=== PATIENT | female | born 1980 | race Caucasian/White ===

== ENCOUNTER → 2016-08-01 | Outpatient (CLI) | payer OTHER ==
--- NOTE | 2016-08-01 11:55 | FL ---
EXAMINATION TYPE: FL barium swallow DATE OF EXAM: 08/01/2016 11:29 AM LIMITED UGI-ESOPHAGRAM: CLINICAL HISTORY: History of Zack fundoplication surgery 2015 with recurrent epigastric pain or re flux-like symptoms over last 8 months. Some relief with reflux-like medications. TECHNIQUE: Limited esophagram is performed utilizing 4 oz of liquid ez-Paque. A total of 24 seconds of fluoroscopic time was utilized during procedure. FINDINGS: The patient swallowed contrast without difficulty or delay. Esophageal peristalsis and mo tility are within normal limits. There is good flow of contrast along the diaphragmatic hiatus into t he stomach, there is no evidence of contrast extravasation to suggest leak. No recurrent hiatal herni a is seen. Patient is asymptomatic. IMPRESSION: No significant finding is seen to account for patient's symptoms. No recurrent sizable hi atal hernia is evident.
== END | disposition home or self-care (01) ==
LOC: RADFLWHC 10:52
PROVIDERS: ATTEND Surgery
DX: K21.9 Gastro-esophageal reflux disease without esophagitis (principal)
CPT/HCPCS: 74220

== ENCOUNTER 2016-08-11 08:31 | Day surgery (SDC) | payer OTHER ==
[2016-08-08 11:36] VITALS: BMI 38.7
[2016-08-11 09:09] VITALS: RESP 16; TEMP 97.2
[2016-08-11] MEDS: LACTATED RINGERS 1,000 ML IV SCH ×2 (09:17→09:23)
[2016-08-11] MEDS ORDERED: PROPOFOL 10 MG/ML 20 ML VIAL IV ONE (09:25)
--- NOTE | 2016-08-11 09:28 | P.GSHP ---
History of Present Illness H&P Date: 08/11/16 Chief Complaint: GERD This is a 35-year-old female referred from Dr. Wilfrid Gann. Patient presents today for EGD. She's had issues with GERD. - Constitutional Constitutional: Reports as per HPI Past Medical History Past Medical History: Fibromyalgia, GERD/Reflux, Rheumatoid Arthritis (RA) Additional Past Medical History / Comment(s): CELIAC DISEASE, HX OF HIATAL HERNIA REPAIR( 2014)., STATES NOW HAVING UPPER ABD PAIN, HEARTBURN AND OCCASIONAL NAUSEA. History of Any Multi-Drug Resistant Organisms: None Reported Past Surgical History: Section, Cholecystectomy, Hernia Repair, Orthopedic Surgery Additional Past Surgical History / Comment(s): left thumb, rt hand and left foot surgery, carpal tunnel, jeanette fundoplasty 2014 Past Anesthesia/Blood Transfusion Reactions: No Reported Reaction, Motion Sickness Additional Past Anesthesia/Blood Transfusion Reaction / Comment(s): mother- PONV Past Psychological History: Anxiety Additional Psychological History / Comment(s): PAST HX OF ANXIETY. Smoking Status: Current every day smoker Past Alcohol Use History: None Reported Additional Past Alcohol Use History / Comment(s): started smoking @age of 16. SMOKES 1/2 PPD. SMOKING FOR APPROX 20 YEARS. Past Drug Use History: None Reported - Past Family History Mother Family Medical History: No Reported History Additional Family Medical History / Comment(s): GRANDMOTHER- MULTIPLE DVTS Medications and Allergies Home Medications Medication Instructions Recorded Confirmed Type DULoxetine HCL [Cymbalta] 60 mg PO DAILY 02/09/14 08/11/16 History Methotrexate Sodium [Methotrexate] 15 mg PO TU 01/22/15 08/11/16 History Acetaminophen [Tylenol] 325 mg PO DIRECTED PRN 08/08/16 08/11/16 History Omeprazole [PriLOSEC] 40 mg PO DAILY 08/08/16 08/11/16 History Allergies Allergy/AdvReac Type Severity Reaction Status Date / Time gluten Allergy Unknown Verified 08/11/16 08:55 latex Allergy Itching, Verified 08/11/16 08:55 red skin naproxen Allergy Itching Verified 08/11/16 08:55 feels like bugs are crawling on her Penicillins Allergy Anaphylaxis Verified 08/11/16 08:55 Surgical - Exam Vital Signs Temp Pulse Resp BP Pulse Ox 97.2 F L 75 16 121/71 98 08/11/16 09:07 08/11/16 09:07 08/11/16 09:07 08/11/16 09:07 08/11/16 09:07 - General BMI 39 well developed, no distress - Eyes PERRL - ENT normal pinna - Neck no masses - Respiratory normal expansion - Cardiovascular Rhythm: regular - Abdomen Abdomen: soft, non tender Assessment and Plan Plan: GERD. We'll perform EGD.
--- NOTE | 2016-08-11 09:40 | P.OP ---
Date of Procedure: 08/11/16 Preoperative Diagnosis: GERD Postoperative Diagnosis: Mild antral gastritis No evidence of esophagitis No evidence of hiatal hernia Procedure(s) Performed: EGD Anesthesia: MAC Surgeon: Ed Sanchez Pathology: other (Antrum) Condition: stable Disposition: PACU Description of Procedure: The patient's placed on the endoscopy table in the lateral position. She received IV sedation. The gastroscope some placed oropharynx and passed into the esophagus and into the stomach. Scope was then placed through the pylorus. The first and second portion of the duodenumAppeared Normal. Scope was then brought back and the antrum thisAppeared Mildly inflamed. A biopsy was performed. The scope was retroflexed and remainder of the stomach appeared normal. There was no significant hiatal hernia. The GE junction was at 40 cm. The patient had a previous fundal plication wrap and this appeared normal. The distal esophagus appeared normal. The proximal esophagusAppeared Normal. Scope was withdrawn for patient.
[2016-08-11 10:06] VITALS: BP 101/65; PULSE 79
== END 2016-08-11 10:20 | disposition home or self-care (01) ==
LOC: ORWHC2ENDO 08:31
PROVIDERS: ATTEND Surgery
DX: K21.9 Gastro-esophageal reflux disease without esophagitis (principal); K29.70 Gastritis, unspecified, without bleeding; F17.210 Nicotine dependence, cigarettes, uncomplicated; M06.9 Rheumatoid arthritis, unspecified; K90.0 Celiac disease; M79.7 Fibromyalgia; Z88.0 Allergy status to penicillin; Z79.899 Other long term (current) drug therapy; Z91.040 Latex allergy status; K29.50 Unspecified chronic gastritis without bleeding
CPT/HCPCS: 88305; 88342; 43239; J2704; 99153

== ENCOUNTER → 2016-12-23 | Outpatient (CLI) | payer OTHER ==
--- NOTE | 2016-12-23 15:54 | MR ---
EXAMINATION TYPE: MR lumbar spine wo con DATE OF EXAM: 12/23/2016 COMPARISON: NONE HISTORY: Back pain TECHNIQUE: T1 and T2 axial and sagittal images of the lumbar spine are submitted. FINDINGS: There is no abnormal signal seen within the visualized spinal cord or paraspinal soft tissu es. Simple appearing left renal cyst noted. At L1-2 there is no disc herniation, canal stenosis, or foraminal encroachment. No degenerative disc disease. At L2-3 there is no disc herniation, canal stenosis, or foraminal encroachment. No degenerative disc disease. At L3-4 there is no disc herniation, canal stenosis, or foraminal encroachment. No degenerative disc disease. At L4-5 there is loss of disc signal and space with a small focal central disc herniation with mild e ffacement of thecal sac. Neural foramina remain patent. There is facet arthropathy. At L5-S1 there is severe degenerative disc disease and facet arthropathy. No canal stenosis, disc her niation or foraminal encroachment. IMPRESSION: 1. Focal small central disc herniation L4-L5 with mild effacement of thecal sac. 2. Severe degenerative disc disease L5-S1
== END | disposition home or self-care (01) ==
LOC: RADMRIMAIN 15:04
PROVIDERS: ATTEND Family Medicine
DX: M51.17 Intervertebral disc disorders with radiculopathy, lumbosacral region (principal)
CPT/HCPCS: 72148

== ENCOUNTER → 2017-12-17 | Outpatient (CLI) | payer OTHER ==
--- NOTE | 2017-12-17 11:00 | FL ---
EXAMINATION: Upper GI examination with esophagram DATE OF EXAM: 12/17/2017 CLINICAL INDICATION: 37-year-old female with persistent and worsening GERD despite Yesenia fundoplicat ion 3 years ago. Worsening over the last 1.5 months. COMPARISON: 08/01/2016 Total Flouroscopy Time: 2.44 minutes Total images: 31 FINDINGS: Mild aspiration is noted during assessment of the cervical esophagus. The patient's cough reflex is i ntact and the patient reports similar frequent episodes during eating/drinking. Hypopharyngeal anatom y is maintained. The thoracic portion has a normal course and caliber and normal motility. The mucosa is normal and no persistent filling defect is encountered. There is relative focal narrowing just above the level of the diaphragm and then a small hiatal herni a is seen above this narrowing, refer to image 29 for a environmental marketing representative image. Mild to moderate gastroesophageal reflux is noted with positional maneuvers. The stomach and duodenum are free of any persistent filling defect and demonstrate a normal mucosal p attern. IMPRESSION: 1. Mild aspiration. The cough reflex is intact. As the patient reports similar frequent episodes, con manager document control speech pathology consultation. 2. Findings suspected to represent a slipped wrap located above the diaphragm in combination with a r ecurrent small hiatal hernia located above the wrap. 3. [id number] gastroesophageal reflux.
== END | disposition home or self-care (01) ==
LOC: RADFLMAIN 09:32
PROVIDERS: ATTEND Surgery
DX: K21.9 Gastro-esophageal reflux disease without esophagitis (principal); R05 Cough
CPT/HCPCS: 74240

== ENCOUNTER 2018-01-05 09:41 | Day surgery (SDC) | payer OTHER ==
[2018-01-04 11:30] VITALS: BMI 40.3
[~2018-01-05 09:41] MED LIST: LACTATED RINGERS 1,000 ML IV SCH; LIDOCAINE 1% 20 ML VIAL (10MG/ML) FOR IV START INTRADERMA PRN
[2018-01-05 10:10] VITALS: TEMP 97.3
[2018-01-05] MEDS ORDERED: PROPOFOL 10 MG/ML 20 ML VIAL IV ONE (10:43)
--- NOTE | 2018-01-05 10:47 | P.GSHP ---
History of Present Illness H&P Date: 01/05/18 Chief Complaint: GERD This is a 37-year-old female who presents today for EGD. She's had issues with GERD and dysphagia. Her recent esophagram showed is suggestive of a slipped fundoplication. Past Medical History Past Medical History: Fibromyalgia, GERD/Reflux, Rheumatoid Arthritis (RA) Additional Past Medical History / Comment(s): past hx. hiatal hernia-had surg., celiac disease History of Any Multi-Drug Resistant Organisms: None Reported Past Surgical History: Section, Cholecystectomy, Orthopedic Surgery Additional Past Surgical History / Comment(s): left thumb, rt hand and left foot surgery, carpal tunnel, jeanette fundoplasty Feb. 2014 Past Anesthesia/Blood Transfusion Reactions: No Reported Reaction, Motion Sickness Additional Past Anesthesia/Blood Transfusion Reaction / Comment(s): mother- PONV Smoking Status: Current every day smoker - Past Family History Mother Family Medical History: No Reported History Medications and Allergies Home Medications Medication Instructions Recorded Confirmed Type DULoxetine HCL [Cymbalta] 60 mg PO DAILY 02/09/14 01/05/18 History Omeprazole [PriLOSEC] 40 mg PO BID 08/08/16 01/05/18 History Adalimumab [Humira] 10 mg SQ Q14D 01/04/18 01/05/18 History Cyclobenzaprine [Flexeril] 10 mg PO BID 01/04/18 01/05/18 History Allergies Allergy/AdvReac Type Severity Reaction Status Date / Time gluten Allergy Unknown Verified 01/05/18 10:01 latex Allergy Itching, Verified 01/05/18 10:01 red skin naproxen Allergy Itching Verified 01/05/18 10:01 feels like bugs are crawling on her Penicillins Allergy Anaphylaxis Verified 01/05/18 10:01 Surgical - Exam Vital Signs Temp Pulse Pulse Ox 97.3 F L 78 96 01/05/18 10:05 01/05/18 10:05 01/05/18 10:05 Body mass index 40 - General well developed, no distress - Eyes PERRL - ENT normal pinna - Neck no masses - Respiratory normal expansion - Cardiovascular Rhythm: regular - Abdomen Abdomen: soft, non tender Assessment and Plan Assessment: GERD, dysphagia. Possible slipped fundoplication. Patient will undergo EGD.
--- NOTE | 2018-01-05 11:01 | P.OP ---
Date of Procedure: 01/05/18 Preoperative Diagnosis: GERD Dysphagia Postoperative Diagnosis: Antral gastritis Recurrent hiatal hernia Esophagitis Procedure(s) Performed: EGD Anesthesia: MAC Surgeon: Ed Sanchez Pathology: other (Antrum, esophagus) Condition: stable Disposition: PACU Description of Procedure: The patient's placed on the endoscopy table in the lateral position. She received IV sedation. The gastroscope placed oropharynx and passed in the esophagus into the stomach. Scope was then placed through the pylorus. The first and second portion of the duodenum appeared normal. The scope was then brought back the antrum this was mildly inflamed. A biopsies performed. The scope was unretroflexed and the remainder of the stomach appeared normal. The patient was noted to have recurrent hiatal hernia. The fundal plication was above the diaphragm. The scope was then brought back into the proximal stomach. The hiatal hernia was visualized. The GE junction was at 38 cm. The distal esophagus appeared inflamed a biopsies performed. The proximal esophagus appeared normal. Scope was withdrawn for patient.
[2018-01-05 11:11] VITALS: RESP 16
[2018-01-05 11:22] VITALS: BP 130/68; PULSE 88
== END 2018-01-05 11:45 | disposition home or self-care (01) ==
LOC: ORWHC2ENDO 09:41
PROVIDERS: ATTEND Surgery
DX: K21.0 Gastro-esophageal reflux disease with esophagitis (principal); K44.9 Diaphragmatic hernia without obstruction or gangrene; M79.7 Fibromyalgia; M06.9 Rheumatoid arthritis, unspecified; F17.200 Nicotine dependence, unspecified, uncomplicated; R13.10 Dysphagia, unspecified; Z79.899 Other long term (current) drug therapy; Z88.0 Allergy status to penicillin; Z88.6 Allergy status to analgesic agent; Z91.02 Food additives allergy status; Z91.040 Latex allergy status; F39 Unspecified mood [affective] disorder
CPT/HCPCS: 81025; 88305; 43239; J2704

== ENCOUNTER → 2018-01-08 | Outpatient (CLI) | payer OTHER ==
[2018-01-08 17:30] LABS: Basophils % (A) 0 %; Eosinophils # (A) 0.2 k/uL (0-0.7); Eosinophils % (A) 2 %; HCT 40.7 % (34.0-46.0); HGB 12.8 gm/dL (11.4-16.0); Hypochromasia Slight; Lymphocytes # (A) 4.7 k/uL (1.0-4.8); Lymphocytes % (A) 39 %; MCH 26.1 pg (25.0-35.0); MCHC 31.5 g/dL (31.0-37.0); MCV 82.8 fL (80.0-100.0); Mean Platelet Volume 6.1; Monocytes # (A) 0.5 k/uL (0-1.0); Monocytes % (A) 5 %; Neutrophils # (A) 6.3 k/uL (1.3-7.7); Neutrophils % (A) 52 %; Platelet Count 343 k/uL (150-450); RBC 4.91 m/uL (3.80-5.40); WBC 12.1 k/uL (3.8-10.6)
== END | disposition home or self-care (01) ==
LOC: LABPAT 16:39
PROVIDERS: ATTEND Surgery
DX: Z01.812 Encounter for preprocedural laboratory examination (principal); K21.0 Gastro-esophageal reflux disease with esophagitis; R13.19 Other dysphagia; F17.200 Nicotine dependence, unspecified, uncomplicated; D64.9 Anemia, unspecified
CPT/HCPCS: 36415; 85025

== ENCOUNTER 2018-01-11 09:32 | Day surgery (SDC) | payer OTHER ==
[2018-01-04 11:41] VITALS: BMI 40.3
[~2018-01-11 09:32] MED LIST changes: +CLINDAMYCIN 900 MG in DEXTROSE 5% IN WATER 50 ML IVPB ONE; +DEXAMETHASONE SOD PHOSPHATE 10 MG/ML 1 ML VIAL IV ONE; +HEPARIN SODIUM,PORCINE 5,000 UNIT/ML 1 ML VIAL SQ ONE; +HYDROmorphone 0.5 MG/0.5 ML SYRINGE IVP PRN; -LACTATED RINGERS 1,000 ML IV SCH; +LEVOFLOXACIN 500MG-D5W PMX 500 MG in DEXTROSE/WATER 1 100ML.BAG IVPB ONE; +MIDAZOLAM 2 MG/2 ML VIAL IV PRN; +ONDANSETRON 4 MG/2 ML VIAL IVP ONE; +SCOPOLAMINE 1.5MG/72HR PATCH TRANSDERM ONE
[2018-01-11] MEDS: LACTATED RINGERS 1,000 ML IV SCH (09:51)
[2018-01-11] MEDS ORDERED: DEXAMETHASONE SOD PHOSPHATE 10 MG/ML 1 ML VIAL IV ONE (09:53)
[2018-01-11] MEDS ORDERED: SCOPOLAMINE 1.5MG/72HR PATCH TRANSDERM ONE (09:54)
[2018-01-11] MEDS ORDERED: ONDANSETRON 4 MG/2 ML VIAL IVP ONE (09:54)
--- NOTE | 2018-01-11 11:09 | P.GSHP ---
History of Present Illness H&P Date: 01/11/18 Chief Complaint: GERD This a 37-year-old female who developed a recurrent hiatal hernia. Patient presents today for laparoscopic repair of hiatal hernia. She's had worsening dysphagia and GERD. Past Medical History Past Medical History: Fibromyalgia, GERD/Reflux, Rheumatoid Arthritis (RA) Additional Past Medical History / Comment(s): past hx. hiatal hernia-had surg., celiac disease History of Any Multi-Drug Resistant Organisms: None Reported Past Surgical History: Section, Cholecystectomy, Orthopedic Surgery Additional Past Surgical History / Comment(s): left thumb, rt hand and left foot surgery, carpal tunnel, jeanette fundoplasty Feb. 2014 Past Anesthesia/Blood Transfusion Reactions: No Reported Reaction, Motion Sickness Additional Past Anesthesia/Blood Transfusion Reaction / Comment(s): mother- PONV Smoking Status: Current every day smoker - Past Family History Mother Family Medical History: No Reported History Medications and Allergies Home Medications Medication Instructions Recorded Confirmed Type DULoxetine HCL [Cymbalta] 60 mg PO DAILY 02/09/14 01/11/18 History Omeprazole [PriLOSEC] 40 mg PO BID 08/08/16 01/11/18 History Adalimumab [Humira] 10 mg SQ Q14D 01/04/18 01/11/18 History Cyclobenzaprine [Flexeril] 10 mg PO BID 01/04/18 01/11/18 History Allergies Allergy/AdvReac Type Severity Reaction Status Date / Time gluten Allergy Unknown Verified 01/11/18 09:44 latex Allergy Itching, Verified 01/11/18 09:44 red skin naproxen Allergy Itching Verified 01/11/18 09:44 feels like bugs are crawling on her Penicillins Allergy Anaphylaxis Verified 01/11/18 09:44 Surgical - Exam Vital Signs Temp Pulse Resp BP Pulse Ox 97.2 F L 98 18 132/57 100 01/11/18 09:48 01/11/18 09:48 01/11/18 09:48 01/11/18 09:48 01/11/18 09:48 - General well developed, no distress - Eyes PERRL - ENT normal pinna - Neck no masses - Respiratory normal expansion - Cardiovascular Rhythm: regular - Abdomen Abdomen: soft, non tender Assessment and Plan Assessment: GERD, dysphagia. Recurrent hiatal hernia We'll perform laparoscopic repair of hiatal hernia
[2018-01-11] MEDS ORDERED: fentaNYL (PF) 50 MCG/ML 2 ML AMP ONE (11:30)
[2018-01-11] MEDS ORDERED: ROCURONIUM BROMIDE 10 MG/ML 10 ML VIAL IV ONE (11:30)
[2018-01-11] MEDS ORDERED: GLYCOPYRROLATE 0.2 MG/ML 2 ML VIAL ONE (11:30)
[2018-01-11] MEDS ORDERED: PROPOFOL 10 MG/ML 20 ML VIAL IV ONE (11:30)
[2018-01-11] MEDS ORDERED: MIDAZOLAM 2 MG/2 ML VIAL ONE (11:30)
[2018-01-11] MEDS ORDERED: NEOSTIGMINE 1 MG/ML 10 ML VIAL ONE (11:30)
[2018-01-11] MEDS ORDERED: LIDOCAINE 1% INJ 10MG/ML (20 ML MDV) ONE (11:30)
[2018-01-11] MEDS ORDERED: ePHEDrine SULFATE/0.9% NACL/PF 50 MG/5 ML SYRINGE IV ONE (11:30)
[2018-01-11] MEDS ORDERED: HYDROmorphone (PF) 1 MG/ML ONE (11:30)
[2018-01-11] MEDS ORDERED: SUCCINYLCHOLINE CHLORIDE 100 MG/5 ML SYR IV ONE (11:30)
[2018-01-11] MEDS ORDERED: ROPIVACAINE 5 MG/ML 30 ML VIAL MISCELLANE ONE ×2 (11:35)
[2018-01-11] MEDS ORDERED: LACTATED RINGERS 1,000 ML IV ONE (12:09)
[2018-01-11] MEDS ORDERED: ONDANSETRON 4 MG/2 ML VIAL IVP PRN (12:53)
[2018-01-11] MEDS ORDERED: HYDROmorphone 1 MG/ML 1 ML SYRINGE IVP PRN (12:53)
[2018-01-11] MEDS ORDERED: HYDROmorphone 1 MG/ML 1 ML SYRINGE IVP ONE ×2 (13:31→13:41)
--- NOTE | 2018-01-11 14:47 | P.OP ---
Date of Procedure: 01/11/18 Preoperative Diagnosis: Recurrent hiatal hernia GERD Postoperative Diagnosis: Recurrent hiatal hernia Adhesions Procedure(s) Performed: Laparoscopic repair of recurrent hiatal hernia and 180 fundal plication wrap Laparoscopic lysis of adhesions Anesthesia: ELIAS Surgeon: Ed Sanchez Estimated Blood Loss (ml): 10 Pathology: none sent Condition: stable Disposition: PACU Description of Procedure: TThe patient was placed on the operating table in the supine position. The patient received general anesthesia. And was placed in dorsal lithotomy position. The patient was prepped and draped in the usual sterile fashion. The skin incision sites were anesthetized with 1% local Xylocaine. The skin was incised in the left periumbilical area and then using a blade less 5 mm trocar under direct visualization panel cavity was entered. After adequate insufflation the laparoscope was then placed into the peritoneal cavity. Next a 5 mm trochars placed in the right epigastric position. Another 5 millimeter trocar the right lateral position. Another 5 millimeter trocar in the left lateral position a 5 mm trocar is placed in the left epigastric position. And then the initial 5 mm trocar was exchanged for a 10 mm trocar. The left lateral lobe liver was retracted. The patient's hiatus was examined. There is evidence of recurrent hiatal hernia. Part of the fundoplication wrap was within the hernia. There were adhesions noted between the stomach and liver. These were lysed with sharp dissection. Using the Harmonic scissors the fundoplication was taken down and the isac of the diaphragm were dissected free. The sutures were then cut and the fundoplication was completely taken down. The crural defect was then closed using 2-0 Ethibond suture. The fundoplication was then performed using 2 -0 Ethibond. 180 fundoplication was performed. There is no bleeding from the hiatus the stomach. The stomach was insufflated with methylene blue normal saline. There is no evidence of any extravasation. At this point the trochars withdrawn. The abdomen was desufflated. The skin was closed interrupted 3-0 Monocryl suture. Dermabond was applied.
[2018-01-11 15:27] LABS: Basophils % (A) 0 %; Eosinophils % (A) 0 %; HCT 41.1 % (34.0-46.0); HGB 12.6 gm/dL (11.4-16.0); Hypochromasia Slight; Lymphocytes % (A) 12 %; MCH 25.1 pg (25.0-35.0); MCHC 30.6 g/dL (31.0-37.0); MCV 82.1 fL (80.0-100.0); Mean Platelet Volume 6.4; Monocytes # (A) 0.2 k/uL (0-1.0); Monocytes % (A) 2 %; Neutrophils # (A) 7.3 k/uL (1.3-7.7); Neutrophils % (A) 85 %; Platelet Count 281 k/uL (150-450); RBC 5.01 m/uL (3.80-5.40); RDW 15.8 % (11.5-15.5); WBC 8.6 k/uL (3.8-10.6)
[2018-01-11] MEDS: D5-0.45% NACL WITH KCL 20MEQ/L 1,000 ML IV SCH ×2 (15:30→21:13)
[2018-01-11 15:41] LABS: Anion Gap 6 mmol/L; Blood Urea Nitrogen 9 mg/dL (7-17); Calcium 8.6 mg/dL (8.4-10.2); Carbon Dioxide 26 mmol/L (22-30); Chloride 104 mmol/L (98-107); Glucose 104 mg/dL (74-99); Potassium 5.2 mmol/L (3.5-5.1); Sodium 136 mmol/L (137-145)
--- NOTE | 2018-01-11 16:16 | FL ---
EXAMINATION TYPE: FL esophagus cervic/pharynx DATE OF EXAM: 01/11/2018 HISTORY: Status post Yesenia fundoplication revision COMPARISON: NONE TECHNIQUE: Limited esophagram is performed utilizing 10 oz of Omnipaque 350. A total of 1 minute and 5 seconds of fluoroscopic time was utilized during procedure. 15 fluoroscopic images were saved. FINDINGS: The patient swallowed contrast without difficulty or delay. Esophageal peristalsis and mo tility are within normal limits. There is moderately delayed flow of contrast along the diaphragmatic hiatus into the stomach, there is no evidence of contrast extravasation to suggest leak. No persiste nt hiatal hernia is seen. Patient remains asymptomatic. IMPRESSION: No evidence of leak status post Zack fundoplication surgery earlier today. Moderately d elayed passage of contrast along the diaphragmatic hiatus into the stomach likely related to postoper ative edema.
[2018-01-11] MEDS: METOCLOPRAMIDE 5 MG/ML 2 ML VIAL IVP SCH ×2 (17:54→23:53)
[2018-01-11] MEDS: FAMOTIDINE 20 MG/2 ML VIAL IV SCH (21:12)
[2018-01-12] MEDS: METOCLOPRAMIDE 5 MG/ML 2 ML VIAL IVP SCH ×2 (06:01→11:54)
[2018-01-12] MEDS: LACTATED RINGERS 1,000 ML IV SCH (06:09)
[2018-01-12] MEDS: D5-0.45% NACL WITH KCL 20MEQ/L 1,000 ML IV SCH (06:10)
[2018-01-12 08:24] VITALS: BP 114/68; PULSE 73; RESP 18; TEMP 97.7
[2018-01-12] MEDS: FAMOTIDINE 20 MG/2 ML VIAL IV SCH (08:35)
[2018-01-12] MEDS ORDERED: ENOXAPARIN 40 MG/0.4 ML SYRINGE SQ SCH (09:00)
[2018-01-12] MEDS ORDERED: HYDROcodone/APAP 5-325MG 1 EACH TAB PO PRN (10:34)
--- NOTE | 2018-01-12 10:38 | P.CONS ---
History of Present Illness - Reason for Consult Consult date: 01/12/18 medical management Requesting physician: Ed Sanchez - Chief Complaint GERD - History of Present Illness 37-year-old female who underwent laparoscopic Yesenia fundoplication and repair of recurrent hiatal hernia on 01/11/[address] Burns was consulted for medical management. The patient has a history of fibromyalgia, rheumatoid arthritis, anxiety, and depression. She has a long- standing history of GERD. She is a current every day smoker. The patient was seen and examined at the bedside. The patient is awake and alert. Patient states her pain is tolerable at this time. She does complain of left shoulder pain. Encouraged patient to increase activity and ambulate in the hallway. Patient reports she is using her incentive spirometer 10 times an hour. She denies shortness of breath. Denies chest pain or pressure. Denies nausea or vomiting. She reports she is tolerating clear liquid diet. She is hopeful to be discharged home today. Review of Systems Those systems with pertinent positive or pertinent negative responses have been documented in the HPI Past Medical History Past Medical History: Fibromyalgia, GERD/Reflux, Rheumatoid Arthritis (RA) Additional Past Medical History / Comment(s): past hx. hiatal hernia-had surg., celiac disease History of Any Multi-Drug Resistant Organisms: None Reported Past Surgical History: Section, Cholecystectomy, Orthopedic Surgery Additional Past Surgical History / Comment(s): left thumb, rt hand and left foot surgery, carpal tunnel, jeanette fundoplasty Feb. 2014 Past Anesthesia/Blood Transfusion Reactions: No Reported Reaction, Motion Sickness Additional Past Anesthesia/Blood Transfusion Reaction / Comm: mother- PONV Past Psychological History: Anxiety, Depression Smoking Status: Current every day smoker Past Alcohol Use History: None Reported Additional Past Alcohol Use History / Comment(s): started smoking @age of 16, < ppd Past Drug Use History: None Reported - Past Family History Mother Family Medical History: No Reported History Medications and Allergies Home Medications Medication Instructions Recorded Confirmed Type DULoxetine HCL [Cymbalta] 60 mg PO DAILY 02/09/14 01/11/18 History Omeprazole [PriLOSEC] 40 mg PO BID 08/08/16 01/11/18 History Adalimumab [Humira] 10 mg SQ Q14D 01/04/18 01/11/18 History Cyclobenzaprine [Flexeril] 10 mg PO BID 01/04/18 01/11/18 History Allergies Allergy/AdvReac Type Severity Reaction Status Date / Time gluten Allergy Unknown Verified 01/11/18 09:44 latex Allergy Itching, Verified 01/11/18 09:44 red skin naproxen Allergy Itching Verified 01/11/18 09:44 feels like bugs are crawling on her Penicillins Allergy Anaphylaxis Verified 01/11/18 09:44 Physical Exam Vitals: Vital Signs Temp Pulse Pulse Resp BP Pulse Ox 01/12/18 08:05 97.7 F 73 18 114/68 95 01/11/18 22:32 86 12 94 L 01/11/18 19:35 98.1 F 114 H 20 106/49 93 L 01/11/18 16:57 66 12 126/75 96 01/11/18 16:27 66 120/77 96 01/11/18 15:20 69 12 130/86 93 L 01/11/18 14:50 64 113/87 92 L 01/11/18 14:35 67 108/84 87 L 01/11/18 14:20 62 111/69 90 L 01/11/18 14:05 97.8 F 61 19 112/42 95 01/11/18 13:45 62 14 121/59 92 L 01/11/18 13:30 64 14 123/59 96 01/11/18 13:15 63 16 118/55 96 01/11/18 12:53 97.4 F L 73 15 130/60 96 Intake and Output 01/11/18 01/12/18 01/12/18 22:59 06:59 14:59 Output Total 510 Balance -510 Output: Urine 510 Other: # Voids 1 1 GENERAL: This is a 37-year-old female in no apparent distress at the time of examination. Pleasant and cooperative. HEENT: Head is atraumatic, normocephalic. Pupils are equal, round, and reactive to light. Sclerae anicteric. Conjunctivae are clear. Mucus membranes of the mouth are moist. Neck is supple. RESPIRATORY: Clear to ausculation. No wheezes, rales, or rhonchi. No use of accessory muscles. Patient maintaining oxygen saturation greater than 92%. No chest wall tenderness is noted on palpation or with deep breathing. CARDIOVASCULAR: Regular rate and rhythm. S1 and S2 noted. No systolic or diastolic murmur auscultated. No JVD noted. No S3 or S4 noted. GASTROINTESTINAL: Laparoscopic surgical sites without signs of infection. No distention noted. Abdomen soft and round. Normal active bowel sounds auscultated x 4 quadrants. INTEGUMENTARY: No cyanosis. No jaundice. No rashes noted. No cellulitis noted. EXTREMITIES: 2+ peripheral pulses. No evidence of peripheral edema. No calf tenderness noted. NEUROLOGIC: Cranial nerves II-XII intact. PSYCHIATRIC: Awake, alert, and oriented X 3. Appropriate affect. Intact judgement and insight. Results CBC & Chem 7: 01/11/18 14:54 01/11/18 14:54 Labs: Abnormal Lab Results - Last 24 Hours (Table) 01/11/18 01/11/18 Range/Units 14:54 14:54 MCHC 30.6 L (31.0-37.0) g/dL RDW 15.8 H (11.5-15.5) % Sodium 136 L (137-145) mmol/L Potassium 5.2 H (3.5-5.1) mmol/L Glucose 104 H (74-99) mg/dL Assessment and Plan Plan: ASSESSMENT: Gastroesophageal reflux disease and recurrent hiatal hernia, status post laparoscopic Yesenia fundoplication, POD #1 History of fibromyalgia History of rheumatoid arthritis History of anxiety and depression, unspecified Nicotine dependence, patient is a current cigarette smoker Morbid obesity: BMI 40.4 PLAN: Continue postoperative surgical care per Dr. Sanchez Pain control Activity as tolerated. Encourage ambulation in the hallway Home meds as appropriate Incentive spirometer 10 times an hour while awake Monitor labs GI prophylaxis: Pepcid 20 mg IV every 12 DVT prophylaxis: Lovenox 40 mg subcu daily Monitor vital signs and address as appropriate Discharge planning: Patient to return home when stable Further recommendations pending patient's course Patient is cleared for discharge from a medical standpoint when deemed appropriate by Dr. Sanchez Nurse practitioner note has been reviewed by physician. Signing provider agrees with the documented findings, assessment, and plan of care.
--- NOTE | 2018-01-12 13:42 | P.DS ---
Providers Date of admission: 01/11/2018 Expected date of discharge: 01/12/18 Attending physician: Ed Sanchez Consults: 01/12/18 09:29 Consult Physician Routine Consulting Provider: Wilfrid Burns Consult Reason/Comments: Medical management Do you want consulting provider notified?: Yes Primary care physician: Wilfrid Burns [place] [facility] Course: This a 36-year-old female who underwent laparoscopic repair of recurrent hiatal hernia. Please see hospital chart for details. Procedures: Laparoscopic repair of recurrent hiatal hernia Patient Condition at Discharge: Good Plan - Discharge Summary Discharge Rx Participant: Yes New Discharge Prescriptions: New Docusate [Colace] 100 mg PO BID #20 capsule HYDROcodone/APAP 7.5-325MG [Tully 7.5-325] 1 tab PO Q4H PRN 3 Days #18 tab PRN Reason: Pain Continue DULoxetine HCL [Cymbalta] 60 mg PO DAILY Cyclobenzaprine [Flexeril] 10 mg PO BID Adalimumab [Humira] 10 mg SQ Q14D No Action Omeprazole [PriLOSEC] 40 mg PO BID Discharge Medication List DULoxetine HCL [Cymbalta] 60 mg PO DAILY 02/09/14 [History] Omeprazole [PriLOSEC] 40 mg PO BID 08/08/16 [History] Adalimumab [Humira] 10 mg SQ Q14D 01/04/18 [History] Cyclobenzaprine [Flexeril] 10 mg PO BID 01/04/18 [History] Docusate [Colace] 100 mg PO BID #20 capsule 01/12/18 [Rx] HYDROcodone/APAP 7.5-325MG [Tully 7.5-325] 1 tab PO Q4H PRN 3 Days #18 tab 01/12 [Rx] Follow up Appointment(s)/Referral(s): Wilfrid Burns DO [Primary Care Provider] - 2 Weeks Ed Sanchez MD [STAFF PHYSICIAN] - 1 Week Patient Instructions/Handouts: *Surgery [facility] - Scopalamine Patch Instructions Discharge Disposition: HOME SELF-CARE
[2018-01-12] MEDS ORDERED: CYCLOBENZAPRINE 10 MG TAB PO SCH (21:00)
[2018-01-13] MEDS ORDERED: DULoxetine HCL 60 MG CAPSULE.DR PO SCH (09:00)
== END 2018-01-12 14:36 | disposition home or self-care (01) ==
LOC: OR 09:32 → 6PED 13:11 → OR 01-12 14:36
PROVIDERS: ATTEND Surgery
DX: K44.9 Diaphragmatic hernia without obstruction or gangrene (principal); K66.0 Peritoneal adhesions (postprocedural) (postinfection); K21.9 Gastro-esophageal reflux disease without esophagitis; M79.7 Fibromyalgia; M06.9 Rheumatoid arthritis, unspecified; F41.9 Anxiety disorder, unspecified; F32.9 Major depressive disorder, single episode, unspecified; K63.9 Disease of intestine, unspecified; E66.01 Morbid (severe) obesity due to excess calories; Z68.41 Body mass index [BMI] 40.0-44.9, adult; Z90.49 Acquired absence of other specified parts of digestive tract; Z79.899 Other long term (current) drug therapy; Z88.6 Allergy status to analgesic agent; Z91.040 Latex allergy status; Z88.0 Allergy status to penicillin; Z91.018 Allergy to other foods; F17.210 Nicotine dependence, cigarettes, uncomplicated
CPT/HCPCS: 81025; 80048; 85025; 74210; 43280; J1644; J1100; J2765 ×2; J2405; J1956; J1650; J1170; J2795; Q9967; 86850; 86900; 86901

== ENCOUNTER → 2018-03-11 | Outpatient (CLI) | payer OTHER ==
--- NOTE | 2018-03-12 03:47 | MR ---
EXAMINATION TYPE: MR ankle RT wo/w con DATE OF EXAM: 03/11/2018 COMPARISON: None HISTORY: Rt ankle pain x 1 month, no trauma CONTRAST: Standard multiplanar, multisequence MRI departmental protocol utilizing 11.5 mL intravenous Gadavist gadolinium contrast. FINDINGS: Achilles tendon is intact. Plantar fascia appears normal. Ankle mortise is anatomic. The co llateral ligaments appear intact. The medial and lateral flexor tendons of the ankle appear intact. T arsal bones appear intact. I see no focal bone destruction. There is no evidence of a soft tissue mas s. There is a very small ankle joint effusion. IMPRESSION: No fracture seen. Tiny ankle joint effusion consistent with mild synovitis. No evidence of ligament o r tendon tear. Normal joint spaces.
== END | disposition home or self-care (01) ==
LOC: RADMRIMAIN 19:22
PROVIDERS: ATTEND Internal Medicine Rheumatology
DX: M12.871 Other specific arthropathies, not elsewhere classified, right ankle and foot (principal)
CPT/HCPCS: 73723; A9581

== ENCOUNTER → 2018-04-14 | Outpatient (CLI) | payer OTHER ==
[2018-04-15 03:48] LABS: Folate, Serum 3.1 ng/mL
[2018-04-15 04:30] LABS: C Reactive Protein 0.4 mg/dL (0.0-0.8); Rheumatoid Factor 185 IU/mL (0-15)
[2018-04-15 04:54] LABS: DNA Double-Stranded NEGATIVE (NEGATIVE)
== END | disposition home or self-care (01) ==
LOC: LABWHC1 16:16
PROVIDERS: ATTEND Psychiatry & Neurology Neurology
DX: M54.16 Radiculopathy, lumbar region (principal)
CPT/HCPCS: 36415; 82565; 82607; 82746; 84520; 85652; 86038; 86140; 86225; 86431

== ENCOUNTER → 2018-04-15 | Outpatient (CLI) | payer OTHER ==
--- NOTE | 2018-04-19 07:56 | MR ---
EXAMINATION TYPE: MR lumbar spine wo/w con DATE OF EXAM: 04/15/2018 7:12 PM COMPARISON: 01/05/2017 HISTORY: LBP, BLE weakness CONTRAST: The patient was injected with 11.5 mL intravenous Gadavist gadolinium contrast. Multiplanar, MultiSpin echo imaging of the lumbar spine was performed. L1-L2: Normal disc appearance without desiccation. No herniation, protrusion or disc bulging. No ca nal stenosis is present. Foramina are patent bilaterally. L2-L3: Normal disc appearance without desiccation. No herniation, protrusion or disc bulging. No ca nal stenosis is present. Foramina are patent bilaterally. L3-L4: Normal disc appearance without desiccation. No herniation, protrusion or disc bulging. No ca nal stenosis is present. Foramina are patent bilaterally. L4-L5: Moderate disc desiccation. Posterocentral disc protrusion with annular tear. Mild effacement o f the ventral thecal sac. No evidence for central stenosis or lateral recess stenosis. Foramina are p atent bilaterally. L5-S1: Severe disc desiccation. Degenerative endplate marrow change. Posterocentral disc bulge withou t herniation. Mild annular tear. No lateral recess stenosis or central stenosis. Lumbar segments are intact. No paraspinal masses are identified. Conus medullaris has a normal appe arance. No pathologic enhancement following contrast administration. IMPRESSION: 1. Denerative disc disease as discussed. 2. Posterocentral disc protrusion with annular tear at L4-5. Posterocentral disc bulge with annular t ear at L5-S1 as noted above.
== END | disposition home or self-care (01) ==
LOC: RADMRIMAIN 18:09
PROVIDERS: ATTEND Psychiatry & Neurology Neurology
DX: M51.16 Intervertebral disc disorders with radiculopathy, lumbar region (principal)
CPT/HCPCS: 72158; A9585

== ENCOUNTER → 2018-07-23 | Outpatient (CLI) | payer OTHER ==
--- NOTE | 2018-07-23 14:47 | XR ---
EXAMINATION TYPE: XR lumbar spine 2 or 3V DATE OF EXAM: 07/23/2018 CLINICAL HISTORY: Low back pain for 3 weeks with no known injury TECHNIQUE: Frontal and lateral images of the lumbar spine are obtained. COMPARISON: None FINDINGS: There are 5 lumbar type vertebral bodies identified. The lumbar spine shows satisfactory alignment without evidence of acute fracture or dislocation. Vertebral body heights and disk space he ights are within normal limits. There are mild degenerative changes at the L5-S1 vertebral level with facet arthropathy, intervertebral disc space narrowing and endplate sclerosis. Cholecystectomy clips are noted. IMPRESSION: No acute fracture or dislocation is seen in the lumbar spine. Mild degenerative disc dis ease at L5-S1.
== END ==
LOC: RADXRMAIN 14:12
PROVIDERS: ATTEND Family Medicine
DX: M51.37 Other intervertebral disc degeneration, lumbosacral region (principal)
CPT/HCPCS: 72100

== ENCOUNTER → 2018-10-18 | Outpatient (CLI) | payer OTHER ==
[2018-10-18 14:10] VITALS: BP 134/89; PULSE 97; RESP 16; TEMP 98.4
[2018-10-18 15:20] LABS: Anisocytosis Slight; HGB 11.6 gm/dL (11.4-16.0); Hypochromasia Marked; MCH 23.9 pg (25.0-35.0); MCHC 30.4 g/dL (31.0-37.0); MCV 78.7 fL (80.0-100.0); Mean Platelet Volume 7.1; Microcytosis Slight; Platelet Count 397 k/uL (150-450); RBC 4.83 m/uL (3.80-5.40); RDW 16.8 % (11.5-15.5); WBC 9.6 k/uL (3.8-10.6)
--- NOTE | 2018-10-18 16:48 | P.HPBAR ---
Bariatric H&P - History & Physicial H&P Date: 10/18/18 History & Physicial: Visit/CC: Initial Visit Patient initial contact: Initial weight: Initial weight in pounds: Height: Initial BMI: Last weight: Current weight: Current weight in pounds: Current BMI: [place] body weight (based on NIH guidelines): Excess body weight loss: The patient is a 38 year-old F who presents for Bariatric Assessment. Patient presents today for sleeve gastrectomy consultation. She's had lifetime problems with obesity.. Her BMI is currently 40. Past Medical History Past Medical History: Fibromyalgia, GERD/Reflux, Rheumatoid Arthritis (RA) Additional Past Medical History / Comment(s): past hx. hiatal hernia-had surg., celiac disease History of Any Multi-Drug Resistant Organisms: None Reported Past Surgical History: Section, Cholecystectomy, Orthopedic Surgery Additional Past Surgical History / Comment(s): left thumb, rt hand and left foot surgery, carpal tunnel, jeanette fundoplasty Feb. 2014 Past Anesthesia/Blood Transfusion Reactions: No Reported Reaction, Motion Sickness Additional Past Anesthesia/Blood Transfusion Reaction / Comm: mother- PONV Past Psychological History: Anxiety, Depression Smoking Status: Current every day smoker Past Alcohol Use History: None Reported Additional Past Alcohol Use History / Comment(s): started smoking @age of 16, <ppd Past Drug Use History: None Reported - Past Family History Mother Family Medical History: No Reported History Surgical - Exam Vital Signs Temp Pulse Resp BP 98.4 F 97 16 134/89 10/18/18 14:06 10/18/18 14:06 10/18/18 14:06 10/18/18 14:06 - General well developed, well nourished, no distress - Abdomen Abdomen: soft, non tender Results - Labs 10/18/18 14:32 Abnormal Lab Results - Last 24 Hours (Table) 10/18/18 Range/Units 14:32 MCV 78.7 L (80.0-100.0) fL MCH 23.9 L (25.0-35.0) pg MCHC 30.4 L (31.0-37.0) g/dL RDW 16.8 H (11.5-15.5) % Bariatric Assessment & Plan Plan: Morbid obesity. Patient was scheduled for EGD. Patient's previous history of hiatal hernia repair. Bariatric Checklist Checklist: Plan: Checklist: EGD: 1. Hiatal hernia: 2. H. Pylori: HgbA1c: Vitamin D: Smoking: Current every day smoker Primary care physician referral: Dr. Burns Psychiatry clearance: Cardiology clearance: Sleep study: Diet journal: VTE risk score: VTE risk level: Rehab needs at discharge:
[2018-10-19 02:40] LABS: Albumin/Globulin Ratio 1.9 (1.60-3.17); Anion Gap 7.6 mmol/L (4.00-12.00); Calcium 8.6 mg/dL (8.7-10.3); Carbon Dioxide 23.4 mmol/L (21.6-31.8); Globulin 2.1 g/dL (1.6-3.3); Potassium 4.4 mmol/L (3.5-5.5); Total Bilirubin 0.4 mg/dL (0.2-1.2); Total Protein 6.1 g/dL (6.2-8.2)
[2018-10-19 09:35] VITALS: BMI 44.6
== END | disposition home or self-care (01) ==
LOC: BARWHC3 13:33
PROVIDERS: ATTEND Surgery
DX: E66.01 Morbid (severe) obesity due to excess calories (principal); Z68.41 Body mass index [BMI] 40.0-44.9, adult
CPT/HCPCS: 80053; 82306; 82607; 83036; 84425; 85027; 93005; 99201

== ENCOUNTER → 2018-11-11 | Day surgery (SDC) | payer OTHER ==
[~2018-11-11] MED LIST changes: -CLINDAMYCIN 900 MG in DEXTROSE 5% IN WATER 50 ML IVPB ONE; -DEXAMETHASONE SOD PHOSPHATE 10 MG/ML 1 ML VIAL IV ONE; -HEPARIN SODIUM,PORCINE 5,000 UNIT/ML 1 ML VIAL SQ ONE; -HYDROmorphone 0.5 MG/0.5 ML SYRINGE IVP PRN; +LACTATED RINGERS 1,000 ML IV ONE; +LACTATED RINGERS 1,000 ML IV SCH; -LEVOFLOXACIN 500MG-D5W PMX 500 MG in DEXTROSE/WATER 1 100ML.BAG IVPB ONE; +LIDOCAINE 1% 20 ML VIAL (10MG/ML) FOR IV START INTRADERMA ONE; -MIDAZOLAM 2 MG/2 ML VIAL IV PRN; -ONDANSETRON 4 MG/2 ML VIAL IVP ONE; +PROPOFOL 10 MG/ML 20 ML VIAL IV ONE; -SCOPOLAMINE 1.5MG/72HR PATCH TRANSDERM ONE
[2018-11-11 07:58] VITALS: TEMP 97.1
--- NOTE | 2018-11-11 09:10 | P.GSHP ---
History of Present Illness H&P Date: 11/11/18 Chief Complaint: Morbid obesity, BMI 43 This is a 38-year-old female who presents today for EGD. She is undergoing workup for sleeve gastrectomy. She's had issues with GERD. Past Medical History Past Medical History: Fibromyalgia, GERD/Reflux, Rheumatoid Arthritis (RA) Additional Past Medical History / Comment(s): past hx. hiatal hernia-had surg., celiac disease History of Any Multi-Drug Resistant Organisms: None Reported Past Surgical History: Section, Cholecystectomy, Orthopedic Surgery Additional Past Surgical History / Comment(s): left thumb, rt hand and left foot surgery, carpal tunnel, jeanette fundoplasty 2014 Past Anesthesia/Blood Transfusion Reactions: No Reported Reaction, Motion Sickness Additional Past Anesthesia/Blood Transfusion Reaction / Comment(s): mother- PONV Past Psychological History: Anxiety, Depression Smoking Status: Current every day smoker Past Alcohol Use History: None Reported Additional Past Alcohol Use History / Comment(s): started smoking @age of 16, <ppd Past Drug Use History: None Reported - Past Family History Mother Family Medical History: No Reported History Medications and Allergies Home Medications Medication Instructions Recorded Confirmed Type DULoxetine HCL [Cymbalta] 60 mg PO DAILY 02/09/14 11/11/18 History Omeprazole [PriLOSEC] 40 mg PO BID 08/08/16 11/11/18 History Adalimumab [Humira] 10 mg SQ Q14D 01/04/18 11/11/18 History Cyclobenzaprine [Flexeril] 10 mg PO BID 01/04/18 11/11/18 History HYDROcodone/APAP 7.5-325MG [[place] 1 tab PO Q4H PRN 3 Days #18 tab 01/12/18 11/11/18 Rx 7.5-325] Allergies Allergy/AdvReac Type Severity Reaction Status Date / Time gluten Allergy Unknown Verified 10/19/18 09:27 latex Allergy Itching, Verified 10/19/18 09:27 red skin naproxen Allergy Itching Verified 10/19/18 09:27 feels like bugs are crawling on her Penicillins Allergy Anaphylaxis Verified 10/19/18 09:27 Surgical - Exam Vital Signs Temp Pulse Resp BP Pulse Ox 97.1 F L 94 18 148/88 95 11/11/18 07:57 11/11/18 07:57 11/11/18 07:57 11/11/18 07:57 11/11/18 07:57 - General well developed, well nourished, no distress - Eyes PERRL - ENT normal pinna - Neck no masses - Respiratory normal expansion - Cardiovascular Rhythm: regular - Abdomen Abdomen: soft, non tender Assessment and Plan Assessment: GERD. We'll perform EGD.
--- NOTE | 2018-11-11 09:23 | P.OP ---
Date of Procedure: 11/11/18 Preoperative Diagnosis: Morbid obesity, BMI 43 Postoperative Diagnosis: Morbid obesity, BMI 43 Small hiatal hernia Mild antral gastritis Procedure(s) Performed: EGD Anesthesia: MAC Surgeon: Ed Sanchez Pathology: other (Antrum) Description of Procedure: The patient's placed on the endoscopy table in the lateral position. She received IV sedation. The gastroscope placed oropharynx and passed in the esophagus and stomach. Scope was then placed through the pylorus. First and second portion of the duodenum. Normal. The scope was then brought back the antrum this was mildly inflamed. The scope was then retroflexed venous appeared normal. There was a small sliding hiatal hernia. The GE junction was at 39 cm. The distal esophagus inflamed the proximal esophagus appeared normal. Scope withdrawn for patient.
[2018-11-11 09:28] VITALS: PULSE 102; RESP 16
[2018-11-11 09:47] VITALS: BP 116/76
--- NOTE | 2018-11-23 04:15 | CDI ---
Outpatient Documentation Clarification Form Date: 11/23/2018 CDS/[facility] Name: Deon Decker Phone: If any questions, call Shital Dickens Varnishing Machine Operator at [phone] Patient Name: Tia Reynolds Admit Date: 11/11/2018 Discharge Date: 11/11/2018 ATTENTION: The [facility] Coding Staff appreciate your assistance in clarifying documentation. Please respond to the clarification below the line at the bottom and electronically sign. The [facility] Coding staff will review the response and follow-up if needed. Please note: Queries are made part of the Legal Health Record. If you have any questions, please contact the Varnishing Machine Operator. Dear Dr. Sanchez, As per Operative note EGD was diagnostic, there is a pathology report available on this patient record. Could you kindly confirm EGD with biopsy was performed. Kindly include an addendum for EGD with biopsy if performed. Thank you for your kind consideration. Operative note addendum made MTDD
== END | disposition home or self-care (01) ==
LOC: ORWHC2ENDO 07:40
PROVIDERS: ATTEND Surgery
DX: K29.50 Unspecified chronic gastritis without bleeding (principal); K21.9 Gastro-esophageal reflux disease without esophagitis; M79.7 Fibromyalgia; K44.9 Diaphragmatic hernia without obstruction or gangrene; M06.9 Rheumatoid arthritis, unspecified; F17.210 Nicotine dependence, cigarettes, uncomplicated; F32.9 Major depressive disorder, single episode, unspecified; F41.9 Anxiety disorder, unspecified; E66.01 Morbid (severe) obesity due to excess calories; Z68.41 Body mass index [BMI] 40.0-44.9, adult; Z88.0 Allergy status to penicillin; Z79.899 Other long term (current) drug therapy; Z88.6 Allergy status to analgesic agent; Z91.040 Latex allergy status; Z91.048 Other nonmedicinal substance allergy status
CPT/HCPCS: 43239; 88305; 84703; J2704

== ENCOUNTER → 2018-12-13 | Outpatient (CLI) | payer OTHER ==
[2018-12-13 14:11] VITALS: BP 153/64; PULSE 104; RESP 16; TEMP 98.3; BMI 44.0
--- NOTE | 2018-12-31 13:45 | P.HPBAR ---
Bariatric H&P - History & Physicial H&P Date: 12/13/18 History & Physicial: Visit/CC: working on SWL Patient initial contact: Initial weight: 127.459 kg Initial weight in pounds: 281.00 Height: 5 ft 6.5 in Initial BMI: 44.6 Last weight: Current weight: 125.645 kg Current weight in pounds: 277.00 Current BMI: 44.0 [place] body weight (based on NIH guidelines): 60.101 kg Excess body weight loss: 2.6% The patient is a 38 year-old F who presents for Bariatric Assessment. Patient presents today for a surgical consultation. She is working on her supervised weight loss. We went over the risks and benefits of the gastric sleeve. She has morbid obese with a BMI 44. Past Medical History Past Medical History: Fibromyalgia, GERD/Reflux, Rheumatoid Arthritis (RA) Additional Past Medical History / Comment(s): past hx. hiatal hernia-had surg., celiac disease History of Any Multi-Drug Resistant Organisms: None Reported Past Surgical History: Section, Cholecystectomy, Orthopedic Surgery Additional Past Surgical History / Comment(s): left thumb, rt hand and left foot surgery, carpal tunnel, jeanette fundoplasty Feb. 2014 Past Anesthesia/Blood Transfusion Reactions: No Reported Reaction, Motion Sickness Additional Past Anesthesia/Blood Transfusion Reaction / Comm: mother- PONV Past Psychological History: Anxiety, Depression Smoking Status: Current every day smoker Past Alcohol Use History: None Reported Additional Past Alcohol Use History / Comment(s): started smoking @age of 16, <ppd Past Drug Use History: None Reported - Past Family History Mother Family Medical History: No Reported History Surgical - Exam Vital Signs Temp Pulse Resp BP 98.3 F 104 H 16 153/64 12/13/18 14:08 12/13/18 14:08 12/13/18 14:08 12/13/18 14:08 - General well developed, well nourished, no distress - Abdomen Abdomen: soft, non tender Bariatric Assessment & Plan Plan: Morbid obesity, BMI of 44. Patient will follow-up in 4 weeks. He has an excell ent understanding of the sleeve gastrectomy. Bariatric Checklist Checklist: Plan: Checklist: EGD: 1. Hiatal hernia: 2. H. Pylori: HgbA1c: Vitamin D: Smoking: Current every day smoker Primary care physician referral: Dr. Burns Psychiatry clearance: Cardiology clearance: Sleep study: Diet journal: VTE risk score: VTE risk level: Rehab needs at discharge:
== END | disposition home or self-care (01) ==
LOC: BARWHC3 13:58
PROVIDERS: ATTEND Surgery
DX: E66.01 Morbid (severe) obesity due to excess calories (principal); Z68.41 Body mass index [BMI] 40.0-44.9, adult
CPT/HCPCS: 99211

== ENCOUNTER → 2018-12-27 | Outpatient (CLI) | payer OTHER ==
[2018-12-27 13:14] VITALS: BMI 44.2
== END | disposition home or self-care (01) ==
LOC: BARWHC3 08:59
PROVIDERS: ATTEND Surgery
DX: E66.01 Morbid (severe) obesity due to excess calories (principal); Z68.41 Body mass index [BMI] 40.0-44.9, adult
CPT/HCPCS: 97804

== ENCOUNTER → 2019-01-31 | Outpatient (CLI) | payer OTHER ==
[2019-01-31 16:12] VITALS: BP 122/90; PULSE 109; TEMP 98.8; BMI 43.9
--- NOTE | 2019-01-31 17:41 | P.HPBAR ---
Bariatric H&P - History & Physicial H&P Date: 01/31/19 History & Physicial: Visit/CC: review/sign surgical sleeve consent Patient initial contact: Initial weight: 127.459 kg Initial weight in pounds: 281.00 Height: 5 ft 6.5 in Initial BMI: 44.6 Last weight: Current weight: 125.191 kg Current weight in pounds: 276.00 Current BMI: 43.9 [place] body weight (based on NIH guidelines): 60.101 kg Excess body weight loss: 3.3% The patient is a 38 year-old F who presents for Bariatric Assessment. The patient is scheduled for sleeve gastrectomy next month. Her BMI is 44. Past Medical History Past Medical History: Fibromyalgia, GERD/Reflux, Rheumatoid Arthritis (RA) Additional Past Medical History / Comment(s): past hx. hiatal hernia-had surg., celiac disease, (takes Humira injection [id number] for Rheumatoid Arthritis) History of Any Multi-Drug Resistant Organisms: None Reported Past Surgical History: Section, Cholecystectomy, Orthopedic Surgery Additional Past Surgical History / Comment(s): left thumb, rt hand and left foot surgery, carpal tunnel, jeanette fundoplasty Feb. 2014 Past Anesthesia/Blood Transfusion Reactions: No Reported Reaction, Motion Sickness Additional Past Anesthesia/Blood Transfusion Reaction / Comm: mother- PONV Past Psychological History: Anxiety, Depression Additional Psychological History / Comment(s): Pt takes Cymbalta 60mg daily Smoking Status: Current every day smoker Past Alcohol Use History: None Reported Additional Past Alcohol Use History / Comment(s): started smoking @age of 16, <ppd Past Drug Use History: None Reported Additional Drug Use History / Comment(s): Smoking cessation information provided this day, as well as option for [employer] smoking cessation class upcoming with Community Education department at [facility] - Past Family History Mother Family Medical History: No Reported History Surgical - Exam Vital Signs Temp Pulse BP 98.8 F 109 H 122/90 01/31/19 16:00 01/31/19 16:00 01/31/19 16:00 - General well developed, well nourished, no distress - Eyes PERRL - ENT normal pinna - Neck no masses - Respiratory normal expansion - Cardiovascular Rhythm: regular - Abdomen Abdomen: soft, non tender Bariatric Assessment & Plan Plan: Morbid obesity with BMI 44. Patient be scheduled for laparoscopic sleeve gastrectomy. Patient has a good understanding of the procedure. Generous of the risks and benefits of procedure she understands the risks of gastric staple line disruption bleeding or scarring. Bariatric Checklist Checklist: Plan: Checklist: EGD: 1. Hiatal hernia: 2. H. Pylori: HgbA1c: Vitamin D: Smoking: Current every day smoker Primary care physician referral: Dr. Wilfrid Burns Psychiatry clearance: Cardiology clearance: Sleep study: Diet journal: VTE risk score: VTE risk level: Rehab needs at discharge:
== END | disposition home or self-care (01) ==
LOC: BARWHC3 15:46
PROVIDERS: ATTEND Surgery
DX: E66.01 Morbid (severe) obesity due to excess calories (principal); F17.200 Nicotine dependence, unspecified, uncomplicated; Z68.41 Body mass index [BMI] 40.0-44.9, adult
CPT/HCPCS: 99211

== ENCOUNTER → 2019-02-16 | Outpatient (CLI) | payer OTHER ==
[2019-02-16 17:03] LABS: Anisocytosis Slight; Basophils # (A) 0.1 k/uL (0-0.2); Basophils % (A) 1 %; Eosinophils # (A) 0.2 k/uL (0-0.7); Eosinophils % (A) 2 %; HCT 37.9 % (34.0-46.0); HGB 11.5 gm/dL (11.4-16.0); Hypochromasia Marked; Lymphocytes # (A) 3.7 k/uL (1.0-4.8); Lymphocytes % (A) 39 %; MCH 23.4 pg (25.0-35.0); MCHC 30.4 g/dL (31.0-37.0); Mean Platelet Volume 8.2; Microcytosis Slight; Monocytes # (A) 0.5 k/uL (0-1.0); Monocytes % (A) 5 %; Neutrophils # (A) 4.8 k/uL (1.3-7.7); Neutrophils % (A) 50 %; Platelet Count 364 k/uL (150-450); RBC 4.91 m/uL (3.80-5.40); RDW 16.6 % (11.5-15.5); WBC 9.6 k/uL (3.8-10.6)
[2019-02-16 17:41] LABS: ALT 33 U/L (9-52); AST 35 U/L (14-36); African American GFR (CKD) >90 (>60 ml/min/1.73 sqM); Albumin 4.3 g/dL (3.5-5.0); Alkaline Phosphatase 58 U/L (38-126); Anion Gap 13 mmol/L; Blood Urea Nitrogen 15 mg/dL (7-17); Calcium 9.6 mg/dL (8.4-10.2); Carbon Dioxide 25 mmol/L (22-30); Chloride 99 mmol/L (98-107); Glucose 67 mg/dL (74-99); Potassium 4.3 mmol/L (3.5-5.1); Sodium 137 mmol/L (137-145); Total Bilirubin 0.5 mg/dL (0.2-1.3); Total Protein 7.7 g/dL (6.3-8.2)
== END | disposition home or self-care (01) ==
LOC: LABPAT 15:53
PROVIDERS: ATTEND Surgery
DX: Z01.812 Encounter for preprocedural laboratory examination (principal)
CPT/HCPCS: 36415; 80053; 85025

== ENCOUNTER 2019-02-23 07:40 | Inpatient (IN) | payer OTHER ==
[~2019-02-23 07:40] MED LIST changes: +CLINDAMYCIN 900 MG in DEXTROSE 5% IN WATER 50 ML IVPB ONE; +DEXAMETHASONE SOD PHOSPHATE 10 MG/ML 1 ML VIAL IV ONE; +ENOXAPARIN 40 MG/0.4 ML SYRINGE SQ ONE; +GENTAMICIN 400 MG in SODIUM CHLORIDE 0.9% 100 ML IVPB ONE; -LACTATED RINGERS 1,000 ML IV ONE; -LACTATED RINGERS 1,000 ML IV SCH; -LIDOCAINE 1% 20 ML VIAL (10MG/ML) FOR IV START INTRADERMA ONE; +MIDAZOLAM 2 MG/2 ML VIAL IV PRN; -PROPOFOL 10 MG/ML 20 ML VIAL IV ONE; +SCOPOLAMINE 1.5MG/72HR PATCH TRANSDERM ONE
[2019-02-23] MEDS: LACTATED RINGERS 1,000 ML IV SCH (12:08)
[2019-02-23] MEDS: ONDANSETRON 4 MG/2 ML VIAL IVP ONE ×2 (12:12→14:44)
[2019-02-23 12:15] LABS: Glucose,Whole Blood 85 mg/dL (75-99)
[2019-02-23] MEDS ORDERED: MIDAZOLAM 2 MG/2 ML VIAL ONE (12:41)
[2019-02-23] MEDS ORDERED: GLYCOPYRROLATE 0.2 MG/ML 2 ML VIAL ONE (12:41)
[2019-02-23] MEDS ORDERED: SUCCINYLCHOLINE CHLORIDE 100 MG/5 ML SYR IV ONE (12:41)
[2019-02-23] MEDS ORDERED: VECURONIUM 10 MG VIAL IV ONE (12:41)
[2019-02-23] MEDS ORDERED: fentaNYL (PF) 50 MCG/ML 2 ML AMP ONE (12:41)
[2019-02-23] MEDS ORDERED: PROPOFOL 10 MG/ML 20 ML VIAL IV ONE (12:41)
[2019-02-23] MEDS ORDERED: LIDOCAINE 1% INJ 10MG/ML (20 ML MDV) ONE (12:41)
[2019-02-23] MEDS ORDERED: NEOSTIGMINE 1 MG/ML 10 ML VIAL ONE (12:41)
--- NOTE | 2019-02-23 12:46 | P.GSHP ---
History of Present Illness H&P Date: 02/23/19 Chief Complaint: Morbid obesity This a 38-year-old female who presents today for laparoscopic sleeve gastrectomy. Patient is morbidly obese her BMI is 41. Patient aware the risks of surgery including conversion to the open procedure injury to the stomach liver or spleen. Patient's had a previous [place] fundal plication understands the anatomic changes to her stomach. Past Medical History Past Medical History: Fibromyalgia, GERD/Reflux, Rheumatoid Arthritis (RA) Additional Past Medical History / Comment(s): past hx. hiatal hernia-had surg., celiac disease History of Any Multi-Drug Resistant Organisms: None Reported Past Surgical History: Section, Cholecystectomy, Orthopedic Surgery Additional Past Surgical History / Comment(s): left thumb, rt hand and left foot surgery, carpal tunnel, jeanette fundoplasty 2014 Past Anesthesia/Blood Transfusion Reactions: No Reported Reaction, Motion Sickness Additional Past Anesthesia/Blood Transfusion Reaction / Comment(s): mother- PONV Smoking Status: Current every day smoker - Past Family History Mother Family Medical History: No Reported History Medications and Allergies Home Medications Medication Instructions Recorded Confirmed Type DULoxetine HCL [Cymbalta] 60 mg PO DAILY 02/09/14 02/22/19 History Omeprazole [PriLOSEC] 40 mg PO BID 08/08/16 02/23/19 History Adalimumab [Humira] 10 mg SQ Q14D 01/04/18 02/23/19 History Cyclobenzaprine [Flexeril] 10 mg PO BID 01/04/18 02/23/19 History Allergies Allergy/AdvReac Type Severity Reaction Status Date / Time gluten Allergy Unknown Verified 02/23/19 11:34 latex Allergy Itching, Verified 02/23/19 11:34 red skin naproxen Allergy Itching Verified 02/23/19 11:34 feels like bugs are crawling on her Penicillins Allergy Anaphylaxis Verified 02/23/19 11:34 Surgical - Exam Vital Signs Temp Pulse Resp BP Pulse Ox 97.4 F L 88 18 117/55 96 02/23/19 11:48 02/23/19 11:48 02/23/19 11:48 02/23/19 11:48 02/23/19 11:48 - General well developed, well nourished, no distress - Eyes PERRL - ENT normal pinna - Neck no masses - Respiratory normal expansion - Cardiovascular Rhythm: regular - Abdomen Abdomen: soft, non tender Assessment and Plan Assessment: RBC, BMI 41. We'll perform laparoscopic sleeve gastrectomy.
[2019-02-23] MEDS ORDERED: BUPIVACAIN-EPI 0.25%-1:200,000 30 ML VIAL SQ ONE (13:18)
[2019-02-23] MEDS ORDERED: METHYLENE BLUE 3 MG in DEXTROSE 5% IN WATER 500 ML IRRIGATION ONE ×2 (13:22)
[2019-02-23] MEDS ORDERED: HYDROcodone/APAP 15 ML SOLUTION PO PRN (14:16)
[2019-02-23] MEDS ORDERED: NALOXONE 0.4 MG/ML 1 ML VIAL IV PRN (14:16)
[2019-02-23] MEDS ORDERED: HYOSCYAMINE ORAL DROPS 1.875 MG/15 ML BOTTLE PO PRN (14:16)
[2019-02-23] MEDS ORDERED: diphenhydrAMINE 50 MG/ML 1 ML VIAL IVP PRN (14:16)
--- NOTE | 2019-02-23 14:16 | P.OP ---
Date of Procedure: 02/23/19 Preoperative Diagnosis: Morbid obesity, BMI 41 Postoperative Diagnosis: Morbid obesity Procedure(s) Performed: Laparoscopic sleeve gastrectomy Anesthesia: ELIAS Surgeon: Ed Sanchez Estimated Blood Loss (ml): 10 Pathology: other (Gastric remnant) Condition: stable Disposition: PACU Description of Procedure: The patient was placed on the operating room table in the supine position. She received general anesthesia and then was placed in dorsal lithotomy position. Her abdomen was prepped and draped in sterile fashion. The skin incision sites were anesthetized 1% local Xylocaine. And then the skin was incised with an 11 blade in the left lateral position. Using a blade less trocar under direct visualization the peritoneal cavity was entered. The abdomen was insufflated and then a 5 mm laparoscope was placed into the peritoneal cavity. A 5 mm trocar was placed in the right epigastric, and right lateral position. A 15 mm trocar was placed in the supra-umbilical position and another 5 mm trocar was placed in the left lateral position. The left lateral lobe of the liver was retracted. The stomach was visualized. The greater curvature of the stomach was then dissected using the Harmonic scissors. The dissection occurred approximately 5 cm from the pylorus to the level of the left isac. There was no hiatal hernia seen. At this point a 40-Tamazight bougie dilator was placed the oropharynx and passed into the esophagus and into the stomach by the PLYWOOD STOCK GRADER. The sleeve gastrectomy was performed by using the powered echelon stapler with a seam guard buttress material. Sequential firings of the stapler were performed. The gastric remnant was then brought out through the 15 mm trocar site. The dilator was withdrawn. And a orogastric tube was replaced into the stomach. The stomach was insufflated with 200 mL of methylene blue normal saline. There was no evidence of extravasation. The abdomen was irrigated there is no bleeding seen. The Jaswinder-Mika device was used to close the 15 mm trocar with 0 Vicryl. Skin was closed with interrupted 3-0 Monocryl sutures once the trochars withdrawn. Dermabond dressing was applied. Patient was sent to recovery in stable condition.
[2019-02-23] MEDS: HYDROmorphone 0.5 MG/0.5 ML SYRINGE IVP PRN ×2 (14:44→14:50)
[2019-02-23] MEDS ORDERED: PROMETHAZINE INJ 25 MG/ML 1 ML VIAL IVPB ONE (14:55)
[2019-02-23] MEDS: 0.9% NACL WITH KCL 20 MEQ/L 1,000 ML IV SCH ×3 (16:10→22:39)
[2019-02-23] MEDS: KETOROLAC 30 MG/ML 1 ML VIAL IVP SCH ×2 (16:52→23:21)
[2019-02-23] MEDS: FAMOTIDINE 20 MG TAB PO SCH (19:50)
[2019-02-23] MEDS: ALBUTEROL NEBULIZED 2.5 MG/3 ML INHALATION SCH ×2 (20:42)
[2019-02-23] MEDS: ONDANSETRON 4 MG/2 ML VIAL IVP PRN (22:38)
[2019-02-23] MEDS: HYDROmorphone 1 MG/ML 1 ML SYRINGE IVP PRN (22:41)
[2019-02-24] MEDS: LACTATED RINGERS 1,000 ML IV SCH (00:31)
[2019-02-24] MEDS: HYDROmorphone 1 MG/ML 1 ML SYRINGE IVP PRN ×4 (04:15→22:31)
[2019-02-24] MEDS: KETOROLAC 30 MG/ML 1 ML VIAL IVP SCH ×3 (06:09→17:36)
[2019-02-24] MEDS: ALBUTEROL NEBULIZED 2.5 MG/3 ML INHALATION SCH ×4 (08:02→19:12)
[2019-02-24 08:13] LABS: Anisocytosis Slight; Basophils % (A) 0 %; Eosinophils % (A) 0 %; HCT 33.6 % (34.0-46.0); HGB 10.4 gm/dL (11.4-16.0); Hypochromasia Marked; Lymphocytes # (A) 1.4 k/uL (1.0-4.8); Lymphocytes % (A) 14 %; MCH 23.7 pg (25.0-35.0); MCHC 30.9 g/dL (31.0-37.0); MCV 76.6 fL (80.0-100.0); Microcytosis Slight; Monocytes # (A) 0.5 k/uL (0-1.0); Monocytes % (A) 5 %; Neutrophils # (A) 8.1 k/uL (1.3-7.7); Neutrophils % (A) 79 %; Platelet Count 396 k/uL (150-450); RBC 4.39 m/uL (3.80-5.40); RDW 16.3 % (11.5-15.5); WBC 10.4 k/uL (3.8-10.6)
[2019-02-24 08:37] LABS: African American GFR (CKD) >90 (>60 ml/min/1.73 sqM); Anion Gap 9 mmol/L; Blood Urea Nitrogen 11 mg/dL (7-17); Calcium 8.1 mg/dL (8.4-10.2); Carbon Dioxide 26 mmol/L (22-30); Chloride 107 mmol/L (98-107); Magnesium 1.9 mg/dL (1.6-2.3); Non-African American GFR(CKD) >90 (>60 ml/min/1.73 sqM); Phosphorus 3.2 mg/dL (2.5-4.5); Potassium 4.9 mmol/L (3.5-5.1); Sodium 142 mmol/L (137-145)
--- NOTE | 2019-02-24 08:52 | FL ---
EXAMINATION TYPE: FL UGI DATE OF EXAM: 02/24/2019 CLINICAL HISTORY: Status post gastric sleeve 25 sec fluoro time. 5 Fluoroscopic images submitted. Contrast: Omnipaque 350 50 mL The patient ingested contrast without difficulty or delay. Noted are postsurgical changes of gastric sleeve. There is no evidence for leak or obstruction. Contrast is noted within the duodenum. IMPRESSION: Post-surgical change of gastric sleeve without evidence for obstruction or leak at this point in time.
[2019-02-24 09:51] VITALS: BMI 40.6
[2019-02-24] MEDS: ENOXAPARIN 40 MG/0.4 ML SYRINGE SQ SCH ×2 (10:03→22:32)
[2019-02-24] MEDS: PANTOPRAZOLE 40 MG/10 ML VIAL IV SCH (10:03)
[2019-02-24] MEDS: DULoxetine HCL 60 MG CAPSULE.DR PO SCH (10:03)
[2019-02-24] MEDS: FAMOTIDINE 20 MG TAB PO SCH ×2 (10:03→22:32)
[2019-02-24] MEDS: ONDANSETRON 4 MG/2 ML VIAL IVP PRN ×2 (10:03→19:15)
[2019-02-24] MEDS: SIMETHICONE 40 MG/0.6 ML DROPS 2,000 MG/30 ML BOTTLE PO PRN ×2 (10:45→17:37)
--- NOTE | 2019-02-24 11:56 | P.PN ---
Subjective Progress Note Date: 02/24/19 CHIEF COMPLAINT: Morbid obesity HISTORY OF PRESENT ILLNESS: Patient is status post laparoscopic sleeve gastrectomy. Postop day #1. Patient reports mild nausea this morning which has improved. No episodes of emesis. Esophagram completed postoperatively negative for leak or obstruction. Pain is controlled on current regimen. Vital signs stable. Patient was unable to urinate overnight and required straight cath. She has not voided yet this morning. PHYSICAL EXAM: VITAL SIGNS: Reviewed. GENERAL: Well-developed in no acute distress. HEENT: No sclera icterus. Extraocular movements grossly intact. Moist buccal mucosa. Head is atraumatic, normocephalic. ABDOMEN: Soft. Nondistended. Appropriate surgical tenderness. Laparoscopic surgical sites clean dry and intact without drainage. NEUROLOGIC: Alert and oriented. Cranial nerves II through XII grossly intact. ASSESSMENT: 1. Morbid obesity, status post laparoscopic sleeve gastrectomy PLAN: 1. Begin bariatric clear liquid diet. No straws or carbonated beverages. 2. Pain control 3. Incentive spirometer 10 times an hour 4. Activity as tolerated 5. Discharge home today versus tomorrow. Nurse practitioner note has been reviewed by physician. Signing provider agrees with the documented findings, assessment, and plan of care. Objective - Vital Signs Vital signs: Vital Signs Temp 97.6 F 02/24/19 08:00 Pulse 105 H 02/24/19 08:00 Resp 16 02/24/19 08:00 BP 142/55 02/24/19 08:00 Pulse Ox 95 02/24/19 08:00 Intake & Output 02/23/19 02/24/19 02/24/19 18:59 06:59 18:59 Intake Total 1217.3 2240 Output Total 15 400 Balance 1202.3 1840 Weight 117.5 kg 117.5 kg Intake: IV 1217.3 Intake, IV Titration 1500 Amount 0.9% NaCl with KCl 20 Meq 1500 /l 1,000 ml @ 150 mls/hr IV .[id number] [facility] Rx#: [id number] Oral 740 Output: Urine 400 Straight 400 Estimated Blood Loss 15 - Labs CBC & Chem 7: 02/24/19 07:10 02/24/19 07:10 Labs: Abnormal Lab Results - Last 24 Hours (Table) 02/24/19 02/24/19 Range/Units 07:10 07:10 Hgb 10.4 L (11.4-16.0) gm/dL Hct 33.6 L (34.0-46.0) % MCV 76.6 L (80.0-100.0) fL MCH 23.7 L (25.0-35.0) pg MCHC 30.9 L (31.0-37.0) g/dL RDW 16.3 H (11.5-15.5) % Neutrophils # 8.1 H (1.3-7.7) k/uL Calcium 8.1 L (8.4-10.2) mg/dL
[2019-02-24] MEDS ORDERED: TAMSULOSIN 0.4 MG CAP.ER.24H PO STA (14:03)
[2019-02-24] MEDS: 1: MVI, ADULT NO.4 WITH VIT K 10 ML, THIAMINE 100 MG, FOLIC ACID 1 MG, POTASSIUM CHLORID IV SCH ×18 (14:03→19:17)
[2019-02-24 14:21] LABS: Appearance,Urine Clear (Clear); Bilirubin,Urine Negative (Negative); Blood,Urine Negative (Negative); Color,Urine Yellow; Glucose,Urine (UA) Negative (Negative); Ketones,Urine 3+ (Negative); Leukocyte Esterase,Urine Negative (Negative); Mucus,Urine Moderate /hpf; Nitrite,Urine Negative (Negative); Protein,Urine 1+ (Negative); RBC,Urine 1 /hpf (0-5); Specific Gravity,Urine 1.029 (1.001-1.035); Squamous Epithelial Cell,Urine 1 /hpf (0-4); Urobilinogen,Urine <2.0 mg/dL (<2.0); WBC,Urine 1 /hpf (0-5)
--- NOTE | 2019-02-24 21:46 | P.CONS ---
History of Present Illness - Reason for Consult Consult date: 02/24/19 - History of Present Illness This a 38-year-old white female who has known for many years who presented to the hospital today status post sleeve gastrectomy bariatric surgery. she is doing well 1 day postop she is currently upright in bed she is on clear liquid diet. She had failed outpatient treatment for morbid obesity with a body mass index greater than 40. I was asked to consult and participate regarding medical management. Her pain is controlled and she is ambulating well. Her home medications will be renewed Review of Systems GENERAL: Patient denies fever. Denies chills. EYES: Denies blurred vision. Denies vision changes. Denies eye pain. EARS, NOSE, MOUTH, & THROAT: Denies headache. Denies sore throat. Denies ear pain. RESPIRATORY: Denies cough. Denies shortness of breath. Denies sputum production. Denies hemoptysis. CARDIOVASCULAR: Denies chest pain or pressure. Denies palpitations. Denies arrhythmias. GASTROINTESTINAL: Denies abdominal pain. Denies diarrhea. Denies constipation. Denies nausea. Denies vomiting. Denies heartburn. Denies blood in the stool. GENITOURINARY: Denies urinary frequency. Denies burning. Denies dysuria. Denies cloudy urine. Denies blood in the urine. MUSCULOSKELETAL: Denies myalgias. Denies joint swelling. Denies decreased range of motion beyond patients baseline. INTEGUMENTARY: Denies pruitis. Denies rash. PSYCHIATRIC: Denies suicidal or homicial ideations. ENDOCRINE: Denies weight change. Denies polydipsia. Denies polyuria. HEMATOLOGIC: Denies bleeding disorders. Past Medical History Past Medical History: Fibromyalgia, GERD/Reflux, Rheumatoid Arthritis (RA) Additional Past Medical History / Comment(s): past hx. hiatal hernia-had surg., celiac disease History of Any Multi-Drug Resistant Organisms: None Reported Past Surgical History: Section, Cholecystectomy, Orthopedic Surgery Additional Past Surgical History / Comment(s): left thumb, rt hand and left foot surgery, carpal tunnel, jeanette fundoplasty 2014 Past Anesthesia/Blood Transfusion Reactions: No Reported Reaction, Motion Sickness Additional Past Anesthesia/Blood Transfusion Reaction / Comm: mother- PONV Smoking Status: Current every day smoker - Past Family History Mother Family Medical History: No Reported History Medications and Allergies Home Medications Medication Instructions Recorded Confirmed Type DULoxetine HCL [Cymbalta] 60 mg PO DAILY 02/09/14 02/23/19 History Omeprazole [PriLOSEC] 40 mg PO BID 08/08/16 02/23/19 History Adalimumab [Humira] 10 mg SQ Q14D 01/04/18 02/23/19 History Cyclobenzaprine [Flexeril] 10 mg PO BID 01/04/18 02/23/19 History Allergies Allergy/AdvReac Type Severity Reaction Status Date / Time gluten Allergy Unknown Verified 02/23/19 15:26 latex Allergy Itching, Verified 02/23/19 15:26 red skin naproxen Allergy Itching Verified 02/23/19 15:26 feels like bugs are crawling on her Penicillins Allergy Anaphylaxis Verified 02/23/19 15:26 Physical Exam Osteopathic Statement: *. No significant issues noted on an osteopathic structural exam other than those noted in the History and Physical/Consult. Vitals: Vital Signs Temp Pulse Pulse Resp BP Pulse Ox 02/24/19 20:00 97.5 F L 98 16 118/70 94 L 02/24/19 19:24 94 02/24/19 19:13 92 02/24/19 16:47 94 02/24/19 16:34 93 02/24/19 13:08 100 02/24/19 13:01 96 02/24/19 12:57 100 02/24/19 08:25 16 02/24/19 08:00 97.6 F 105 H 16 142/55 95 02/24/19 01:26 98.0 F 106 H 18 112/75 95 Intake and Output 02/24/19 02/24/19 02/24/19 06:59 14:59 22:59 Intake Total 2040 521.667 Output Total 400 Balance 1640 521.667 Intake: Intake, IV Titration 1500 521.667 Amount 0.9% NaCl with KCl 20 Meq 1500 /l 1,000 ml @ 150 mls/hr IV .Q6H40M [facility] Rx#: [id number] Mvi, Adult No.4 with Vit 521.667 K 10 ml Thiamine 100 mg Folic Acid 1 mg Potassium Chloride 20 meq In Sodium Chloride 0.9% 1, 000 ml @ 100 mls/hr IV . BY DURATION JEM Rx#: [id number] Oral 540 Output: Urine 400 Straight 400 Other: Weight 117.5 kg Moderate GENERAL: This is a -38 year-old in no apparent distress at the time of examination. Pleasant and cooperative. HEENT: Head is atraumatic, normocephalic. Pupils are equal, round, and reactive to light. Sclerae anicteric. Conjunctivae are clear. Mucus membranes of the mouth are moist. Neck is supple. RESPIRATORY: Clear to auscultation. No wheezes, rales, or rhonchi. No use of accessory muscles. Patient maintaining oxygen saturation greater than 92%. No chest wall tenderness is noted on palpation or with deep breathing. CARDIOVASCULAR: Regular rate and rhythm. S1 and S2 noted. No systolic or diastolic murmur auscultated. No JVD noted. No S3 or S4 noted. GASTROINTESTINAL: No distention noted. Abdomen soft and round. Normal active bowel sounds auscultated x 4 quadrants. 4 small incisions and anterior abdomen noted clean and dry. INTEGUMENTARY: No cyanosis. No jaundice. No rashes noted. No cellulitis noted. EXTREMITIES: 2+ peripheral pulses. No evidence of peripheral edema. No calf tenderness noted. NEUROLOGIC: Cranial nerves II-XII intact. PSYCHIATRIC: Awake, alert, and oriented X 3. Appropriate affect. Intact judgement and insight. Results CBC & Chem 7: 02/24/19 07:10 02/24/19 07:10 Labs: Abnormal Lab Results - Last 24 Hours (Table) 02/24/19 02/24/19 02/24/19 Range/Units 07:10 07:10 14:00 Hgb 10.4 L (11.4-16.0) gm/dL Hct 33.6 L (34.0-46.0) % MCV 76.6 L (80.0-100.0) fL MCH 23.7 L (25.0-35.0) pg MCHC 30.9 L (31.0-37.0) g/dL RDW 16.3 H (11.5-15.5) % Neutrophils # 8.1 H (1.3-7.7) k/uL Calcium 8.1 L (8.4-10.2) mg/dL Urine Protein 1+ H (Negative) Urine Ketones 3+ H (Negative) Urine Mucus Moderate H (None) /hpf Assessment and Plan (1) S/P laparoscopic sleeve gastrectomy Current Visit: Yes Status: Acute Code(s): Z98.84 - BARIATRIC SURGERY STATUS SNOMED Code(s): 743499711 (2) GERD (gastroesophageal reflux disease) Current Visit: No Status: Acute Code(s): K21.9 - GASTRO-ESOPHAGEAL REFLUX DISEASE WITHOUT ESOPHAGITIS SNOMED Code(s): 882806932 (3) Rheumatoid arthritis in remission Current Visit: Yes Status: Acute Code(s): VLQ9527 - SNOMED Code(s): 418411801338353 (4) Rheumatoid arthritis Current Visit: Yes Status: Acute Code(s): M06.9 - RHEUMATOID ARTHRITIS, UNSPECIFIED SNOMED Code(s): 94340591 (5) Fibromyalgia Current Visit: Yes Status: Acute Code(s): M79.7 - FIBROMYALGIA SNOMED Code(s): 235370611 (6) Morbid obesity with BMI of 40.0-44.9, adult Current Visit: Yes Status: Acute Code(s): E66.01 - MORBID (SEVERE) OBESITY DUE TO EXCESS CALORIES; Z68.41 - BODY MASS INDEX (BMI) 40.0-44.9, ADULT SNOMED Code(s): 529800440 Plan: Pain control postoperative care DVT prophylaxis early ambulation all in place. We'll renew home medications. We will anticipate clear liquid diet and instruct patient on postoperative treatment for bariatric surgery. We'll continue to follow patient's progress anticipate discharge as early as tomorrow morning we'll sign off for now if needed please don't hesitate to contact me thank you for allowing me to participate in this patient's care.
[2019-02-25] MEDS: KETOROLAC 30 MG/ML 1 ML VIAL IVP SCH ×3 (01:19→12:05)
[2019-02-25] MEDS: LACTATED RINGERS 1,000 ML IV SCH (05:57)
[2019-02-25] MEDS: SIMETHICONE 40 MG/0.6 ML DROPS 2,000 MG/30 ML BOTTLE PO PRN (05:59)
[2019-02-25] MEDS: ALBUTEROL NEBULIZED 2.5 MG/3 ML INHALATION SCH ×2 (07:12→10:59)
[2019-02-25 07:21] VITALS: BP 99/64; RESP 16; TEMP 98
[2019-02-25] MEDS: PANTOPRAZOLE 40 MG/10 ML VIAL IV SCH (08:29)
[2019-02-25] MEDS: ENOXAPARIN 40 MG/0.4 ML SYRINGE SQ SCH (08:29)
[2019-02-25] MEDS: DULoxetine HCL 60 MG CAPSULE.DR PO SCH (08:29)
[2019-02-25] MEDS: FAMOTIDINE 20 MG TAB PO SCH (08:29)
[2019-02-25] MEDS ORDERED: TAMSULOSIN 0.4 MG CAP.ER.24H PO SCH (08:30)
--- NOTE | 2019-02-25 10:21 | P.PN ---
Subjective Progress Note Date: 02/25/19 CHIEF COMPLAINT: Morbid obesity HISTORY OF PRESENT ILLNESS: Patient is status post laparoscopic sleeve gastrectomy. Postop day #2. Patient's pain is controlled on oral medications. She is tolerating clear liquid diet. Denies nausea or vomiting. Patient still unable to urinate. She required additional straight cath overnight. She has been started on Flomax yesterday. PHYSICAL EXAM: VITAL SIGNS: Reviewed. GENERAL: Well-developed in no acute distress. HEENT: No sclera icterus. Extraocular movements grossly intact. Moist buccal mucosa. Head is atraumatic, normocephalic. ABDOMEN: Soft. Nondistended. Appropriate surgical tenderness. Laparoscopic surgical sites clean dry and intact without drainage. NEUROLOGIC: Alert and oriented. Cranial nerves II through XII grossly intact. ASSESSMENT: 1. Morbid obesity, status post laparoscopic sleeve gastrectomy PLAN: 1. Continue bariatric clear liquid diet. No straws or carbonated beverages. 2. Pain control 3. Incentive spirometer 10 times an hour 4. Activity as tolerated 5. Patient still unable to void. Continue Flomax. Bladder scan this AM. May require indwelling urinary catheter at discharge. Will consult urology for fur ther evaluation. Nurse practitioner note has been reviewed by physician. Signing provider agrees with the documented findings, assessment, and plan of care. Objective - Vital Signs Vital signs: Vital Signs Temp 98.0 F 02/25/19 07:00 Pulse 88 02/25/19 07:24 Resp 16 02/25/19 07:00 BP 99/64 02/25/19 07:00 Pulse Ox 97 02/25/19 07:14 Intake & Output 02/24/19 02/25/19 02/25/19 18:59 06:59 18:59 Intake Total 521.667 Output Total 300 Balance 221.667 Weight 117.5 kg Intake: Intake, IV Titration 521.667 Amount Mvi, Adult No.4 with Vit 521.667 K 10 ml Thiamine 100 mg Folic Acid 1 mg Potassium Chloride 20 meq In Sodium Chloride 0.9% 1, 000 ml @ 100 mls/hr IV . BY DURATION JEM Rx#: [id number] Output: Urine 300 Straight 300 - Labs CBC & Chem 7: 02/24/19 07:10 02/24/19 07:10 Labs: Abnormal Lab Results - Last 24 Hours (Table) 02/24/19 Range/Units 14:00 Urine Protein 1+ H (Negative) Urine Ketones 3+ H (Negative) Urine Mucus Moderate H (None) /hpf
--- NOTE | 2019-02-25 11:52 | P.DS ---
Providers Date of admission: 02/23/19 11:06 Expected date of discharge: 02/25/19 Attending physician: Ed Sanchez Consults: 02/23/19 14:16 Consult Physician Routine Consulting Provider: Wilfrid Burns Reason/Comments: Medical management Do you want consulting provider notified?: Yes Primary care physician: Wilfrid Burns Hospital Course: 38 year old female who underwent laparoscopic sleeve gastrectomy. Patient is doing well postoperatively. She did develop urinary retention postoperatively that required straight catheterization. She was started on Flomax. Urinary retention has since resolved and patient voiding on her own without difficulty. Esophagram completed postoperatively negative for leak or obstruction. Patient tolerating clear liquid diet without nausea or vomiting. Pain controlled with oral medications. Vital signs have been stable. She is stable for discharge home today. Please see EMR for further hospital course details. Discharge diagnosis: 1. Morbid obesity, status post laparoscopic sleeve gastrectomy 2. Postoperative urinary retention, an unexpected but potential outcome of surgery, since resolved Nurse practitioner note has been reviewed by physician. Signing provider agrees with the documented findings, assessment, and plan of care. Patient Condition at Discharge: Stable Plan - Discharge Summary Discharge Rx Participant: Yes New Discharge Prescriptions: New Sucralfate [Carafate] 1 gm PO BID #500 ml Bisacodyl [Dulcolax] 5 mg PO DAILY PRN #10 tablet. PRN Reason: Constipation Simethicone 40 mg/0.6 ml Drops [Mylicon Drops] 40 mg PO PCHS PRN #30 ml PRN Reason: gas Ondansetron Odt [Zofran Odt] 4 mg PO Q8HR PRN #9 tab PRN Reason: Nausea Hydrocodone/Acetaminophen [[place] 5-325] 1 tab PO Q4HR PRN 3 Days #18 tab PRN Reason: Pain Continue DULoxetine HCL [Cymbalta] 60 mg PO DAILY Omeprazole [PriLOSEC] 40 mg PO BID Cyclobenzaprine [Flexeril] 10 mg PO BID Adalimumab [Humira] 10 mg SQ Q14D Discharge Medication List DULoxetine HCL [Cymbalta] 60 mg PO DAILY 02/09/14 [History] Omeprazole [PriLOSEC] 40 mg PO BID 08/08/16 [History] Adalimumab [Humira] 10 mg SQ Q14D 01/04/18 [History] Cyclobenzaprine [Flexeril] 10 mg PO BID 01/04/18 [History] Bisacodyl [Dulcolax] 5 mg PO DAILY PRN #10 tablet. 02/25/19 [Rx] Hydrocodone/Acetaminophen [[place] 5-325] 1 tab PO Q4HR PRN 3 Days #18 tab 02/25/19 [Rx] Ondansetron Odt [Zofran Odt] 4 mg PO Q8HR PRN #9 tab 02/25/19 [Rx] Simethicone 40 mg/0.6 ml Drops [Mylicon Drops] 40 mg PO PCHS PRN #30 ml 02/25/19 [Rx] Sucralfate [Carafate] 1 gm PO BID #500 ml 02/25/19 [Rx] Follow up Appointment(s)/Referral(s): Wilfrid Burns DO [Primary Care Provider] - 1 Week [facility] [place], [place] [NON-STAFF] - 1 Week Activity/Diet/Wound Care/Special Instructions: No driving while taking [place] No lifting over 10 pounds You may shower. No soaking or tub baths Very light activity until you are reevaluated at your follow up appointment with your surgeon Diet per bariatric dietitian schedule No straws or carbonated beverages
[2019-02-25 13:16] VITALS: PULSE 95
--- NOTE | 2019-02-25 16:57 | P.PN ---
Subjective Progress Note Date: 02/25/19 This a 38-year-old white female who has known for many years who presented to the hospital today status post sleeve gastrectomy bariatric surgery. she is doing well 1 day postop she is currently upright in bed she is on clear liquid diet. She had failed outpatient treatment for morbid obesity with a body mass index greater than 40. I was asked to consult and participate regarding medical management. Her pain is controlled and she is ambulating well. Her home medications will be renewed 02/25/2019 urinary retention yesterday and throughout the night requiring straight cath 1. Flomax had been added to med regime. Bladder scanned for 150 this morning. Later in the morning , urinary retention resolved, patient voiding without difficulty. Pain controlled. Passed esophagram, tolerating joanie ar liquid diet with no nausea vomiting or diarrhea.VSS. Afebrile. Objective - Vital Signs Vital signs: Vital Signs Temp 98.0 F 02/25/19 07:00 Pulse 94 02/25/19 11:10 Resp 16 02/25/19 08:20 BP 99/64 02/25/19 07:00 Pulse Ox 97 02/25/19 07:14 Intake & Output 02/24/19 02/25/19 02/25/19 18:59 06:59 18:59 Intake Total 521.667 Output Total 300 Balance 221.667 Weight 117.5 kg Intake: Intake, IV Titration 521.667 Amount Mvi, Adult No.4 with Vit 521.667 K 10 ml Thiamine 100 mg Folic Acid 1 mg Potassium Chloride 20 meq In Sodium Chloride 0.9% 1, 000 ml @ 100 mls/hr IV . BY DURATION [facility] Rx#: [id number] Output: Urine 300 Straight 300 Other: # Voids 2 - Exam GENERAL: This is a -38 year-old in no apparent distress at the time of examination. Pleasant and cooperative. HEENT: Head is atraumatic, normocephalic. Pupils are equal, round, and reactive to light. Sclerae anicteric. Conjunctivae are clear. Mucus membranes of the mouth are moist. Neck is supple. RESPIRATORY: Clear to auscultation. No wheezes, rales, or rhonchi. No use of accessory muscles. No chest wall tenderness is noted on palpation or with deep breathing. CARDIOVASCULAR: Regular rate and rhythm. S1 and S2 noted. No systolic or diastolic murmur auscultated. No JVD noted. No S3 or S4 noted. GASTROINTESTINAL: No distention noted. Abdomen soft and round. Normal active bowel sounds auscultated x 4 quadrants. 4 small incisions and anterior abdomen noted clean and dry. INTEGUMENTARY: No cyanosis. No jaundice. No rashes noted. No cellulitis noted. EXTREMITIES: 2+ peripheral pulses. No evidence of peripheral edema. No calf tenderness noted. NEUROLOGIC: Cranial nerves II-XII intact. PSYCHIATRIC: Awake, alert, and oriented X 3. Appropriate affect. Intact judgement and insight. - Labs CBC & Chem 7: 02/24/19 07:10 02/24/19 07:10 Assessment and Plan Assessment: (1) S/P laparoscopic sleeve gastrectomy Current Visit: Yes Status: Acute Code(s): Z98.84 - BARIATRIC SURGERY STATUS SNOMED Code(s): 331886267 (2) GERD (gastroesophageal reflux disease) Current Visit: No Status: Acute Code(s): K21.9 - GASTRO-ESOPHAGEAL REFLUX DISEASE WITHOUT ESOPHAGITIS SNOMED Code(s): 153700051 (3) Rheumatoid arthritis in remission Current Visit: Yes Status: Acute Code(s): FFT0136 - SNOMED Code(s): 579481220853259 (4) Rheumatoid arthritis Current Visit: Yes Status: Acute Code(s): M06.9 - RHEUMATOID ARTHRITIS, UNSPECIFIED SNOMED Code(s): 32978025 (5) Fibromyalgia Current Visit: Yes Status: Acute Code(s): M79.7 - FIBROMYALGIA SNOMED Code(s): 427886130 (6) Morbid obesity with BMI of 40.0-44.9, adult Current Visit: Yes Status: Acute Code(s): E66.01 - MORBID (SEVERE) OBESITY DUE TO EXCESS CALORIES; Z68.41 - BODY MASS INDEX (BMI) 40.0-44.9, ADULT SNOMED Code(s): 513268649 Plan: Continue on current medication regime ,monitoring and symptomatic treatment. Significant clinical improvement and patient is being discharged home as per surgery today. Continue with aggressive pulmonary toileting, using incentive spirometer at home every hour 10. Follow-up with PCP in 1 week. Further recommendations to follow. The impression and plan of care has been dictated as directed. : I performed a history and examination of this patient, discussed the same with the dictator. I agree with the dictator's note ,documented as a scribe. Any additional findings or plans will be noted.
== END 2019-02-25 14:46 | disposition home or self-care (01) | DRG 621 ==
LOC: 2ORMAIN 11:06 → 4SSUR 14:14
PROVIDERS: ADMIT Surgery; ATTEND Surgery
PROC: 0DB64Z3 Excision of Stomach, Percutaneous Endoscopic Approach, Vertical (ICD-10-PCS; principal; 2019-02-23 12:25)
DX: E66.01 Morbid (severe) obesity due to excess calories (principal); F17.200 Nicotine dependence, unspecified, uncomplicated; K21.9 Gastro-esophageal reflux disease without esophagitis; K90.0 Celiac disease; M06.9 Rheumatoid arthritis, unspecified; M79.7 Fibromyalgia; Z68.41 Body mass index [BMI] 40.0-44.9, adult; Z79.899 Other long term (current) drug therapy; Z90.49 Acquired absence of other specified parts of digestive tract; Z88.6 Allergy status to analgesic agent; Z91.040 Latex allergy status; Z88.0 Allergy status to penicillin; Z91.018 Allergy to other foods; R33.9 Retention of urine, unspecified
CPT/HCPCS: 74240; 80051; 81001; 81025; 82310; 82565; 83735; 84100; 84520; 85025; 88307; 94640; 94760; 94762

== ENCOUNTER → 2019-02-28 | Outpatient (CLI) | payer OTHER ==
[2019-02-28 11:21] VITALS: BMI 41.1
[2019-02-28 11:53] VITALS: BP 111/77; PULSE 87; TEMP 99
== END | disposition home or self-care (01) ==
LOC: BARWHC3 10:00
PROVIDERS: ATTEND Surgery
DX: Z09 Encounter for follow-up examination after completed treatment for conditions other than malignant neoplasm (principal); Z98.84 Bariatric surgery status; E66.01 Morbid (severe) obesity due to excess calories; Z68.41 Body mass index [BMI] 40.0-44.9, adult
CPT/HCPCS: 97803; 99211

== ENCOUNTER → 2019-03-07 | Outpatient (CLI) | payer OTHER ==
[2019-03-07 15:45] VITALS: BP 127/84; PULSE 102; TEMP 98.1; BMI 39.9
--- NOTE | 2019-03-10 11:08 | P.HPBAR ---
Bariatric H&P - History & Physicial H&P Date: 03/07/19 History & Physicial: Visit/CC: TWO WEEK FOLLOW UP SLEEVE GASTRECTOMY Patient initial contact: Initial weight: 127.459 kg Initial weight in pounds: 281.00 Height: 5 ft 6.5 in Initial BMI: 44.6 Last weight: Current weight: 113.852 kg Current weight in pounds: 251.00 Current BMI: 39.9 [place] body weight (based on NIH guidelines): 60.101 kg Excess body weight loss: 20.2% The patient is a 38 year-old F who presents for Bariatric Assessment. Patient presents today for sleeve gastrectomy follow-up. She is doing quite well. She's had no significant complaints. Past Medical History Past Medical History: Fibromyalgia, GERD/Reflux, Rheumatoid Arthritis (RA) Additional Past Medical History / Comment(s): past hx. hiatal hernia-had surg., celiac disease, (takes Humira injection [id number] for Rheumatoid Arthritis) History of Any Multi-Drug Resistant Organisms: None Reported Past Surgical History: Bariatric Surgery, Section, Cholecystectomy, Orthopedic Surgery Additional Past Surgical History / Comment(s): left thumb, rt hand and left foot surgery, carpal tunnel, jeanette fundoplasty Sept. 2014 SLEEVE GASTRECTOMY 02-23-19 Past Anesthesia/Blood Transfusion Reactions: No Reported Reaction, Motion Sickness Additional Past Anesthesia/Blood Transfusion Reaction / Comm: mother- PONV Past Psychological History: Anxiety, Depression Additional Psychological History / Comment(s): Pt takes Cymbalta 60mg daily Smoking Status: Current every day smoker Past Alcohol Use History: None Reported Additional Past Alcohol Use History / Comment(s): started smoking @age of 16, <ppd Past Drug Use History: None Reported Additional Drug Use History / Comment(s): Smoking cessation information provided this day, as well as option for [employer] smoking cessation class upcoming with Community Education department at [facility] - Past Family History Mother Family Medical History: No Reported History Surgical - Exam Vital Signs Temp Pulse BP 98.1 F 102 H 127/84 03/07/19 15:37 03/07/19 15:37 03/07/19 15:37 - General well developed, well nourished - Abdomen Incision sites clean dry and intact Abdomen: soft, non tender Bariatric Assessment & Plan Plan: Status post sleeve gastrectomy. Patient is doing quite well. She'll follow-up in 2 weeks. Bariatric Checklist Checklist: Plan: Checklist: EGD: 1. Hiatal hernia: 2. H. Pylori: HgbA1c: Vitamin D: Smoking: Current every day smoker Primary care physician referral: Dr. Wilfrid Burns Psychiatry clearance: Cardiology clearance: Sleep study: Diet journal: VTE risk score: VTE risk level: Rehab needs at discharge:
== END | disposition home or self-care (01) ==
LOC: BARWHC3 14:01
PROVIDERS: ATTEND Surgery
DX: Z48.815 Encounter for surgical aftercare following surgery on the digestive system (principal); F17.200 Nicotine dependence, unspecified, uncomplicated; Z98.84 Bariatric surgery status
CPT/HCPCS: 99211

== ENCOUNTER → 2019-03-21 | Outpatient (CLI) | payer OTHER ==
[2019-03-21 15:19] LABS: Anisocytosis Slight; HCT 39.7 % (34.0-46.0); HGB 11.7 gm/dL (11.4-16.0); Hypochromasia Marked; MCH 23.2 pg (25.0-35.0); MCHC 29.4 g/dL (31.0-37.0); MCV 78.7 fL (80.0-100.0); Mean Platelet Volume 7.8; Microcytosis Slight; Platelet Count 322 k/uL (150-450); RBC 5.04 m/uL (3.80-5.40); RDW 16.2 % (11.5-15.5); WBC 7.5 k/uL (3.8-10.6)
--- NOTE | 2019-03-21 17:05 | P.HPBAR ---
Bariatric H&P - History & Physicial H&P Date: 03/21/19 History & Physicial: Visit/CC: Patient initial contact: Initial weight: 127.459 kg Initial weight in pounds: Height: Initial BMI: Last weight: Current weight: Current weight in pounds: Current BMI: [place] body weight (based on NIH guidelines): Excess body weight loss: The patient is a 38 year-old F who presents for Bariatric Assessment. Patient presents today for sleeve gastrectomy follow-up. She is doing quite well. She's had some issues with some minimal dysphagia. Past Medical History Past Medical History: Fibromyalgia, GERD/Reflux, Rheumatoid Arthritis (RA) Additional Past Medical History / Comment(s): past hx. hiatal hernia-had surg., celiac disease, (takes Humira injection [id number] for Rheumatoid Arthritis) History of Any Multi-Drug Resistant Organisms: None Reported Past Surgical History: Bariatric Surgery, Section, Cholecystectomy, Orthopedic Surgery Additional Past Surgical History / Comment(s): left thumb, rt hand and left foot surgery, carpal tunnel, jeanette fundoplasty Feb. 2014 SLEEVE GASTRECTOMY 02-23-19 Past Anesthesia/Blood Transfusion Reactions: No Reported Reaction, Motion Sickness Additional Past Anesthesia/Blood Transfusion Reaction / Comm: mother- PONV Past Psychological History: Anxiety, Depression Additional Psychological History / Comment(s): Pt takes Cymbalta 60mg daily Smoking Status: Current every day smoker Past Alcohol Use History: None Reported Additional Past Alcohol Use History / Comment(s): started smoking @age of 16, <ppd Past Drug Use History: None Reported Additional Drug Use History / Comment(s): Smoking cessation information provided this day, as well as option for [employer] smoking cessation class upcoming with Community Education department at [facility] [place] - Past Family History Mother Family Medical History: No Reported History Surgical - Exam - General well developed, well nourished, no distress - Eyes PERRL, normal ocular movement - Neck no masses - Respiratory normal expansion - Cardiovascular Rhythm: regular - Abdomen Abdomen: soft, non tender Results - Labs 03/21/19 15:05 Abnormal Lab Results - Last 24 Hours (Table) 03/21/19 Range/Units 15:05 MCV 78.7 L (80.0-100.0) fL MCH 23.2 L (25.0-35.0) pg MCHC 29.4 L (31.0-37.0) g/dL RDW 16.2 H (11.5-15.5) % Bariatric Assessment & Plan Plan: Status post sleeve gastrectomy. Patient is doing quite well. Her dysphagia is minimal will be observed. She'll follow-up in 4 weeks. Bariatric Checklist Checklist: Plan: Checklist: EGD: 1. Hiatal hernia: 2. H. Pylori: HgbA1c: Vitamin D: Smoking: Current every day smoker Primary care physician referral: Dr. Wilfrid Burns Psychiatry clearance: Cardiology clearance: Sleep study: Diet journal: VTE risk score: VTE risk level: Rehab needs at discharge:
[2019-03-21 20:09] LABS: African American GFR (CKD) 106.9 (60.0-200.0); Albumin 4.2 g/dL (3.80-4.90); Albumin/Globulin Ratio 1.62 (1.60-3.17); Anion Gap 10.2 mmol/L (4.00-12.00); BUN/Creat Ratio 18.75 Ratio (12.00-20.00); Calcium 9.2 mg/dL (8.7-10.3); Carbon Dioxide 26.8 mmol/L (21.6-31.8); Globulin 2.6 g/dL (1.6-3.3); Potassium 3.9 mmol/L (3.5-5.5); Total Bilirubin 0.4 mg/dL (0.3-1.2); Total Protein 6.8 g/dL (6.2-8.2)
[2019-03-21 20:17] LABS: Vitamin D 25 Hydroxy 23.4 ng/mL (30.0-100.0)
== END | disposition home or self-care (01) ==
LOC: LABWHC1 15:03
PROVIDERS: ATTEND Surgery
DX: E66.01 Morbid (severe) obesity due to excess calories (principal); E55.9 Vitamin D deficiency, unspecified
CPT/HCPCS: 36415; 80053; 82306; 82607; 84425; 85027

== ENCOUNTER → 2019-03-21 | Outpatient (CLI) | payer OTHER ==
[2019-03-21 14:57] VITALS: BP 118/79; PULSE 85; TEMP 98.4; BMI 38.9
== END | disposition home or self-care (01) ==
LOC: BARWHC3 14:06
PROVIDERS: ATTEND Surgery
DX: E66.01 Morbid (severe) obesity due to excess calories (principal); Z68.39 Body mass index [BMI] 39.0-39.9, adult
CPT/HCPCS: 97803; 99211

== ENCOUNTER → 2019-04-07 | Outpatient (CLI) | payer OTHER ==
--- NOTE | 2019-04-07 14:55 | FL ---
EXAMINATION TYPE: FL barium swallow DATE OF EXAM: 04/07/2019 CLINICAL HISTORY: Status post gastric sleeve 20SEC FL TIME 39 images Contrast: Omnipaque 350 50 mL The patient ingested contrast without difficulty or delay. Noted are postsurgical changes of gastric sleeve. There is luminal narrowing without obstruction at the proximal component of the gastric slee ve seen best on image 35. Correlate clinically. Contrast is noted within the duodenum. IMPRESSION: Post-surgical change of gastric sleeve.There is luminal narrowing without obstruction at the proximal component of the gastric sleeve seen best on image 35. Correlate clinically.
== END | disposition home or self-care (01) ==
LOC: RADFLMAIN 13:54
PROVIDERS: ATTEND Surgery
DX: Z91.040 Latex allergy status (principal); K63.89 Other specified diseases of intestine; Z88.0 Allergy status to penicillin; Z88.8 Allergy status to other drugs, medicaments and biological substances; Z91.018 Allergy to other foods
CPT/HCPCS: 74220

== ENCOUNTER → 2019-04-18 | Outpatient (CLI) | payer OTHER ==
[2019-04-18 15:51] VITALS: BP 119/66; PULSE 98; TEMP 98.2; BMI 37.2
--- NOTE | 2019-04-18 16:12 | P.HPBAR ---
Bariatric H&P - History & Physicial H&P Date: 04/18/19 History & Physicial: Visit/CC: sleeve follow up Patient initial contact: Initial weight: 127.459 kg Initial weight in pounds: 281.00 Height: 5 ft 6.5 in Initial BMI: 44.6 Last weight: Current weight: 106.141 kg Current weight in pounds: 234.00 Current BMI: 37.2 [place] body weight (based on NIH guidelines): 60.101 kg Excess body weight loss: 31.6% The patient is a 38 year-old F who presents for Bariatric Assessment. Patient presents today for sleeve gastrectomy fall. She's had some minimal GERD and dysphagia. It is improved since her last visit. She has lost 9 pounds last visit. Past Medical History Past Medical History: Fibromyalgia, GERD/Reflux, Rheumatoid Arthritis (RA) Additional Past Medical History / Comment(s): past hx. hiatal hernia-had surg., celiac disease, (takes Humira injection [id number] for Rheumatoid Arthritis) History of Any Multi-Drug Resistant Organisms: None Reported Past Surgical History: Bariatric Surgery, Section, Cholecystectomy, Orthopedic Surgery Additional Past Surgical History / Comment(s): left thumb, rt hand and left foot surgery, carpal tunnel, jeanette fundoplasty Sept. 2014 SLEEVE GASTRECTOMY 02-23-19 Past Anesthesia/Blood Transfusion Reactions: No Reported Reaction, Motion Sickness Additional Past Anesthesia/Blood Transfusion Reaction / Comm: mother- PONV Smoking Status: Current every day smoker - Past Family History Mother Family Medical History: No Reported History Surgical - Exam Vital Signs Temp Pulse BP 98.2 F 98 119/66 04/18/19 15:48 04/18/19 15:48 04/18/19 15:48 - General well developed, well nourished, no distress - Eyes PERRL - ENT normal pinna - Neck no masses - Respiratory normal expansion - Cardiovascular Rhythm: regular - Abdomen Abdomen: soft, non tender Bariatric Assessment & Plan Plan: Status post sleeve gastrectomy. Patient's had quite well. Her GERD is minimal. She's had minimal dysphagia. She will follow-up in 4 weeks. Bariatric Checklist Checklist: Plan: Checklist: EGD: 1. Hiatal hernia: 2. H. Pylori: HgbA1c: Vitamin D: Smoking: Current every day smoker Primary care physician referral: Dr. Wilfrid Burns Psychiatry clearance: Cardiology clearance: Sleep study: Diet journal: VTE risk score: VTE risk level: Rehab needs at discharge:
== END | disposition home or self-care (01) ==
LOC: BARWHC3 13:21
PROVIDERS: ATTEND Surgery
DX: Z48.815 Encounter for surgical aftercare following surgery on the digestive system (principal); K21.9 Gastro-esophageal reflux disease without esophagitis; F17.200 Nicotine dependence, unspecified, uncomplicated; Z90.49 Acquired absence of other specified parts of digestive tract; Z98.84 Bariatric surgery status; Z98.890 Other specified postprocedural states
CPT/HCPCS: 99211

== ENCOUNTER 2019-05-04 12:17 | Day surgery (SDC) | payer OTHER ==
[2019-05-03 13:13] VITALS: BMI 37.8
[~2019-05-04 12:17] MED LIST changes: -CLINDAMYCIN 900 MG in DEXTROSE 5% IN WATER 50 ML IVPB ONE; -DEXAMETHASONE SOD PHOSPHATE 10 MG/ML 1 ML VIAL IV ONE; -ENOXAPARIN 40 MG/0.4 ML SYRINGE SQ ONE; -GENTAMICIN 400 MG in SODIUM CHLORIDE 0.9% 100 ML IVPB ONE; +LACTATED RINGERS 1,000 ML IV SCH; -MIDAZOLAM 2 MG/2 ML VIAL IV PRN; -SCOPOLAMINE 1.5MG/72HR PATCH TRANSDERM ONE
[2019-05-04 12:56] VITALS: RESP 16; TEMP 98.5
[2019-05-04] MEDS ORDERED: LIDOCAINE 1% INJ 10MG/ML (20 ML MDV) ONE (13:08)
[2019-05-04] MEDS ORDERED: PROPOFOL 10 MG/ML 20 ML VIAL IV ONE (13:08)
--- NOTE | 2019-05-04 13:14 | P.GSHP ---
History of Present Illness H&P Date: 05/04/19 Chief Complaint: GERD, dysphagia This a 38-year-old female who presents today for EGD. She's had issues with GERD and dysphagia. She's had a previous gastric sleeve. Past Medical History Past Medical History: Fibromyalgia, GERD/Reflux, Rheumatoid Arthritis (RA) Additional Past Medical History / Comment(s): past hx. hiatal hernia-had surg., celiac disease, (takes Humira injection [id number] for Rheumatoid Arthritis) History of Any Multi-Drug Resistant Organisms: None Reported Past Surgical History: Bariatric Surgery, Section, Cholecystectomy, Orthopedic Surgery Additional Past Surgical History / Comment(s): left thumb, rt hand and left foot surgery, carpal tunnel, jeanette fundoplasty Feb. 2014 SLEEVE GASTRECTOMY 02-23-19 Past Anesthesia/Blood Transfusion Reactions: No Reported Reaction, Motion Sickness Additional Past Anesthesia/Blood Transfusion Reaction / Comment(s): mother- PONV Smoking Status: Current every day smoker - Past Family History Mother Family Medical History: No Reported History Medications and Allergies Home Medications Medication Instructions Recorded Confirmed Type DULoxetine HCL [Cymbalta] 60 mg PO DAILY 02/09/14 05/04/19 History Omeprazole [PriLOSEC] 40 mg PO BID 08/08/16 05/04/19 History Adalimumab [Humira] 10 mg SQ Q14D 01/04/18 05/04/19 History Bisacodyl [Dulcolax] 5 mg PO DAILY PRN #10 tablet. 02/25/19 05/04/19 Rx Calcium Citrate 400 mg PO TID 04/19/19 05/04/19 History Multivitamins, Thera [Multivitamin 1 tab PO DAILY 04/19/19 05/03/19 History (formulary)] Allergies Allergy/AdvReac Type Severity Reaction Status Date / Time gluten Allergy Unknown Verified 04/18/19 15:48 latex Allergy Itching, Verified 04/18/19 15:48 red skin naproxen Allergy Itching Verified 04/18/19 15:48 feels like bugs are crawling on her Penicillins Allergy Anaphylaxis Verified 04/18/19 15:48 Surgical - Exam Vital Signs Temp Pulse Resp BP Pulse Ox 98.5 F 78 16 119/60 96 05/04/19 12:54 05/04/19 12:54 05/04/19 12:54 05/04/19 12:54 05/04/19 12:54 - General well developed, well nourished, no distress - Eyes PERRL - ENT normal pinna - Neck no masses - Respiratory normal expansion - Cardiovascular Rhythm: regular - Abdomen Abdomen: soft, non tender Assessment and Plan Assessment: GERD. We'll perform EGD.
--- NOTE | 2019-05-04 13:29 | P.OP ---
Date of Procedure: 05/04/19 Preoperative Diagnosis: Dysphagia Postoperative Diagnosis: Mild esophagitis Procedure(s) Performed: EGD Anesthesia: MAC Surgeon: Ed Sanchez Pathology: other (Esophagus) Condition: stable Disposition: PACU Description of Procedure: The patient's placed on the endoscopy table in the lateral position. She received IV sedation. The gastroscope placed oropharynx passed in the esophagus and into the stomach. Scope was then placed through the pylorus. The first and second portion of the duodenum appeared normal. Scope was then brought back the antrum and this appeared normal. Scope was withdrawn the patient's gastric sleeve. We mildly dilated. There is no stricture seen in the sleeve. The GE junction was at 40 cm. The distal esophagus inflamed a biopsies performed. The proximal esophagus. Normal. Scope was withdrawn for patient.
[2019-05-04] MEDS ORDERED: ONDANSETRON 4 MG/2 ML VIAL IVP ONE (13:39)
[2019-05-04 13:50] VITALS: BP 114/83; PULSE 85
== END 2019-05-04 14:08 | disposition home or self-care (01) ==
LOC: ORWHC2ENDO 12:17
PROVIDERS: ATTEND Surgery
DX: R13.10 Dysphagia, unspecified (principal); K21.0 Gastro-esophageal reflux disease with esophagitis; G89.29 Other chronic pain; M06.9 Rheumatoid arthritis, unspecified; M79.7 Fibromyalgia; F17.200 Nicotine dependence, unspecified, uncomplicated; Z88.0 Allergy status to penicillin; Z88.6 Allergy status to analgesic agent; Z91.040 Latex allergy status; Z79.899 Other long term (current) drug therapy; Z90.49 Acquired absence of other specified parts of digestive tract; Z98.890 Other specified postprocedural states; Z98.84 Bariatric surgery status; Z87.19 Personal history of other diseases of the digestive system; Z91.018 Allergy to other foods
CPT/HCPCS: 81025; 88305; 43239; 43245; J2405; J2001; J2704

== ENCOUNTER → 2019-05-30 | Outpatient (CLI) | payer OTHER ==
[2019-05-30 16:18] VITALS: BMI 34.2
[2019-05-30 16:36] VITALS: BP 111/76; PULSE 67; TEMP 98
--- NOTE | 2019-07-03 13:15 | P.HPBAR ---
Bariatric H&P - History & Physicial H&P Date: 05/30/19 History & Physicial: Visit/CC: 3 mos sleeve f/u (w/RD too) Patient initial contact: Initial weight: 127.459 kg Initial weight in pounds: 281.00 Height: 5 ft 6.25 in Initial BMI: 45.0 Last weight: Current weight: 97.069 kg Current weight in pounds: 214.00 Current BMI: 34.2 [place] body weight (based on NIH guidelines): 59.534 kg Excess body weight loss: 44.7% The patient is a 38 year-old F who presents for Bariatric Assessment. She presents today for sleeve gastrectomy follow-up. She's done quite well. She's had excellent weight loss. She's had some mild GERD. Past Medical History Past Medical History: Fibromyalgia, GERD/Reflux, Rheumatoid Arthritis (RA) Additional Past Medical History / Comment(s): past hx. hiatal hernia-had surg., celiac disease, (takes Humira injection [id number] for Rheumatoid Arthritis) History of Any Multi-Drug Resistant Organisms: None Reported Past Surgical History: Bariatric Surgery, Section, Cholecystectomy, Orthopedic Surgery Additional Past Surgical History / Comment(s): left thumb, rt hand and left foot surgery, carpal tunnel, jeanette fundoplasty Sept. 2014 SLEEVE GASTRECTOMY 02-23-19 Past Anesthesia/Blood Transfusion Reactions: No Reported Reaction, Motion Sickness Additional Past Anesthesia/Blood Transfusion Reaction / Comm: mother- PONV Smoking Status: Current every day smoker - Past Family History Mother Family Medical History: No Reported History Surgical - Exam Vital Signs Temp Pulse BP 98.0 F 67 111/76 05/30/19 16:35 05/30/19 16:35 05/30/19 16:35 - General well developed, well nourished, no distress - Eyes PERRL - Abdomen Abdomen: soft, non tender Bariatric Assessment & Plan Plan: Status post sleeve gastrectomy. Patient has no weight loss. Her GERD is minimal will be observed. She'll follow-up in 4 weeks. Bariatric Checklist Checklist: Plan: Checklist: EGD: 1. Hiatal hernia: 2. H. Pylori: HgbA1c: Vitamin D: Smoking: Current every day smoker Primary care physician referral: Dr. Wilfrid Burns Psychiatry clearance: Cardiology clearance: Sleep study: Diet journal: VTE risk score: VTE risk level: Rehab needs at discharge:
== END | disposition home or self-care (01) ==
LOC: BARWHC3 15:27
PROVIDERS: ATTEND Surgery
DX: Z48.815 Encounter for surgical aftercare following surgery on the digestive system (principal); K21.9 Gastro-esophageal reflux disease without esophagitis; F17.200 Nicotine dependence, unspecified, uncomplicated; Z90.49 Acquired absence of other specified parts of digestive tract; Z98.84 Bariatric surgery status
CPT/HCPCS: 97803; 99211

== ENCOUNTER → 2019-06-24 | Outpatient (CLI) | payer OTHER ==
[2019-06-24 17:25] LABS: Anisocytosis Slight; HCT 36.2 % (34.0-46.0); HGB 10.8 gm/dL (11.4-16.0); Hypochromasia Marked; MCH 22.1 pg (25.0-35.0); MCHC 29.9 g/dL (31.0-37.0); Mean Platelet Volume 7.6; Microcytosis Moderate; Platelet Count 242 k/uL (150-450); RBC 4.89 m/uL (3.80-5.40); RDW 17.5 % (11.5-15.5); WBC 7.8 k/uL (3.8-10.6)
[2019-06-24 23:09] LABS: African American GFR (CKD) 125.6 (60.0-200.0); Albumin 4.1 g/dL (3.80-4.90); Albumin/Globulin Ratio 1.71 (1.60-3.17); Anion Gap 7.9 mmol/L (4.00-12.00); BUN/Creat Ratio 22.86 Ratio (12.00-20.00); Calcium 9.3 mg/dL (8.7-10.3); Carbon Dioxide 28.1 mmol/L (21.6-31.8); Globulin 2.4 g/dL (1.6-3.3); Non-African American GFR(CKD) 108.4 (60.0-200.0); Potassium 3.8 mmol/L (3.5-5.5); Total Bilirubin 0.4 mg/dL (0.2-1.2); Total Protein 6.5 g/dL (6.2-8.2)
[2019-06-24 23:54] LABS: Folate, Serum 12.1 ng/mL
== END | disposition home or self-care (01) ==
LOC: LABWHC1 16:24
PROVIDERS: ATTEND Surgery
DX: E66.01 Morbid (severe) obesity due to excess calories (principal); E44.0 Moderate protein-calorie malnutrition
CPT/HCPCS: 36415; 80053; 82306; 82607; 82746; 84425; 84443; 85027

== ENCOUNTER 2019-06-29 11:35 | Day surgery (SDC) | payer OTHER ==
[2019-06-24 16:00] VITALS: BMI 33.0
[2019-06-29 11:54] VITALS: RESP 16; TEMP 97.6
[2019-06-29] MEDS ORDERED: PROPOFOL 10 MG/ML 20 ML VIAL IV ONE (12:17)
[2019-06-29] MEDS ORDERED: LIDOCAINE 1% INJ 10MG/ML (20 ML MDV) ONE (12:17)
--- NOTE | 2019-06-29 12:27 | P.GSHP ---
History of Present Illness H&P Date: 06/29/19 Chief Complaint: GERD, dysphagia This a 38-year-old female who's a previous history of sleeve gastrectomy. Patient developed some GERD and dysphagia symptoms. She does today for EGD. Past Medical History Past Medical History: Fibromyalgia, GERD/Reflux, Rheumatoid Arthritis (RA) Additional Past Medical History / Comment(s): past hx. hiatal hernia-had surg., celiac disease, (takes Humira injection [id number] for Rheumatoid Arthritis) History of Any Multi-Drug Resistant Organisms: None Reported Past Surgical History: Bariatric Surgery, Section, Cholecystectomy, Orthopedic Surgery Additional Past Surgical History / Comment(s): left thumb, rt hand and left foot surgery, carpal tunnel, jeanette fundoplasty Feb. 2014 SLEEVE GASTRECTOMY 02-23-19 Past Anesthesia/Blood Transfusion Reactions: No Reported Reaction, Motion Sickness Additional Past Anesthesia/Blood Transfusion Reaction / Comment(s): mother- PONV Smoking Status: Current every day smoker - Past Family History Mother Family Medical History: No Reported History Medications and Allergies Home Medications Medication Instructions Recorded Confirmed Type Omeprazole [PriLOSEC] 40 mg PO BID 08/08/16 06/29/19 History Adalimumab [Humira] 10 mg SQ Q14D 01/04/18 06/29/19 History Bisacodyl [Dulcolax] 5 mg PO DAILY PRN #10 tablet. 02/25/19 06/29/19 Rx Calcium Citrate 400 mg PO TID 04/19/19 06/29/19 History Multivitamins, Thera [Multivitamin 1 tab PO DAILY 04/19/19 06/29/19 History (formulary)] Cyclobenzaprine [Flexeril] 10 mg PO DAILY PRN 06/24/19 06/29/19 History Allergies Allergy/AdvReac Type Severity Reaction Status Date / Time gluten Allergy Unknown Verified 06/24/19 15:54 latex Allergy Itching, Verified 06/24/19 15:54 red skin naproxen Allergy Itching Verified 06/24/19 15:54 feels like bugs are crawling on her Penicillins Allergy Anaphylaxis Verified 06/24/19 15:54 Surgical - Exam Vital Signs Temp Pulse Resp BP Pulse Ox 97.6 F 70 16 105/55 97 06/29/19 11:47 06/29/19 11:47 06/29/19 11:47 06/29/19 11:47 06/29/19 11:47 - General well developed, well nourished, no distress - Eyes PERRL - ENT normal pinna - Neck no masses - Respiratory normal expansion - Cardiovascular Rhythm: regular - Abdomen Abdomen: soft, non tender Assessment and Plan Assessment: GERD, dysphagia. We'll perform EGD.
--- NOTE | 2019-06-29 12:44 | P.OP ---
Date of Procedure: 06/29/19 Preoperative Diagnosis: Dysphagia Postoperative Diagnosis: Dysphagia Procedure(s) Performed: EGD with balloon dilatation of proximal gastric sleeve Anesthesia: MAC Surgeon: Ed Sanchez Pathology: none sent Condition: stable Disposition: PACU Description of Procedure: The patient's placed on the endoscopy table in the lateral position. She received IV sedation. The gastroscope placed oropharynx and passed in the esophagus into the stomach. Scope was then placed through the pylorus. The first second portion duodenum appeared normal. Scope was then brought back the antrum's appeared normal. Scope was then brought back through the gastric sleeve and at the proximal gastric sleeve and appeared to be slight scarring. The 20 mm balloon was held in position over top the proximal gastric sleeve. This was held in position for 3 minutes is then sequentially twice. The balloon was then withdrawn. There is no evidence of any injury to the gastric sleeve. The proximal stomach appeared normal. The GE junction was 40 cm. The distal esophagus. Appeared normal. The proximal esophagus appeared normal. Scope withdrawn from the patient.
[2019-06-29 13:20] VITALS: BP 113/70; PULSE 77
== END 2019-06-29 13:11 | disposition home or self-care (01) ==
LOC: ORWHC2ENDO 11:35
PROVIDERS: ATTEND Surgery
DX: R13.10 Dysphagia, unspecified (principal); K21.9 Gastro-esophageal reflux disease without esophagitis; M79.7 Fibromyalgia; M06.9 Rheumatoid arthritis, unspecified; K90.0 Celiac disease; F17.200 Nicotine dependence, unspecified, uncomplicated; Z98.84 Bariatric surgery status; Z88.6 Allergy status to analgesic agent; Z88.0 Allergy status to penicillin; Z91.018 Allergy to other foods; Z91.040 Latex allergy status; Z87.19 Personal history of other diseases of the digestive system; Z79.899 Other long term (current) drug therapy; Z98.890 Other specified postprocedural states; Z90.49 Acquired absence of other specified parts of digestive tract
CPT/HCPCS: 81025; 43245; J2001; J2704; C1726

== ENCOUNTER → 2019-07-11 | Outpatient (CLI) | payer OTHER ==
[2019-07-11 15:49] VITALS: BP 97/54; PULSE 97; TEMP 98.2; BMI 31.9
--- NOTE | 2019-07-11 16:14 | P.HPBAR ---
Bariatric H&P - History & Physicial H&P Date: 07/11/19 History & Physicial: Visit/CC: egd follow up Patient initial contact: Initial weight: 127.459 kg Initial weight in pounds: 281.00 Height: 5 ft 6.5 in Initial BMI: 44.6 Last weight: Current weight: 91.172 kg Current weight in pounds: 201.00 Current BMI: 31.9 [place] body weight (based on NIH guidelines): 60.101 kg Excess body weight loss: 53.8% The patient is a 38 year-old F who presents for Bariatric Assessment. Patient resents today for sleeve gastric and follow-up. She states her GERD is improved. She's had no significant dysphagia. She underwent EGD with balloon dilatation last week. Past Medical History Past Medical History: Fibromyalgia, GERD/Reflux, Rheumatoid Arthritis (RA) Additional Past Medical History / Comment(s): past hx. hiatal hernia-had surg., celiac disease, (takes Humira injection [id number] for Rheumatoid Arthritis) History of Any Multi-Drug Resistant Organisms: None Reported Past Surgical History: Bariatric Surgery, Section, Cholecystectomy, Orthopedic Surgery Additional Past Surgical History / Comment(s): left thumb, rt hand and left foot surgery, carpal tunnel, jeanette fundoplasty Sept. 2014 SLEEVE GASTRECTOMY 02-23-19 Past Anesthesia/Blood Transfusion Reactions: No Reported Reaction, Motion Sickness Additional Past Anesthesia/Blood Transfusion Reaction / Comm: mother- PONV Past Psychological History: Anxiety, Depression Additional Psychological History / Comment(s): Pt takes Cymbalta 60mg daily Smoking Status: Current every day smoker Past Alcohol Use History: None Reported Additional Past Alcohol Use History / Comment(s): started smoking @age of 16, <ppd Past Drug Use History: None Reported Additional Drug Use History / Comment(s): Smoking cessation information provided this day, as well as option for Fresh Start smoking cessation class upcoming with Community Education department at [facility] - Past Family History Mother Family Medical History: No Reported History Surgical - Exam Vital Signs Temp Pulse BP 98.2 F 97 97/54 07/11/19 15:47 07/11/19 15:47 07/11/19 15:47 - General well developed, well nourished, no distress - Eyes PERRL - ENT normal pinna, normal nares - Neck no masses - Respiratory normal expansion - Cardiovascular Rhythm: regular - Abdomen Abdomen: soft, non tender Bariatric Assessment & Plan Plan: Status post sleeve gastrectomy. Patient appears minimal she'll be observed. She'll follow-up in 4 weeks. Bariatric Checklist Checklist: Plan: Checklist: EGD: 1. Hiatal hernia: 2. H. Pylori: HgbA1c: Vitamin D: Smoking: Current every day smoker Primary care physician referral: Dr. Wilfrid Burns Psychiatry clearance: Cardiology clearance: Sleep study: Diet journal: VTE risk score: VTE risk level: Rehab needs at discharge:
== END | disposition home or self-care (01) ==
LOC: BARWHC3 15:33
PROVIDERS: ATTEND Surgery
DX: Z48.815 Encounter for surgical aftercare following surgery on the digestive system (principal); K21.9 Gastro-esophageal reflux disease without esophagitis; F17.200 Nicotine dependence, unspecified, uncomplicated
CPT/HCPCS: 99211

== ENCOUNTER → 2019-08-22 | Outpatient (CLI) | payer OTHER ==
[2019-08-22 16:27] VITALS: BP 104/65; PULSE 80; RESP 16; TEMP 98.5; BMI 30.8
--- NOTE | 2019-08-23 12:26 | P.HPBAR ---
Bariatric H&P - History & Physicial H&P Date: 08/22/19 History & Physicial: Visit/CC: sleeve f/u Patient initial contact: Initial weight: 127.459 kg Initial weight in pounds: 281.00 Height: 5 ft 6.5 in Initial BMI: 44.6 Last weight: Current weight: 87.997 kg Current weight in pounds: 194.00 Current BMI: 30.8 [place] body weight (based on NIH guidelines): 60.101 kg Excess body weight loss: 58.5% The patient is a 38 year-old F who presents for Bariatric Assessment. Patient presents today for sleeve gastrectomy follow-up. She has been doing very well. Her weight loss. She's had some mild GERD. Past Medical History Past Medical History: Fibromyalgia, GERD/Reflux, Rheumatoid Arthritis (RA) Additional Past Medical History / Comment(s): past hx. hiatal hernia-had surg., celiac disease, (takes Humira injection [id number] for Rheumatoid Arthritis) History of Any Multi-Drug Resistant Organisms: None Reported Past Surgical History: Bariatric Surgery, Section, Cholecystectomy, Orthopedic Surgery Additional Past Surgical History / Comment(s): left thumb, rt hand and left foot surgery, carpal tunnel, jeanette fundoplasty Sept. 2014 SLEEVE GASTRECTOMY 02-23-19 Past Anesthesia/Blood Transfusion Reactions: No Reported Reaction, Motion Sickness Additional Past Anesthesia/Blood Transfusion Reaction / Comm: mother- PONV Past Psychological History: Anxiety, Depression Additional Psychological History / Comment(s): Pt takes Cymbalta 60mg daily Smoking Status: Current every day smoker Past Alcohol Use History: None Reported Additional Past Alcohol Use History / Comment(s): started smoking @age of 16, <ppd Past Drug Use History: None Reported Additional Drug Use History / Comment(s): Smoking cessation information provided this day, as well as option for Fresh Start smoking cessation class upcoming with Community Education department at [facility] - Past Family History Mother Family Medical History: No Reported History Surgical - Exam Vital Signs Temp Pulse Resp BP 98.5 F 80 16 104/65 08/22/19 16:25 08/22/19 16:25 08/22/19 16:25 08/22/19 16:25 - General well developed, well nourished, no distress - Eyes PERRL - ENT normal pinna - Neck no masses - Respiratory normal expansion - Cardiovascular Rhythm: regular - Abdomen Abdomen: soft, non tender Bariatric Assessment & Plan Plan: Status post sleeve gastrectomy. Patient GERD is minimal old observed. She'll follow-up in 4 weeks. Bariatric Checklist Checklist: Plan: Checklist: EGD: 1. Hiatal hernia: 2. H. Pylori: HgbA1c: Vitamin D: Smoking: Current every day smoker Primary care physician referral: Dr. Wilfrid Burns Psychiatry clearance: Cardiology clearance: Sleep study: Diet journal: VTE risk score: VTE risk level: Rehab needs at discharge:
== END | disposition home or self-care (01) ==
LOC: BARWHC3 15:35
PROVIDERS: ATTEND Surgery
DX: Z48.815 Encounter for surgical aftercare following surgery on the digestive system (principal); E66.01 Morbid (severe) obesity due to excess calories; F17.200 Nicotine dependence, unspecified, uncomplicated; Z68.30 Body mass index [BMI] 30.0-30.9, adult
CPT/HCPCS: 97803; 99211

== ENCOUNTER → 2019-11-21 | Outpatient (CLI) | payer OTHER ==
--- NOTE | 2019-11-21 15:48 | P.HPBAR ---
Bariatric H&P - History & Physicial H&P Date: 11/21/19 History & Physicial: Visit/CC: Patient initial contact: Initial weight: 127.459 kg Initial weight in pounds: Height: Initial BMI: Last weight: 194 Current weight: 184 Current weight in pounds: Current BMI: [place] body weight (based on NIH guidelines): Excess body weight loss: The patient is a 39 year-old F who presents for Bariatric Assessment. Patient resents today for bariatric follow-up. She has lost another 10 pounds her last visit. She's had some minimal GERD. Past Medical History Past Medical History: Fibromyalgia, GERD/Reflux, Rheumatoid Arthritis (RA) Additional Past Medical History / Comment(s): past hx. hiatal hernia-had surg., celiac disease, (takes Humira injection [id number] for Rheumatoid Arthritis) History of Any Multi-Drug Resistant Organisms: None Reported Past Surgical History: Bariatric Surgery, Section, Cholecystectomy, Orthopedic Surgery Additional Past Surgical History / Comment(s): left thumb, rt hand and left foot surgery, carpal tunnel, jeanette fundoplasty Feb. 2014 SLEEVE GASTRECTOMY 02-23-19 Past Anesthesia/Blood Transfusion Reactions: No Reported Reaction, Motion Sickness Additional Past Anesthesia/Blood Transfusion Reaction / Comm: mother- PONV Past Psychological History: Anxiety, Depression Additional Psychological History / Comment(s): Pt takes Cymbalta 60mg daily Smoking Status: Current every day smoker Past Alcohol Use History: None Reported Additional Past Alcohol Use History / Comment(s): started smoking @age of 16, <ppd Past Drug Use History: None Reported Additional Drug Use History / Comment(s): Smoking cessation information provided this day, as well as option for Fresh Start smoking cessation class upcoming with Community Education department at [facility] - Past Family History Mother Family Medical History: No Reported History Surgical - Exam - General well developed, well nourished, no distress - Eyes PERRL - ENT normal pinna - Neck no masses - Respiratory normal expansion - Cardiovascular Rhythm: regular - Abdomen Abdomen: soft, non tender Bariatric Assessment & Plan Plan: Status post sleeve gastrectomy. Patient's crit is minimal be observed. She'll follow-up in 8 weeks. She'll continue omeprazole therapy for GERD. Bariatric Checklist Checklist: Plan: Checklist: EGD: 1. Hiatal hernia: 2. H. Pylori: HgbA1c: Vitamin D: Smoking: Current every day smoker Primary care physician referral: Dr. Wilfrid Burns Psychiatry clearance: Cardiology clearance: Sleep study: Diet journal: VTE risk score: VTE risk level: Rehab needs at discharge:
[2019-11-21 16:30] VITALS: BMI 29.2
== END | disposition home or self-care (01) ==
LOC: BARWHC3 15:35
PROVIDERS: ATTEND Surgery
DX: Z48.815 Encounter for surgical aftercare following surgery on the digestive system (principal); K21.9 Gastro-esophageal reflux disease without esophagitis; Z98.84 Bariatric surgery status; Z79.899 Other long term (current) drug therapy; F17.200 Nicotine dependence, unspecified, uncomplicated
CPT/HCPCS: 97803; 99211

== ENCOUNTER 2019-12-08 11:06 | Day surgery (SDC) | payer OTHER ==
[2019-12-06 11:28] VITALS: BMI 29.2
[~2019-12-08 11:06] MED LIST changes: -LIDOCAINE 1% 20 ML VIAL (10MG/ML) FOR IV START INTRADERMA PRN
[2019-12-08 11:30] VITALS: RESP 16; TEMP 97.8
[2019-12-08] MEDS ORDERED: LIDOCAINE 1% (10MG/ML) FOR IV START INTRADERMA ONE (11:30)
--- NOTE | 2019-12-08 11:36 | P.GSHP ---
History of Present Illness H&P Date: 12/08/19 Chief Complaint: GERD This a 39-year-old female with history of GERD. Patient's. History of sleeve gastrectomy. She presents today for EGD. Past Medical History Past Medical History: Fibromyalgia, GERD/Reflux, Rheumatoid Arthritis (RA) Additional Past Medical History / Comment(s): past hx. hiatal hernia-had surg., celiac disease, (takes Humira injection [id number] for Rheumatoid Arthritis) History of Any Multi-Drug Resistant Organisms: None Reported Past Surgical History: Bariatric Surgery, Section, Cholecystectomy, Orthopedic Surgery Additional Past Surgical History / Comment(s): left thumb, rt hand and left foot surgery, carpal tunnel, jeanette fundoplasty Sept. 2014 SLEEVE GASTRECTOMY 02-23-19 Past Anesthesia/Blood Transfusion Reactions: No Reported Reaction, Motion Sickness Additional Past Anesthesia/Blood Transfusion Reaction / Comment(s): mother- PONV Smoking Status: Current every day smoker - Past Family History Mother Family Medical History: No Reported History Medications and Allergies Home Medications Medication Instructions Recorded Confirmed Type Omeprazole [PriLOSEC] 40 mg PO BID 08/08/16 12/06/19 History Adalimumab [Humira] 10 mg SQ Q14D 01/04/18 12/06/19 History Bisacodyl [Dulcolax] 5 mg PO DAILY PRN #10 tablet. 02/25/19 12/06/19 Rx Calcium Citrate 400 mg PO TID 04/19/19 12/06/19 History Multivitamins, Thera [Multivitamin 1 tab PO DAILY 04/19/19 12/06/19 History (formulary)] Cyclobenzaprine [Flexeril] 10 mg PO DAILY PRN 06/24/19 12/06/19 History Sucralfate [Carafate] 1 gm PO BID 11/28/19 12/06/19 History Allergies Allergy/AdvReac Type Severity Reaction Status Date / Time gluten Allergy Unknown Verified 12/06/19 11:24 latex Allergy Itching, Verified 12/06/19 11:24 red skin naproxen Allergy Itching Verified 12/06/19 11:24 feels like bugs are crawling on her Penicillins Allergy Anaphylaxis Verified 12/06/19 11:24 Surgical - Exam Vital Signs Temp Pulse Resp BP Pulse Ox 97.8 F 52 L 16 109/53 96 12/08/19 11:22 12/08/19 11:22 12/08/19 11:22 12/08/19 11:22 12/08/19 11:22 - General well developed, well nourished, no distress - Eyes PERRL - ENT normal pinna - Neck no masses - Respiratory normal expansion - Cardiovascular Rhythm: regular - Abdomen Abdomen: soft, non tender Assessment and Plan Assessment: GERD. We'll perform EGD.
[2019-12-08] MEDS ORDERED: ONDANSETRON 4 MG/2 ML VIAL ONE (11:40)
[2019-12-08] MEDS ORDERED: PROPOFOL 10 MG/ML 20 ML VIAL IV ONE (11:40)
--- NOTE | 2019-12-08 11:50 | P.OP ---
Date of Procedure: 12/08/19 Preoperative Diagnosis: GERD Postoperative Diagnosis: Antral gastritis Minimal esophagitis Procedure(s) Performed: EGD Anesthesia: MAC Surgeon: Ed Sanchez Pathology: other (Antrum, esophagus) Condition: stable Disposition: PACU Description of Procedure: The patient's placed on the endoscopy table in the lateral position. She received IV sedation. The gastroscope oropharynx passed in the esophagus into the stomach. Scope then placed through the pylorus. The first and second portion of the duodenum appeared normal. Scope was then brought back the antrum and this was minimal inflamed and a biopsies performed. Scope was then brought back through the gastric sleeve. There is known to any inflammation through the gastric sleeve. The GE junction was at 38 cm. The distal esophagus appeared minimally inflamed and a biopsy performed of the proximal esophagus appeared normal. Scope withdrawn for patient.
[2019-12-08 12:35] VITALS: BP 140/88; PULSE 60
== END 2019-12-08 12:40 | disposition home or self-care (01) ==
LOC: ORWHC2ENDO 11:06
PROVIDERS: ATTEND Surgery
DX: K21.0 Gastro-esophageal reflux disease with esophagitis (principal); K29.50 Unspecified chronic gastritis without bleeding; M79.7 Fibromyalgia; M06.9 Rheumatoid arthritis, unspecified; K90.0 Celiac disease; F41.9 Anxiety disorder, unspecified; F32.9 Major depressive disorder, single episode, unspecified; F17.210 Nicotine dependence, cigarettes, uncomplicated; Z91.040 Latex allergy status; Z88.6 Allergy status to analgesic agent; Z88.0 Allergy status to penicillin; Z98.84 Bariatric surgery status; Z87.19 Personal history of other diseases of the digestive system; Z79.899 Other long term (current) drug therapy; Z98.890 Other specified postprocedural states; Z90.49 Acquired absence of other specified parts of digestive tract; Z86.69 Personal history of other diseases of the nervous system and sense organs; Z87.898 Personal history of other specified conditions; Z91.89 Other specified personal risk factors, not elsewhere classified; Z84.89 Family history of other specified conditions
CPT/HCPCS: 81025; 88305; 43239; J2405; J2704

== ENCOUNTER → 2019-12-26 | Outpatient (CLI) | payer OTHER ==
[2019-12-26 15:48] VITALS: BP 107/71; PULSE 76; RESP 16; TEMP 98.2; BMI 28.1
--- NOTE | 2019-12-26 16:23 | P.HPBAR ---
Bariatric H&P - History & Physicial H&P Date: 12/26/19 History & Physicial: Visit/CC: 10 month f/u Patient initial contact: Initial weight: 127.459 kg Initial weight in pounds: 281.00 Height: 5 ft 6.5 in Initial BMI: 44.6 Last weight: Current weight: 80.377 kg Current weight in pounds: 177.20 Current BMI: 28.1 [place] body weight (based on NIH guidelines): 60.101 kg Excess body weight loss: 69.8% Patient presents today for sleeve gastrectomy follow-up. Patient has complaints of GERD Past Medical History Past Medical History: Fibromyalgia, GERD/Reflux, Rheumatoid Arthritis (RA) Additional Past Medical History / Comment(s): past hx. hiatal hernia-had surg., celiac disease, (takes Humira injection [id number] for Rheumatoid Arthritis) History of Any Multi-Drug Resistant Organisms: None Reported Past Surgical History: Bariatric Surgery, Section, Cholecystectomy, Orthopedic Surgery Additional Past Surgical History / Comment(s): left thumb, rt hand and left foot surgery, carpal tunnel, jeanette fundoplasty Sept. 2014 SLEEVE GASTRECTOMY 02-23-19 Past Anesthesia/Blood Transfusion Reactions: No Reported Reaction, Motion Sickness Additional Past Anesthesia/Blood Transfusion Reaction / Comm: mother- PONV Past Psychological History: Anxiety, Depression Additional Psychological History / Comment(s): Pt takes Cymbalta 60mg daily Smoking Status: Current every day smoker Past Alcohol Use History: None Reported Additional Past Alcohol Use History / Comment(s): started smoking @age of 16, <ppd Past Drug Use History: None Reported Additional Drug Use History / Comment(s): Smoking cessation information provided this day, as well as option for Fresh Start smoking cessation class upcoming with Community Education department at [facility] - Past Family History Mother Family Medical History: No Reported History Surgical - Exam Vital Signs Temp Pulse Resp BP Pulse Ox 98.2 F 76 16 107/71 97 12/26/19 15:45 12/26/19 15:45 12/26/19 15:45 12/26/19 15:45 12/26/19 15:45 - General well developed, well nourished - Eyes PERRL - ENT normal pinna - Neck no masses - Respiratory normal expansion - Cardiovascular Rhythm: regular - Abdomen Abdomen: soft, non tender Bariatric Assessment & Plan Plan: Status post sleeve gastrectomy. Patient has had excellent weight loss. Her GERD will be observed. She'll follow-up in 4 weeks. Bariatric Checklist Checklist: Plan: Checklist: EGD: 1. Hiatal hernia: 2. H. Pylori: HgbA1c: Vitamin D: Smoking: Current every day smoker Primary care physician referral: Dr. Wilfrid Burns Psychiatry clearance: Cardiology clearance: Sleep study: Diet journal: VTE risk score: VTE risk level: Rehab needs at discharge:
== END | disposition home or self-care (01) ==
LOC: BARWHC3 15:33
PROVIDERS: ATTEND Surgery
DX: Z48.815 Encounter for surgical aftercare following surgery on the digestive system (principal); K21.9 Gastro-esophageal reflux disease without esophagitis; F17.200 Nicotine dependence, unspecified, uncomplicated; Z98.84 Bariatric surgery status; Z90.49 Acquired absence of other specified parts of digestive tract
CPT/HCPCS: 99211

== ENCOUNTER → 2020-01-11 | Outpatient (CLI) | payer OTHER ==
[2020-01-11 16:10] VITALS: BP 108/71; PULSE 82; RESP 16; TEMP 98.7; BMI 27.8
--- NOTE | 2020-01-11 16:42 | P.HPBAR ---
Bariatric H&P - History & Physicial H&P Date: 01/11/20 History & Physicial: Visit/CC: sleeve f/u Patient initial contact: Initial weight: 127.459 kg Initial weight in pounds: 281.00 Height: 5 ft 6.5 in Initial BMI: 44.6 Last weight: Current weight: 79.379 kg Current weight in pounds: 175.00 Current BMI: 27.8 [place] body weight (based on NIH guidelines): 60.101 kg Excess body weight loss: 71.3% The patient is a 39 year-old F who presents for Bariatric Assessment. Highest 296 pounds. Sleeve 02/23/19. Now 175 pounds. Severe GERD. She had severe GERD prior to surgery and taking toxic doses of medications. No family history of osteoporosis. Left thumb broken with tendon repair. No gallbladder present. Three hiatal hernia repairs. Last scope 4 weeks ago. No family history of stomach or esophageal cancer. All UGI reviewed. EGD reviewed. Path reveiwed. Has occasional dysphagia. Recommend manometry. May need conversion to gastric bypass. Has Celiac, recommend laboratory technologist referral Past Medical History Past Medical History: Fibromyalgia, GERD/Reflux, Rheumatoid Arthritis (RA) Additional Past Medical History / Comment(s): past hx. hiatal hernia-had surg., celiac disease, (takes Humira injection [id number] for Rheumatoid Arthritis) History of Any Multi-Drug Resistant Organisms: None Reported Past Surgical History: Bariatric Surgery, Section, Cholecystectomy, Orthopedic Surgery Additional Past Surgical History / Comment(s): left thumb, rt hand and left foot surgery, carpal tunnel, jeanette fundoplasty Feb. 2014 SLEEVE GASTRECTOMY 02-23-19 Past Anesthesia/Blood Transfusion Reactions: No Reported Reaction, Motion Sickness Additional Past Anesthesia/Blood Transfusion Reaction / Comm: mother- PONV Past Psychological History: Anxiety, Depression Additional Psychological History / Comment(s): Pt takes Cymbalta 60mg daily Smoking Status: Unknown if ever smoked Past Alcohol Use History: None Reported Additional Past Alcohol Use History / Comment(s): started smoking @age of 16, <ppd Past Drug Use History: None Reported Additional Drug Use History / Comment(s): Smoking cessation information provided this day, as well as option for Fresh Start smoking cessation class upcoming with Community Education department at [facility] - Past Family History Mother Family Medical History: No Reported History Surgical - Exam Vital Signs Temp Pulse Resp BP 98.7 F 82 16 108/71 01/11/20 16:07 01/11/20 16:07 01/11/20 16:07 01/11/20 16:07 Bariatric Checklist Checklist: Plan: Checklist: EGD: 1. Hiatal hernia: 2. H. Pylori: HgbA1c: Vitamin D: Smoking: Current every day smoker Primary care physician referral: Dr. Wilfrid Burns Psychiatry clearance: Cardiology clearance: Sleep study: Diet journal: VTE risk score: VTE risk level: Rehab needs at discharge:
== END | disposition home or self-care (01) ==
LOC: BARWHC3 15:59
PROVIDERS: ATTEND Surgery Plastic and Reconstructive Surgery
DX: K21.9 Gastro-esophageal reflux disease without esophagitis (principal); E66.01 Morbid (severe) obesity due to excess calories; Z98.84 Bariatric surgery status; Z90.49 Acquired absence of other specified parts of digestive tract; F17.200 Nicotine dependence, unspecified, uncomplicated; Z68.27 Body mass index [BMI] 27.0-27.9, adult
CPT/HCPCS: 99211

== ENCOUNTER → 2020-01-27 | Outpatient (CLI) | payer OTHER ==
--- NOTE | 2020-01-27 16:02 | FL ---
EXAMINATION TYPE: FL barium swallow DATE OF EXAM: 01/27/2020 HISTORY: Indigestion. Status post Yesenia fundoplication. Status post gastric sleeve. COMPARISON: NONE TECHNIQUE: A double contrast esophagram is performed utilizing air and barium. FINDINGS: The esophagus shows normal motility and emptying into the stomach. No evidence of hiatal hernia or s tricture noted. Expected appearance of the gastric pouch status post gastric sleeve. Severe spontaneo us gastroesophageal reflux was seen during real time performance of this study. IMPRESSION: 1. Severe spontaneous gastroesophageal reflux. 2. No significant hiatal hernia. 3. Expected postoperative appearance of gastric pouch with no evidence of dilatation status post bandar marguerite sleeve.
== END | disposition home or self-care (01) ==
LOC: RADFLMAIN 10:24
PROVIDERS: ATTEND Surgery Plastic and Reconstructive Surgery
DX: K21.9 Gastro-esophageal reflux disease without esophagitis (principal); Z98.84 Bariatric surgery status
CPT/HCPCS: 74220

== ENCOUNTER → 2020-03-26 | Outpatient (CLI) | payer OTHER ==
[2020-03-26 12:29] LABS: Anisocytosis Slight; HCT 33.6 % (34.0-46.0); HGB 9.9 gm/dL (11.4-16.0); Hypochromasia Marked; MCHC 29.4 g/dL (31.0-37.0); MCV 71.4 fL (80.0-100.0); Microcytosis Marked; Platelet Count 217 k/uL (150-450); RDW 17.9 % (11.5-15.5); WBC 5.7 k/uL (3.8-10.6)
[2020-03-26 19:20] LABS: INR 0.94 (0.90-1.11); Partial Thromboplastin Time 23.8 sec (24.7-29.9); Prothrombin Time 10.1 sec (9.9-11.9)
[2020-03-26 21:21] LABS: Hemoglobin A1C 5.6 % (4.0-6.0)
[2020-03-26 21:52] LABS: % Iron Saturation 2.45 (12.00-45.00); African American GFR (CKD) 131.2 (60.0-200.0); Albumin 3.9 g/dL (3.80-4.90); Albumin/Globulin Ratio 1.63 (1.60-3.17); Anion Gap 6.9 mmol/L (4.00-12.00); BUN/Creat Ratio 23.33 Ratio (12.00-20.00); Carbon Dioxide 25.1 mmol/L (21.6-31.8); Chol/HDL Ratio 2.58; Ferritin 0.5 ng/mL (10.0-291.0); Folate, Serum 11.5 ng/mL; Globulin 2.4 g/dL (1.6-3.3); LDL Cholesterol,Calculated 65.2 mg/dL (0.0-131.0); Magnesium 1.8 mg/dL (1.5-2.4); Non-African American GFR(CKD) 113.2 (60.0-200.0); Phosphorus 3.7 mg/dL (2.4-5.1); Potassium 4.4 mmol/L (3.5-5.5); Total Bilirubin 0.3 mg/dL (0.3-1.2); Total Protein 6.3 g/dL (6.2-8.2); VLDL Calculation 13.8 mg/dL (5.00-40.00)
[2020-03-27 14:34] LABS: Zinc, Serum 63 ug/dL (60-130)
[2020-03-28 06:12] LABS: Vitamin A 27 ug/dL (38-106)
[2020-03-28 06:56] LABS: Vit B1(Thiamine) 60 ug/L (38-122)
== END | disposition home or self-care (01) ==
LOC: LABWHC1 11:16
PROVIDERS: ATTEND Surgery Plastic and Reconstructive Surgery
DX: E21.1 Secondary hyperparathyroidism, not elsewhere classified (principal); E89.1 Postprocedural hypoinsulinemia; D50.9 Iron deficiency anemia, unspecified; K50.90 Crohn's disease, unspecified, without complications; K90.9 Intestinal malabsorption, unspecified; K74.1 Hepatic sclerosis; N19 Unspecified kidney failure
CPT/HCPCS: 36415; 80053; 80061; 82306; 82525; 82607; 82728; 82746; 83036; 83540; 83550; 83735; 83970; 84100; 84134; 84255; 84425; 84443; 84590; 84630; 85027; 85610; 85730; 93005

== ENCOUNTER → 2020-03-26 | Outpatient (CLI) | payer OTHER ==
--- NOTE | 2020-03-26 14:48 | MM ---
Reason for exam: screening (asymptomatic). Baseline mammogram. Physical Findings: Nurse did not find any significant physical abnormalities on exam. MG Screening Mammo w CAD Bilateral CC and MLO view(s) were taken. No prior studies available for comparison. There are scattered fibroglandular densities. There is no discrete abnormality. These results were verbally communicated with the patient and result sheet given to the patient on 03/26/20. ASSESSMENT: Negative, BI-RAD 1 RECOMMENDATION: Routine screening mammogram of both breasts in 1 year.
== END | disposition home or self-care (01) ==
LOC: RADMAMWWP 10:15
PROVIDERS: ATTEND Family Medicine
DX: Z12.31 Encounter for screening mammogram for malignant neoplasm of breast (principal)
CPT/HCPCS: 77067

== ENCOUNTER → 2020-04-03 | Outpatient (CLI) | payer OTHER ==
--- NOTE | 2020-04-04 13:24 | US ---
EXAMINATION TYPE: US transvaginal DATE OF EXAM: 04/03/2020 COMPARISON: NONE CLINICAL HISTORY: N83.291 R OVARY MASS. Patient states doctor felt something on right ovary. Hx c-se ction. TECHNIQUE: Transvaginal (TV). Date of LMP: 03/07/2020, EXAM MEASUREMENTS: Uterus: 8.1 x 5.0 x 4.4 cm Endometrial Stripe: 0.7 cm Right Ovary: 3.2 x 1.9 x 1.7 cm Left Ovary: 2.7 x 1.1 x 1.9 cm 1. Uterus: Anteverted Heterogenous. Anterior contour consistent with history of section. No focal abnormality. Trace amount of fluid within the endocervical canal. 2. Endometrium: Normal 3. Right Ovary: Normal. Follicular change. 4. Left Ovary: Normal. Follicular change. 5. Bilateral Adnexa: Normal 6. Posterior cul-de-sac: no free fluid IMPRESSION: 1. Normal appearance of the bilateral ovaries with follicular changes. 2. No focal abnormality. 3. No free fluid.
== END | disposition home or self-care (01) ==
LOC: RADUSWWP 16:46
PROVIDERS: ATTEND Family Medicine
DX: N83.291 Other ovarian cyst, right side (principal)
CPT/HCPCS: 76830

== ENCOUNTER → 2020-04-11 | Outpatient (CLI) | payer OTHER ==
--- NOTE | 2020-04-11 15:38 | P.PN ---
Subjective Progress Note Date: 04/11/20 DATE: 04/11/2020 CHIEF COMPLAINT: Complications from sleeve gastrectomy HISTORY OF PRESENT ILLNESS: Tia Reynolds is a 39-year-old female who comes with severe gastroesophageal reflux disease following sleeve gastrectomy. She is status post sleeve gastrectomy 02/23/2019. She is status post multiple gastric procedures including hiatal hernia repair x 3 including bariatric procedure. She is taking high doses of antacids to control her symptoms. She has chronic nausea. At height of 5 feet 6.5 inches, her ideal body weight is 154 pounds. Her highest weight is 296 pounds, BMI 47.2. She comes in 169 pounds from 170 pounds, 1 month ago. She has lost 1 pounds in 1 month. Her body mass index is 26.9.. Lifetime weight loss is 127 pounds. Lifetime percent excess weight loss is 90 %. She is 15 pounds overweight. PAST MEDICAL HISTORY: 1. Morbid obesity due to excess calories 2. Body mass index of 47.2, initial 3. Fibromyalgia 4. Gastroesophageal reflux disease 5. Celiac disease 6. Rheumatoid arthritis 7. Generalized anxiety disorder 8. Depressive disorder 9. Motion sickness 10. Tobacco abuse disorder PAST SURGICAL HISTORY: 1. Cholecystectomy 2. Hiatal hernia repair 3 3. Yesenia fundoplasty 4. Multiple upper endoscopies 5. Status post sleeve gastrectomy 6. Carpal tunnel release 7. Left thumb tendon repair 8. Right hand surgery 9. Left foot surgery 10. section HOME MEDICATIONS: ALLERGIES: Home Medications Medication Instructions Recorded Confirmed Omeprazole [PriLOSEC] 40 mg PO BID 08/08/16 04/11/20 Adalimumab [Humira] 10 mg SQ Q14D 01/04/18 04/11/20 Calcium Citrate 400 mg PO TID 04/19/19 04/11/20 Multivitamins, Thera [Multivitamin 1 tab PO DAILY 04/19/19 04/11/20 (formulary)] Cyclobenzaprine [Flexeril] 10 mg PO DAILY PRN 06/24/19 04/11/20 Sucralfate [Carafate] 1 gm PO BID 11/28/19 04/11/20 Allergies Allergy/AdvReac Type Severity Reaction Status Date / Time gluten Allergy Abdominal Verified 04/11/20 15:44 Pain latex Allergy Itching, Verified 04/11/20 15:44 red skin naproxen Allergy Itching Verified 04/11/20 15:44 feels like bugs are crawling on her Penicillins Allergy Anaphylaxis Verified 04/11/20 15:44 SOCIAL HISTORY: Current tobacco use. FAMILY HISTORY: No family history of ulcerative colitis disease or Crohn's disease. Family history of morbid obesity. No lupus in the family. No reports of stomach or esophageal cancer. REVIEW OF ORGAN SYSTEMS: CONSTITUTIONAL: At height of 5 feet 6.5 inches, her ideal body weight is 154 pounds. Her highest weight is 296 pounds, BMI 47.2. HEENT: Denies any active troubles with vision or hearing. Has occasional dysphagia. ENDOCRINE: No diabetes. No hypothyroidism. CARDIOVASCULAR: No past reports of palpitations or heart attacks or chest pain. RESPIRATORY: No daytime somnolence. No athma GASTROINTESTINAL: Denies any bright red blood per rectum. Has gastroesophageal reflux disease. Has celiac disease. MUSCULOSKELETAL: Has lower back pain and joint pain. Has osteoarthritis of the knees. Has rheumatoid arthritis. NEURO: No headaches. No seizure disorders. Has fibromyalgia PSYCH: Has depression. No suicidal ideation. Has generalized anxiety disorder. RHEUMATOLOGIC: No lupus. No rheumatoid arthritis. HEMATOLOGIC: Denies any abnormal bleeding or bruising. No personal history of DVTs. SKIN: Has rash. No skin cancer. PHYSICAL EXAM: VITAL SIGNS: Height 5 foot 6.5 inches, weight 169 pounds. BMI 26.9 Vital Signs Temp 98.3 F 04/11/20 15:40 Pulse 80 04/11/20 15:40 Resp BP 121/78 04/11/20 15:40 Pulse Ox GENERAL: Well-developed in no acute distress. HEENT: No scleral icterus. Extraocular movements grossly intact. Hears conversational speech. No nasal drainage. NECK: Supple without lymphadenopathy. CHEST: Nonlabored respirations with equal bilateral excursions. CARDIOVASCULAR: Regular rate and regular rhythm. Distal 2+ pulses. ABDOMEN: Obese, soft, nontender, nondistended. MUSCULOSKELETAL: No clubbing, cyanosis. NEURO: No focal or lateralizing signs. Cranial nerves 2 through 12 grossly within normal limits. PSYCH: Appropriate affect. Alert and oriented to person, place and time. SKIN: Good skin turgor. Well perfused. EKG: Normal sinus rhythm MEDICAL REPORT: EGD FINDINGS: No acute ulceration found along her sleeve. Moderate corkscrewing sleeve gastrectomy. Squamocolumnar junction at 35 cm Diaphragmatic hiatus at 38 cm. Moderate retained gastric cardia with narrowing at angularis incisura creating a functional obstruction, gastroesophageal reflux disease LA grade A erosive esophagitis. No active duodenitis. Chronic gastritis. Final Pathologic Diagnosis GASTRIC ANTRUM, BIOPSY: Mild chronic gastritis. Helicobacter pylori organisms are not identified on routine H+E sections. LABS: Hgb low 9.9, Iron is low at 10, Pre-albumin is low 12, Vitamin A is low 27 ASSESSMENT: 1. Morbid obesity due to excess calories 2. Body mass index of 47.2, initial 3. Fibromyalgia 4. Gastroesophageal reflux disease 5. Celiac disease 6. Rheumatoid arthritis 7. Generalized anxiety disorder 8. Depressive disorder 9. Motion sickness 10. Tobacco abuse disorder 11. Complications of sleeve gastrectotmy 12. Dysphagia 13. Iron deficiency anemia 14. Vitamin A deficiency 15. Inadequate protein intake. PLAN: 1. Bariatric options between for Ralph-en-Y gastric bypass were reviewed in detail. Robotic assisted approach described. 2. The [place] [facility] Data was also reviewed with benefits and risks as described. 3. An 8 page second-generation bariatric consent form was reviewed in detail including potential of bleeding, infection, leaks, adequate weight loss, nutritional deficiencies which the patient demonstrated understanding of the risks. She is moderate to high elevated risk for perioperative complications due to multiple gastric procedures with elevated risk for leaks. EGD shows moderate technical problems. 4. A 2 week high-protein low caloric 800 kcal diet described to address hepatomegaly. 5. Preoperative labs including complete metabolic panel and CBC with type and screen recommended. 6. DVT prophylaxis per [place] [facility]. 7. Antibiotic prophylaxis. 8. Inpatient hospitalization anticipated for more than 2 nights. 9. All questions and concerns were addressed with the patient. 10. Correction of all nutritional deficiences is advised. 11. Complete tobacco cessation with urine nicotine monitoring pre and post-op advised.
[2020-04-11 15:48] VITALS: BP 121/78; PULSE 80; TEMP 98.3; BMI 26.9
== END | disposition home or self-care (01) ==
LOC: BARWHC3 15:30
PROVIDERS: ATTEND Surgery Plastic and Reconstructive Surgery
DX: E66.01 Morbid (severe) obesity due to excess calories (principal); M79.7 Fibromyalgia; K21.9 Gastro-esophageal reflux disease without esophagitis; K90.0 Celiac disease; M06.9 Rheumatoid arthritis, unspecified; F41.1 Generalized anxiety disorder; F41.8 Other specified anxiety disorders; T75.3XXA Motion sickness, initial encounter; K95.89 Other complications of other bariatric procedure; D50.9 Iron deficiency anemia, unspecified; E50.9 Vitamin A deficiency, unspecified; E63.8 Other specified nutritional deficiencies; Z98.84 Bariatric surgery status; Z90.49 Acquired absence of other specified parts of digestive tract; Z68.42 Body mass index [BMI] 45.0-49.9, adult; Z72.0 Tobacco use; Z91.018 Allergy to other foods; Z91.040 Latex allergy status; Z88.8 Allergy status to other drugs, medicaments and biological substances; Z88.0 Allergy status to penicillin; Z79.899 Other long term (current) drug therapy
CPT/HCPCS: 97803; 99211

== ENCOUNTER → 2020-05-18 | Outpatient (CLI) | payer OTHER ==
[2020-05-18 15:12] LABS: Anisocytosis Moderate; HCT 38.7 % (34.0-46.0); HGB 12.4 gm/dL (11.4-16.0); Hypochromasia Moderate; MCH 25.1 pg (25.0-35.0); Mean Platelet Volume 8.8; Microcytosis Moderate; Platelet Count 172 k/uL (150-450); RBC 4.94 m/uL (3.80-5.40); RDW 22.2 % (11.5-15.5); WBC 7.5 k/uL (3.8-10.6)
[2020-05-18 15:22] LABS: MCV 78.4 fL (80.0-100.0)
[2020-05-18 15:23] LABS: Partial Thromboplastin Time 23.6 sec (22.0-30.0); Prothrombin Time 10.3 sec (9.0-12.0)
[2020-05-19 02:05] LABS: % Iron Saturation 6.27 (12.00-45.00); African American GFR (CKD) 124.7 (60.0-200.0); Albumin 4.2 g/dL (3.80-4.90); Albumin/Globulin Ratio 1.83 (1.60-3.17); Anion Gap 6.6 mmol/L (4.00-12.00); BUN/Creat Ratio 37.14 Ratio (12.00-20.00); Calcium 9.3 mg/dL (8.7-10.3); Carbon Dioxide 26.4 mmol/L (21.6-31.8); Chol/HDL Ratio 2.78; Ferritin 6.3 ng/mL (10.0-291.0); Globulin 2.3 g/dL (1.6-3.3); LDL Cholesterol,Calculated 78.4 mg/dL (0.0-131.0); Magnesium 1.8 mg/dL (1.5-2.4); Non-African American GFR(CKD) 107.6 (60.0-200.0); Phosphorus 4.7 mg/dL (2.4-5.1); Potassium 3.9 mmol/L (3.5-5.5); Total Bilirubin 0.4 mg/dL (0.3-1.2); Total Protein 6.5 g/dL (6.2-8.2); VLDL Calculation 17.6 mg/dL (5.00-40.00)
[2020-05-19 02:51] LABS: Hemoglobin A1C 4.9 % (4.0-6.0)
== END | disposition home or self-care (01) ==
LOC: LABWHC1 14:19
PROVIDERS: ATTEND Surgery Plastic and Reconstructive Surgery
DX: D50.8 Other iron deficiency anemias (principal); K90.89 Other intestinal malabsorption; E55.9 Vitamin D deficiency, unspecified; K74.1 Hepatic sclerosis; N19 Unspecified kidney failure; K50.90 Crohn's disease, unspecified, without complications; E89.1 Postprocedural hypoinsulinemia; E66.01 Morbid (severe) obesity due to excess calories
CPT/HCPCS: 36415; 80053; 80061; 82306; 82525; 82607; 82728; 82746; 83036; 83540; 83550; 83735; 83970; 84100; 84134; 84255; 84425; 84443; 84590; 84630; 85027; 85610; 85730

== ENCOUNTER → 2021-10-23 | Outpatient (CLI) | payer OTHER ==
--- NOTE | 2021-10-23 12:56 | XR ---
EXAMINATION TYPE: XR wrist complete RT DATE OF EXAM: 10/23/2021 CLINICAL HISTORY: pain TECHNIQUE: Frontal, lateral and oblique images of the right wrist are obtained. COMPARISON: None. FINDINGS: There is no acute fracture/dislocation evident. The joint spaces appear within normal limits. The o verlying soft tissue appears unremarkable. IMPRESSION: There is no acute fracture or dislocation seen. ICD 10 NO FRACTURE, INITIAL EVALUATION
--- NOTE | 2021-10-23 12:57 | XR ---
EXAMINATION TYPE: XR shoulder complete LT DATE OF EXAM: 10/23/2021 CLINICAL HISTORY: pain COMPARISON: NONE TECHNIQUE: Three views of the left shoulder are obtained. FINDINGS: There is no acute fracture/dislocation evident. The acromioclavicular and glenohumeral saba int spaces appear within normal limits. The visualized ribs are intact and unremarkable. IMPRESSION: 1. There is no acute fracture or dislocation. ICD 10 NO FRACTURE, INITIAL EVALUATION
== END | disposition home or self-care (01) ==
LOC: RADXRMAIN 12:38
PROVIDERS: ATTEND Nurse Practitioner Family
DX: M25.531 Pain in right wrist (principal); M25.512 Pain in left shoulder

== ENCOUNTER → 2021-11-18 | Outpatient (CLI) | payer OTHER ==
[2021-11-18 12:42] LABS: INR 0.9 (<1.2); Partial Thromboplastin Time 22.5 sec (22.0-30.0); Prothrombin Time 10.4 sec (9.0-12.0)
[2021-11-18 18:03] LABS: % Iron Saturation 3.09 (12.00-45.00); ALT 18 U/L (8-44); AST 20 U/L (13-35); African American GFR (CKD) 128.5 (60.0-200.0); Albumin/Globulin Ratio 1.37 (1.60-3.17); Alkaline Phosphatase 69 U/L (41-126); BUN/Creat Ratio 27.73 Ratio (12.00-20.00); Calcium 8.9 mg/dL (8.7-10.3); Carbon Dioxide 25.4 mmol/L (20.0-27.5); Chloride 102 mmol/L (96-109); Ferritin 3.3 ng/mL (10.0-291.0); Globulin 2.9 g/dL (1.6-3.3); Glucose 75 mg/dL (70-110); Iron 14 ug/dL (50-170); Non-African American GFR(CKD) 110.9 (60.0-200.0); Phosphorus 3.2 mg/dL (2.4-5.1); Potassium 4.1 mmol/L (3.5-5.5); Sodium 136 mmol/L (135-145); Total Iron Binding Capacity 444 ug/dL (228-460)
[2021-11-18 18:08] LABS: HCT 38.6 % (37.2-46.3); HGB 11.1 g/dL (12.0-15.0); MCHC 28.8 g/dL (32.0-37.0); NRBC Per 100 WBC 0 /100 WBCS (0.0-0.0); Platelet Count 218 X 10*3/uL (140-440); RBC 5.29 X 10*6/uL (4.10-5.20); RDW 20.5 % (11.5-14.5); WBC 4.31 X 10*3/uL (4.50-10.00)
[2021-11-18 18:52] LABS: Chol/HDL Ratio 2.64 Ratio; LDL Cholesterol,Calculated 75.1 mg/dL (0.0-131.0); Prealbumin 12.8 mg/dL (18.0-42.0); VLDL Calculation 15.64 mg/dL (5.00-40.00)
[2021-11-19 12:28] LABS: Zinc, Serum 60 ug/dL (60-130)
[2021-11-20 06:17] LABS: Vitamin A 31 ug/dL (38-106)
== END | disposition home or self-care (01) ==
LOC: LABWHC1 11:36
PROVIDERS: ATTEND Surgery Plastic and Reconstructive Surgery
DX: E89.1 Postprocedural hypoinsulinemia (principal); D50.8 Other iron deficiency anemias; E44.0 Moderate protein-calorie malnutrition; E45 Retarded development following protein-calorie malnutrition; E55.9 Vitamin D deficiency, unspecified; K74.1 Hepatic sclerosis; N19 Unspecified kidney failure; T56.894A Toxic effect of other metals, undetermined, initial encounter; K50.90 Crohn's disease, unspecified, without complications
CPT/HCPCS: 36415; 80053; 80061; 82306; 82525; 82607; 82728; 82746; 83036; 83540; 83550; 83735; 83970; 84100; 84134; 84255; 84425; 84443; 84590; 84630; 85027; 85610; 85730

== ENCOUNTER 2021-12-30 08:09 | Day surgery (SDC) | payer OTHER ==
[2021-12-27 15:54] VITALS: BMI 21.9
--- NOTE | 2021-12-30 07:36 | P.GSHP ---
History of Present Illness H&P Date: 12/30/21 CHIEF COMPLAINT: GERD HISTORY OF PRESENT ILLNESS: The patient is a 41-year-old female who presents reports gastroesophageal reflux disease. Upper endoscopy was offered for further evaluation and management. PAST MEDICAL HISTORY: Please see list. PAST SURGICAL HISTORY: Please see list. MEDICATIONS: Please see list. ALLERGIES: Please see list. SOCIAL HISTORY: No illicit drug use FAMILY HISTORY: No reports of Crohn disease or ulcerative colitis. REVIEW OF ORGAN SYSTEMS: CONSTITUTIONAL: No reports of fevers or chills. GI: Denies any blood in stools or constipation. PHYSICAL EXAM: VITAL SIGNS: Stable GENERAL: Well-developed and pleasant in no acute distress. HEENT: No scleral icterus. Extraocular movements grossly intact. Moist buccal mucosa. NECK: Supple without lymphadenopathy. CHEST: Unlabored respirations. Equal bilateral excursions. CARDIOVASCULAR: Regular rate and rhythm. Distal 2+ pulses. ABDOMEN: Soft, nondistended. MUSCULOSKELETAL: No clubbing, cyanosis, or edema. ASSESSMENT: 1. Gastroesophageal reflux disease PLAN: 1. Recommend proceeding with an upper endoscopy Past Medical History Past Medical History: Fibromyalgia, GERD/Reflux, Rheumatoid Arthritis (RA) Additional Past Medical History / Comment(s): past hx. hiatal hernia-had surg., celiac disease,RAYNAUDS DISEASE History of Any Multi-Drug Resistant Organisms: None Reported Past Surgical History: Bariatric Surgery, Section, Cholecystectomy, Hernia Repair, Orthopedic Surgery Additional Past Surgical History / Comment(s): left thumb, rt hand and left foot surgery, carpal tunnel, jeanette fundoplasty Feb. 2014 SLEEVE GASTRECTOMY 02-23-19, EGD Past Anesthesia/Blood Transfusion Reactions: No Reported Reaction, Motion Sickness Additional Past Anesthesia/Blood Transfusion Reaction / Comment(s): mother- PONV Smoking Status: Current every day smoker - Past Family History Mother Family Medical History: No Reported History Medications and Allergies Home Medications Medication Instructions Recorded Confirmed Type Omeprazole [PriLOSEC] 40 mg PO BID 08/08/16 12/27/21 History Sucralfate [Carafate] 1 gm PO BID 11/28/19 12/27/21 History Allergies Allergy/AdvReac Type Severity Reaction Status Date / Time gluten Allergy Abdominal Verified 12/27/21 15:46 Pain latex Allergy Itching, Verified 12/27/21 15:46 red skin naproxen Allergy Itching Verified 12/27/21 15:46 feels like bugs are crawling on her Penicillins Allergy Anaphylaxis Verified 12/27/21 15:46
[~2021-12-30 08:09] MED LIST changes: +LIDOCAINE 1% (10MG/ML) FOR IV START INTRADERMA PRN
[2021-12-30 08:24] VITALS: TEMP 96.8
[2021-12-30] MEDS ORDERED: LIDOCAINE 2% INJ 20 MG/ML (2 ML VIAL) ONE (08:34)
[2021-12-30] MEDS ORDERED: PROPOFOL 10 MG/ML 20 ML VIAL IV ONE (08:34)
--- NOTE | 2021-12-30 09:06 | P.PCN ---
Date of Procedure: 12/30/21 Description of Procedure: PREOPERATIVE DIAGNOSIS: Status post sleeve gastrectomy. Gastroesophageal reflux disease. Epigastric abdominal pain. POSTOPERATIVE DIAGNOSIS: Status post sleeve gastrectomy. Gastroesophageal reflux disease. Epigastric abdominal pain. Diaphragmatic hiatal hernia without obstruction. Chronic superficial gastritis. OPERATION: Esophagogastroduodenoscopy with cold forceps biopsies along the antrum, and duodenum SURGEON: Shirin Greco MD ANESTHESIA: MAC. INDICATIONS: The patient is a 41-year-old female who presents with a history of sleeve gastrectomy with severe gastroesophageal reflux disease. She is over 2 years out from her bariatric procedure. Benefits and risks of the procedure were described. Informed consent was obtained. DESCRIPTION: The patient was brought into the endoscopy suite and laid in the left lateral decubitus position. An Olympus gastroscope was passed along the posterior oropharynx down to the distal esophagus where the squamocolumnar junction was at 35 centimeters from the incisors remarkable for chronic erosive esophagitis, LA grade A without ulceration. The stomach was entered where she had a 5-cm hiatal hernia with a diaphragmatic hiatus found at 43 cm. Stenosis at the angularis incisura was identified with distortion of the sleeve. Chronic gastritis albeit mild was found along the antrum with cold biopsies and duodenal obtained. The first through third portion of the duodenum was examined. The stomach was desufflated. The patient tolerated the procedure well. FINDINGS: No acute ulceration found along her sleeve. Corkscrewing of sleeve gastrectomy. Squamocolumnar junction at 35 cm from the incisors. Diaphragmatic hiatus at 40 cm. Stenosis of angularis incisura Hiatal hernia 5 cm, fixed. LA grade A erosive esophagitis. Biopsies obtained of hiatal hernia, antrum, duodenum RECOMMENDATIONS: Recommend antireflux operation due to severe gastroesophageal reflux disease with anatomical variant status post sleeve gastrectomy Plan - Discharge Summary Discharge Rx Participant: No New Discharge Prescriptions: Continue Omeprazole [PriLOSEC] 40 mg PO BID Sucralfate [Carafate] 1 gm PO BID Discharge Medication List Omeprazole [PriLOSEC] 40 mg PO BID 08/08/16 [History] Sucralfate [Carafate] 1 gm PO BID 11/28/19 [History] Follow [facility] [place] [place] [facility] [place] [facility] Patient Instructions/Handouts: Gastritis (DC), GERD (Gastroesophageal Reflux Disease) (ED), Hiatal Hernia (DC) Discharge Disposition: HOME SELF-CARE
[2021-12-30 09:29] VITALS: BP 94/57; PULSE 45; RESP 20
== END 2021-12-30 09:43 | disposition home or self-care (01) ==
LOC: ORWHC2ENDO 08:09
PROVIDERS: ATTEND Surgery Plastic and Reconstructive Surgery
DX: K21.00 Gastro-esophageal reflux disease with esophagitis, without bleeding (principal); K29.50 Unspecified chronic gastritis without bleeding; K31.89 Other diseases of stomach and duodenum; K44.9 Diaphragmatic hernia without obstruction or gangrene; M79.7 Fibromyalgia; M06.9 Rheumatoid arthritis, unspecified; K90.0 Celiac disease; I73.00 Raynaud's syndrome without gangrene; F17.200 Nicotine dependence, unspecified, uncomplicated; Z98.84 Bariatric surgery status; Z79.899 Other long term (current) drug therapy; Z88.0 Allergy status to penicillin; Z88.8 Allergy status to other drugs, medicaments and biological substances; Z91.040 Latex allergy status; Z90.49 Acquired absence of other specified parts of digestive tract; Z98.890 Other specified postprocedural states; Z98.891 History of uterine scar from previous surgery
CPT/HCPCS: 81025; 88305; 43239; J2704; J2001

== ENCOUNTER → 2022-03-11 | Outpatient (CLI) | payer OTHER ==
[2022-03-11 13:09] LABS: Prothrombin Time 10.6 sec (9.0-12.0)
[2022-03-11 19:45] LABS: Chol/HDL Ratio 2.47 Ratio; LDL Cholesterol,Calculated 70.6 mg/dL (0.0-131.0); Prealbumin 15.5 mg/dL (18.0-42.0); VLDL Calculation 18.62 mg/dL (5.00-40.00)
[2022-03-11 20:00] LABS: ALT 45 U/L (8-44); AST 32 U/L (13-35); African American GFR (CKD) 124.5 (60.0-200.0); Albumin 4.1 g/dL (3.8-4.9); Albumin/Globulin Ratio 1.34 (1.60-3.17); Alkaline Phosphatase 79 U/L (41-126); BUN/Creat Ratio 29.63 Ratio (12.00-20.00); Calcium 8.9 mg/dL (8.7-10.3); Carbon Dioxide 24.7 mmol/L (20.0-27.5); Chloride 103 mmol/L (96-109); Ferritin 7.9 ng/mL (10.0-291.0); Globulin 3.1 g/dL (1.6-3.3); Glucose 78 mg/dL (70-110); Non-African American GFR(CKD) 107.4 (60.0-200.0); Phosphorus 3.5 mg/dL (2.4-5.1); Potassium 4.2 mmol/L (3.5-5.5); Sodium 138 mmol/L (135-145); Total Protein 7.2 g/dL (6.2-8.2)
[2022-03-11 20:01] LABS: % Iron Saturation 5.44 (12.00-45.00); Iron 26 ug/dL (50-170); Magnesium 2.1 mg/dL (1.5-2.4); Total Iron Binding Capacity 480 ug/dL (228-460)
[2022-03-11 20:07] LABS: HCT 42.5 % (37.2-46.3); HGB 13.1 g/dL (12.0-15.0); MCHC 30.8 g/dL (32.0-37.0); Mean Platelet Volume 11.7 fL (9.5-12.2); NRBC Per 100 WBC 0 /100 WBCS (0.0-0.0); Platelet Count 188 X 10*3/uL (140-440); RBC 5.25 X 10*6/uL (4.10-5.20); RDW 20.5 % (11.5-14.5); WBC 5.55 X 10*3/uL (4.50-10.00)
[2022-03-12 12:35] LABS: Zinc, Serum 76 ug/dL (60-130)
[2022-03-13 06:43] LABS: Vitamin A 44 ug/dL (38-106)
== END | disposition home or self-care (01) ==
LOC: LABWHC1 12:00
PROVIDERS: ATTEND Surgery Plastic and Reconstructive Surgery
DX: E66.01 Morbid (severe) obesity due to excess calories (principal); E89.1 Postprocedural hypoinsulinemia; D50.8 Other iron deficiency anemias; E44.0 Moderate protein-calorie malnutrition; E55.9 Vitamin D deficiency, unspecified; K74.1 Hepatic sclerosis; N19 Unspecified kidney failure; T56.894A Toxic effect of other metals, undetermined, initial encounter; K50.90 Crohn's disease, unspecified, without complications
CPT/HCPCS: 36415; 80053; 80061; 82306; 82525; 82607; 82728; 82746; 83036; 83540; 83550; 83735; 83970; 84100; 84134; 84255; 84425; 84443; 84590; 84630; 85027; 85610; 85730

== ENCOUNTER → 2022-05-29 | Outpatient (CLI) | payer OTHER ==
--- NOTE | 2022-05-29 14:14 | MR ---
EXAMINATION TYPE: MR cervical spine wo con DATE OF EXAM: 05/29/2022 INDICATION: Patient age:Female; 41 years old; Reason for study: M54.12 RADICULOPA,M48.02 SPINAL STENOSIS, CERVICAL. Neck pain that radiates into ri ght shoulder and down arm to fingers COMPARISON: Spine radiographs 04/18/2022. TECHNIQUE: Multi planar, multi sequence imaging was performed utilizing: T1-weighted, T2-weighted, an d turbo inversion recovery imaging of the cervical spine. IV Contrast: None FINDINGS: Alignment: The cervical vertebral bodies have preserved heights. Alignment is within normal limits gi kely patient positioning. Bones: Bone signal is within normal limits. Multilevel degenerative disc disease is noted and most p ronounced at the vertebral levels. Cord: The spinal cord is unremarkable with regards to their signal intensity and morphology. Discs: C2-C3: No significant disc pathology. The spinal canal is patent. No neural foraminal stenosis. C3-C4: No significant disc pathology. The spinal canal is patent. No neural foraminal stenosis. C4-C5: No significant disc pathology. The spinal canal is patent. Bilateral facet and uncovertebral joint arthropathy are present with mild bilateral neural foraminal stenosis. C5-C6: A disc osteophyte complex is present which minimally narrows the ventral subarachnoid space. Bilateral facet and uncovertebral joint arthropathy are present with mild bilateral neural foraminal stenosis. C6-C7: No significant disc pathology. The spinal canal is patent. No neural foraminal stenosis. C7-T1: No significant disc pathology. The spinal canal is patent. No neural foraminal stenosis. IMPRESSION: 1. No evidence for disc herniation or significant spinal canal stenosis or significant neural foramin al stenosis.
== END | disposition home or self-care (01) ==
LOC: RADMRIMAIN 12:56
PROVIDERS: ATTEND Nurse Practitioner Family
DX: M54.12 Radiculopathy, cervical region (principal); M48.02 Spinal stenosis, cervical region
CPT/HCPCS: 72141

== ENCOUNTER → 2022-07-09 | Outpatient (CLI) | payer OTHER ==
[2022-07-09 13:44] VITALS: BP 107/66; PULSE 67; RESP 18; TEMP 97.8
--- NOTE | 2022-07-09 14:16 | P.PAINPG ---
PQRS Measure Charge Sheet Comment: HISTORY OF PRESENT ILLNESS: 41 yr old female as a referral from [facility] presents today w severe and chronic neck pain secondary to for evaluation. Pt states pain level is at 6 /10 in intensity, constant, localized in the lower aspect of the cervical spine, dull in character w shooting pain towards the BL shoulders w intermittent tingling in UEs/ fingers. Pain is provoked by hyperextension, rotation, and lateral flexion. Pain is alleviated by PT x 8 wks in Dec 2021, chiropractic tratments weekly x 4 wks, heat & ice, topicals, elevation, repositioning and rest. PMH: Fibromyalgia, GERD, RA, Hiatal Hernia, Celiac Disease, Raynaud's Phenomenon PSH: Bariatric Surgery (December 2021), Hiatal Hernia Surgery, C section, Cholecystectomy, L Thumb Surgery, R Hand Surgery, L Foot Surgery, Carpal Tunnel Release, Zack Fundoplication (2014), EGD SH: Former tobacco use, No ETOH abuse, No illicit drug use FH: Mo- No Reported History All: See list Meds: See list REVIEW OF ORGAN SYSTEMS: CONSTITUTIONAL: No fevers or chills. No recent weight loss. NEUROLOGICAL: + numbness and tingling along the distal extremities. No seizure disorders or headaches. MUSCULOSKELETAL: + pain PSYCHIATRIC: Denies current depression or suicidal thoughts. Physical Examinations : Constitutional : Cooperative , not in acute distress . Neurologic : Cranial nerve II to XII intact. No focal neurological deficits. Psychiatric : alert & oriented x 3. Matching mood & appropriate affect. Judgment & insight intact. Musculoskeletal : Cervical Spine Motor strength in the deltoid and biceps: Normal right side. Normal Left side Motor strength biceps and the wrist extensors: Normal right side . Normal left side Motor strength in the triceps muscle: Normal right side. Normal left side Deep tendon reflexes: Normal at the biceps. Normal at Brachioradialis. Normal at triceps Vertebral body tenderness to deep palpation over Cervical facet loading test: positive bilaterally Spurling test: positive bilaterally Neck distraction test: positive bilate rally Miguelina sign: positive bilaterally Lumbar spine Motor strength lower extremities ,thigh and legs 5/5 Right side , 5/5 Left side Deep tendon reflexes : Normal Knee Jerk. Normal Ankle Jerk Vertebral body tenderness over C5 Lumbar facet Loading Test: positive Right / positive Left Range of motion of the lumbar spine Flexion 30 degrees, extension 10 degrees Straight Leg Raise test: Left/ Right positive at degree Jonathan test: positive right / positive left. Severe tenderness over the Sacroiliac joint on the Right / Left sides Gaenslen test: positive bilaterally Seated flexion test: positive bilaterally. Sacral spine : Severe tenderness over the Sacroiliac joint: right side / left side Range of motion: Flexion of the lumbar spine <60 degrees Range of motion: Extension of the lumbar spine <20 degrees Gaenslen's Test positive Speedy's Test positive Jonathan test: positive right side / left side Thigh Thrust Test Sacral Thrust Test Imaging: MRI without contrast of the cervical spine from 05/29/22 reviewed Assessment/ Plan : Cervical DDD Recommendation of BL TFESI C5-C6. May need a series of injections, up to 3 within a six-month timeframe, for optimal pain relief. Risks, benefits of procedure discussed and patient verbalized understanding. Denies aspirin or anti- coagulant use or medical history of diabetes. Protocol for discontinuation/ continuation of medications tico procedure discussed. All questions answered. I have spent greater than 30 minutes on patient care today. Dr Hong was available by phone for the evaluation of this patient. The time was used to review the medical records including relevant urine studies and Prescription history (MAPs), review of the available imaging, evaluation and examination of the patient, coordination of care with the medical staff and if applicable referring physicians, as well as creation of the medical record PQRS Narrative: Smoking Status Current every day smoker Home Medications: Ambulatory Orders Omeprazole [PriLOSEC] 40 mg PO BID 08/08/16 Sucralfate [Carafate] 1 gm PO BID 11/28/19 Pantoprazole [Protonix] 40 mg PO DAILY #30 tab 01/08/22 Controlled Substance Measures - Controlled Substance Measures Is patient prescribed a controlled substance at discharge?: No
== END ==
LOC: PNWHC3 13:02
PROVIDERS: ATTEND Specialist
DX: M50.30 Other cervical disc degeneration, unspecified cervical region (principal); K21.9 Gastro-esophageal reflux disease without esophagitis; F17.200 Nicotine dependence, unspecified, uncomplicated; Z91.040 Latex allergy status; Z88.0 Allergy status to penicillin; Z88.8 Allergy status to other drugs, medicaments and biological substances; Z88.6 Allergy status to analgesic agent
CPT/HCPCS: 99211

== ENCOUNTER → 2022-10-22 | Outpatient (CLI) | payer OTHER ==
[2022-10-22 15:31] VITALS: BP 148/67; PULSE 59; TEMP 98.5; BMI 23.5
--- NOTE | 2022-12-15 22:30 | P.BASOAP ---
Subjective Progress Note Date: 10/22/22 DATE: 10/22/2022 CHIEF COMPLAINT: Sleeve gastrectomy HISTORY OF PRESENT ILLNESS: Tia Reynolds is a 41-year-old female who is status post sleeve gastrectomy 02/23/2019 followed by hiatal hernia repair. She comes in with severe gastroesophageal reflux disease with epigastric pain. She is taking antacids without any relief. She has tried Omeprazole 40 mg twice daily with minimal relief. She presents today surgical options. She has history of smoking. She is seeking conversion from sleeve to gastric bypass. She has trouble with eating aswell. At height of 5 feet 6.5 inches, her ideal body weight is 154 pounds. Her highest weight is 296 pounds, BMI 47.2. She comes in 148 pounds from 137 pounds, 2 ,months ago. She has gained 2 pounds in 2 months. Her body mass index is 23.5. Lifetime weight loss is 148 pounds. Lifetime percent excess weight loss is 104 %. PAST MEDICAL HISTORY: 1. Morbid obesity due to excess calories 2. Body mass index of 47.2, initial 3. Fibromyalgia 4. Gastroesophageal reflux disease 5. Celiac disease 6. Rheumatoid arthritis 7. Generalized anxiety disorder 8. Depressive disorder 9. Motion sickness 10. Tobacco abuse disorder PAST SURGICAL HISTORY: 1. Cholecystectomy 2. Hiatal hernia repair 3 3. Yesenia fundoplasty 4. Multiple upper endoscopies 5. Status post sleeve gastrectomy 6. Carpal tunnel release 7. Left thumb tendon repair 8. Right hand surgery 9. Left foot surgery 10. section 11. HOME MEDICATIONS: Home Medications Medication Instructions Recorded Confirmed Omeprazole [PriLOSEC] 40 mg PO BID 08/08/16 01/09/22 Sucralfate [Carafate] 1 gm PO BID 11/28/19 01/09/22 Previous Rx's Medication Instructions Recorded Pantoprazole [Protonix] 40 mg PO DAILY #30 tab 01/08/22 ALLERGIES: Allergies Allergy/AdvReac Type Severity Reaction Status Date / Time gluten Allergy Abdominal Verified 12/30/21 08:18 Pain latex Allergy Itching, Verified 12/30/21 08:18 red skin naproxen Allergy Itching Verified 12/30/21 08:18 feels like bugs are crawling on her Penicillins Allergy Anaphylaxis Verified 12/30/21 08:18 SOCIAL HISTORY: Current tobacco use. FAMILY HISTORY: No family history of ulcerative colitis disease or Crohn's disease. Family history of morbid obesity. No lupus in the family. No reports of stomach or esophageal cancer. REVIEW OF ORGAN SYSTEMS: CONSTITUTIONAL: At height of 5 feet 6.5 inches, her ideal body weight is 154 ty nds. Her highest weight is 296 pounds, BMI 47.2. HEENT: Denies any active troubles with vision or hearing. Has occasional dysphagia. ENDOCRINE: No diabetes. No hypothyroidism. CARDIOVASCULAR: No past reports of palpitations or heart attacks or chest pain. RESPIRATORY: No daytime somnolence. No athma GASTROINTESTINAL: Denies any bright red blood per rectum. Has gastroesophageal reflux disease. Has celiac disease. MUSCULOSKELETAL: Has lower back pain and joint pain. Has osteoarthritis of the knees. Has rheumatoid arthritis. NEURO: No headaches. No seizure disorders. Has fibromyalgia PSYCH: Has depression. No suicidal ideation. Has generalized anxiety disorder. RHEUMATOLOGIC: No lupus. No rheumatoid arthritis. HEMATOLOGIC: Denies any abnormal bleeding or bruising. No personal history of DVTs. SKIN: Has rash. No skin cancer. PHYSICAL EXAM: VITAL SIGNS: Height 5 foot 6.5 inches, weight 148 pounds. BMI 23.5 Vital Signs Temp 98.5 F 10/22/22 15:26 Pulse 59 L 10/22/22 15:26 Resp BP 148/67 10/22/22 15:26 Pulse Ox FiO2 GENERAL: Well-developed in no acute distress. HEENT: No scleral icterus. Extraocular movements grossly intact. Hears conversational speech. No nasal drainage. NECK: Supple without lymphadenopathy. CHEST: Nonlabored respirations with equal bilateral excursions. CARDIOVASCULAR: Regular rate and regular rhythm. Distal 2+ pulses. ABDOMEN: Soft. No peritonitis MUSCULOSKELETAL: No clubbing, cyanosis. NEURO: No focal or lateralizing signs. Cranial nerves 2 through 12 grossly within normal limits. PSYCH: Appropriate affect. Alert and oriented to person, place and time. SKIN: Good skin turgor. Well perfused. ASSESSMENT: 1. Morbid obesity due to excess calories 2. Body mass index of 47.2, initial to 23.5 3. Fibromyalgia 4. Gastroesophageal reflux disease 5. Celiac disease 6. Rheumatoid arthritis 7. Generalized anxiety disorder 8. Depressive disorder 9. Motion sickness 10. Tobacco abuse disorder in remission 11. Complications of sleeve gastrectotmy 12. Dysphagia 13. Iron deficiency anemia 14. Vitamin A deficiency 15. Inadequate protein intake. 16. Leukopenia PLAN: 1. Bariatric conversion from sleeve to Ralph-en-Y gastric bypass were reviewed in detail. Robotic assisted approach described. 2. The [place] [facility] Data was also reviewed with benefits a nd risks as described. 3. An 8 page second-generation bariatric consent form was reviewed in detail including potential of bleeding, infection, leaks, adequate weight loss, nutritional deficiencies which the patient demonstrated understanding of the risks. 4. A 2 week high-protein low caloric 800 kcal diet described to address hepatomegaly. 5. Preoperative labs including complete metabolic panel and CBC with type and screen recommended. 6. DVT prophylaxis per [place] [facility]. 7. Antibiotic prophylaxis. 8. Inpatient hospitalization anticipated for more than 2 nights. 9. All questions and concerns were addressed with the patient. 10. The patient is at elevated risk for perioperative complications with prior gastric surgeries. 11. Overall, patient has expressed understanding of bariatric care including postoperative diet and commitment of lifestyle. Patient should benefit from surgical intervention. 12. She is elevated risk due to pre-existing comorbid conditions 13. Strict tobacco cessation advised. Objective - Vital Signs Vital signs: Vital Signs Temp 98.5 F 10/22/22 15:26 Pulse 59 L 10/22/22 15:26 Resp BP 148/67 10/22/22 15:26 Pulse Ox FiO2 Assessment/Plan Plan: Date: 10/22/22 Initial Weight: 127.459 kg Initial BMI: 44.6 Current Weight: 67.132 kg Current BMI: 23.5 Type of Surgery: Total Volume in Band: Previous Volume: Volume Removed: Volume Added: Band Size:
== END ==
LOC: BARWHC3 15:14
PROVIDERS: ATTEND Surgery Plastic and Reconstructive Surgery
DX: E66.01 Morbid (severe) obesity due to excess calories (principal); M79.7 Fibromyalgia; K21.9 Gastro-esophageal reflux disease without esophagitis; M06.9 Rheumatoid arthritis, unspecified; F41.9 Anxiety disorder, unspecified; D64.9 Anemia, unspecified; F32.A Depression, unspecified; T75.3XXA Motion sickness, initial encounter; R13.10 Dysphagia, unspecified; D72.819 Decreased white blood cell count, unspecified; E50.9 Vitamin A deficiency, unspecified; F17.200 Nicotine dependence, unspecified, uncomplicated; K90.0 Celiac disease; Z88.0 Allergy status to penicillin; Z98.84 Bariatric surgery status; Z68.23 Body mass index [BMI] 23.0-23.9, adult; Z91.040 Latex allergy status; Z91.018 Allergy to other foods; Z88.6 Allergy status to analgesic agent; Z88.1 Allergy status to other antibiotic agents; Z88.8 Allergy status to other drugs, medicaments and biological substances
CPT/HCPCS: 99211

== ENCOUNTER → 2022-11-19 | Outpatient (CLI) | payer OTHER ==
[2022-11-19 16:21] VITALS: BP 96/62; PULSE 58; RESP 12; TEMP 98.4; BMI 23.5
--- NOTE | 2022-11-19 17:15 | P.BASOAP ---
Subjective Progress Note Date: 11/19/22 Consent gastic bypass. High risk for leak. Objective - Vital Signs Vital signs: Vital Signs Temp 98.4 F 11/19/22 16:17 Pulse 58 L 11/19/22 16:17 Resp 12 11/19/22 16:17 BP 96/62 11/19/22 16:17 Pulse Ox FiO2 Intake & Output 11/18/22 11/19/22 11/19/22 18:59 06:59 18:59 Weight 67.132 kg Assessment/Plan Plan: Date: 11/19/22 Initial Weight: 127.459 kg Initial BMI: 44.6 Current Weight: 67.132 kg Current BMI: 23.5 Type of Surgery: Total Volume in Band: Previous Volume: Volume Removed: Volume Added: Band Size:
== END ==
LOC: BARWHC3 15:56
PROVIDERS: ATTEND Surgery Plastic and Reconstructive Surgery
DX: E66.01 Morbid (severe) obesity due to excess calories (principal); F17.200 Nicotine dependence, unspecified, uncomplicated; Z68.42 Body mass index [BMI] 45.0-49.9, adult; Z88.0 Allergy status to penicillin; Z91.048 Other nonmedicinal substance allergy status; Z88.6 Allergy status to analgesic agent; Z88.8 Allergy status to other drugs, medicaments and biological substances
CPT/HCPCS: 99211

== ENCOUNTER → 2022-11-21 | Outpatient (CLI) | payer OTHER | END | disposition home or self-care (01) | LOC: LABWHC1 15:33 | PROVIDERS: ATTEND Surgery Plastic and Reconstructive Surgery | DX: Z01.812 Encounter for preprocedural laboratory examination (principal); I45.9 Conduction disorder, unspecified; R94.31 Abnormal electrocardiogram [ECG] [EKG] | CPT/HCPCS: 36415; 80053; 85025; 86850; 86900; 86901; 93005 ==

== ENCOUNTER 2022-12-01 09:30 | Inpatient (IN) | payer OTHER ==
[2022-11-22 02:31] LABS: Basophils # (A) 0.03 X 10*3/uL (0.00-0.10); Basophils % (A) 0.4 %; Eosinophils # (A) 0.18 X 10*3/uL (0.04-0.35); Eosinophils % (A) 2.7 %; HCT 41.4 % (37.2-46.3); HGB 13.3 d/dL (12.0-15.0); Lymphocytes # (A) 2.85 X 10*3/uL (0.90-5.00); Lymphocytes % (A) 42.5 %; MCHC 32.1 d/dL (32.0-37.0); MCV 90.2 FL (80.0-97.0); Mean Platelet Volume 11.4 FL (9.5-12.2); Monocytes # (A) 0.62 X 10*3/uL (0.20-1.00); Monocytes % (A) 9.3 %; NRBC Per 100 WBC 0 X 10*3/uL (0.00-0.01); Neutrophils # (A) 3.01 X 10*3/uL (1.80-7.70); Platelet Count 167 X 10*3/uL (140-440); RBC 4.59 X 10*6/uL (4.10-5.20); RDW 15.4 % (11.5-14.5)
[2022-11-22 02:35] LABS: ALT 35 U/L (8-44); AST 23 U/L (13-35); Albumin 4.2 d/dL (3.8-4.9); Albumin/Globulin Ratio 1.56 Ratio (1.60-3.17); Alkaline Phosphatase 70 U/L (41-126); BUN/Creat Ratio 48.29 Ratio (12.00-20.00); Blood Urea Nitrogen 33.8 mg/dL (9.0-27.0); Calcium 9.6 mg/dL (8.7-10.3); Carbon Dioxide 25.5 mmol/L (21.6-31.8); Chloride 102 mmol/L (96-109); Globulin 2.7 d/dL (1.6-3.3); Glucose 77 mg/dL (70-110); Potassium 4.5 mmol/L (3.5-5.5); Sodium 139 mmol/L (135-145); Total Bilirubin <0.2 mg/dL (0.3-1.2); Total Protein 6.9 d/dL (6.2-8.2)
--- NOTE | 2022-12-01 07:43 | P.GSHP ---
History of Present Illness H&P Date: 12/01/22 CHIEF COMPLAINT: Complications from sleeve gastrectomy HISTORY OF PRESENT ILLNESS: Tia Reynolds is a 42-year-old female who is status post sleeve gastrectomy 02/23/2019. She has had hiatal hernia repairs without relief of her symptoms. She reports gastroesophageal reflux disease since her sleeve gastrectomy. She has more weight loss has weight loss in 3 years unintentional. She cannot tolerate solid foods. She cannot take any medications. She comes in with BMI 23.9. She comes in with weight loss over 20lbs. She has stopped moking. She comes in for conversion from sleeve gastrectomy to gastric bypass. At height of 5 feet 6.5 inches, her ideal body weight is 154 pounds. Her highest weight is 296 pounds, BMI 47.2. She comes in 136 pounds from 169 pounds, 2 years ago. She has lost 33 pounds in 2 years. Her body mass index is 21.6. Lifetime weight loss is 160 pounds. Lifetime percent excess weight loss is 113 %. She is not overweight. PAST MEDICAL HISTORY: 1. Morbid obesity due to excess calories 2. Body mass index of 47.2, initial 3. Fibromyalgia 4. Gastroesophageal reflux disease 5. Celiac disease 6. Rheumatoid arthritis 7. Generalized anxiety disorder 8. Depressive disorder 9. Motion sickness 10. Tobacco abuse disorder PAST SURGICAL HISTORY: 1. Cholecystectomy 2. Hiatal hernia repair 3 3. Yesenia fundoplasty 4. Multiple upper endoscopies 5. Status post sleeve gastrectomy 6. Carpal tunnel release 7. Left thumb tendon repair 8. Right hand surgery 9. Left foot surgery 10. section 11. HOME MEDICATIONS: Home Medications Medication Instructions Recorded Confirmed Omeprazole [PriLOSEC] 40 mg PO BID 08/08/16 01/09/22 Sucralfate [Carafate] 1 gm PO BID 11/28/19 01/09/22 Previous Rx's Medication Instructions Recorded Pantoprazole [Protonix] 40 mg PO DAILY #30 tab 01/08/22 ALLERGIES: Allergies Allergy/AdvReac Type Severity Reaction Status Date / Time gluten Allergy Abdominal Verified 12/30/21 08:18 Pain latex Allergy Itching, Verified 12/30/21 08:18 red skin naproxen Allergy Itching Verified 12/30/21 08:18 feels like bugs are crawling on her Penicillins Allergy Anaphylaxis Verified 12/30/21 08:18 SOCIAL HISTORY: Current tobacco use. FAMILY HISTORY: No family history of ulcerative colitis disease or Crohn's disease. Family history of morbid obesity. No lupus in the family. No reports of stomach or esophageal cancer. REVIEW OF ORGAN SYSTEMS: CONSTITUTIONAL: At height of 5 feet 6.5 inches, her ideal body weight is 154 pounds. Her highest weight is 296 pounds, BMI 47.2. HEENT: Denies any active troubles with vision or hearing. Has occasional dysphagia. ENDOCRINE: No diabetes. No hypothyroidism. CARDIOVASCULAR: No past reports of palpitations or heart attacks or chest pain. RESPIRATORY: No daytime somnolence. No athma GASTROINTESTINAL: Denies any bright red blood per rectum. Has gastroesophageal reflux disease. Has celiac disease. MUSCULOSKELETAL: Has lower back pain and joint pain. Has osteoarthritis of the knees. Has rheumatoid arthritis. NEURO: No headaches. No seizure disorders. Has fibromyalgia PSYCH: Has depression. No suicidal ideation. Has generalized anxiety disorder. RHEUMATOLOGIC: No lupus. No rheumatoid arthritis. HEMATOLOGIC: Denies any abnormal bleeding or bruising. No personal history of DVTs. SKIN: Has rash. No skin cancer. PHYSICAL EXAM: VITAL SIGNS: Height 5 foot 6.5 inches, weight 136 pounds. BMI 23.9 GENERAL: Well-developed in no acute distress. HEENT: No scleral icterus. Extraocular movements grossly intact. Hears conversational speech. No nasal drainage. NECK: Supple without lymphadenopathy. CHEST: Nonlabored respirations with equal bilateral excursions. CARDIOVASCULAR: Regular rate and regular rhythm. Distal 2+ pulses. ABDOMEN: MUSCULOSKELETAL: No clubbing, cyanosis. NEURO: No focal or lateralizing signs. Cranial nerves 2 through 12 grossly within normal limits. PSYCH: Appropriate affect. Alert and oriented to person, place and time. SKIN: Good skin turgor. Well perfused. 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 ASSESSMENT: 1. Morbid obesity due to excess calories 2. Body mass index of 47.2, initial to 23.9 3. Fibromyalgia 4. Gastroesophageal reflux disease 5. Celiac disease 6. Rheumatoid arthritis 7. Generalized anxiety disorder 8. Depressive disorder 9. Motion sickness 10. Tobacco abuse disorder, in remission 11. Complications of sleeve gastrectotmy 12. Dysphagia 13. Iron deficiency anemia 14. Vitamin A deficiency 15. Inadequate protein intake. 16. Leukopenia PLAN: 1. Conversion from sleeve gastrectomy and to Ralph-en-Y gastric bypass described. She is elevated risk for complications including leaks, strictures. 2. The [place] [facility] Data was also reviewed with benefits and risks as described. 3. An 8 page second-generation bariatric consent form was reviewed in detail including potential of bleeding, infection, leaks, adequate weight loss, nutritional deficiencies which the patient demonstrated understanding of the risks. 4. A 2 week high-protein low caloric 800 kcal diet described to address hepatomegaly. 5. Preoperative labs including complete metabolic panel and CBC with type and screen recommended. 6. DVT prophylaxis per [place] [facility]. 7. Antibiotic prophylaxis. 8. Inpatient hospitalization anticipated for more than 2 nights. 9. Strict tobacco cessation perioperatively and lifetime addressed which patient demonstrated understanding. Past Medical History Past Medical History: Fibromyalgia, GERD/Reflux, Rheumatoid Arthritis (RA) Additional Past Medical History / Comment(s): past hx. hiatal hernia-had surg., celiac disease,RAYNAUDDS DISEASE History of Any Multi-Drug Resistant Organisms: None Reported Past Surgical History: Bariatric Surgery, Section, Cholecystectomy, Orthopedic Surgery Additional Past Surgical History / Comment(s): left thumb, rt hand and left foot surgery, carpal tunnel, jeanette fundoplasty 2014 SLEEVE GASTRECTOMY 02-23-19 Past Anesthesia/Blood Transfusion Reactions: No Reported Reaction, Motion Sickness Additional Past Anesthesia/Blood Transfusion Reaction / Comment(s): mother- PONV Smoking Status: Former smoker - Past Family History Mother Family Medical History: No Reported History Medications and Allergies Home Medications Medication Instructions Recorded Confirmed Type Omeprazole [PriLOSEC] 40 mg PO BID 08/08/16 11/27/22 History Sucralfate [Carafate] 1 gm PO BID 11/28/19 11/27/22 History Pantoprazole [Protonix] 40 mg PO DAILY #30 tab 01/08/22 11/27/22 Rx Allergies Allergy/AdvReac Type Severity Reaction Status Date / Time gluten Allergy Abdominal Verified 11/27/22 14:58 Pain latex Allergy Itching, Verified 11/27/22 14:58 red skin naproxen Allergy Itching Verified 11/27/22 14:58 feels like bugs are crawling on her Penicillins Allergy Anaphylaxis Verified 11/27/22 14:58 prednisone AdvReac Unknown Verified 11/27/22 15:17 Results - Labs 11/21/22 15:38 11/21/22 15:38
[~2022-12-01 09:30] MED LIST changes: +CHLORHEXIDINE GLUCONATE 15 ML CUP MUCOUS MEM PRN; +CLINDAMYCIN 900 MG in DEXTROSE 5% IN WATER 50 ML IVPB PRN; +HEPARIN SODIUM,PORCINE/PF 5,000 UNIT/0.5 ML SYRINGE SQ PRN; +HYDROmorphone 0.5 MG/0.5 ML SYRINGE IVP PRN; -LACTATED RINGERS 1,000 ML IV SCH; +ONDANSETRON 4 MG/2 ML VIAL IVP ONE; +PANTOPRAZOLE 40 MG/10 ML VIAL IVP PRN; +SCOPOLAMINE 1 MG/72 HR PATCH TRANSDERM STA; +droPERidol 5 MG/2 ML VIAL IVP ONE
[2022-12-01] MEDS ORDERED: CHLORHEXIDINE GLUCONATE 15 ML CUP MUCOUS MEM ONE (10:17)
[2022-12-01] MEDS: LACTATED RINGERS 1,000 ML IV SCH (10:32)
[2022-12-01] MEDS ORDERED: LIDOCAINE 2% INJ 20 MG/ML (2 ML VIAL) ONE (10:59)
[2022-12-01] MEDS ORDERED: MIDAZOLAM 2 MG/2 ML VIAL ONE (10:59)
[2022-12-01] MEDS ORDERED: GLYCOPYRROLATE 0.2 MG/ML 2 ML VIAL ONE (10:59)
[2022-12-01] MEDS ORDERED: diphenhydrAMINE 50 MG/ML 1 ML VIAL ONE (10:59)
[2022-12-01] MEDS ORDERED: SUCCINYLCHOLINE CHLORIDE 200 MG/10 ML VIAL IV ONE (10:59)
[2022-12-01] MEDS ORDERED: NEOSTIGMINE 1 MG/ML 10 ML VIAL ONE (10:59)
[2022-12-01] MEDS ORDERED: PROPOFOL 10 MG/ML 20 ML VIAL IV ONE (10:59)
[2022-12-01] MEDS ORDERED: ROCURONIUM 10 MG/ML (5 ML VIAL) IV ONE (10:59)
[2022-12-01] MEDS ORDERED: fentaNYL (PF) 50 MCG/ML 2 ML AMP ONE (10:59)
[2022-12-01] MEDS ORDERED: LIDOCAINE 0.5%-EPI 1:200,000 50 ML VIAL SQ ONE ×2 (11:34→11:45)
[2022-12-01] MEDS ORDERED: LACTATED RINGERS 1,000 ML IV ONE (13:45)
[2022-12-01] MEDS ORDERED: diphenhydrAMINE 50 MG/ML 1 ML VIAL IVP PRN (15:31)
[2022-12-01] MEDS ORDERED: NALOXONE 0.4 MG/ML 1 ML VIAL IV PRN ×2 (15:31→19:44)
[2022-12-01] MEDS: ALBUTEROL NEBULIZED 2.5 MG/3 ML INHALATION SCH ×2 (17:52→21:10)
[2022-12-01] MEDS: ACETAMINOPHEN IV (For NPO) 1,000 MG in EMPTY BAG 1 BAG IVPB SCH (18:37)
[2022-12-01] MEDS: ONDANSETRON 4 MG/2 ML VIAL IVP SCH (18:37)
[2022-12-01] MEDS: SIMETHICONE 80 MG CHEWABLE PO SCH ×2 (18:38→20:37)
[2022-12-01] MEDS: HEPARIN SODIUM,PORCINE/PF 5,000 UNIT/0.5 ML SYRINGE SQ SCH (20:36)
[2022-12-01] MEDS: CLINDAMYCIN 600 MG in DEXTROSE 5% IN WATER 50 ML IVPB SCH ×2 (20:36)
[2022-12-01] MEDS: PANTOPRAZOLE 40 MG/10 ML VIAL IV SCH (20:36)
[2022-12-01] MEDS: fentaNYL PCA 500 MCG/50 ML BAG IV SCH (20:41)
[2022-12-01] MEDS: 0.9% NACL WITH KCL 20 MEQ/L 1,000 ML IV SCH (20:41)
[2022-12-02] MEDS: ACETAMINOPHEN IV (For NPO) 1,000 MG in EMPTY BAG 1 BAG IVPB SCH ×4 (00:22→17:33)
[2022-12-02] MEDS: ONDANSETRON 4 MG/2 ML VIAL IVP SCH ×4 (00:23→17:33)
[2022-12-02] MEDS: CLINDAMYCIN 600 MG in DEXTROSE 5% IN WATER 50 ML IVPB SCH ×6 (03:55→19:24)
[2022-12-02] MEDS: LACTATED RINGERS 1,000 ML IV SCH (05:22)
[2022-12-02] MEDS: SIMETHICONE 80 MG CHEWABLE PO SCH ×3 (05:22→17:33)
[2022-12-02] MEDS: 0.9% NACL WITH KCL 20 MEQ/L 1,000 ML IV SCH ×3 (07:34→22:21)
[2022-12-02] MEDS ORDERED: SODIUM CHLORIDE 0.9% 1,000 ML IV ONE ×2 (08:21→08:45)
[2022-12-02] MEDS: ALBUTEROL NEBULIZED 2.5 MG/3 ML INHALATION SCH ×4 (08:27→20:03)
[2022-12-02] MEDS: HEPARIN SODIUM,PORCINE/PF 5,000 UNIT/0.5 ML SYRINGE SQ SCH ×2 (08:37→19:23)
[2022-12-02] MEDS: PANTOPRAZOLE 40 MG/10 ML VIAL IV SCH ×2 (08:37→19:23)
[2022-12-02] MEDS: TAMSULOSIN 0.4 MG CAP.ER.24H PO SCH (10:39)
--- NOTE | 2022-12-02 10:54 | FL ---
SINGLE CONTRAST UPPER GI EXAMINATION: CLINICAL HISTORY: 42-year-old female postbariatric surgery. Patient with history of prior sleeve and 2019. Reports heartburn. TECHNIQUE: A single contrast UGI study is performed. A total of 2 minutes 31 seconds of fluoroscopi c time was utilized during procedure and 38 images obtained. Total dose area product (DAP) in uGy*m?, mGy*cm? (or similar): 330.5. A total of 25 mL Omnipaque 350 contrast was utilized. FINDINGS: Prominent mild free air noted below the right hemidiaphragm. The patient swallowed oral contrast with out difficulty or delay. Esophageal peristalsis and motility are within normal limits. There is pro mpt passage of contrast from the esophagus into the stomach and progressive pooling within the proxim al stomach. Eventually, we note the appearance of faint contrast density outside of this region. The density is too faint to determine the exact site of gastrojejunostomy. However, it seems to show a sm all bowel pattern. Not enough contrast passage to adequately exclude the possibility of a leak. IMPRESSION: 1. Status post Ralph-en-Y gastric bypass. Findings suggest a moderate to severe obstruction at the lev el of the gastrojejunostomy. Probably due to postoperative edema. 2. Repeat exam will likely be needed to more accurately exclude the possibility of leak. 3. Prominent mild free air below the right hemidiaphragm.
[2022-12-02] MEDS: fentaNYL PCA 500 MCG/50 ML BAG IV SCH ×2 (11:34→22:32)
[2022-12-02 12:01] VITALS: BMI 23.4
[2022-12-02 14:36] LABS: Basophils # (A) 0.02 X 10*3/uL (0.00-0.10); Basophils % (A) 0.3 %; Eosinophils # (A) 0.01 X 10*3/uL (0.04-0.35); Eosinophils % (A) 0.1 %; HCT 37.2 % (37.2-46.3); Lymphocytes # (A) 1.76 X 10*3/uL (0.90-5.00); Lymphocytes % (A) 24.4 %; MCH 28.6 pg (27.0-32.0); MCHC 32.3 d/dL (32.0-37.0); MCV 88.8 FL (80.0-97.0); Mean Platelet Volume 11.5 FL (9.5-12.2); Monocytes # (A) 0.41 X 10*3/uL (0.20-1.00); Monocytes % (A) 5.7 %; NRBC Per 100 WBC 0 X 10*3/uL (0.00-0.01); Neutrophils # (A) 4.99 X 10*3/uL (1.80-7.70); Neutrophils % (A) 69.4 %; Platelet Count 141 X 10*3/uL (140-440); RBC 4.19 X 10*6/uL (4.10-5.20); RDW 14.7 % (11.5-14.5)
--- NOTE | 2022-12-02 14:45 | P.PN ---
Subjective Progress Note Date: 12/02/22 CHIEF COMPLAINT: Morbid Obesity HISTORY OF PRESENT ILLNESS: Patient is postop day #1 status post Ralph-en-Y gastric bypass. Patient reports her pain is controlled. She has been having issues with urinary retention. She required to be straight cath twice. She is hypotensive this morning and received a 2 L fluid bolus. Blood pressure have been 80/51 and did come up to 105/62. Last BP 98/61. She is tolerating liquids. She is mostly in taking the water. Per nurse patient had declined the tray this afternoon. She preferred drink the water. Upper GI report states findings suggest a moderate to severe obstruction at the level of the gastrojejunostomy. Probably due to postoperative edema. Prominent mild free air below the right hemidiaphragm. Upper GI report reviewed with Dr. Greco. Patient did have nausea during the evening but it has shown improvement. No flatus. Afebrile. WBC 7.20 Hgb 12 platelets 141 PHYSICAL EXAM: VITAL SIGNS: Reviewed GENERAL: Well-developed in no acute distress. HEENT: No sclera icterus. Extraocular movements grossly intact. Moist buccal mucosa. Head is atraumatic, normocephalic. Hears conversational speech. No nasal drainage. NECK: Supple without lymphadenopathy. CHEST: Non-labored respirations and equal bilateral excursions. CARDIOVASCULAR: Palpable 2+ radial pulses. ABDOMEN: Soft. Nondistended. MUSCULOSKELETAL: No clubbing or cyanosis. NEUROLOGIC: No focal or lateralizing signs. Cranial nerves II through XII grossly intact. PSYCH: Appropriate affect. Alert and oriented to person, place and time. SKIN: Well perfused. Good skin turgor. ASSESSMENT: 1. Morbid obesity due to excess calories 2. Body mass index of 47.2, initial to 23.9 3. Fibromyalgia 4. Gastroesophageal reflux disease 5. Celiac disease 6. Rheumatoid arthritis 7. Generalized anxiety disorder 8. Depressive disorder 9. Motion sickness 10. Tobacco abuse disorder, in remission 11. Complications of sleeve gastrectotmy 12. Dysphagia 13. Iron deficiency anemia 14. Vitamin A deficiency 15. Inadequate protein intake. 16. Leukopenia 17. Urinary retention PLAN: -Continue Bariatric clear liquid diet -2 L fluid bolus given this morning for hypotension -Continue to monitor Blood pressure -Flomax added for urinary retention -Continue check postvoid residual. Patient may need Chavez catheter inserted -Discontinue scopolamine patch due to side effect of urinary retention -Continue IV fluids -Encouraged patient to ambulate -Continue pain management -GI prophylaxis Protonix and DVT prophylaxis subcu heparin Physician Conche Operator note has been reviewed by physician. Signing provider agrees with the documented findings, assessment, and plan of care. Please see additional documentation. CHIEF COMPLAINT: Complications from sleeve gastrectomy HISTORY OF PRESENT ILLNESS: Tia Reynolds is a 42-year-old female who is status post conversion from sleeve gastrectomy to gastric bypass. She reports improvement of her gastroesophageal reflux disease. She has expected left upper quadrant pain. She has urinary retention. REVIEW OF ORGAN SYSTEMS: No fevers or chills. No chest pain. PHYSICAL EXAM: VITAL SIGNS: Reviewed GENERAL: Well-developed in no acute distress. HEENT: No scleral icterus. Extraocular movements grossly intact. Hears conversational speech. No nasal drainage. NECK: Supple without lymphadenopathy. CHEST: Nonlabored respirations with equal bilateral excursions. CARDIOVASCULAR: Regular rate and regular rhythm. Distal 2+ pulses. ABDOMEN: Incision clean dry and intact. Dressing intact. MUSCULOSKELETAL: No clubbing, cyanosis. NEURO: No focal or lateralizing signs. Cranial nerves 2 through 12 grossly within normal limits. PSYCH: Appropriate affect. Alert and oriented to person, place and time. SKIN: Good skin turgor. Well perfused. LABS: Reviewed. WBC normal. STUDIES: Barium swallow independently reviewed demonstrating no leak. Moderate retention of contrast in gastric pouch. This is my independent interpretation. ASSESSMENT: 1. Morbid obesity due to excess calories 2. Body mass index of 45.4 initial to 23.4 3. Intractable gastroesophageal reflux disease 4. Intractable nausea and vomiting 5. Complications from sleeve gastrectomy 6. History of tobacco abuse disorder 7. Fibromyalgia 8. Rheumatoid arthritis 9. Celiac disease 10. Raynaud's disease 11. Motion sickness 12. History of hiatal hernia repair 13. History of Yesenia fundoplication 14. History of multiple drug ALLERGIES 15. Generalized anxiety disorder 16. Depressive disorder 17. Parahepatic peritoneal adhesions PLAN: 1. Discontinue scopolamine for urinary retention 2. Chavez as needed for urinary retention 3. Continue hospitalization Objective - Vital Signs Vital signs: Vital Signs Temp 98.0 F 12/02/22 07:30 Pulse 63 12/02/22 07:30 Resp 16 12/02/22 07:30 BP 80/51 12/02/22 07:30 Pulse Ox 92 L 12/02/22 07:30 FiO2 Intake & Output 12/01/22 12/02/22 12/02/22 18:59 06:59 18:59 Intake Total 1156 2300 Output Total 5 1050 626 Balance 1151 1250 -626 Weight 65.9 kg Intake: IV 1156 Intake, IV Titration 2120 Amount ACETAMINOPHEN IV (For NPO 2000 ) 1,000 mg In Empty Bag 1 bag @ 400 mls/hr IVPB Q6HR JEM Rx#:[id number] Clindamycin 600 mg In 100 Dextrose 5% in Water 50 ml @ 50 mls/hr IVPB Q8H JEM Rx#:[id number] Lactated Ringers 1,000 ml 20 @ 20 mls/hr IV .Q24H JEM Rx#:[id number] Oral 180 Output: Urine 1050 Straight 1050 Post Void Residual 626 Estimated Blood Loss 5 Other: # Voids 1 - Labs CBC & Chem 7: 12/02/22 07:11 12/02/22 07:11
[2022-12-03] MEDS ORDERED: ONDANSETRON 4 MG/2 ML VIAL ONE
[2022-12-03] MEDS ORDERED: SIMETHICONE 80 MG CHEWABLE ONE
[2022-12-03] MEDS: ACETAMINOPHEN IV (For NPO) 1,000 MG in EMPTY BAG 1 BAG IVPB SCH ×3 (05:13→11:51)
[2022-12-03] MEDS: ONDANSETRON 4 MG/2 ML VIAL IVP SCH ×3 (05:13→11:00)
[2022-12-03] MEDS: CLINDAMYCIN 600 MG in DEXTROSE 5% IN WATER 50 ML IVPB SCH ×4 (05:14→11:00)
[2022-12-03] MEDS: SIMETHICONE 80 MG CHEWABLE PO SCH ×2 (05:14→11:51)
[2022-12-03 05:20] LABS: Blood Urea Nitrogen 9.3 mg/dL (9.0-27.0); Calcium 8.3 mg/dL (8.7-10.3); Carbon Dioxide 26.1 mmol/L (21.6-31.8); Chloride 106 mmol/L (96-109); Magnesium 1.8 mg/dL (1.5-2.4); Potassium 4.2 mmol/L (3.5-5.5); Sodium 141 mmol/L (135-145)
[2022-12-03] MEDS: LACTATED RINGERS 1,000 ML IV SCH (07:15)
[2022-12-03] MEDS: PANTOPRAZOLE 40 MG/10 ML VIAL IV SCH (07:41)
[2022-12-03] MEDS: HEPARIN SODIUM,PORCINE/PF 5,000 UNIT/0.5 ML SYRINGE SQ SCH (07:41)
[2022-12-03] MEDS: TAMSULOSIN 0.4 MG CAP.ER.24H PO SCH (07:41)
[2022-12-03] MEDS: ALBUTEROL NEBULIZED 2.5 MG/3 ML INHALATION SCH ×3 (08:10→15:36)
[2022-12-03 08:51] LABS: Glucose,Whole Blood 89 mg/dL (70-110)
[2022-12-03 11:17] LABS: Glucose,Whole Blood 102 mg/dL (70-110)
[2022-12-03] MEDS: 0.9% NACL WITH KCL 20 MEQ/L 1,000 ML IV SCH (11:51)
--- NOTE | 2022-12-03 14:42 | P.DS ---
Providers Date of admission: 12/01/22 09:30 Expected date of discharge: 12/03/22 Attending physician: Shirin Greco Consults: 12/01/22 07:45 Consult Physician Routine Consulting Provider: [facility] Consult Reason/Comments: TIVA for gastric bypass Do you want consulting provider notified?: Yes Primary care physician: Wilfrid Burns Hospital Course: Discharge diagnosis 1. Morbid obesity due to excess calories 2. Body mass index of 47.2, initial to 23.9 3. Fibromyalgia 4. Gastroesophageal reflux disease 5. Celiac disease 6. Rheumatoid arthritis 7. Generalized anxiety disorder 8. Depressive disorder 9. Motion sickness 10. Tobacco abuse disorder, in remission 11. Complications of sleeve gastrectotmy 12. Dysphagia 13. Iron deficiency anemia 14. Vitamin A deficiency 15. Inadequate protein intake. 16. Leukopenia 17. Urinary retention 18. Hypotension improved with IV fluids Hospital course This is a 42-year-old female known history of morbid obesity she is status post Ralph-en-Y gastric bypass surgery. Patient is tolerating diet. She has been up and ambulating. Her pain is controlled. She is afebrile. She will undergo a voiding trial prior to being discharged. Chavez catheter has been discontinued. Patient is stable for discharge pending she can urinate without difficulty. Physician Sizing Machine Operator note has been reviewed by physician. Signing provider agrees with the documented findings, assessment, and plan of care. Please see additional documentation below CHIEF COMPLAINT: Complications from sleeve gastrectomy HISTORY OF PRESENT ILLNESS: Tia Reynolds is a 42-year-old female status post sleeve to gastric bypass. She reports resolution of reflux disease. She denies abdominal distention. Her pain is well-controlled. She is voiding spontaneously. REVIEW OF ORGAN SYSTEMS: No fevers or chills. No chest pain. PHYSICAL EXAM: VITAL SIGNS: Reviewed GENERAL: Well-developed in no acute distress. HEENT: No scleral icterus. Extraocular movements grossly intact. Hears conversational speech. No nasal drainage. NECK: Supple without lymphadenopathy. CHEST: Nonlabored respirations with equal bilateral excursions. CARDIOVASCULAR: Regular rate and regular rhythm. Distal 2+ pulses. ABDOMEN: Dressing intact. No cellulitis. Abdominal binder present. MUSCULOSKELETAL: No clubbing, cyanosis. NEURO: No focal or lateralizing signs. Cranial nerves 2 through 12 grossly within normal limits. PSYCH: Appropriate affect. Alert and oriented to person, place and time. SKIN: Good skin turgor. Well perfused. LABS: Reviewed. WBC normal. ASSESSMENT: 1. Morbid obesity due to excess calories 2. Body mass index of 45.4 initial to 23.4 3. Intractable gastroesophageal reflux disease 4. Intractable nausea and vomiting 5. Complications from sleeve gastrectomy 6. History of tobacco abuse disorder 7. Fibromyalgia 8. Rheumatoid arthritis 9. Celiac disease 10. Raynaud's disease 11. Motion sickness 12. History of hiatal hernia repair 13. History of Yesenia fundoplication 14. History of multiple drug ALLERGIES 15. Generalized anxiety disorder 16. Depressive disorder 17. Parahepatic peritoneal adhesions 18. Urinary retention PLAN: 1. Stable for discharge. 2. Continue antacids for pouch management 3. Close follow-up outpatient described. Patient Condition at Discharge: Stable Plan - Discharge Summary Discharge Rx Participant: Yes New Discharge Prescriptions: New Ondansetron Odt [Zofran ODT] 4 mg PO Q8HR PRN #9 tab PRN Reason: Nausea Acetaminophen Tab [Tylenol] 1,000 mg PO Q6HR PRN #30 tablet PRN Reason: Pain Continue Omeprazole [PriLOSEC] 40 mg PO DAILY Discontinued Pantoprazole [Protonix] 40 mg PO DAILY #30 tab No Action cefUROXime axetiL [Ceftin] 500 mg PO BID 7 Days #14 tab Fluconazole [Diflucan] 150 mg PO DAILY #5 tab Discharge Medication List Omeprazole [PriLOSEC] 40 mg PO DAILY 08/08/16 [History] Acetaminophen Tab [Tylenol] 1,000 mg PO Q6HR PRN #30 tablet 12/03/22 [Rx] Ondansetron Odt [Zofran ODT] 4 mg PO Q8HR PRN #9 tab 12/03/22 [Rx] cefUROXime axetiL [Ceftin] 500 mg PO BID 7 Days #14 tab 12/18/22 [Rx] Fluconazole [Diflucan] 150 mg PO DAILY #5 tab 12/24/22 [Rx] Follow up [facility]ment[facility] [place] [facility] - [facility] Activity/Diet/Wound Care/Special Instructions: Liquid diet only for 2 weeks No lifting over 4 pounds in 4 weeks May Shower. No soaking in bath tubs for 2 weeks Please notify your surgeon if you develop nausea and vomiting including new onset of abdominal pain. Continue to use incentive spirometry to prevent pneumonias. Please continue to ambulate at home to prevent blood clots in legs. Follow-up at the bariatric center. May shower. Dressings to be discontinued by surgeon in the office. Drink 64 oz of fluid daily. Start protein shakes on . Notify bariatric center for temp over 101.0, increased pain, drainage from incisions. No straws or carbonated beverages. Liquid diet only. Sugar content should be less than 6 g to avoid dumping syndrome. Take MOM for constipation. CRUSH, OPEN, OR CUT TABLETS LARGER THAN A SIZE OF A TIC TAC Discharge Disposition: HOME SELF-CARE
[2022-12-03 15:52] VITALS: BP 106/65; PULSE 98; RESP 16; TEMP 100
[2022-12-03 16:55] LABS: Glucose,Whole Blood 119 mg/dL (70-110)
[2022-12-03] MEDS ORDERED: ACETAMINOPHEN TAB 500 MG TAB PO ONE (17:51)
--- NOTE | 2022-12-28 19:47 | P.OP ---
Date of Procedure: 12/01/22 Description of Procedure: SURGEON: BETTY HICKMAN MD PREOPERATIVE DIAGNOSES: 1. Morbid obesity due to excess calories 2. Body mass index of 45.4 initial to 23.4 3. Intractable gastroesophageal reflux disease 4. Intractable nausea and vomiting 5. Complications from sleeve gastrectomy 6. History of tobacco abuse disorder 7. Fibromyalgia 8. Rheumatoid arthritis 9. Celiac disease 10. Raynaud's disease 11. Motion sickness 12. History of hiatal hernia repair 13. History of Yesenia fundoplication 14. History of multiple drug ALLERGIES 15. Generalized anxiety disorder 16. Depressive disorder POSTOPERATIVE DIAGNOSES: 1. Morbid obesity due to excess calories 2. Body mass index of 45.4 initial to 23.4 3. Intractable gastroesophageal reflux disease 4. Intractable nausea and vomiting 5. Complications from sleeve gastrectomy 6. History of tobacco abuse disorder 7. Fibromyalgia 8. Rheumatoid arthritis 9. Celiac disease 10. Raynaud's disease 11. Motion sickness 12. History of hiatal hernia repair 13. History of Yesenia fundoplication 14. History of multiple drug ALLERGIES 15. Generalized anxiety disorder 16. Depressive disorder 17. Parahepatic peritoneal adhesions OPERATION: 1. Robotic assisted da Lena Xi laparoscopic lysis of adhesions 2. Robotic assisted da Lena Xi laparoscopic conversion from sleeve gastrectomy to Yola-en-Y gastric bypass, 75 cm antecolic antegastric Yola limb, with 25 mm EEA. 3. Intraoperative esophagogastrojejunoscopy. ANESTHESIA: GETA and local ESTIMATED BLOOD LOSS: 5 mL SPECIMENS REMOVED: None. COMPLICATIONS: NONE. Operative Findings: 1. Biliopancreatic limb 60 cm 2. Bypass performed using 75-cm yola limb Silliman malabsorption as her BMI is less than 24.0 3. Gary and jejunojejunostomy defects were closed using 2-0 V LOC, absorbable 4. Leak test negative with gastrojejunal anastomosis patent and hemostatic. 5. Reinforcement sutures were placed along the gastrojejunal anastomosis at 12:00, 9:00 and 3:00 6. No evidence of hepatomegaly or fatty liver disease. 7. Prior scarring along hiatus without large hiatal hernia recurrence INDICATIONS: Tia Reynolds is a 42-year-old female with complicated surgical history including multiple revisions of laparoscopic hiatal hernia X2 followed by sleeve gastrectomy 2018. Her BMI has been reduced from 45.4-23.4 due to intractable nausea and vomiting, intractable gastroesophageal reflux disease despite medications. She has stopped smoking with negative urine nicotine testing. Multiple surgical options for management of her gastroesophageal reflux disease following her sleeve gastrectomy has been unsuccessful. Patient presents for surgical correction of her reflux disease including conversion from sleeve to gastric bypass. She presents with complications from her sleeve gastrectomy with persistent reflux despite hiatal hernia repair. She comes in for gastric bypass. At height of 5 feet 6 inches, her ideal body weight is 154 pounds. Her highest weight prior to her sleeve gastrectomy is 280 pounds. Her BMI was 45.4. She comes in 145 pounds. She has lost 135 pounds. Her body mass index is 23.4. Her lifetime weight loss is 135 pounds. Her lifetime percent excess weight loss is 107 %. She is not overweight. A second-generation bariatric consent form was described in detail including the possibility of protein malnutrition, leaks, gastrojejunal stricture, venous thrombosis, need for further surgery for which she demonstrated understanding. She also understands that a conversion surgery from sleeve to gastric bypass is for symptomatic relief of her gastroesophageal reflux disease with prior risk of leaks including stricture. Benefits and risks of the procedure were described at length. Informed consent was obtained. unds. DESCRIPTION: The patient was brought into the operating room theater. She was placed supine. She had received Lovenox subcutaneously for DVT prophylaxis. Additionally she Peridex oral solution as an oral decontaminant was placed per anesthesia. After general induction, the abdomen was prepped and draped in standard sterile fashion. Ioban draping was placed along the abdomen. A robotic da Lena Xi system was prepped and primed. Proposed trochars were placed along previous incisions from her hiatal hernia surgery, at least 12 cm inferior to the xiphoid process. Proposed port sites were marked with indelible marker along the anterior axillary line bilaterally, mid clavicular line bilaterally with each port marked 10 cm from each other. The robotic stapler port was marked for the right midclavicular line including along the left midclavicular line. A 5 mm 0 degrees laparoscopic trocar entry was performed along the left upper quadrant. The abdomen was insufflated to 15 mmHg pressure, which she tolerated well. Diagnostic laparoscopy demonstrated no injury to bowel, viscera, or mesentery. A medium-size liver retractor was placed with adhesions identified at the hiatus from multiple surgeries. An 8 mm camera port was placed left lateral to the umbilicus at the epigastrium, 15 cm distal to the xiphoid. Next, 12-mm robot stapler port was placed along the right mid abdomen. An 12 mm port was exchanged along the left upper quadrant. An 8 mm port was placed on the left lateral abdominal wall under direct visualization Please note that the ports were placed 18 to 20 cm away from the target anatomy of the stomach. Care was taken to check that each robotic arm was safely away from collision with the bed or the patient. The patient was repositioned in reverse Trendelenburg position at 21-degrees after lowering the bed. The robot was docked over the patient. Using grasper for arm 3, a grasper for arm 1, including vessel sealer for arm 4, the robotic system was docked and primed as described. Instruments were interchanged by the household assistant including endoscissors, the needle van driver, and stapler. I had sat at the console. Adhesions along the hiatus was dissected using vessel sealer. Multiple sutures along the hiatus was found. Next, the transverse mesocolon was reflected into the upper abdomen after dividing the mesentery and preparing for the jejunojejunostomy portion of the case. The ligament of Treitz was identified and measured 60 cm antegrade and marked using 3-0 Silk. The jejunum was divided at the 60 cm point using 60-mm blue loads above the suture measurement. The biliopancreatic limb was held in place. The Yola limb was measured 75 cm in an antegrade fashion to avoid tension along the proposed gastrojejunal anastomosis. All measurements were obtained using a ruler. At 75 cm along the anti-mesenteric border of the Yola limb, a jejunojejunostomy was proposed whereby enterotomies were created along the biliopancreatic limb including the Yola limb using a Bovie cautery. A stay suture of 3-0 silk was placed to align and create the anastomosis. The enterotomies along the anti-mesenteric borders were created followed by unidirectional fire from the patient's right side using 60 mm blue loads Lyfepoints technology robotic stapler. The jejunojejunostomy was found to be hemostatic. The enterotomy was closed after horizontal mattress stitch of 3-0 silk used to elevate the enterotomy followed by closure with the robotic stapler blue load. The jejunal limb was temporarily tacked along the left upper quadrant. Hemostasis was checked using electro-Bovie cautery. Attention was now brought to the creation of the gastrojejunostomy. Her previous sleeve gastrectomy was investigated and no moderate defects were found along the hiatus which was scarred from her hiatal hernia surgery. Along the lesser curvature of the stomach, dissection was made along the retrogastric space to allow first firing of the robotic staple. Green loads of 60 mm staplers were used to divide the stomach to create the gastric pouch. The patient was then prepared for placement of a Orvil. The patient was Mallampati 2. A 25-mm Orvil was selected for placement by the nurse manager care management. The Orvil tubing was placed anterior to the staple line of the gastric pouch and brought out through the left inferior lateral port. I re-scrubbed into the case. The robotic arms were temporarily undocked. The Orvil was navigated into the gastric pouch. The sutures were identified and divided. The tubing was from the 25 mm anvil. As the Orvil had been placed, the blind jejunal limb was brought proximally into the upper abdomen. No torsion was found upon the Yola limb. No tension was identified as the limb was brought along the upper abdomen. The blind jejunal limb was previously opened using endo-scissors with cautery. The 25-mm EEA stapler was brought through the left anterior lateral port site from the left side. The EEA stapler was brought through the open jejunal limb and its needle was deployed at the antimesenteric border where the anvil were mated for approximately 1 minute upon firing. The stapler was removed after irrigating the shaft of the instrument with warm normal saline. Donuts were found to be intact and on both sides. The da Lena Xi robot arms were then re-docked. I sat at the console. The open jejunal limb defect was closed using 60 mm blue loads after releasing any tension from the blind jejunal limb. Care was taken to avoid any long blind limb to avoid candycane syndrome. Reinforcement sutures were placed along the gastrojejunal anastomosis and placed along the 12:00, 9:00 and 3 o'clock position using 3-0 Vicryl. The Viveros defect was closed using 2-0 V-LOC. The jejunojejunostomy mesenteric defect were closed using 2-0 V LOC, absorbable. I then went to the head of the bed to perform the esophagogastrojejunoscopy and a leak test. An Olympus gastroscope was passed along the posterior oropharynx which was unremarkable for any injury to the vocal cords. The scope was passed down to the proximal portion of the pouch, whereby no active bleeding was encountered. Excellent visualization of the gastrojejunostomy anastomosis, including the Yola limb was encountered with endoscopic image obtained. The anastomosis was found to be patent. The gastrointestinal tract was desufflated. No evidence of intraoperative leak was encountered as the gastric pouch and anastomosis were submerged under normal saline solution. The robot was then undocked. I then went back to the bedside of the patient, whereby with coordinated effort of the household assistant, irrigation was aspirated from the upper abdominal cavity. Tisseel was placed circumferentially over the anastomosis of the gastrojejunostomy. The fascial defect of the EEA stapler was closed using Jaswinder Ayala and 0 Vicryl. All instruments and pneumoperitoneum were evacuated from the abdominal cavity. The port correlating with the EEA stapler device was cleansed with normal saline solution and hydrogen peroxide. The rest of incisions were reapproximated using 4-0 Monocryl in an interrupted subcuticular fashion. Local anesthetic was infiltrated along the skin for postop analgesia. Liquid glue was applied to the skin. OptiFoam dressing was placed along the EEA stapler site. At the end of the procedure, needle, sponge and instrument count had been verified correct by the photovoltaic fabrication technician. The patient had tolerated the procedure well and was extubated and taken to the postanesthesia unit in stable condition. Intraoperative findings were described to the patient's family who were very pleased with the level of care.
== END 2022-12-03 17:27 | disposition home or self-care (01) | DRG 328 ==
LOC: 2ORMAIN 09:30 → 4SSUR 17:30
PROVIDERS: ADMIT Surgery Plastic and Reconstructive Surgery; ATTEND Surgery Plastic and Reconstructive Surgery
PROC: 0DJ08ZZ Inspection of Upper Intestinal Tract, Via Natural or Artificial Opening Endoscopic (ICD-10-PCS; 2022-12-01)
PROC: 0D164ZA Bypass Stomach to Jejunum, Percutaneous Endoscopic Approach (ICD-10-PCS; principal; 2022-12-01 11:00)
PROC: 0DN64ZZ Release Stomach, Percutaneous Endoscopic Approach (ICD-10-PCS; principal; 2022-12-01 11:00)
PROC: 8E0W4CZ Robotic Assisted Procedure of Trunk Region, Percutaneous Endoscopic Approach (ICD-10-PCS; principal; 2022-12-01 11:00)
DX: K95.89 Other complications of other bariatric procedure (principal); I95.9 Hypotension, unspecified; D50.9 Iron deficiency anemia, unspecified; E66.01 Morbid (severe) obesity due to excess calories; M06.9 Rheumatoid arthritis, unspecified; F32.A Depression, unspecified; K90.0 Celiac disease; K21.9 Gastro-esophageal reflux disease without esophagitis; M79.7 Fibromyalgia; I73.00 Raynaud's syndrome without gangrene; T75.3XXA Motion sickness, initial encounter; F41.1 Generalized anxiety disorder; K66.0 Peritoneal adhesions (postprocedural) (postinfection); D72.819 Decreased white blood cell count, unspecified; Z28.310 Unvaccinated for COVID-19; R13.10 Dysphagia, unspecified; E50.9 Vitamin A deficiency, unspecified; R33.9 Retention of urine, unspecified; Z79.899 Other long term (current) drug therapy; Z91.040 Latex allergy status; Z88.6 Allergy status to analgesic agent; Z88.0 Allergy status to penicillin; Z71.6 Tobacco abuse counseling; Z87.891 Personal history of nicotine dependence; Z88.9 Allergy status to unspecified drugs, medicaments and biological substances; Z98.84 Bariatric surgery status; Z68.23 Body mass index [BMI] 23.0-23.9, adult; Z71.3 Dietary counseling and surveillance; Z91.018 Allergy to other foods
CPT/HCPCS: 36415; 74240; 80051; 80053; 81025; 82310; 82565; 83735; 84100; 84520; 85025; 86850; 86900; 86901; 93005; 94640; 94760

== ENCOUNTER → 2022-12-05 | Outpatient (CLI) | payer OTHER ==
--- NOTE | 2022-12-05 09:40 | P.BASOAP ---
Subjective Progress Note Date: 12/05/22 DATE: 12/05/2022 CHIEF COMPLAINT: Gastric bypass HISTORY OF PRESENT ILLNESS: Tia Reynolds is a 42-year-old female who is status post sleeve gastrectomy 02/23/2019 followed by hiatal hernia repair. She is now status post conversion from sleeve to gastric bypass, 12/01/22. She is POD 4. Patient is status post conversion of sleeve to gastric bypass due to intractable nausea and vomiting, severe reflux disease from her sleeve gastrectomy. She is tolerating liquids. No further reflux since her bypass. Denies any increased abdominal pain. She is voiding spontaneously. No bowel movement. She is voiding well and stable well-hydrated. At height of 5 feet 6.5 inches, her ideal body weight is 154 pounds. Her highest weight is 296 pounds, BMI 47.2. She comes in 145 pounds from 148 pounds, 1 month ago. She has lost 3 pounds in 1 month. Her body mass index is 23.0. Lifetime weight loss is 151 pounds. Lifetime percent excess weight loss is 107 %. PHYSICAL EXAM: VITAL SIGNS: Height 5 foot 6.5 inches, weight 145 pounds. BMI 23.0 Vital Signs Temp 97.9 F 12/05/22 10:13 Pulse 59 L 12/05/22 10:13 Resp 13 12/05/22 10:13 BP 116/76 12/05/22 10:13 Pulse Ox FiO2 GENERAL: Well-developed in no acute distress. HEENT: No scleral icterus. Extraocular movements grossly intact. Hears conversational speech. No nasal drainage. NECK: Supple without lymphadenopathy. CHEST: Nonlabored respirations with equal bilateral excursions. CARDIOVASCULAR: Regular rate and regular rhythm. Distal 2+ pulses. ABDOMEN: Soft. No peritonitis. No infection along her incisions. Dressing discontinued. No redness or signs of infection. Abdominal binder repositioned. MUSCULOSKELETAL: No clubbing, cyanosis. NEURO: No focal or lateralizing signs. Cranial nerves 2 through 12 grossly within normal limits. PSYCH: Appropriate affect. Alert and oriented to person, place and time. SKIN: Good skin turgor. Well perfused. ASSESSMENT: 1. Morbid obesity due to excess calories 2. Body mass index of 47.2, initial to 23.0 3. Fibromyalgia 4. Gastroesophageal reflux disease 5. Celiac disease 6. Rheumatoid arthritis 7. Generalized anxiety disorder 8. Depressive disorder 9. Motion sickness 10. Tobacco abuse disorder in remission 11. Complications of sleeve gastrectotmy 12. Dysphagia 13. Iron deficiency anemia 14. Vitamin A deficiency 15. Inadequate protein intake. 16. Leukopenia 17. Status post sleeve to gastric bypass PLAN: 1. Presence of dark stools from her first bowel movement due to type of surgery reviewed. 2. Continue antacids. 3. Follow up in the bariatric Center in 5 days. 4. Start protein shakes. 5. Abdominal binder readjusted Assessment/Plan Plan: Date: Initial Weight: 127.459 kg Initial BMI: Current Weight: Current BMI: Type of Surgery: Total Volume in Band: Previous Volume: Volume Removed: Volume Added: Band Size:
[2022-12-05 10:30] VITALS: BP 116/76; PULSE 59; RESP 13; TEMP 97.9; BMI 23.0
== END ==
LOC: BARWHC3 08:52
PROVIDERS: ATTEND Surgery Plastic and Reconstructive Surgery
DX: E66.01 Morbid (severe) obesity due to excess calories (principal); K21.9 Gastro-esophageal reflux disease without esophagitis; E50.9 Vitamin A deficiency, unspecified; M06.9 Rheumatoid arthritis, unspecified; F32.A Depression, unspecified; D64.9 Anemia, unspecified; F17.200 Nicotine dependence, unspecified, uncomplicated; R13.10 Dysphagia, unspecified; T75.3XXA Motion sickness, initial encounter; F41.9 Anxiety disorder, unspecified; K90.0 Celiac disease; D72.819 Decreased white blood cell count, unspecified; Z68.23 Body mass index [BMI] 23.0-23.9, adult; Z88.0 Allergy status to penicillin; Z91.018 Allergy to other foods; Z88.8 Allergy status to other drugs, medicaments and biological substances; Z88.6 Allergy status to analgesic agent; Z98.84 Bariatric surgery status
CPT/HCPCS: 99211

== ENCOUNTER 2022-12-07 20:38 | Inpatient (IN) | payer OTHER ==
[2022-12-07] MEDS ORDERED: ONDANSETRON 4 MG/2 ML VIAL IVP STA (22:55)
[2022-12-07] MEDS ORDERED: SODIUM CHLORIDE 0.9% 1,000 ML IV ONE (22:55)
[2022-12-07] MEDS ORDERED: MORPHINE SULFATE 4 MG/ML SYRINGE IVP STA (22:55)
[2022-12-07 23:02] LABS: Basophils % (A) 0 %; Eosinophils # (A) 0.1 k/uL (0-0.7); Eosinophils % (A) 1 %; HCT 49.3 % (34.0-46.0); Lymphocytes # (A) 0.9 k/uL (1.0-4.8); Lymphocytes % (A) 12 %; MCH 28.6 pg (25.0-35.0); MCHC 32.3 g/dL (31.0-37.0); MCV 88.4 fL (80.0-100.0); Mean Platelet Volume 8.1; Monocytes # (A) 0.5 k/uL (0-1.0); Monocytes % (A) 6 %; Neutrophils # (A) 6.3 k/uL (1.3-7.7); Neutrophils % (A) 78 %; Platelet Count 262 k/uL (150-450); RBC 5.58 m/uL (3.80-5.40); RDW 14.4 % (11.5-15.5); WBC 8.1 k/uL (3.8-10.6)
[2022-12-07 23:26] LABS: ALT 34 U/L (4-34); AST 31 U/L (14-36); African American GFR (CKD) >90 (>60 ml/min/1.73 sqM); Albumin 3.8 g/dL (3.5-5.0); Alkaline Phosphatase 86 U/L (38-126); Anion Gap 17 mmol/L; Blood Urea Nitrogen 14 mg/dL (7-17); Calcium 9.2 mg/dL (8.4-10.2); Carbon Dioxide 21 mmol/L (22-30); Chloride 100 mmol/L (98-107); Glucose 96 mg/dL (74-99); Lipase 131 U/L (23-300); Magnesium 1.8 mg/dL (1.6-2.3); Non-African American GFR(CKD) >90 (>60 ml/min/1.73 sqM); Potassium 4.3 mmol/L (3.5-5.1); Sodium 138 mmol/L (137-145); Total Bilirubin 0.5 mg/dL (0.2-1.3); Total Protein 7.2 g/dL (6.3-8.2)
[2022-12-08] MEDS ORDERED: SODIUM CHLORIDE 0.9% 1,000 ML IV ONE (00:01)
--- NOTE | 2022-12-08 00:20 | CT ---
EXAM: CT Abdomen and Pelvis With Intravenous Contrast CLINICAL HISTORY: ITS.REASON CT Reason: Acute abd pain, recent surg 12/01 TECHNIQUE: Axial computed tomography images of the abdomen and pelvis with intravenous contrast. CTDI is 19 mGy and DLP is 924.1 mGy-cm. This CT exam was performed using one or more of the following dose reduction techniques: automated exposure control, adjustment of the mA and/or kV according to patient size, and/or use of iterative reconstruction technique. COMPARISON: No relevant prior studies available. FINDINGS: Lung bases: Unremarkable. No mass. No consolidation. Pleural space: Bilateral pleural effusions. ABDOMEN: Liver: Unremarkable. No mass. Gallbladder and bile ducts: Unremarkable. No calcified stones. No ductal dilation. Pancreas: Unremarkable. No mass. No ductal dilation. Spleen: Unremarkable. No splenomegaly. Adrenals: Unremarkable. No mass. Kidneys and ureters: Unremarkable. No solid mass. No hydronephrosis. Stomach and bowel: Moderate small bowel obstruction. Postoperative changes of the stomach. No mucosal thickening. PELVIS: Appendix: No findings to suggest acute appendicitis. Bladder: Unremarkable. No mass. Reproductive: Unremarkable as visualized. ABDOMEN and PELVIS: Intraperitoneal space: There is a 7.4 x 5.8 cm collection of air and fluid within the left mid abdomen with a significant amount of associated inflammatory change consistent with abscess within same. Trace free fluid within the dependent pelvis is likely reactive in nature. No free air. Bones/joints: No acute fracture. No dislocation. Soft tissues: Unremarkable. Vasculature: Unremarkable. No abdominal aortic aneurysm. Lymph nodes: Unremarkable. No enlarged lymph nodes. IMPRESSION: 1. Left anterior abdominal wall abscess measuring 7.4 cm 2. Moderate small bowel obstruction
--- NOTE | 2022-12-08 02:37 | ED ---
General Adult HPI - General Chief complaint: Abdominal Pain Stated complaint: Post-Op Pain Time Seen by Provider: 12/07/22 22:38 Source: patient Mode of arrival: wheelchair Limitations: no limitations - History of Present Illness Initial comments: This is a 42-year-old female with a past mental history including recent Ralph-en-Y surgery on 12/01 to fix a gastric sleeve complication presents the emergency department today for increasing nausea and epigastric pain. The patient stated this pain has been worsening over the last 1 day and she had been increasingly nauseous throat the day. The patient stated that after the surgery she was doing well without any acute pain. The patient did state the pain was located over the incision site on the left lower abdomen. The patient did state that she is able to only tolerate water with continued nausea but without vomiting. The patient stated that she was able to pass flatulence however has not had a bowel movement since before the surgery. The patient denied any other acute pain or complaints at this time and denied any fevers and chills but did state that she was intermittently diaphoretic throughout the day. - Related Data Home Medications Medication Instructions Recorded Confirmed Omeprazole [PriLOSEC] 40 mg PO BID 08/08/16 12/05/22 Sucralfate [Carafate] 1 gm PO BID 11/28/19 12/05/22 Previous Rx's Medication Instructions Recorded Acetaminophen Tab [Tylenol] 1,000 mg PO Q6HR PRN #30 tablet 12/03/22 Ondansetron Odt [Zofran Odt] 4 mg PO Q8HR PRN #9 tab 12/03/22 Simethicone 40 mg/0.6 ml Drops 40 mg PO PCHS PRN #30 ml 12/03/22 [Mylicon Drops] bisacodyL [Dulcolax] 5 mg PO DAILY PRN #10 tab 12/03/22 Allergies Allergy/AdvReac Type Severity Reaction Status Date / Time gluten Allergy Abdominal Verified 12/05/22 10:13 Pain latex Allergy Itching, Verified 12/05/22 10:13 red skin naproxen Allergy Itching Verified 12/05/22 10:13 feels like bugs are crawling on her Penicillins Allergy Anaphylaxis Verified 12/05/22 10:13 prednisone AdvReac Unknown Verified 12/05/22 10:13 Review of Systems ROS Statement: Those systems with pertinent positive or pertinent negative responses have been documented in the HPI. ROS Other: All systems not noted in ROS Statement are negative. Past Medical History Past Medical History: Fibromyalgia, GERD/Reflux, Rheumatoid Arthritis (RA) Additional Past Medical History / Comment(s): past hx. hiatal hernia-had surg., celiac disease,RAYNAUDDS DISEASE History of Any Multi-Drug Resistant Organisms: None Reported Past Surgical History: Bariatric Surgery, Section, Cholecystectomy, Orthopedic Surgery Additional Past Surgical History / Comment(s): left thumb, rt hand and left foot surgery, carpal tunnel, jeanette fundoplasty Feb. 2014 SLEEVE GASTRECTOMY 02-23-19 Past Anesthesia/Blood Transfusion Reactions: No Reported Reaction, Motion Sick ness Additional Past Anesthesia/Blood Transfusion Reaction / Comment(s): mother- PONV Past Psychological History: Anxiety, Depression Smoking Status: Former smoker Past Alcohol Use History: None Reported Past Drug Use History: None Reported - Past Family History Mother Family Medical History: No Reported History General Exam Limitations: no limitations General appearance: alert, in no apparent distress Head exam: Present: atraumatic, normocephalic, normal inspection Eye exam: Present: normal appearance, PERRL Pupils: Present: normal accommodation ENT exam: Present: normal exam, normal oropharynx, mucous membranes moist Neck exam: Present: normal inspection, full ROM Respiratory exam: Present: normal lung sounds bilaterally Cardiovascular Exam: Present: regular rate, normal rhythm, normal heart sounds GI/Abdominal exam: Present: soft, tenderness, normal bowel sounds, other (Tenderness of patient over the incision sites with a large area of induration and erythema around the left lower incision site. The patient did have tenderness to palpation noted over the epigastric region) Extremities exam: Present: normal inspection, full ROM Back exam: Present: normal inspection, full ROM Neurological exam: Present: alert, oriented X3, CN II-XII intact Psychiatric exam: Present: normal affect, normal mood Skin exam: Present: warm, dry Course Vital Signs 12/07/22 20:50 Temperature 98.2 F Pulse Rate 107 H Respiratory 20 Rate Blood Pressure 133/86 O2 Sat by Pulse 95 Oximetry Medical Decision Making - Medical Decision Making Was pt. sent in by a medical professional or institution (, PA, CAR RENTAL AGENCY MANAGER, urgent care, hospital, or long term...) When possible be specific @ -No Did you speak to anyone other than the patient for history (EMS, parent, family, police, friend...)? What history was obtained from this source @ -No Did you review nursing and triage notes (agree or disagree)? Why? @ -I reviewed and agree with nursing and triage notes Were old charts reviewed (outside hosp., previous admission, EMS record, old EKG, old radiological studies, urgent care reports/EKG's, long term records)? Report findings @ -No old charts were reviewed Differential Diagnosis (chest pain, altered mental status, abdominal pain women, abdominal pain men, vaginal bleeding, weakness, fever, dyspnea, syncope, headache, dizziness, GI bleed, back pain, seizure, CVA, palpatations, mental health)? @ -Postop infection, abdominal wall abscess, small bowel obstruction EKG interpreted by me (3pts min.). @ -None X-rays interpreted by me (1pt min.). @ -None done CT interpreted by me (1pt min.). @ -CT abdomen and pelvis with IV contrast was obtained was interpreted by myself showing a left anterior abdominal wall abscess measuring 7.4 cm. There was also a moderate small bowel obstruction. U/S interpreted by me (1pt. min.). @ -None done What testing was considered but not performed or refused? (CT, X-rays, U/S, labs)? Why? @ -None What meds were considered but not given or refused? Why? @ -None Did you discuss the management of the patient with other professionals (professionals i.e. , PA, CAR RENTAL AGENCY MANAGER, lab, RT, psych nurse, rn social services, communications editor, teacher, bank compliance officer, manager case management)? Give summary @ -Yes, the patient's surgeon, Dr. Greco was contacted regarding the patient's results. She did state that the read was likely a hematoma and not likely an abscess not requiring any antibiotics at this time. She also did state that it was unlikely a moderate small bowel obstruction and was instead likely an ileus. She did recommend the patient to have a enema and if the patient was doing well, the patient could be seen and evaluated in the clinic in the morning. She stated that it the patient had continued pain and discomfort that the patient could be placed in observation. Was smoking cessation discussed for >3mins.? @ -No Was critical care preformed (if so, how long)? @ -No Were there social determinants of health that impacted care today? How? ( Homelessness, low income, unemployed, alcoholism, drug addiction, transportation, low edu. Level, literacy, decrease access to med. care, [facility], rehab)? @ -No Was there de-escalation of care discussed even if they declined (Discuss DNR or withdrawal of care, Hospice)? DNR status @ -No What co-morbidities impacted this encounter? (DM, HTN, Smoking, COPD, CAD, Cancer, CVA, ARF, Chemo, Hep., AIDS, mental health diagnosis, sleep apnea, morbid obesity)? @ -None Was patient admitted / discharged? Hospital course, mention meds given and route, prescriptions, significant lab abnormalities, going to OR and other pertinent info. @ -The patient was seen and evaluated emergency department. Physical exam, the patient was resting in bed without any acute distress. Vital signs admission were stable. The patient did receive pain medications on arrival as well as antinausea medications and 1 L of normal saline fluid. The patient received a second liter of normal saline fluid per the recommendation of her surgeon. Laboratory workup was within normal limits and the computed tomography scan showed signs of a possible anterior abdominal wall abscess and possible moderate small bowel obstruction. The patient's surgeon was contacted and did recommend a enema. The patient had slight delay in getting the enema but was able to tolerate this enema. On reevaluation, the patient continued pain and did receive a second dose of pain medications and antinausea medications. Once again on reevaluation, the patient had continued pain and discomfort despite having a good bowel movement. Due to the patient's continued pain in the setting of CT findings and recent surgery, the patient will be placed observation. The patient's surgeon was agreeable to this and the patient was placed observation in stable condition. Undiagnosed new problem with uncertain prognosis? @ -No Drug Therapy requiring intensive monitoring for toxicity (Heparin, Nitro, Insulin, Cardizem)? @ -No Were any procedures done? @ -No Diagnosis/symptom? @ -Postop pain, constipation Acute, or Chronic, or Acute on Chronic? @ -Acute Uncomplicated (without systemic symptoms) or Complicated (systemic symptoms)? @ -Complicated Side effects of treatment? @ -No Exacerbation, Progression, or Severe Exacerbation? @ -No Poses a threat to life or bodily function? How? (Chest pain, USA, NC, pneumonia, PE, COPD, DKA, ARF, appy, cholecystitis, CVA, Diverticulitis, Homicidal, Suic idal, threat to staff... and all critical care pts) @ -No - Lab Data Result diagrams: 12/07/22 22:45 12/07/22 22:45 Lab Results 12/07/22 12/07/22 Range/Units 22:45 22:45 WBC 8.1 (3.8-10.6) k/uL RBC 5.58 H (3.80-5.40) m/uL Hgb 16.0 (11.4-16.0) gm/dL Hct 49.3 H (34.0-46.0) % MCV 88.4 (80.0-100.0) fL MCH 28.6 (25.0-35.0) pg MCHC 32.3 (31.0-37.0) g/dL RDW 14.4 (11.5-15.5) % Plt Count 262 (150-450) k/uL MPV 8.1 Neutrophils % 78 % Lymphocytes % 12 % Monocytes % 6 % Eosinophils % 1 % Basophils % 0 % Neutrophils # 6.3 (1.3-7.7) k/uL Lymphocytes # 0.9 L (1.0-4.8) k/uL Monocytes # 0.5 (0-1.0) k/uL Eosinophils # 0.1 (0-0.7) k/uL Basophils # 0.0 (0-0.2) k/uL Sodium 138 (137-145) mmol/L Potassium 4.3 (3.5-5.1) mmol/L Chloride 100 (98-107) mmol/L Carbon Dioxide 21 L (22-30) mmol/L Anion Gap 17 mmol/L BUN 14 (7-17) mg/dL Creatinine 0.45 L (0.52-1.04) mg/dL Est GFR (CKD-EPI)AfAm >90 (>60 ml/min/1.73 sqM) Est GFR (CKD-EPI)NonAf >90 (>60 ml/min/1.73 sqM) Glucose 96 (74-99) mg/dL Calcium 9.2 (8.4-10.2) mg/dL Magnesium 1.8 (1.6-2.3) mg/dL Total Bilirubin 0.5 (0.2-1.3) mg/dL AST 31 (14-36) U/L ALT 34 (4-34) U/L Alkaline Phosphatase 86 (38-126) U/L Total Protein 7.2 (6.3-8.2) g/dL Albumin 3.8 (3.5-5.0) g/dL Lipase 131 (23-300) U/L Disposition Clinical Impression: Post-op pain, Constipation Disposition: ADMITTED IP TO THIS [facility] Condition: Stable Is patient prescribed a controlled substance at d/c from ED?: No Referrals: Wilfrid Burns DO [Primary Care Provider] - 1-2 days Time of Disposition: 03:30 Decision to Admit Reason: Admit from EC Decision Date: 12/08/22 Decision Time: 03:30
[2022-12-08] MEDS ORDERED: ONDANSETRON 4 MG/2 ML VIAL IVP STA (02:48)
[2022-12-08] MEDS ORDERED: MORPHINE SULFATE 4 MG/ML SYRINGE IVP STA (02:48)
[2022-12-08] MEDS ORDERED: NALOXONE 0.4 MG/ML 1 ML VIAL IV PRN (03:45)
[2022-12-08] MEDS: MORPHINE SULFATE 4 MG/ML SYRINGE IV PRN ×4 (06:13→19:10)
[2022-12-08] MEDS: ONDANSETRON 4 MG/2 ML VIAL IVP PRN ×2 (06:59→19:09)
[2022-12-08] MEDS: ACETAMINOPHEN TAB 500 MG TAB PO SCH ×3 (10:48→23:14)
--- NOTE | 2022-12-08 12:02 | P.GSHP ---
History of Present Illness H&P Date: 12/08/22 CHIEF COMPLAINT: Abdominal pain HISTORY OF PRESENT ILLNESS: This is a 42-year-old female with recent surgery on 12/01/2022. She is status post conversion of sleeve to Ralph en y gastric bypass. Patient reports that she had been fine after discharge by its Thursday started to have discomfort and pain in the esophagus and left side of her abdomen. She has been nauseated no vomiting. She also complained of constipation. She has been having flatus. She received an enema in the ER and had a large bowel movement. She reports it did take away some of the pressure she was experienced but still has discomfort in both the left side of the abdomen and epigastric area. Computed tomography scan completed the had shown a left anterior abdominal wall abscess measuring 7.4 cm. Moderate small bowel obstruction. Patient does admit to having sweats but denies any fever or chills. White count normal 8.1. She is currently tolerating clear liquid diet. Patient reports that she had increased her Tylenol intake over the weekend help with pain but had no improvement. PAST MEDICAL HISTORY: See list. PAST SURGICAL HISTORY: See list. MEDICATIONS: See list. ALLERGIES: See list. SOCIAL HISTORY: No illicit drug use. REVIEW OF SYSTEMS: CONSTITUTIONAL: Denies fever or chills. HEENT: Denies blurred vision, vision changes, or eye pain. Denies hemoptysis ENDOCRINE: Denies heat or cold intolerance. CARDIOVASCULAR: Denies chest pain or pressure. RESPIRATORY: No shortness of breath. GASTROINTESTINAL: Please refer to HPI NEURO: Denies history of seizures. PSYCH: No depression or suicidal ideation HEMATOLOGIC: Denies bleeding disorders. LYMPHATIC: The patient denies any lumps and bumps around the neck. GENITOURINARY: Denies any blood in urine or increased urinary frequency. MUSCULOSKELETAL: Denies myalgias. Denies joint swelling. Denies decreased range of motion beyond patients baseline. SKIN: Denies pruitis. Denies rash. PHYSICAL EXAM: VITAL SIGNS: Reviewed GENERAL: Well-developed in no acute distress. HEENT: No sclera icterus. Extraocular movements grossly intact. Moist buccal mucosa. Head is atraumatic, normocephalic. Hears conversational speech. No nasal drai nage. NECK: Supple without lymphadenopathy. CHEST: Non-labored respirations and equal bilateral excursions. CARDIOVASCULAR: Palpable 2+ radial pulses. ABDOMEN: Soft. Nondistended. The incision on the left side of the abdomen is indurated. No drainage from incision site. Mild erythema. MUSCULOSKELETAL: No clubbing or cyanosis. NEUROLOGIC: No focal or lateralizing signs. Cranial nerves II through XII grossly intact. PSYCH: Appropriate affect. Alert and oriented to person, place and time. SKIN: Well perfused. Good skin turgor. LABORATORY DATA: WBC is 8.1 hgb 16 platelets 262 Sodium 138 potassium 4.3 creatinine 14 Liver enzymes normal lipase 131 IMAGING: Computed tomography scan findings as stated above ASSESSMENT: 1. Abdominal pain 2. Hematoma at incision site, doubt abscess. Patient has no fever and white count is not elevated 3. Recent conversion from sleeve gastrectomy due to Ralph-en-Y gastric bypass 4. Constipation PLAN: -Further recommendations forthcoming per surgeon -Continue clear liquid diet, no straws or carbonated beverages -Tylenol added for pain control Physician Upholstery Department Supervisor note has been reviewed by physician. Signing provider agrees with the documented findings, assessment, and plan of care. Past Medical History Past Medical History: Fibromyalgia, GERD/Reflux, Rheumatoid Arthritis (RA) Additional Past Medical History / Comment(s): past hx. hiatal hernia-had surg., celiac disease,RAYNAUDS DISEASE History of Any Multi-Drug Resistant Organisms: None Reported Past Surgical History: Bariatric Surgery, Section, Cholecystectomy, Orthopedic Surgery Additional Past Surgical History / Comment(s): left thumb, rt hand and left foot surgery, carpal tunnel, jeanette fundoplasty Feb. 2014, SLEEVE GASTRECTOMY 02-23-19, Ralph En Y with Dr. Villalta 12/01/22 Past Anesthesia/Blood Transfusion Reactions: No Reported Reaction, Motion Sickness Additional Past Anesthesia/Blood Transfusion Reaction / Comment(s): mother- PONV Past Psychological History: Anxiety, Depression Additional Psychological History / Comment(s): Pt takes Cymbalta 60mg daily Smoking Status: Former smoker Past Alcohol Use History: None Reported Additional Past Alcohol Use History / Comment(s): Quit smoking 2021 Past Drug Use History: None Reported Additional Drug Use History / Comment(s): Smoking cessation information provided this day, as well as option for Fresh Start smoking cessation class upcoming with Community Education department at [facility] - Past Family History Mother Family Medical History: No Reported History Medications and Allergies Home Medications Medication Instructions Recorded Confirmed Type Omeprazole [PriLOSEC] 40 mg PO BID 08/08/16 12/08/22 History Sucralfate [Carafate] 1 gm PO BID 11/28/19 12/08/22 History Acetaminophen Tab [Tylenol] 1,000 mg PO Q6HR PRN #30 tablet 12/03/22 12/08/22 Rx Ondansetron Odt [Zofran Odt] 4 mg PO Q8HR PRN #9 tab 12/03/22 12/08/22 Rx Simethicone 40 mg/0.6 ml Drops 40 mg PO PCHS PRN #30 ml 12/03/22 12/08/22 Rx [Mylicon Drops] bisacodyL [Dulcolax] 5 mg PO DAILY PRN #10 tab 12/03/22 12/08/22 Rx Allergies Allergy/AdvReac Type Severity Reaction Status Date / Time gluten Allergy Abdominal Verified 12/08/22 07:29 Pain latex Allergy Itching, Verified 12/08/22 07:29 red skin naproxen Allergy Itching Verified 12/08/22 07:29 feels like bugs are crawling on her Penicillins Allergy Anaphylaxis Verified 12/08/22 07:29 prednisone AdvReac Unknown Verified 12/08/22 07:29 Surgical - Exam Vital Signs Temp Pulse Resp BP Pulse Ox 98.2 F 107 H 20 133/86 95 12/07/22 20:50 12/07/22 20:50 12/07/22 20:50 12/07/22 20:50 12/07/22 20:50 Results - Labs 12/07/22 22:45 12/07/22 22:45 Abnormal Lab Results - Last 24 Hours (Table) 12/07/22 12/07/22 Range/Units 22:45 22:45 RBC 5.58 H (3.80-5.40) m/uL Hct 49.3 H (34.0-46.0) % Lymphocytes # 0.9 L (1.0-4.8) k/uL Carbon Dioxide 21 L (22-30) mmol/L Creatinine 0.45 L (0.52-1.04) mg/dL Diabetes panel 12/07/22 Range/Units 22:45 Sodium 138 (137-145) mmol/L Potassium 4.3 (3.5-5.1) mmol/L Chloride 100 (98-107) mmol/L Carbon Dioxide 21 L (22-30) mmol/L BUN 14 (7-17) mg/dL Creatinine 0.45 L (0.52-1.04) mg/dL Glucose 96 (74-99) mg/dL Calcium 9.2 (8.4-10.2) mg/dL AST 31 (14-36) U/L ALT 34 (4-34) U/L Alkaline Phosphatase 86 (38-126) U/L Total Protein 7.2 (6.3-8.2) g/dL Albumin 3.8 (3.5-5.0) g/dL Calcium panel 12/07/22 Range/Units 22:45 Calcium 9.2 (8.4-10.2) mg/dL Albumin 3.8 (3.5-5.0) g/dL Pituitary panel 12/07/22 Range/Units 22:45 Sodium 138 (137-145) mmol/L Potassium 4.3 (3.5-5.1) mmol/L Chloride 100 (98-107) mmol/L Carbon Dioxide 21 L (22-30) mmol/L BUN 14 (7-17) mg/dL Creatinine 0.45 L (0.52-1.04) mg/dL Glucose 96 (74-99) mg/dL Calcium 9.2 (8.4-10.2) mg/dL Adrenal panel 12/07/22 Range/Units 22:45 Sodium 138 (137-145) mmol/L Potassium 4.3 (3.5-5.1) mmol/L Chloride 100 (98-107) mmol/L Carbon Dioxide 21 L (22-30) mmol/L BUN 14 (7-17) mg/dL Creatinine 0.45 L (0.52-1.04) mg/dL Glucose 96 (74-99) mg/dL Calcium 9.2 (8.4-10.2) mg/dL Total Bilirubin 0.5 (0.2-1.3) mg/dL AST 31 (14-36) U/L ALT 34 (4-34) U/L Alkaline Phosphatase 86 (38-126) U/L Total Protein 7.2 (6.3-8.2) g/dL Albumin 3.8 (3.5-5.0) g/dL
[2022-12-08] MEDS ORDERED: MAG HYDROX/AL HYDROX/SIMETH 30 ML, HYOSCYAMINE ELIXIR 10 ML, LIDOCAINE VISCOUS 10 ML PO ONE ×3 (15:57)
--- NOTE | 2022-12-08 18:32 | P.PCN ---
Date of Procedure: 12/08/22 Description of Procedure: SURGEON: BETTY HICKMAN MD PREOPERATIVE DIAGNOSES: 1. Incisional wound abscess 2. Penicillin ALLERGY, anaphylaxis POSTOPERATIVE DIAGNOSES: 1. Complex incisional wound abscess 2. Penicillin ALLERGY, anaphylaxis OPERATION: 1. Bedside drainage of complex incisional wound abscess, 7 x 7 cm, over 50 mL drain ESTIMATED BLOOD LOSS: 0 mL. SPECIMENS REMOVED: Aerobic and anaerobic culture COMPLICATIONS: None. OPERATIVE FINDINGS: 1. Infected hematoma with drainage of 50 mL malodorous discharge INDICATIONS: The patient is a 42 year-old female with pre-existing history of anaphylaxis mid-May status post gastric bypass 1 week ago. Patient was given perioperative antibiotics of clindamycin. She was doing well until she returned yesterday with redness and pain along her incision. No fevers or chills. CT demonstrates abscess. DESCRIPTION OF PROCEDURE: At bedside, the incision was cleansed using ChloraPrep. Using a scissor, the wound was entered and immediately malodorous infected hematoma was drained with purulence over 50 mL. Aerobic and anaerobic cultures were obtained. Swelling and erythema moderately reduced. Skin cleansed with ChloraPrep and chlorhexidine soap. Patient encouraged for daily chlorhexidine shower with applied pressure over incision to permit drainage. Continue with warm compresses
[2022-12-08] MEDS: metroNIDAZOLE-NS PMX 500 MG in SALINE 1 100ML.BAG IVPB SCH ×2 (18:55→23:13)
[2022-12-08] MEDS ORDERED: LEVOFLOXACIN 750MG-D5W PMX 750 MG in DEXTROSE/WATER 1 150ML.BAG IVPB SCH (20:00)
[2022-12-09] MEDS: MORPHINE SULFATE 4 MG/ML SYRINGE IV PRN ×2 (00:38→21:43)
[2022-12-09] MEDS: metroNIDAZOLE-NS PMX 500 MG in SALINE 1 100ML.BAG IVPB SCH ×4 (05:25→23:29)
[2022-12-09] MEDS: ACETAMINOPHEN TAB 500 MG TAB PO SCH ×3 (05:25→17:18)
--- NOTE | 2022-12-09 10:55 | FL ---
EXAMINATION TYPE: FL esophagus cervic/pharynx DATE OF EXAM: 12/09/2022 HISTORY: History of gastric sleeve converted to Ralph-en-Y gastric bypass December 01 present with increas ing pain and nausea COMPARISON: Upper GI study December 02, 2022. CT abdomen and pelvis December 07, 2022 TECHNIQUE: A single contrast esophagram is performed utilizing Isovue-300. A total of 1.45 minutes of fluoroscopic time was utilized during procedure and 78 images obtained. Total dose area product ( DAP) in uGy*m?, mGy*cm? (or similar) : 36.20. FINDINGS: Exam noted suboptimal as preprocedure manager credit collections image was not performed. In addition there was then issued with fluoroscopic machine and attempts were made 3 times in performing study. The esophagus shows adequate motility and emptying into the gastric remnant below the diaphragm. No evidence of fixed hiatal hernia or stricture noted. There is then some flow of contrast into anastomo tic small bowel loop along inferior aspect extending to right of midline and additional flow of contr ast into anastomotic bowel loop to left of midline. At this point machine failed. Repeat attempts soumya w contrast in the gastric remnant and diluted contrast progressing through bowel loops. Overhead imag es show persistent contrast in the colon along the periphery particularly right colon similar to CT s tudy performed 2 days earlier. There are prominent dilated small bowel loops with air-fluid levels th roughout the abdomen redemonstrated. Cholecystectomy clips are seen. Extensive surgical change epigas tric region redemonstrated IMPRESSION: Suboptimal study. Findings suggest combination of diffuse scoliosis and high-grade distal small bowel obstruction. No obvious large leak seen.
[2022-12-09] MEDS ORDERED: VANCOMYCIN IV PER PHARMACY 1 EACH MISC MISCELLANE PRN (10:59)
[2022-12-09 12:48] LABS: African American GFR (CKD) >90 (>60 ml/min/1.73 sqM); Non-African American GFR(CKD) >90 (>60 ml/min/1.73 sqM)
[2022-12-09] MEDS: VANCOMYCIN 1,250 MG in SODIUM CHLORIDE 0.9% 250 ML IVPB SCH ×2 (13:04→20:15)
[2022-12-09] MEDS: CEFEPIME 2 GM in SODIUM CHLORIDE 0.9% 100 ML IVPB SCH ×2 (13:04→20:15)
--- NOTE | 2022-12-09 13:52 | P.PN ---
Subjective Progress Note Date: 12/09/22 CHIEF COMPLAINT: Abdominal pain HISTORY OF PRESENT ILLNESS: Patient is status post bedside drainage of complex incisional wound abscess by Dr. Greco. Patient had about 50 mL of purulent fluid evacuated. Cultures are pending. She is still currently having purulent drainage from the left incision. The area of induration has decreased. The pain has also improved at that site. However, patient is still complaining of epigastric pain. She does report nausea. Yesterday patient had nausea and se vivi vomiting with the Levaquin. Patient has been seen by Dr. Meier and antibiotics have been changed. Her vomiting has resolved. She is tolerating mostly water. She has more discomfort with taking in thicker liquids. Patient is having a large amount of flatus and did have bowel movements yesterday. Patient had upper GI completed today that was a suboptimal study. Findings suggest combination of diffuse scoliosis and high-grade distal small bowel obstruction. No obvious large leak seen. Results were reviewed with Dr. Greco. Afebrile. WBC 8.1 Hgb 16.0 platelets 262 creatinine 0.7 PHYSICAL EXAM: VITAL SIGNS: Reviewed GENERAL: Well-developed in no acute distress. HEENT: No sclera icterus. Extraocular movements grossly intact. Moist buccal mucosa. Head is atraumatic, normocephalic. Hears conversational speech. No nasal drainage. NECK: Supple without lymphadenopathy. CHEST: Non-labored respirations and equal bilateral excursions. CARDIOVASCULAR: Palpable 2+ radial pulses. ABDOMEN: Soft. Nondistended. Epigastric tenderness. Left sided upper incision with purulent drainage and foul odor MUSCULOSKELETAL: No clubbing or cyanosis. NEUROLOGIC: No focal or lateralizing signs. Cranial nerves II through XII grossly intact. PSYCH: Appropriate affect. Alert and oriented to person, place and time. SKIN: Well perfused. Good skin turgor. ASSESSMENT: 1. Complex incisional wound abscess 2. Penicillin ALLERGY, anaphylaxis 3. Recent conversion from sleeve gastrectomy due to Ralph-en-Y gastric bypass 4. Constipation PLAN: -Further recommendations forthcoming per surgeon -Infectious disease consulted for antibiotic recommendations regarding incisional abscess -Continue antibiotics -Continue Bariatric full liquid diet -Continue supportive care -Continue warm compress and light palpation to assist with drainage from the abdominal incision -Continue daily showers and as needed -GI prophylaxis Protonix and DVT prophylaxis subcu heparin Physician Order Entry Representative note has been reviewed by physician. Signing provider agrees with the documented findings, assessment, and plan of care. Objective - Vital Signs Vital signs: Vital Signs Temp 98.6 F 12/09/22 07:00 Pulse 85 12/09/22 07:00 Resp 14 12/09/22 07:00 BP 116/72 12/09/22 07:00 Pulse Ox 94 L 12/09/22 07:00 FiO2 Intake & Output 12/08/22 12/09/22 12/09/22 18:59 06:59 18:59 Output Total 500 Balance -500 Output: Emesis 500 Other: # Voids 1 2 # Bowel Movements 1 - Labs CBC & Chem 7: 12/07/22 22:45 12/09/22 12:12 Labs: Microbiology - Last 24 Hours (Table) 12/08/22 18:16 Gram Stain - Preliminary Abdomen
[2022-12-09] MEDS: PANTOPRAZOLE 40 MG/10 ML VIAL IVP SCH (15:55)
[2022-12-09] MEDS: HEPARIN SODIUM,PORCINE/PF 5,000 UNIT/0.5 ML SYRINGE SQ SCH (20:14)
[2022-12-09] MEDS: ONDANSETRON 4 MG/2 ML VIAL IVP PRN ×2 (21:45)
--- NOTE | 2022-12-09 23:03 | P.CONS ---
History of Present Illness - Reason for Consult Consult date: 12/09/22 incisional wound abscess Requesting physician: Wendi Aguilera - Chief Complaint Abdominal pain x few days - History of Present Illness Patient is a 42-year-old female who recently did have a abdominal surgery in this patient who is status post conversion of the sleeve to Jackie Y gastric bypass procedure was completed on 12/01/2022 patient seem to be doing well however has presented to the hospital yesterday morning for evaluation of abdominal pain mostly in the left lower abdominal area with some swelling patient was describing the pain to be more of a dull aching to sharp 6-7 out of 10 and evaluation did not have an open wound or any drainage patient on presentation to the hospital was afebrile no fever headache or subsequently patient was mildly tachycardic did have a normal white count kidney function was normal liver enzymes are normal patient did have a CT abdominal pelvis left anterior abdominal wall abscess measuring 7.4 cm patient did have a bedside drainage of the complex incisional wound abscess cultures were obtained patient was started on Levaquin and Flagyl because of her penicillin allergy infectious disease was consulted for further management of antibiotic therapy Review of Systems Positive point and negatives has been mentioned in the HPI, complete review of systems was performed and all other systems are negative Past Medical History Past Medical History: Fibromyalgia, GERD/Reflux, Rheumatoid Arthritis (RA) Additional Past Medical History / Comment(s): past hx. hiatal hernia-had surg., celiac disease,RAYNAUDS DISEASE History of Any Multi-Drug Resistant Organisms: None Reported Past Surgical History: Bariatric Surgery, Section, Cholecystectomy, Orthopedic Surgery Additional Past Surgical History / Comment(s): left thumb, rt hand and left foot surgery, carpal tunnel, jeanette fundoplasty Feb. 2014, SLEEVE GASTRECTOMY 02-23-19, Ralph En Y with Dr. Villalta 12/01/22 Past Anesthesia/Blood Transfusion Reactions: No Reported Reaction, Motion Sickness Additional Past Anesthesia/Blood Transfusion Reaction / Comm: mother- PONV Past Psychological History: Anxiety, Depression Additional Psychological History / Comment(s): Pt takes Cymbalta 60mg daily Smoking Status: Former smoker Past Alcohol Use History: None Reported Additional Past Alcohol Use History / Comment(s): Quit smoking 2021 Past Drug Use History: None Reported Additional Drug Use History / Comment(s): Smoking cessation information provided this day, as well as option for Fresh Start smoking cessation class upcoming with Community Education department at [facility] - Past Family History Mother Family Medical History: No Reported History Medications and Allergies Home Medications Medication Instructions Recorded Confirmed Type Omeprazole [PriLOSEC] 40 mg PO DAILY 08/08/16 12/24/22 History Acetaminophen Tab [Tylenol] 1,000 mg PO Q6HR PRN #30 tablet 12/03/22 12/24/22 Rx Ondansetron Odt [Zofran ODT] 4 mg PO Q8HR PRN #9 tab 12/03/22 12/24/22 Rx cefUROXime axetiL [Ceftin] 500 mg PO BID 7 Days #14 tab 12/18/22 12/24/22 Rx Fluconazole [Diflucan] 150 mg PO DAILY #5 tab 12/24/22 Rx Allergies Allergy/AdvReac Type Severity Reaction Status Date / Time gluten Allergy Abdominal Verified 12/08/22 07:29 Pain latex Allergy Itching, Verified 12/08/22 07:29 red skin naproxen Allergy Itching Verified 12/08/22 07:29 feels like bugs are crawling on her Penicillins Allergy Anaphylaxis Verified 12/08/22 07:29 metronidazole [From Flagyl] AdvReac Nausea & Verified 12/10/22 16:28 Vomiting prednisone AdvReac Unknown Verified 12/08/22 07:29 Physical Exam Vitals: Vital Signs Temp Pulse Resp BP Pulse Ox 12/09/22 07:00 98.6 F 85 14 116/72 94 L 12/09/22 02:00 98.3 F 105 H 12 120/87 96 12/08/22 19:57 98.7 F 97 14 118/80 93 L 12/08/22 14:06 99.5 F 88 19 116/76 91 L Intake and Output 12/08/22 12/09/22 12/09/22 22:59 06:59 14:59 Output Total 500 Balance -500 Output: Emesis 500 Other: # Voids 2 GENERAL DESCRIPTION: Middle-aged female lying in bed, no distress. No tachypnea or accessory muscle of respiration use. HEENT: Shows Pallor , no scleral icterus. Oral mucous membrane is dry. No phar yngeal erythema or thrush NECK: Trachea central, no thyromegaly. LUNGS: Unlabored breathing. Clear to auscultation anteriorly. HEART: S1, S2, regular rate and rhythm. No loud murmur ABDOMEN: Soft, mild induration and tenderness EXTREMITIES: No edema of feet. SKIN: No rash, no masses palpable. NEUROLOGICAL: The patient is awake, alert, oriented x3, mood and affect normal. Results CBC & Chem 7: 12/17/22 05:47 12/17/22 05:47 Labs: Microbiology - Last 24 Hours (Table) 12/08/22 18:16 Gram Stain - Preliminary Abdomen Assessment and Plan (1) Wound abscess Status: Acute Code(s): [id number] - SNOMED Code(s): 926901232 Plan: 1patient with recent abdominal surgery in this patient who is status postconversion of sleeve to Jackie Y gastric bypass procedure, now present to hospital left lower quadrant abdominal wall pain and swelling with evidence of possible infected hematoma status post bedside drainage 2patient with a penicillin allergy that will limit the number of antibiotics safe to use 3discontinue Levaquin 4we will start the patient on vancomycin and cefepime while watching her clinical course closely We will follow on clinical condition and cultures to further adjust medication if needed Thank you for this consultation we will follow the patient along with you Time with Patient: Greater than 30
[2022-12-10] MEDS: ACETAMINOPHEN TAB 500 MG TAB PO SCH ×5 (00:09→23:10)
[2022-12-10] MEDS: MORPHINE SULFATE 4 MG/ML SYRINGE IV PRN ×4 (02:27→21:25)
[2022-12-10] MEDS: metroNIDAZOLE-NS PMX 500 MG in SALINE 1 100ML.BAG IVPB SCH ×3 (05:11→19:12)
[2022-12-10] MEDS: VANCOMYCIN 1,250 MG in SODIUM CHLORIDE 0.9% 250 ML IVPB SCH ×3 (05:13→21:24)
[2022-12-10] MEDS: CEFEPIME 2 GM in SODIUM CHLORIDE 0.9% 100 ML IVPB SCH ×3 (05:13→21:24)
[2022-12-10 08:46] LABS: Basophils # (A) 0.03 X 10*3/uL (0.00-0.10); Basophils % (A) 0.4 %; Eosinophils % (A) 2.9 %; HCT 38.8 % (37.2-46.3); HGB 12.5 d/dL (12.0-15.0); Lymphocytes # (A) 2.18 X 10*3/uL (0.90-5.00); Lymphocytes % (A) 31.1 %; MCH 28.9 pg (27.0-32.0); MCHC 32.2 d/dL (32.0-37.0); MCV 89.6 FL (80.0-97.0); Mean Platelet Volume 10.7 FL (9.5-12.2); Monocytes # (A) 0.53 X 10*3/uL (0.20-1.00); Monocytes % (A) 7.6 %; NRBC Per 100 WBC 0 X 10*3/uL (0.00-0.01); Neutrophils % (A) 57.1 %; Platelet Count 263 X 10*3/uL (140-440); RBC 4.33 X 10*6/uL (4.10-5.20)
[2022-12-10] MEDS: PANTOPRAZOLE 40 MG/10 ML VIAL IVP SCH (08:51)
[2022-12-10] MEDS: HEPARIN SODIUM,PORCINE/PF 5,000 UNIT/0.5 ML SYRINGE SQ SCH ×2 (08:52→21:30)
[2022-12-10] MEDS ORDERED: VANCOMYCIN TROUGH DUE 1 EACH MISC MISCELLANE ONE (11:00)
[2022-12-10 11:16] LABS: African American GFR (CKD) >90 (>60 ml/min/1.73 sqM); Non-African American GFR(CKD) >90 (>60 ml/min/1.73 sqM)
--- NOTE | 2022-12-10 12:11 | P.PN ---
Subjective Progress Note Date: 12/10/22 Principal diagnosis: Abdominal wall abscess Patient is a 42-year-old female who recently did have a abdominal surgery in this patient who is status post conversion of the sleeve to Jackie Y gastric bypass procedure was completed on 12/01/2022, subsequently presented to hospital with left lower abdominal wall pain swelling CT was suggestive of abscess in this patient who is status post bedside drainage. On today's evaluation that is 12/10/2022, the patient denies having any fever or any chills patient is breathing comfortably left lower abdominal pain has slightly decreased in the drainage has decreased as well no nausea no vomiting and no diarrhea Objective - Vital Signs Vital signs: Vital Signs Temp 98.2 F 12/10/22 07:00 Pulse 60 12/10/22 07:00 Resp 16 12/10/22 08:52 BP 102/67 12/10/22 07:00 Pulse Ox 97 12/10/22 07:00 FiO2 Intake & Output 12/09/22 12/10/22 12/10/22 18:59 06:59 18:59 Other: Voiding Method Toilet Toilet # Voids 1 2 - Exam GENERAL DESCRIPTION: Middle-age female up in bed in no distress RESPIRATORY SYSTEM: Unlabored breathing , decreased breath sounds at bases HEART: S1 S2 regular rate and rhythm , ABDOMEN: Soft , left lower quadrant area of induration has decreased minimal drainage on the dressing EXTREMITIES: No edema feet - Labs CBC & Chem 7: 12/10/22 05:30 12/10/22 05:30 Labs: Microbiology - Last 24 Hours (Table) 12/08/22 18:16 Gram Stain - Preliminary Abdomen Wound Culture - Preliminary Assessment and Plan (1) Post-operative wound abscess Current Visit: Yes Status: Acute Code(s): T81.49XA - INFECTION FOLLOWING A PROCEDURE, OTHER SURGICAL SITE, INIT SNOMED Code(s): 02505778 Plan: 1patient with recent abdominal surgery in this patient who is status postconversion of sleeve to Jackie Y gastric bypass procedure, now present to hospital left lower quadrant abdominal wall pain and swelling with evidence of possible infected hematoma status post bedside drainage 2patient with a penicillin allergy that will limit the number of antibiotics safe to use 3patient to continue with vancomycin and cefepime while waiting for the culture finalized Time with Patient: Less than 30
[2022-12-10] MEDS ORDERED: ONDANSETRON 4 MG/2 ML VIAL IVP ONE (16:30)
[2022-12-10] MEDS ORDERED: IV FLUID CONTINUATION 1,000 ML IV ONE (16:30)
[2022-12-10] MEDS ORDERED: SCOPOLAMINE 1 MG/72 HR PATCH TRANSDERM ONE (16:30)
[2022-12-10] MEDS ORDERED: fentaNYL (PF) 50 MCG/ML 2 ML AMP ONE (16:47)
[2022-12-10] MEDS ORDERED: GLYCOPYRROLATE 0.2 MG/ML 2 ML VIAL ONE (16:47)
[2022-12-10] MEDS ORDERED: HYDROmorphone (PF) 1 MG/ML ONE (16:47)
[2022-12-10] MEDS ORDERED: PROPOFOL 10 MG/ML 20 ML VIAL IV ONE (16:47)
[2022-12-10] MEDS ORDERED: SUCCINYLCHOLINE CHLORIDE 200 MG/10 ML VIAL IV ONE (16:47)
[2022-12-10] MEDS ORDERED: NEOSTIGMINE 1 MG/ML 10 ML VIAL ONE (16:47)
[2022-12-10] MEDS ORDERED: MIDAZOLAM 2 MG/2 ML VIAL ONE (16:47)
[2022-12-10] MEDS ORDERED: diphenhydrAMINE 50 MG/ML 1 ML VIAL ONE (16:47)
[2022-12-10] MEDS ORDERED: LIDOCAINE 2% INJ 20 MG/ML (2 ML VIAL) ONE (16:47)
[2022-12-10] MEDS ORDERED: ROCURONIUM 10 MG/ML (5 ML VIAL) IV ONE (16:47)
[2022-12-10] MEDS ORDERED: LIDOCAINE 0.5% (PF) 5 MG/ML (50 ML SDV) SQ ONE (17:17)
[2022-12-10] MEDS ORDERED: LACTATED RINGERS 1,000 ML IV ONE ×2 (18:00→19:09)
[2022-12-10] MEDS ORDERED: HYDROmorphone 0.5 MG/0.5 ML SYRINGE IVP ONE (20:00)
[2022-12-10] MEDS: ONDANSETRON 4 MG/2 ML VIAL IVP PRN (21:25)
[2022-12-11] MEDS: MORPHINE SULFATE 4 MG/ML SYRINGE IV PRN ×2 (01:45→05:47)
[2022-12-11] MEDS: CEFEPIME 2 GM in SODIUM CHLORIDE 0.9% 100 ML IVPB SCH ×3 (05:22→21:47)
[2022-12-11] MEDS: VANCOMYCIN 1,250 MG in SODIUM CHLORIDE 0.9% 250 ML IVPB SCH ×3 (05:22→21:47)
[2022-12-11] MEDS: ONDANSETRON 4 MG/2 ML VIAL IVP PRN ×2 (05:22→21:56)
[2022-12-11] MEDS: ACETAMINOPHEN TAB 500 MG TAB PO SCH (05:44)
[2022-12-11 06:40] LABS: African American GFR (CKD) >90 (>60 ml/min/1.73 sqM); Non-African American GFR(CKD) >90 (>60 ml/min/1.73 sqM)
[2022-12-11] MEDS: HEPARIN SODIUM,PORCINE/PF 5,000 UNIT/0.5 ML SYRINGE SQ SCH ×2 (08:31→21:47)
[2022-12-11] MEDS: PANTOPRAZOLE 40 MG/10 ML VIAL IVP SCH (08:31)
--- NOTE | 2022-12-11 08:45 | P.OP ---
Date of Procedure: 12/10/22 Description of Procedure: SURGEON: BETTY HICKMAN MD PREOPERATIVE DIAGNOSES: 1. Epigastric abdominal pain 2. Abnormal computed tomography scan for small bowel obstruction 3. History of gastric bypass 4. Small bowel obstruction 5. Abdominal wall abscess POSTOPERATIVE DIAGNOSES: 1. Epigastric abdominal pain 2. Abnormal computed tomography scan for small bowel obstruction 3. History of gastric bypass 4. Small bowel obstruction 5. Abdominal wall abscess 6. Peritioneal adhesions OPERATION: 1. Robotic-assisted da Lena Xi laparoscopic lysis of adhesions over 30 minutes 2. Drainage of abdominal wall abscess left upper and right upper quadrant incision, subcutaneous, 30 mL 3. Waterjet lavage 1-L normal saline left upper quadrant incision, 3-cm 4. Placement of 1/4-inch yoana drain left upper quadrant incision ESTIMATED BLOOD LOSS: 50 mL. SPECIMENS REMOVED: Aerobic and anaerobic cultures. COMPLICATIONS: None. OPERATIVE FINDINGS: 1. Gastrojejunal anastomosis unremarkable 2. Adhesions along the left upper quarant with small bowel obstruction 3. Yola limb unremarkable 4. No internal hernia or small bowel volvulus 5. Common channel adhesion of small bowel to abdominal wall as a source of bowel obstruction 6. Appendix unremarkable 7. Dilated biliopancreatic limb from left upper quadrant adhesions 8. Normal terminal ileum and cecum unremarkable. 9. Oversew of left upper quadrant incision using 0-Vicryl and Jaswinder Ayala 10. Drainage of right upper quadrant incision abscess 11. Drainage of left upper quadrant incision abscess INDICATIONS: The patient is a 42-year-old female who presents with epigastric abdominal pain including left upper quadrant abdominal pain. Surgical intervention with diagnostic laparoscopy, lysis of adhesions were described. Informed consent was obtained. Robotic assisted laparoscopic approach was described. Benefits and risks of the procedure including but not limited to bleeding, infection, injury to the small bowel was described. Informed consent was obtained. DESCRIPTION OF PROCEDURE: Patient was brought to the operating room, placed in supine position. After general induction, the abdomen had been prepped and draped in standard sterile fashion. The robotic da Lena XI system was primed. After a timeout protocol was performed, the patient had been prepped and draped in standard sterile fashion. The robot was docked along the right lateral abdomen. The patient was repositioned in with right side up. Please note prior to docking of the robot; however, a 5 mm 0 degrees laparoscopic trocar entry was performed along the left upper quadrant. The abdomen was insufflated to 15 mmHg pressure which she tolerated well. Diagnostic laparoscopy was performed. Next, three 8 mm robotic ports were placed along the right lateral abdominal wall. The camera 8-mm port was maintained along mid-lateral abdomen. Please note that the ports were placed at least 10 to 15 cm away from the target anatomy. Instruments including graspers and vessel sealer were interchanged by the bilingual teacher assistant. I had sat at the console. No evidence of incisional hernia was identified. The rest of the abdomen was unremarkable for small bowel pathology. The small bowel from the yola limb to distal ileum was inspected. The small bowel was investigated from the terminal ileum to the ligament of Treitz with finding of redundant mesentery with active small bowel volvulus involving the jejunum to the jejunojejunostomy mesenteric defect. Abnormal adhesions to the jejunojejunostomy was identified and divided. The mesentery small bowel volvulus were reduced. Adhesions along the epigastrium linvolving the transverse colon to the yola limb with an active internal hernia was lysed using vessel sealer. No herniation of bowel was found along the Gary defect or jejunojejunostomy mesenteric defect. Adhesion of gastrojejunal anastomosis to the anterior abdominal wall was released. Moderate gaseous distention of sigmoid colon was identified with an active sigmoid volvulus similarly reduced secondary to highly redundant colon. The terminal ileum and cecum was unremarkable. Extensive lysis of adhesions over 1 hr was performed. The small bowel was viable.The robot was undocked. All pneumoperitoneum instruments were evacuated from the abdominal cavity. The incisions were reapproximated using 4-0 Monocryl in an interrupted subcuticular fashion. Please note along the trocar sites, local anesthetic was placed as a field block prior to insertion of all instruments. Exofin was applied to the skin. At the end of the procedure needle, sponge, and instrument count had been verified correct by the surgical product sales consultant. The patient was transferred to postanesthesia care unit in stable condition.
[2022-12-11] MEDS: HYDROmorphone 1 MG/ML 1 ML SYRINGE IVP PRN ×3 (10:35→21:46)
--- NOTE | 2022-12-11 11:44 | P.PN ---
Subjective Progress Note Date: 12/11/22 CHIEF COMPLAINT: Abdominal pain HISTORY OF PRESENT ILLNESS: Patient is postop day #1 status post robotic- assisted laparoscopic lysis of adhesions and drainage of abdominal wall abscess of the left upper and right upper quadrant incision with [place] drain in place. Patient does complain of pain. The IV morphine is not lasting long enough. Patient is currently nothing by mouth. She has occasional nausea. Denies any flatus. Her esophageal pain is currently better. Afebrile. WBC 7.0 PHYSICAL EXAM: VITAL SIGNS: Reviewed GENERAL: Well-developed in no acute distress. HEENT: No sclera icterus. Extraocular movements grossly intact. Moist buccal mucosa. Head is atraumatic, normocephalic. Hears conversational speech. No nasal drainage. NECK: Supple without lymphadenopathy. CHEST: Non-labored respirations and equal bilateral excursions. CARDIOVASCULAR: Palpable 2+ radial pulses. ABDOMEN: Soft. Nondistended. Incisional dressings with some shadowing noted on the left. Right dressing clean dry and intact MUSCULOSKELETAL: No clubbing or cyanosis. NEUROLOGIC: No focal or lateralizing signs. Cranial nerves II through XII grossly intact. PSYCH: Appropriate affect. Alert and oriented to person, place and time. SKIN: Well perfused. Good skin turgor. ASSESSMENT: 1. Epigastric abdominal pain 2. Abnormal computed tomography scan for small bowel obstruction 3. History of gastric bypass 4. Small bowel obstruction 5. Abdominal wall abscess 6. Peritioneal adhesions 7. 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 Signing provider agrees with the documented findings, assessment, and plan of care. Objective - Vital Signs Vital signs: Vital Signs Temp 98.4 F 12/11/22 07:00 Pulse 68 12/11/22 07:00 Resp 18 12/11/22 07:00 BP 113/70 12/11/22 07:00 Pulse Ox 94 L 12/11/22 07:00 FiO2 Intake & Output 12/10/22 12/11/22 12/11/22 18:59 06:59 18:59 Intake Total 1600 150 Output Total 50 1675 Balance 1550 -1525 Weight 65.317 kg Intake: IV 1600 150 Output: Urine 1675 Straight 1675 Estimated Blood Loss 50 Other: Voiding Method Toilet Toilet # Voids 3 1 - Labs CBC & Chem 7: 12/10/22 05:30 12/11/22 05:42 Labs: Microbiology - Last 24 Hours (Table) 12/10/22 18:37 Gram Stain - Preliminary Incision 12/08/22 18:16 Gram Stain - Preliminary Abdomen Wound Culture - Preliminary
[2022-12-11] MEDS: ACETAMINOPHEN IV (For NPO) 1,000 MG in EMPTY BAG 1 BAG IVPB SCH ×2 (13:07→17:48)
--- NOTE | 2022-12-11 20:21 | P.PN ---
Subjective Progress Note Date: 12/11/22 Principal diagnosis: Abdominal wall abscess Patient is a 42-year-old female who recently did have a abdominal surgery in this patient who is status post conversion of the sleeve to Jackie Y gastric bypass procedure was completed on 12/01/2022, subsequently presented to hospital with left lower abdominal wall pain swelling CT was suggestive of abscess in this patient who is status post bedside drainage. On today's evaluation that is 12/11/2022 the patient remains to be afebrile, the patient is breathing comfortably, patient left lower abdominal pain has decreased intensity no nausea no vomiting no chest pain shortness of breath or cough Objective - Vital Signs Vital signs: Vital Signs Temp 98.4 F 12/11/22 07:00 Pulse 68 12/11/22 07:00 Resp 18 12/11/22 07:00 BP 113/70 12/11/22 07:00 Pulse Ox 94 L 12/11/22 07:00 FiO2 Intake & Output 12/10/22 12/11/22 12/11/22 18:59 06:59 18:59 Intake Total 1600 150 Output Total 50 1675 Balance 1550 -1525 Weight 65.317 kg Intake: IV 1600 150 Output: Urine 1675 Straight 1675 Estimated Blood Loss 50 Other: Voiding Method Toilet Toilet # Voids 3 1 - Exam GENERAL DESCRIPTION: Middle-age female up in bed in no distress RESPIRATORY SYSTEM: Unlabored breathing , decreased breath sounds at bases HEART: S1 S2 regular rate and rhythm , ABDOMEN: Soft , left lower quadrant area of induration has decreased minimal drainage on the dressing EXTREMITIES: No edema feet - Labs CBC & Chem 7: 12/10/22 05:30 12/11/22 05:42 Labs: Microbiology - Last 24 Hours (Table) 12/10/22 18:37 Gram Stain - Preliminary Incision 12/08/22 18:16 Gram Stain - Preliminary Abdomen Wound Culture - Preliminary Assessment and Plan (1) Post-operative wound abscess Current Visit: Yes Status: Acute Code(s): T81.49XA - INFECTION FOLLOWING A PROCEDURE, OTHER SURGICAL SITE, INIT SNOMED Code(s): 92450124 Plan: 1patient with recent abdominal surgery in this patient who is status postconversion of sleeve to Jackie Y gastric bypass procedure, now present to hospital left lower quadrant abdominal wall pain and swelling with evidence of possible infected hematoma status post bedside drainage 2patient with a penicillin allergy that will limit the number of antibiotics safe to use 3patient seems to have shown some clinical improvement and will continue with vancomycin and cefepime while waiting for the culture finalized Time with Patient: Less than 30
[2022-12-12] MEDS: ACETAMINOPHEN IV (For NPO) 1,000 MG in EMPTY BAG 1 BAG IVPB SCH ×2 (00:14→05:46)
[2022-12-12] MEDS: HYDROmorphone 1 MG/ML 1 ML SYRINGE IVP PRN ×6 (01:42→21:27)
[2022-12-12] MEDS: CEFEPIME 2 GM in SODIUM CHLORIDE 0.9% 100 ML IVPB SCH ×3 (04:17→20:00)
[2022-12-12] MEDS: VANCOMYCIN 1,250 MG in SODIUM CHLORIDE 0.9% 250 ML IVPB SCH ×3 (04:17→20:00)
[2022-12-12] MEDS: ONDANSETRON 4 MG/2 ML VIAL IVP PRN ×3 (04:47→17:52)
[2022-12-12] MEDS: HEPARIN SODIUM,PORCINE/PF 5,000 UNIT/0.5 ML SYRINGE SQ SCH ×2 (10:41→19:59)
[2022-12-12] MEDS: PANTOPRAZOLE 40 MG/10 ML VIAL IVP SCH (10:41)
[2022-12-12 13:26] LABS: Basophils % (A) 0 %; Eosinophils # (A) 0.2 k/uL (0-0.7); Eosinophils % (A) 4 %; HCT 39.6 % (34.0-46.0); Hypochromasia Slight; Lymphocytes # (A) 1.5 k/uL (1.0-4.8); Lymphocytes % (A) 26 %; MCH 29.1 pg (25.0-35.0); MCHC 32.5 g/dL (31.0-37.0); MCV 89.6 fL (80.0-100.0); Mean Platelet Volume 7.4; Monocytes # (A) 0.4 k/uL (0-1.0); Monocytes % (A) 6 %; Neutrophils # (A) 3.6 k/uL (1.3-7.7); Neutrophils % (A) 62 %; Platelet Count 284 k/uL (150-450); RBC 4.43 m/uL (3.80-5.40); RDW 14.1 % (11.5-15.5); WBC 5.8 k/uL (3.8-10.6)
[2022-12-12 13:27] LABS: HGB 12.9 gm/dL (11.4-16.0)
--- NOTE | 2022-12-12 14:32 | P.PN ---
Subjective Progress Note Date: 12/12/22 CHIEF COMPLAINT: Abdominal pain HISTORY OF PRESENT ILLNESS: Patient is postop day #2 status post robotic- assisted laparoscopic lysis of adhesions and drainage of abdominal wall abscess of the left upper and right upper quadrant incision with [place] drain in place. Patient reports her abdominal pain is improving. She did have urinary retention and required Chavez catheter to be placed yesterday. She is passing a small amount of gas. The epigastric pain she was feeling has resolved. She is afebrile. WBC is 5.8 Hgb 12.9 platelets 284 cultures are pending PHYSICAL EXAM: VITAL SIGNS: Reviewed GENERAL: Well-developed in no acute distress. HEENT: No sclera icterus. Extraocular movements grossly intact. Moist buccal mucosa. Head is atraumatic, normocephalic. Hears conversational speech. No nasal drainage. NECK: Supple without lymphadenopathy. CHEST: Non-labored respirations and equal bilateral excursions. CARDIOVASCULAR: Palpable 2+ radial pulses. ABDOMEN: Soft. Nondistended. Incisional dressing pulled back with Dr. Greco. Left abdomen incision is no erythema. [place] drain in place with serosanguineous and purulent drainage noted on dressing. Right abdomen incision no erythema no drainage. MUSCULOSKELETAL: No clubbing or cyanosis. NEUROLOGIC: No focal or lateralizing signs. Cranial nerves II through XII grossly intact. PSYCH: Appropriate affect. Alert and oriented to person, place and time. SKIN: Well perfused. Good skin turgor. ASSESSMENT: 1. Epigastric abdominal pain resolved 2. Abnormal computed tomography scan for small bowel obstruction 3. History of gastric bypass 4. Small bowel obstruction 5. Abdominal wall abscess 6. Peritioneal adhesions 7. 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 Urinary retention PLAN: -Advance diet to bariatric full liquids -Awaiting culture results -Awaiting discharge antibiotic recommendations -Continue pain management -Discontinue Chavez catheter -Continue antibiotics -Repeat CBC in a.m. -Continue supportive care -Encouraged patient to use incentive spirometer -Encouraged patient to ambulate -GI prophylaxis Protonix and DVT prophylaxis subcu heparin Physician Freight Engineer note has been reviewed by physician. Signing provider agrees with the documented findings, assessment, and plan of care. Objective - Vital Signs Vital signs: Vital Signs Temp 98.2 F 12/12/22 07:00 Pulse 60 12/12/22 07:00 Resp 18 12/12/22 07:00 BP 104/64 12/12/22 07:00 Pulse Ox 94 L 12/12/22 07:00 FiO2 Intake & Output 12/11/22 12/12/22 12/12/22 18:59 06:59 18:59 Output Total 900 1550 Balance -900 -1550 Output: Urine 900 1550 Other: Voiding Method Toilet Indwelling Catheter # Voids 2 # Bowel Movements 0 - Labs CBC & Chem 7: 12/12/22 12:33 12/11/22 05:42 Labs: Microbiology - Last 24 Hours (Table) 12/10/22 18:37 Gram Stain - Preliminary Incision Wound Culture - Preliminary
--- NOTE | 2022-12-12 22:37 | P.PN ---
Subjective Progress Note Date: 12/12/22 Principal diagnosis: Abdominal wall abscess Patient is a 42-year-old female who recently did have a abdominal surgery in this patient who is status post conversion of the sleeve to Jackie Y gastric bypass procedure was completed on 12/01/2022, subsequently presented to hospital with left lower abdominal wall pain swelling CT was suggestive of abscess in this patient who is status post bedside drainage. On today's evaluation that is 12/12/2022 patient remains to be afebrile, the patient is breathing comfortably patient abdominal pain has decreased, drainage has decreased as well. Denies any nausea vomiting and no diarrhea, breathing comfortably on room air no chest pain shortness of breath or cough Objective - Vital Signs Vital signs: Vital Signs Temp 98.2 F 12/12/22 07:00 Pulse 60 12/12/22 07:00 Resp 18 12/12/22 07:00 BP 104/64 12/12/22 07:00 Pulse Ox 94 L 12/12/22 07:00 FiO2 Intake & Output 12/11/22 12/12/22 12/12/22 18:59 06:59 18:59 Output Total 900 Balance -900 Output: Urine 900 Other: Voiding Method Toilet Indwelling Catheter # Voids 2 # Bowel Movements 0 - Exam GENERAL DESCRIPTION: Middle-age female up in bed in no distress RESPIRATORY SYSTEM: Unlabored breathing , decreased breath sounds at bases HEART: S1 S2 regular rate and rhythm , ABDOMEN: Soft , left lower quadrant area of induration has decreased minimal drainage on the dressing EXTREMITIES: No edema feet - Labs CBC & Chem 7: 12/12/22 12:33 12/11/22 05:42 Labs: Microbiology - Last 24 Hours (Table) 12/10/22 18:37 Gram Stain - Preliminary Incision Wound Culture - Preliminary Assessment and Plan (1) Post-operative wound abscess Current Visit: Yes Status: Acute Code(s): T81.49XA - INFECTION FOLLOWING A PROCEDURE, OTHER SURGICAL SITE, INIT SNOMED Code(s): 67731629 Plan: 1patient with recent abdominal surgery in this patient who is status postconversion of sleeve to Jackie Y gastric bypass procedure, now present to hospital left lower quadrant abdominal wall pain and swelling with evidence of possible infected hematoma status post bedside drainage 2patient with a penicillin allergy that will limit the number of antibiotics safe to use 3Patient has shown clinical improvement cultures are still pending we will continue Vanco and cefepime with the discharge antibiotic on the basis of final culture discussed with GREENHOUSE WORKER for surgical team
[2022-12-13] MEDS: HYDROmorphone 1 MG/ML 1 ML SYRINGE IVP PRN ×6 (00:38→21:46)
[2022-12-13] MEDS: ONDANSETRON 4 MG/2 ML VIAL IVP PRN ×2 (01:04→18:45)
[2022-12-13] MEDS: VANCOMYCIN 1,250 MG in SODIUM CHLORIDE 0.9% 250 ML IVPB SCH ×2 (03:06→11:52)
[2022-12-13] MEDS: CEFEPIME 2 GM in SODIUM CHLORIDE 0.9% 100 ML IVPB SCH ×3 (03:06→19:48)
[2022-12-13 06:44] LABS: African American GFR (CKD) >90 (>60 ml/min/1.73 sqM); Non-African American GFR(CKD) >90 (>60 ml/min/1.73 sqM)
[2022-12-13] MEDS: HEPARIN SODIUM,PORCINE/PF 5,000 UNIT/0.5 ML SYRINGE SQ SCH ×2 (08:51→19:48)
[2022-12-13] MEDS: PANTOPRAZOLE 40 MG/10 ML VIAL IVP SCH (08:52)
[2022-12-13 09:24] LABS: Basophils # (A) 0.05 X 10*3/uL (0.00-0.10); Basophils % (A) 0.8 %; Eosinophils # (A) 0.29 X 10*3/uL (0.04-0.35); Eosinophils % (A) 4.6 %; HGB 12.2 d/dL (12.0-15.0); Lymphocytes # (A) 1.91 X 10*3/uL (0.90-5.00); Lymphocytes % (A) 30.2 %; MCH 28.6 pg (27.0-32.0); MCHC 31.3 d/dL (32.0-37.0); MCV 91.5 FL (80.0-97.0); Mean Platelet Volume 9.8 FL (9.5-12.2); Monocytes # (A) 0.62 X 10*3/uL (0.20-1.00); Monocytes % (A) 9.8 %; NRBC Per 100 WBC 0 X 10*3/uL (0.00-0.01); Neutrophils # (A) 3.34 X 10*3/uL (1.80-7.70); Neutrophils % (A) 52.9 %; Platelet Count 310 X 10*3/uL (140-440); RBC 4.26 X 10*6/uL (4.10-5.20); RDW 13.7 % (11.5-14.5); WBC 6.32 X 10*3/uL (4.50-10.00)
[2022-12-13] MEDS ORDERED: traMADol 50 MG TAB PO PRN (09:42)
[2022-12-13] MEDS ORDERED: ACETAMINOPHEN TAB 325 MG TAB PO PRN (09:42)
[2022-12-13] MEDS ORDERED: VANCOMYCIN TROUGH DUE 1 EACH MISC MISCELLANE ONE (11:00)
--- NOTE | 2022-12-13 11:09 | P.PN ---
Subjective Progress Note Date: 12/13/22 Principal diagnosis: Bowel obstruction Patient says her pain is gradually improving. Certainly better than when she came into the hospital. White blood cell count 6.3 today. Tolerating full liquids. Objective - Vital Signs Vital signs: Vital Signs Temp 98.5 F 12/13/22 07:15 Pulse 60 12/13/22 07:15 Resp 16 12/13/22 07:15 BP 100/63 12/13/22 07:15 Pulse Ox 95 12/13/22 07:15 FiO2 Intake & Output 12/12/22 12/13/22 12/13/22 18:59 06:59 18:59 Output Total 1550 Balance -1550 Output: Urine 1550 Other: Voiding Method Indwelling Catheter # Voids 1 3 - Exam Abdomen: Soft, nondistended, mild tenderness upper mid abdomen, drain with minimal output - Labs CBC & Chem 7: 12/13/22 05:56 12/13/22 05:56 Labs: Abnormal Lab Results - Last 24 Hours (Table) 12/13/22 12/13/22 Range/Units 05:56 05:56 MCHC 31.3 L (32.0-37.0) d/dL Creatinine 0.45 L (0.52-1.04) mg/dL Microbiology - Last 24 Hours (Table) 12/08/22 18:16 Gram Stain - Final Abdomen Wound Culture - Final 12/10/22 14:00 Anaerobic Culture - Preliminary Incision 12/10/22 18:37 Gram Stain - Preliminary Incision Wound Culture - Preliminary Assessment and Plan (1) Post-op pain Narrative/Plan: Patient's pain is improving however still not controlled enough to go home. Continue full liquids. Continue antibiotics. Reevaluate tomorrow for possible discharge. Current Visit: Yes Status: Acute Code(s): G89.18 - OTHER ACUTE POSTPROCEDURAL PAIN SNOMED Code(s): 898878596
[2022-12-13] MEDS: KETOROLAC 15 MG/ML 1 ML VIAL IVP SCH ×3 (12:01→23:56)
[2022-12-13] MEDS: VANCOMYCIN 1,000 MG in SODIUM CHLORIDE 0.9% 250 ML IVPB SCH (19:49)
[2022-12-14] MEDS: HYDROmorphone 1 MG/ML 1 ML SYRINGE IVP PRN ×3 (02:16→09:23)
[2022-12-14] MEDS: ONDANSETRON 4 MG/2 ML VIAL IVP PRN ×2 (02:16→20:39)
[2022-12-14] MEDS: KETOROLAC 15 MG/ML 1 ML VIAL IVP SCH ×4 (05:25→23:12)
[2022-12-14] MEDS: CEFEPIME 2 GM in SODIUM CHLORIDE 0.9% 100 ML IVPB SCH ×3 (05:26→20:40)
[2022-12-14] MEDS: VANCOMYCIN 1,000 MG in SODIUM CHLORIDE 0.9% 250 ML IVPB SCH ×2 (05:26→14:03)
[2022-12-14] MEDS: HEPARIN SODIUM,PORCINE/PF 5,000 UNIT/0.5 ML SYRINGE SQ SCH ×2 (09:23→20:40)
[2022-12-14] MEDS: PANTOPRAZOLE 40 MG/10 ML VIAL IVP SCH (09:23)
--- NOTE | 2022-12-14 11:34 | P.PN ---
Subjective Progress Note Date: 12/14/22 Principal diagnosis: Bowel obstruction Patient says her pain is about the same as it was yesterday. She has had some increased purulent drainage from the [place] drain site. She is afebrile. Vital signs are stable. Per the nursing staff she has been asking for narcotic medications on a regular basis. Objective - Vital Signs Vital signs: Vital Signs Temp 98.3 F 12/14/22 07:40 Pulse 61 12/14/22 07:40 Resp 16 12/14/22 07:40 BP 98/61 12/14/22 07:40 Pulse Ox 91 L 12/14/22 07:40 FiO2 Intake & Output 12/13/22 12/14/22 12/14/22 18:59 06:59 18:59 Other: # Voids 4 2 - Exam Abdomen: Soft, nondistended, mild left-sided tenderness, drain with purulent drainage - Labs CBC & Chem 7: 12/13/22 05:56 12/13/22 05:56 Labs: Microbiology - Last 24 Hours (Table) 12/10/22 18:37 Anaerobic Culture - Final Incision 12/08/22 18:16 Gram Stain - Final Abdomen Wound Culture - Final Assessment and Plan (1) Post-op pain Narrative/Plan: Patient doing about the same today. Still having issues with pain control. Will start Dilaudid BATTERY REPAIRER. Ambulate. Continue full liquids. Current Visit: Yes Status: Acute Code(s): G89.18 - OTHER ACUTE POSTPROCEDURAL PAIN SNOMED Code(s): 027931083
[2022-12-14] MEDS: HYDROmorphone PCA 10 MG/50 ML BAG IV PRN (14:07)
--- NOTE | 2022-12-14 17:51 | P.PN ---
Subjective Progress Note Date: 12/13/22 Principal diagnosis: Abdominal wall abscess Patient is a 42-year-old female who recently did have a abdominal surgery in this patient who is status post conversion of the sleeve to Jackie Y gastric bypass procedure was completed on 12/01/2022, subsequently presented to hospital with left lower abdominal wall pain swelling CT was suggestive of abscess in this patient who is status post bedside drainage. On today's evaluation that is 12/13/2022 patient continues to be afebrile, the patient is breathing comfortably on room air, patient abdominal pain has decreased, drainage has decreased as well. Denies any nausea vomiting and no diarrhea, breathing comfortably on room air no chest pain shortness of breath or cough Objective - Vital Signs Vital signs: Vital Signs Temp 98.5 F 12/13/22 07:15 Pulse 60 12/13/22 07:15 Resp 16 12/13/22 07:15 BP 100/63 12/13/22 07:15 Pulse Ox 95 12/13/22 07:15 FiO2 Intake & Output 12/12/22 12/13/22 12/13/22 18:59 06:59 18:59 Output Total 1550 Balance -1550 Output: Urine 1550 Other: Voiding Method Indwelling Catheter # Voids 1 3 - Exam GENERAL DESCRIPTION: Middle-age female up in bed in no distress RESPIRATORY SYSTEM: Unlabored breathing , decreased breath sounds at bases HEART: S1 S2 regular rate and rhythm , ABDOMEN: Soft , left lower quadrant area of induration has decreased minimal drainage on the dressing EXTREMITIES: No edema feet - Labs CBC & Chem 7: 12/13/22 05:56 12/13/22 05:56 Labs: Abnormal Lab Results - Last 24 Hours (Table) 12/13/22 12/13/22 Range/Units 05:56 05:56 MCHC 31.3 L (32.0-37.0) d/dL Creatinine 0.45 L (0.52-1.04) mg/dL Microbiology - Last 24 Hours (Table) 12/08/22 18:16 Gram Stain - Final Abdomen Wound Culture - Final 12/10/22 14:00 Anaerobic Culture - Preliminary Incision 12/10/22 18:37 Gram Stain - Preliminary Incision Wound Culture - Preliminary Assessment and Plan (1) Post-operative wound abscess Current Visit: Yes Status: Acute Code(s): T81.49XA - INFECTION FOLLOWING A PROCEDURE, OTHER SURGICAL SITE, INIT SNOMED Code(s): 05117394 Plan: 1patient with recent abdominal surgery in this patient who is status postconversion of sleeve to Jackie Y gastric bypass procedure, now present to hospital left lower quadrant abdominal wall pain and swelling with evidence of possible infected hematoma status post bedside drainage 2patient with a penicillin allergy that will limit the number of antibiotics safe to use 3Patient has shown clinical improvement cultures are still pending we will continue Vanco and cefepime while waiting for the culture to finalize Time with Patient: Less than 30
--- NOTE | 2022-12-14 17:52 | P.PN ---
Subjective Progress Note Date: 12/14/22 Principal diagnosis: Abdominal wall abscess Patient is a 42-year-old female who recently did have a abdominal surgery in this patient who is status post conversion of the sleeve to Jackie Y gastric bypass procedure was completed on 12/01/2022, subsequently presented to hospital with left lower abdominal wall pain swelling CT was suggestive of abscess in this patient who is status post bedside drainage. On today's evaluation that is 12/14/2022 patient denies any fever, chills, the patient is breathing comfortably on room air, patient is complaining of more abdominal pain and the patient was started on TECH WRITER, still having drainage especially on the left side. Denies any nausea vomiting and no diarrhea, breathing comfortably on room air no chest pain shortness of breath or cough Objective - Vital Signs Vital signs: Vital Signs Temp 98.3 F 12/14/22 07:40 Pulse 61 12/14/22 07:40 Resp 16 12/14/22 07:40 BP 98/61 12/14/22 07:40 Pulse Ox 91 L 12/14/22 07:40 FiO2 Intake & Output 12/13/22 12/14/22 12/14/22 18:59 06:59 18:59 Other: # Voids 4 2 - Exam GENERAL DESCRIPTION: Middle-age female up in bed in no distress RESPIRATORY SYSTEM: Unlabored breathing , decreased breath sounds at bases HEART: S1 S2 regular rate and rhythm , ABDOMEN: Soft , left lower quadrant area of induration has decreased minimal drainage on the dressing EXTREMITIES: No edema feet - Labs CBC & Chem 7: 12/13/22 05:56 12/13/22 05:56 Labs: Microbiology - Last 24 Hours (Table) 12/10/22 18:37 Anaerobic Culture - Final Incision Assessment and Plan (1) Post-operative wound abscess Current Visit: Yes Status: Acute Code(s): T81.49XA - INFECTION FOLLOWING A PROCEDURE, OTHER SURGICAL SITE, INIT SNOMED Code(s): 53366623 Plan: 1patient with recent abdominal surgery in this patient who is status p ostconversion of sleeve to Jackie Y gastric bypass procedure, now present to hospital left lower quadrant abdominal wall pain and swelling with evidence of possible infected hematoma status post bedside drainage 2patient with a penicillin allergy that will limit the number of antibiotics safe to use 3Patient local culture have been adequately so for the patient has been afebrile however the patient noticed having increasing pain and may benefit from repeat CT with the cultures negative for MRSA we will discontinue vancomycin, continue the patient cefepime questions and concerns were answered Time with Patient: Less than 30
[2022-12-15] MEDS: CEFEPIME 2 GM in SODIUM CHLORIDE 0.9% 100 ML IVPB SCH ×3 (03:43→20:33)
[2022-12-15] MEDS: ONDANSETRON 4 MG/2 ML VIAL IVP PRN ×2 (03:43→20:33)
[2022-12-15] MEDS: HYDROmorphone PCA 10 MG/50 ML BAG IV PRN ×2 (04:10→14:46)
[2022-12-15] MEDS: KETOROLAC 15 MG/ML 1 ML VIAL IVP SCH (05:38)
[2022-12-15] MEDS: PANTOPRAZOLE 40 MG/10 ML VIAL IVP SCH (08:35)
[2022-12-15] MEDS: HEPARIN SODIUM,PORCINE/PF 5,000 UNIT/0.5 ML SYRINGE SQ SCH ×2 (08:35→20:33)
[2022-12-15] MEDS ORDERED: VANCOMYCIN TROUGH DUE 1 EACH MISC MISCELLANE ONE (11:00)
[2022-12-15 12:50] LABS: African American GFR (CKD) >90 (>60 ml/min/1.73 sqM); Non-African American GFR(CKD) >90 (>60 ml/min/1.73 sqM)
--- NOTE | 2022-12-15 14:32 | P.PN ---
Subjective Progress Note Date: 12/15/22 Principal diagnosis: Bowel obstruction Patient says she feels about the same. She is tolerating full liquids. No nausea or vomiting. No reflux. Pain comes and goes. Better controlled with LOGISTICS MANAGER. Patient is afebrile. Objective - Vital Signs Vital signs: Vital Signs Temp 98.1 F 12/15/22 13:47 Pulse 61 12/15/22 13:47 Resp 16 12/15/22 13:47 BP 97/63 12/15/22 13:47 Pulse Ox 95 12/15/22 13:47 FiO2 Intake & Output 12/14/22 12/15/22 12/15/22 18:59 06:59 18:59 Intake Total 240 175 Balance 240 175 Intake: Oral 240 175 Other: Voiding Method Indwelling Catheter # Voids 4 3 1 - Exam Abdomen: Soft, nondistended, mild tenderness left abdomen, some purulent drainage at [place] site - Labs CBC & Chem 7: 12/13/22 05:56 12/15/22 11:53 Labs: Abnormal Lab Results - Last 24 Hours (Table) 12/15/22 Range/Units 11:53 Creatinine 0.43 L (0.52-1.04) mg/dL Microbiology - Last 24 Hours (Table) 12/10/22 18:37 Gram Stain - Final Incision Wound Culture - Final 12/10/22 14:00 Anaerobic Culture - Final Incision Assessment and Plan (1) Post-op pain Narrative/Plan: Patient feels similar today. Still having intermittent pain. LOGISTICS MANAGER seems to be controlling her pain better however. She was able to sleep last night. Continue antibiotics. Continue full liquids. Current Visit: Yes Status: Acute Code(s): G89.18 - OTHER ACUTE POSTPROCEDURAL PAIN SNOMED Code(s): 734931066
[2022-12-16] MEDS: HYDROmorphone PCA 10 MG/50 ML BAG IV PRN ×3 (03:00→22:52)
[2022-12-16] MEDS: ONDANSETRON 4 MG/2 ML VIAL IVP PRN ×2 (03:39→23:25)
[2022-12-16] MEDS: CEFEPIME 2 GM in SODIUM CHLORIDE 0.9% 100 ML IVPB SCH ×3 (03:58→19:50)
[2022-12-16] MEDS: PANTOPRAZOLE 40 MG/10 ML VIAL IVP SCH (09:38)
[2022-12-16] MEDS: HEPARIN SODIUM,PORCINE/PF 5,000 UNIT/0.5 ML SYRINGE SQ SCH ×2 (09:40→19:50)
--- NOTE | 2022-12-16 10:46 | P.PN ---
Subjective Progress Note Date: 12/16/22 Principal diagnosis: Bowel obstruction Patient sitting up at the bedside. Says she slept better last night. Still having mild left-sided pain. Tolerating full liquids. Objective - Vital Signs Vital signs: Vital Signs Temp 98.1 F 12/16/22 07:40 Pulse 77 12/16/22 07:40 Resp 16 12/16/22 07:40 BP 110/68 12/16/22 07:40 Pulse Ox 90 L 12/16/22 07:40 FiO2 Intake & Output 12/15/22 12/16/22 12/16/22 18:59 06:59 18:59 Intake Total 375 240 Balance 375 240 Intake: Oral 375 240 Other: Voiding Method Toilet # Voids 1 2 - Exam Abdomen: Soft, nondistended, mild tenderness left abdomen, some purulent drainage at [place] site - Labs CBC & Chem 7: 12/13/22 05:56 12/15/22 11:53 Labs: Abnormal Lab Results - Last 24 Hours (Table) 12/15/22 Range/Units 11:53 Creatinine 0.43 L (0.52-1.04) mg/dL Assessment and Plan (1) Post-op pain Narrative/Plan: Patient doing about the same may be slightly less pain. Continue full liquids. Continue antibiotics. Ambulate. Current Visit: Yes Status: Acute Code(s): G89.18 - OTHER ACUTE POSTPROCEDURAL PAIN SNOMED Code(s): 862762330
--- NOTE | 2022-12-16 15:39 | P.PN ---
Subjective Progress Note Date: 12/15/22 Principal diagnosis: Abdominal wall abscess Patient is a 42-year-old female who recently did have a abdominal surgery in this patient who is status post conversion of the sleeve to Jackie Y gastric bypass procedure was completed on 12/01/2022, subsequently presented to hospital with left lower abdominal wall pain swelling CT was suggestive of abscess in this patient who is status post bedside drainage. On today's evaluation that is 12/15/2022 patient remains to be afebrile, the patient is breathing comfortably on room air, patient is complaining of abdominal pain however controlled with RESEARCH METHODS INSTRUCTOR, still having drainage especially on the left side. Denies any nausea vomiting and no diarrhea, breathing comfortably on room air no chest pain shortness of breath or cough Objective - Vital Signs Vital signs: Vital Signs Temp 98.2 F 12/15/22 07:00 Pulse 54 L 12/15/22 07:00 Resp 15 12/15/22 07:00 BP 102/61 12/15/22 07:00 Pulse Ox 95 12/15/22 11:32 FiO2 Intake & Output 12/14/22 12/15/22 12/15/22 18:59 06:59 18:59 Intake Total 240 175 Balance 240 175 Intake: Oral 240 175 Other: Voiding Method Indwelling Catheter # Voids 4 3 - Exam GENERAL DESCRIPTION: Middle-age female up in bed in no distress RESPIRATORY SYSTEM: Unlabored breathing , decreased breath sounds at bases HEART: S1 S2 regular rate and rhythm , ABDOMEN: Soft , left lower quadrant area of induration has decreased minimal drainage on the dressing EXTREMITIES: No edema feet - Labs CBC & Chem 7: 12/13/22 05:56 12/15/22 11:53 Labs: Abnormal Lab Results - Last 24 Hours (Table) 12/15/22 Range/Units 11:53 Creatinine 0.43 L (0.52-1.04) mg/dL Microbiology - Last 24 Hours (Table) 12/10/22 18:37 Gram Stain - Final Incision Wound Culture - Final 12/10/22 14:00 Anaerobic Culture - Final Incision Assessment and Plan (1) Post-operative wound abscess Current Visit: Yes Status: Acute Code(s): T81.49XA - INFECTION FOLLOWING A PROCEDURE, OTHER SURGICAL SITE, INIT SNOMED Code(s): 01003362 Plan: 1patient with recent abdominal surgery in this patient who is status postconversion of sleeve to Jackie Y gastric bypass procedure, now present to hospital left lower quadrant abdominal wall pain and swelling with evidence of possible infected hematoma status post bedside drainage 2patient with a penicillin allergy that will limit the number of antibiotics safe to use 3Patient local culture have been negative, the patient has been afebrile and the patient white count has been normal patient currently on cefepime Time with Patient: Less than 30
--- NOTE | 2022-12-16 15:40 | P.PN ---
Subjective Progress Note Date: 12/16/22 Principal diagnosis: Abdominal wall abscess Patient is a 42-year-old female who recently did have a abdominal surgery in this patient who is status post conversion of the sleeve to Jackie Y gastric bypass procedure was completed on 12/01/2022, subsequently presented to hospital with left lower abdominal wall pain swelling CT was suggestive of abscess in this patient who is status post bedside drainage. On today's evaluation that is 12/16/2022 patient continues to be afebrile, the patient is breathing comfortably on room air, patient abdominal pain is controlled with EXTENDED INSURANCE CLERK, denies any nausea or vomiting, the patient is breathing comfortably on room air no chest pain shortness of breath or cough Objective - Vital Signs Vital signs: Vital Signs Temp 98.1 F 12/16/22 07:40 Pulse 77 12/16/22 07:40 Resp 16 12/16/22 07:40 BP 110/68 12/16/22 07:40 Pulse Ox 90 L 12/16/22 07:40 FiO2 Intake & Output 12/15/22 12/16/22 12/16/22 18:59 06:59 18:59 Intake Total 375 240 Balance 375 240 Intake: Oral 375 240 Other: Voiding Method Toilet # Voids 1 2 - Exam GENERAL DESCRIPTION: Middle-age female up in bed in no distress RESPIRATORY SYSTEM: Unlabored breathing , decreased breath sounds at bases HEART: S1 S2 regular rate and rhythm , ABDOMEN: Soft , left lower quadrant area of induration has decreased minimal drainage on the dressing EXTREMITIES: No edema feet - Labs CBC & Chem 7: 12/13/22 05:56 12/15/22 11:53 Labs: Abnormal Lab Results - Last 24 Hours (Table) 12/15/22 Range/Units 11:53 Creatinine 0.43 L (0.52-1.04) mg/dL Assessment and Plan (1) Post-operative wound abscess Current Visit: Yes Status: Acute Code(s): T81.49XA - INFECTION FOLLOWING A PROCEDURE, OTHER SURGICAL SITE, INIT SNOMED Code(s): 12264739 Plan: 1patient with recent abdominal surgery in this patient who is status postconversion of sleeve to Jackie Y gastric bypass procedure, now present to hospital left lower quadrant abdominal wall pain and swelling with evidence of possible infected hematoma status post bedside drainage 2patient with a penicillin allergy that will limit the number of antibiotics safe to use 3Patient local culture have been negative, the patient has been afebrile patient to continue with cefepime, not benefit from repeat CT in view of her abdominal pain and will recheck a CBC and CRP in the morning Time with Patient: Less than 30
[2022-12-17] MEDS: CEFEPIME 2 GM in SODIUM CHLORIDE 0.9% 100 ML IVPB SCH ×3 (04:10→20:42)
[2022-12-17 08:38] LABS: Basophils # (A) 0.04 X 10*3/uL (0.00-0.10); Basophils % (A) 0.7 %; Eosinophils # (A) 0.31 X 10*3/uL (0.04-0.35); Eosinophils % (A) 5.8 %; HCT 39.2 % (37.2-46.3); HGB 12.4 d/dL (12.0-15.0); Lymphocytes # (A) 2.02 X 10*3/uL (0.90-5.00); Lymphocytes % (A) 37.5 %; MCH 28.9 pg (27.0-32.0); MCHC 31.6 d/dL (32.0-37.0); MCV 91.4 FL (80.0-97.0); Mean Platelet Volume 10.2 FL (9.5-12.2); Monocytes # (A) 0.69 X 10*3/uL (0.20-1.00); Monocytes % (A) 12.8 %; NRBC Per 100 WBC 0 X 10*3/uL (0.00-0.01); Neutrophils # (A) 2.28 X 10*3/uL (1.80-7.70); Neutrophils % (A) 42.5 %; Platelet Count 277 X 10*3/uL (140-440); RBC 4.29 X 10*6/uL (4.10-5.20); WBC 5.38 X 10*3/uL (4.50-10.00)
[2022-12-17 08:45] LABS: BUN/Creat Ratio 9.25 Ratio (12.00-20.00); Blood Urea Nitrogen 3.7 mg/dL (9.0-27.0); Chloride 105 mmol/L (96-109); Glucose 76 mg/dL (70-110); Sodium 143 mmol/L (135-145)
[2022-12-17 08:46] LABS: Calcium 8.5 mg/dL (8.7-10.3); Carbon Dioxide 27.1 mmol/L (21.6-31.8)
[2022-12-17] MEDS: HEPARIN SODIUM,PORCINE/PF 5,000 UNIT/0.5 ML SYRINGE SQ SCH ×2 (09:02→20:42)
[2022-12-17] MEDS: PANTOPRAZOLE 40 MG/10 ML VIAL IVP SCH (09:05)
--- NOTE | 2022-12-17 10:59 | XR ---
EXAMINATION TYPE: XR abdomen 2V DATE OF EXAM: 12/17/2022 HISTORY: Pain. Technique: 3 views of the abdomen are submitted. Comparison: None. Findings: There is no convincing evidence of pneumoperitoneum. The Bowel gas pattern is nonspecific and nonobstructive. Retained contrast throughout the colon. No evidence for colonic dilatation. No sizable air-fluid levels are seen. No mass effects are noted. No renal calcifications are identified. IMPRESSION: 1. Overall nonobstructive bowel gas pattern. Retained contrast throughout the colon.
[2022-12-17] MEDS: HYDROmorphone PCA 10 MG/50 ML BAG IV PRN (11:25)
[2022-12-17] MEDS ORDERED: IOPAMIDOL CONTRAST (ORAL USE) VIAL PO PRN (13:37)
--- NOTE | 2022-12-17 14:02 | P.PN ---
Subjective Progress Note Date: 12/17/22 CHIEF COMPLAINT: Abdominal pain HISTORY OF PRESENT ILLNESS: Patient is postop day #7 status post robotic- assisted laparoscopic lysis of adhesions and drainage of abdominal wall abscess of the left upper and right upper quadrant incision with Gilman drain in place. Patient complains of lower abdominal pain more on the left side. It has been several days since her last bowel movement. She is having flatus. She has occasional nausea with acid reflux. No vomiting. She does describe the pains as sharp when they come. She has been requiring the CASE MANAGEMENT MANAGER pump. Afebrile. WBC is 5.38 Hgb 12.4 CRP elevated at 2.5 cultures show no growth PHYSICAL EXAM: VITAL SIGNS: Reviewed GENERAL: Well-developed in no acute distress. HEENT: No sclera icterus. Extraocular movements grossly intact. Moist buccal mucosa. Head is atraumatic, normocephalic. Hears conversational speech. No nasal drainage. NECK: Supple without lymphadenopathy. CHEST: Non-labored respirations and equal bilateral excursions. CARDIOVASCULAR: Palpable 2+ radial pulses. ABDOMEN: Soft. Nondistended. Incisional dressing pulled back with Dr. Greco. Left abdomen incision is no erythema. Zeinab drain in place with serosanguineous and purulent drainage noted on dressing. Right abdomen incision no erythema no drainage. MUSCULOSKELETAL: No clubbing or cyanosis. NEUROLOGIC: No focal or lateralizing signs. Cranial nerves II through XII grossly intact. PSYCH: Appropriate affect. Alert and oriented to person, place and time. SKIN: Well perfused. Good skin turgor. ASSESSMENT: 1. Epigastric abdominal pain resolved 2. Abnormal computed tomography scan for small bowel obstruction 3. History of gastric bypass 4. Small bowel obstruction 5. Abdominal wall abscess 6. Peritioneal adhesions 7. 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 Urinary retention resolved 9. Constipation PLAN: -Discussed case with infectious disease service. We'll proceed with a computed tomography scan of abdomen and pelvis with oral and IV contrast for further evaluation of patient's abdominal pain -Abdominal x-ray ordered this morning for constipation. Results show overall nonobstructive bowel gas pattern. Retain contrast throughout the colon. -Soap devin enema ordered for constipation -Continue bariatric full liquids -Continue supportive care -Encouraged patient to use incentive spirometer -Encouraged patient to ambulate -GI prophylaxis Protonix and DVT prophylaxis subcu heparin Physician Clothing Room Supervisor note has been reviewed by physician. Signing provider agrees with the documented findings, assessment, and plan of care. Objective - Vital Signs Vital signs: Vital Signs Temp 97.7 F 12/17/22 07:57 Pulse 71 12/17/22 07:57 Resp 16 12/17/22 07:57 BP 108/76 12/17/22 07:57 Pulse Ox 93 L 12/17/22 07:57 FiO2 Intake & Output 12/16/22 12/17/22 12/17/22 18:59 06:59 18:59 Intake Total 840 Balance 840 Intake: Oral 840 Other: Voiding Method Toilet # Voids 3 2 # Bowel Movements 0 - Labs CBC & Chem 7: 12/17/22 05:47 12/17/22 05:47 Labs: Abnormal Lab Results - Last 24 Hours (Table) 12/17/22 12/17/22 Range/Units 05:47 05:47 MCHC 31.6 L (32.0-37.0) d/dL BUN 3.7 L (9.0-27.0) mg/dL Creatinine 0.4 L (0.6-1.5) mg/dL BUN/Creatinine Ratio 9.25 L (12.00-20.00) Ratio Calcium 8.5 L (8.7-10.3) mg/dL C-Reactive Protein 2.50 H (0.00-0.80) mg/dL
[2022-12-17 14:43] VITALS: BMI 23.2
--- NOTE | 2022-12-17 17:54 | CT ---
EXAMINATION TYPE: CT abdomen pelvis w con CT DLP: 663.4 mGycm, Automated exposure control for dose reduction was used. DATE OF EXAM: 12/17/2022 5:40 PM COMPARISON: 12/07/2022 CLINICAL INDICATION:Female, 42 years old with history of abdominal pain; Gastric sleeve in 2019, infe ction problems and scar tissue so a bypass was performed in November and pt is still having abdominal minh n. TECHNIQUE: Axial CT of the abdomen and pelvis. Sagittal and coronal reformats were created on a [employer] workstation. Contrast used:100 ml mL of Isovue 300 with IV Contrast, (none if empty) Oral contrast used: with Oral Contrast (none if empty) FINDINGS: LOWER CHEST: Right lower lobe consolidation changes compatible with atelectasis. ABDOMEN LIVER: Unremarkable GALLBLADDER AND BILE DUCTS: Unremarkable. PANCREAS: Unremarkable. SPLEEN: Unremarkable. ADRENAL GLANDS: Unremarkable. KIDNEYS AND URETERS: No evidence of hydronephrosis or renal calculus. The ureters are unremarkable. PELVIS BLADDER: Unremarkable REPRODUCTIVE: Unremarkable. ABDOMEN & PELVIS STOMACH AND BOWEL: Layering debris within the distal esophagus. No evidence of bowel obstruction. Pos tsurgical changes to the stomach. Oral contrast extends throughout the bowel including the large jeffrey l. PERITONEUM/RETROPERITONEUM: No evidence of pneumoperitoneum. Trace fluid within the abdomen. VASCULATURE: No evidence of aortic aneurysm. MUSCULOSKELETAL: No acute osseous abnormalities LYMPH NODES: No gross evidence for lymphadenopathy. SOFT TISSUE/ABDOMINAL WALL: Anasarca of the soft tissues. There is subcutaneous changes edema with a linear structure immediately adjacent unclear whether there is a nonradiopaque tube. There remains a small organizing fluid collection suggested series 3 image 48 measuring 29 x 7 mm bettina ng the anterior abdominal wall. Other fluid collection has decreased in size compared to prior. IMPRESSION: 1. There remains a small organizing fluid collection suggested series 3 image 48 measuring 29 x 7 mm along the anterior abdominal wall. Other fluid collections have decreased in size compared to prior. 2. No intraabdominal fluid collections visualized. 3. Esophageal dysmotility and reflux. 4. Right lower lung atelectasis changes.
[2022-12-17] MEDS: ONDANSETRON 4 MG/2 ML VIAL IVP PRN (23:14)
[2022-12-18] MEDS: HYDROmorphone PCA 10 MG/50 ML BAG IV PRN (00:30)
[2022-12-18] MEDS: CEFEPIME 2 GM in SODIUM CHLORIDE 0.9% 100 ML IVPB SCH ×2 (04:34→12:22)
[2022-12-18] MEDS: PANTOPRAZOLE 40 MG/10 ML VIAL IVP SCH (08:34)
[2022-12-18] MEDS: HEPARIN SODIUM,PORCINE/PF 5,000 UNIT/0.5 ML SYRINGE SQ SCH (08:34)
[2022-12-18] MEDS: ACETAMINOPHEN TAB 500 MG TAB PO SCH ×2 (08:58→17:33)
--- NOTE | 2022-12-18 13:56 | P.PN ---
Subjective Progress Note Date: 12/18/22 CHIEF COMPLAINT: Abdominal pain HISTORY OF PRESENT ILLNESS: Patient is postop day #8 status post robotic- assisted laparoscopic lysis of adhesions and drainage of abdominal wall abscess of the left upper and right upper quadrant incision with Zeinab drain in place. Patient complains of abdominal pain near the umbilicus. She still requiring the WELDING PROCESS SPECIALIST pump. She reports that she had 2 large bowel movements and has had improvement in the abdominal pressure. She does complain of acid reflux. Computed tomography scan of abdomen and pelvis report shows remains a small organizing fluid collections just adjusted measuring 29 x 7 mm along the anterior abdominal wall. Other fluid collections have decreased in size compared to prior. No intra-abdominal fluid collections visualized. Esophageal dysmotility and reflux. Right lower lung atelectatic changes. Afebrile. WBC is 5.38 Hgb 12.4 PHYSICAL EXAM: VITAL SIGNS: Reviewed GENERAL: Well-developed in no acute distress. HEENT: No sclera icterus. Extraocular movements grossly intact. Moist buccal mucosa. Head is atraumatic, normocephalic. Hears conversational speech. No nasal drainage. NECK: Supple without lymphadenopathy. CHEST: Non-labored respirations and equal bilateral excursions. CARDIOVASCULAR: Palpable 2+ radial pulses. ABDOMEN: Soft. Nondistended. No evidence of erythema around the incision sites. Small amount of purulent drainage noted on the left abdomen from the [place] drain MUSCULOSKELETAL: No clubbing or cyanosis. NEUROLOGIC: No focal or lateralizing signs. Cranial nerves II through XII grossly intact. PSYCH: Appropriate affect. Alert and oriented to person, place and time. SKIN: Well perfused. Good skin turgor. ASSESSMENT: 1. Epigastric abdominal pain resolved 2. Abnormal computed tomography scan for small bowel obstruction 3. History of gastric bypass 4. Small bowel obstruction 5. Abdominal wall abscess 6. Peritioneal adhesions 7. 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 Urinary retention resolved 9. Constipation PLAN: -Scheduled Tylenol added for pain -Continue bariatric full liquids -Continue supportive care -Encouraged patient to use incentive spirometer -Encouraged patient to ambulate -GI prophylaxis Protonix and DVT prophylaxis subcu heparin Physician Real Estate Financial Analyst note has been reviewed by physician. Signing provider agrees with the documented findings, assessment, and plan of care. Objective - Vital Signs Vital signs: Vital Signs Temp 98.5 F 12/18/22 08:00 Pulse 76 12/18/22 08:00 Resp 18 12/18/22 08:00 BP 107/66 12/18/22 08:00 Pulse Ox 93 L 12/18/22 08:00 FiO2 Intake & Output 12/17/22 12/18/22 12/18/22 18:59 06:59 18:59 Weight 65.317 kg Other: Voiding Method Toilet # Voids 3 - Labs CBC & Chem 7: 12/17/22 05:47 12/17/22 05:47
--- NOTE | 2022-12-18 15:10 | P.DS ---
Providers Date of admission: 12/10/22 11:46 Expected date of discharge: 12/18/22 Attending physician: Shirin Greco Consults: 12/09/22 09:44 Consult Physician Routine Consulting Provider: Vladimir Meier Consult Reason/Comments: incisional wound abscess Do you want consulting provider notified?: Yes Primary care physician: Wilfrid Burns Hospital Course: Discharge diagnosis 1. Epigastric abdominal pain resolved 2. Abnormal computed tomography scan for small bowel obstruction 3. History of gastric bypass 4. Small bowel obstruction 5. Abdominal wall abscess 6. Peritioneal adhesions 7. 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 Urinary retention resolved 9. Constipation Hospital course This is a 42-year-old female who presented to the hospital with complaints of abdominal pain. She was status post conversion of sleeve to Ralph-en-Y gastric bypass on 12/01/2022. She presented to the hospital with epigastric abdominal pain and left sided abdominal pain. She is status post robotic-assisted lysis of adhesions, drainage of abdominal wall abscess left upper and right upper quadrant incision with water jet lavage and placement of Zeinab drain. Patient also had issues with constipation that improved with soapsuds enema. Patient reports her pain is controlled. She is tolerating diet. She is having bowel movements. She is afebrile. She has been up and ambulating. She is stable for discharge. Physician Wallpaper Scraper note has been reviewed by physician. Signing provider agrees with the documented findings, assessment, and plan of care. Patient Condition at Discharge: Stable Plan - Discharge Summary Discharge Rx Participant: No New Discharge Prescriptions: New cefUROXime axetiL [Ceftin] 500 mg PO BID 7 Days #14 tab Lactulose 20 gm PO BID PRN #480 ml PRN Reason: Constipation Continue Omeprazole [PriLOSEC] 40 mg PO BID Sucralfate [Carafate] 1 gm PO BID bisacodyL [Dulcolax] 5 mg PO DAILY PRN #10 tab PRN Reason: Constipation Simethicone 40 mg/0.6 ml Drops [Mylicon Drops] 40 mg PO PCHS PRN #30 ml PRN Reason: Gas Ondansetron Odt [Zofran ODT] 4 mg PO Q8HR PRN #9 tab PRN Reason: Nausea Acetaminophen Tab [Tylenol] 1,000 mg PO Q6HR PRN #30 tablet PRN Reason: Pain Discharge Medication List Omeprazole [PriLOSEC] 40 mg PO BID 08/08/16 [History] Sucralfate [Carafate] 1 gm PO BID 11/28/19 [History] Acetaminophen Tab [Tylenol] 1,000 mg PO Q6HR PRN #30 tablet 12/03/22 [Rx] Ondansetron Odt [Zofran ODT] 4 mg PO Q8HR PRN #9 tab 12/03/22 [Rx] Simethicone 40 mg/0.6 ml Drops [Mylicon Drops] 40 mg PO PCHS PRN #30 ml 12/03/22 [Rx] bisacodyL [Dulcolax] 5 mg PO DAILY PRN #10 tab 12/03/22 [Rx] Lactulose 20 gm PO BID PRN #480 ml 12/18/22 [Rx] cefUROXime axetiL [Ceftin] 500 mg PO BID 7 Days #14 tab 12/18/22 [Rx] Follow up Appointment(s)/Referral(s): Wilfrid Burns DO [Primary Care Provider] - 1-2 days [facility],[place] [NON-STAFF] - 1 Week [place], [place] [NON-STAFF] - 12/17/22 Patient Instructions/Handouts: Abscess Incision and Drainage (DC) Activity/Diet/Wound Care/Special Instructions: Change dressing daily. May shower. Continue lifting restrictions from recent gastric bypass surgery. Discharge Disposition: HOME SELF-CARE
[2022-12-18 16:46] VITALS: BP 100/67; PULSE 73; RESP 16; TEMP 98
--- NOTE | 2022-12-22 15:57 | CDI ---
Documentation Clarification Form Date: 12/22/2022 03:36:55 PM From: Katelin Oswald Admit Date: 12/10/2022 11:46:00 AM Patient Name: Tia Reynolds Visit Number: [id number] Discharge Date: 12/18/2022 05:55:00 PM ATTENTION: The Clinical Documentation Specialists (CDI) and [facility] Coding Staff appreciate your assistance in clarifying documentation. Please respond to the clarification below the line at the bottom and electronically sign. The CDI & [facility] Coding staff will review the response and follow-up if needed. Please note: Queries are made part of the Legal Health Record. If you have any questions, please contact the author of this message via ITS. Dr. Shirin Greco The patients principal diagnosis the diagnosis that was chiefly responsible for the admission - has not been clearly identified and clarification is requested. The patient presented with the following: postop infection, left sided abdominal pain, abnormal CT scan for small bowel obstruction, epigastric pain. History/Risk factors: patient recently had a Ralph-en Y gastric bypass on 12/01/22, constipation, pain Clinical Indicators: patient presented with left sided abdominal pain and epigastric pain. 12/08/22 patient was admitted to observation for post-operative abdominal wall abscess. CT scan also came back abnormal for moderate small bowel obstruction. Patient was changed to inpatient status 12/10/22 with continued treatment of the abscess and further work up, and surgical intervention for small bowel obstruction. Radiology findings: left anterior abdominal wall abscess measuring 7.4 cm, moderate small bowel obstruction Vital Signs: 12/10/22: T 98.2, P 60, RR 16, BP 102/67 Treatment: 12/08 bedside I&D, 12/10 robotic assisted da kera laparoscopic lysis of adhesions, waterjet lavage, and drainage of abdominal wall abscess. IV morphine, IV dilaudid, antibiotics In your professional opinion, can you please clarify which diagnosis, after study, was the reason chiefly responsible for the admission? [ ] Small bowel obstruction due to peritoneal adhesions [ ] Other, please specify [ ] Unable to determine 1. Post-operative infection/ abdominal wall abscess 2. Small bowel obstruction due to peritoneal adhesions Both are responsible for admission with 1st abscess followed by persistent abdominal pain with finding of adhesions. 12/28/22 @ 20:45; Rainer BATES
--- NOTE | 2022-12-25 14:08 | P.PN ---
Subjective Progress Note Date: 12/17/22 Principal diagnosis: Abdominal wall abscess Patient is a 42-year-old female who recently did have a abdominal surgery in this patient who is status post conversion of the sleeve to Jackie Y gastric bypass procedure was completed on 12/01/2022, subsequently presented to hospital with left lower abdominal wall pain swelling CT was suggestive of abscess in this patient who is status post bedside drainage. On today's evaluation that is 12/17/2022 patient remains to be afebrile, the patient is breathing comfortably on room air, patient abdominal pain is controlled with VICE PRESIDENT OF SOFTWARE ENGINEERING,the patient denies any nausea or vomiting, the patient is breathing comfortably on room air no chest pain shortness of breath or cough Objective - Vital Signs Vital signs: Vital Signs Temp 97.7 F 12/17/22 07:57 Pulse 71 12/17/22 07:57 Resp 16 12/17/22 07:57 BP 108/76 12/17/22 07:57 Pulse Ox 93 L 12/17/22 07:57 FiO2 Intake & Output 12/16/22 12/17/22 12/17/22 18:59 06:59 18:59 Intake Total 840 Balance 840 Intake: Oral 840 Other: Voiding Method Toilet # Voids 3 2 # Bowel Movements 0 - Exam GENERAL DESCRIPTION: Middle-age female up in bed in no distress RESPIRATORY SYSTEM: Unlabored breathing , decreased breath sounds at bases HEART: S1 S2 regular rate and rhythm , ABDOMEN: Soft , left lower quadrant area of induration has decreased minimal drainage on the dressing EXTREMITIES: No edema feet - Labs CBC & Chem 7: 12/17/22 05:47 12/17/22 05:47 Labs: Abnormal Lab Results - Last 24 Hours (Table) 12/17/22 12/17/22 Range/Units 05:47 05:47 MCHC 31.6 L (32.0-37.0) d/dL BUN 3.7 L (9.0-27.0) mg/dL Creatinine 0.4 L (0.6-1.5) mg/dL BUN/Creatinine Ratio 9.25 L (12.00-20.00) Ratio Calcium 8.5 L (8.7-10.3) mg/dL C-Reactive Protein 2.50 H (0.00-0.80) mg/dL Assessment and Plan (1) Post-operative wound abscess Status: Acute Code(s): T81.49XA - INFECTION FOLLOWING A PROCEDURE, OTHER SURGICAL SITE, INIT SNOMED Code(s): 56684610 Plan: 1patient with recent abdominal surgery in this patient who is status postconversion of sleeve to Jackie Y gastric bypass procedure, now present to hospital left lower quadrant abdominal wall pain and swelling with evidence of possible infected hematoma status post bedside drainage 2patient with a penicillin allergy that will limit the number of antibiotics safe to use 3Patient local culture have been negative, the patient has been afebrile patient to continue with cefepime, patient scheduled for a CT of abdominal pelvis because of her pain and results will be followed Time with Patient: Less than 30
--- NOTE | 2022-12-25 14:11 | P.PN ---
Subjective Progress Note Date: 12/18/22 Principal diagnosis: Abdominal wall abscess Patient is a 42-year-old female who recently did have a abdominal surgery in this patient who is status post conversion of the sleeve to Jackie Y gastric bypass procedure was completed on 12/01/2022, subsequently presented to hospital with left lower abdominal wall pain swelling CT was suggestive of abscess in this patient who is status post bedside drainage. On today's evaluation that is 12/18/2022 patient is afebrile, the patient is breathing comfortably on room air, patient abdominal pain is controlled, the patient denies any nausea or vomiting, the patient is breathing comfortably on room air no chest pain shortness of breath or cough, feeling better Objective - Vital Signs Vital signs: Vital Signs Temp 98.2 F 12/18/22 00:04 Pulse 69 12/18/22 00:04 Resp 19 12/18/22 00:04 BP 100/59 12/18/22 00:04 Pulse Ox 93 L 12/18/22 00:04 FiO2 Intake & Output 12/17/22 12/18/22 12/18/22 18:59 06:59 18:59 Weight 65.317 kg Other: Voiding Method Toilet # Voids 3 - Exam GENERAL DESCRIPTION: Middle-age female up in bed in no distress RESPIRATORY SYSTEM: Unlabored breathing , decreased breath sounds at bases HEART: S1 S2 regular rate and rhythm , ABDOMEN: Soft , no tenderness EXTREMITIES: No edema feet - Labs CBC & Chem 7: 12/17/22 05:47 12/17/22 05:47 Labs: Abnormal Lab Results - Last 24 Hours (Table) 12/17/22 12/17/22 Range/Units 05:47 05:47 MCHC 31.6 L (32.0-37.0) d/dL BUN 3.7 L (9.0-27.0) mg/dL Creatinine 0.4 L (0.6-1.5) mg/dL BUN/Creatinine Ratio 9.25 L (12.00-20.00) Ratio Calcium 8.5 L (8.7-10.3) mg/dL C-Reactive Protein 2.50 H (0.00-0.80) mg/dL Assessment and Plan (1) Post-operative wound abscess Status: Acute Code(s): T81.49XA - INFECTION FOLLOWING A PROCEDURE, OTHER SURGICAL SITE, INIT SNOMED Code(s): 89050267 Plan: 1patient with recent abdominal surgery in this patient who is status postconversion of sleeve to Jackie Y gastric bypass procedure, now present to hospital left lower quadrant abdominal wall pain and swelling with evidence of possible infected hematoma status post bedside drainage 2patient with a penicillin allergy that will limit the number of antibiotics safe to use 3Patient local culture have been negative, the patient repeat CT did show small fluid collection and other fluid collection has decreased in size, keeping in mind Negative cultures from the previous drainage we will recommend a short course of oral Ceftin on discharge and close outpatient follow-up, discuss with the surgical BAND CUTTING MACHINE OPERATOR working on discharge
== END 2022-12-18 17:55 | disposition home or self-care (01) | DRG 336 ==
LOC: EC 20:38 → 6NMEDSUR 12-08 03:45 → OBSVTOIN 12-10 11:46
PROVIDERS: ADMIT Surgery Plastic and Reconstructive Surgery; ATTEND Surgery Plastic and Reconstructive Surgery
PROC: 0W9F0ZX Drainage of Abdominal Wall, Open Approach, Diagnostic (ICD-10-PCS; 2022-12-08)
PROC: 0W9F0ZZ Drainage of Abdominal Wall, Open Approach (ICD-10-PCS; principal; 2022-12-10 14:55)
PROC: 0DNA4ZZ Release Jejunum, Percutaneous Endoscopic Approach (ICD-10-PCS; principal; 2022-12-10 14:55)
PROC: 8E0W4CZ Robotic Assisted Procedure of Trunk Region, Percutaneous Endoscopic Approach (ICD-10-PCS; principal; 2022-12-10 14:55)
DX: K56.50 Intestinal adhesions [bands], unspecified as to partial versus complete obstruction (principal); L02.211 Cutaneous abscess of abdominal wall; T81.41XA Infection following a procedure, superficial incisional surgical site, initial encounter; G89.18 Other acute postprocedural pain; M79.7 Fibromyalgia; M06.9 Rheumatoid arthritis, unspecified; K90.0 Celiac disease; K22.4 Dyskinesia of esophagus; K86.81 Exocrine pancreatic insufficiency; K44.9 Diaphragmatic hernia without obstruction or gangrene; K21.9 Gastro-esophageal reflux disease without esophagitis; R33.9 Retention of urine, unspecified; R11.2 Nausea with vomiting, unspecified; T36.8X5A Adverse effect of other systemic antibiotics, initial encounter; F41.9 Anxiety disorder, unspecified; F32.A Depression, unspecified; Z87.891 Personal history of nicotine dependence; Z88.0 Allergy status to penicillin; Z91.040 Latex allergy status; Z88.6 Allergy status to analgesic agent; Z88.8 Allergy status to other drugs, medicaments and biological substances; Z98.84 Bariatric surgery status; Z87.892 Personal history of anaphylaxis; Z71.6 Tobacco abuse counseling
CPT/HCPCS: 36415; 74019; 74177; 74210; 80048; 80053; 80202; 81025; 82565; 83690; 83735; 85025; 86140; 87070; 87075; 87205; 96361; 96374; 96375; 96376; 99285

== ENCOUNTER → 2023-01-09 | Outpatient (CLI) | payer OTHER ==
[2023-01-09 12:57] LABS: Partial Thromboplastin Time 24.1 sec (22.0-30.0); Prothrombin Time 10.3 sec (9.0-12.0)
[2023-01-10 02:02] LABS: HCT 41.5 % (37.2-46.3); HGB 12.9 d/dL (12.0-15.0); MCH 29.1 pg (27.0-32.0); MCHC 31.1 d/dL (32.0-37.0); MCV 93.5 FL (80.0-97.0); NRBC Per 100 WBC 0 X 10*3/uL (0.00-0.01); Platelet Count 188 X 10*3/uL (140-440); RBC 4.44 X 10*6/uL (4.10-5.20); RDW 14.6 % (11.5-14.5); WBC 5.54 X 10*3/uL (4.50-10.00)
[2023-01-10 02:48] LABS: Prealbumin 18.8 mg/dL (18.0-42.0)
[2023-01-10 04:57] LABS: % Iron Saturation 10.61 (12.00-45.00); ALT 20 U/L (8-44); AST 22 U/L (13-35); Albumin 4.1 d/dL (3.8-4.9); Albumin/Globulin Ratio 1.58 Ratio (1.60-3.17); Alkaline Phosphatase 59 U/L (41-126); BUN/Creat Ratio 40.43 Ratio (12.00-20.00); Blood Urea Nitrogen 28.3 mg/dL (9.0-27.0); Calcium 9.5 mg/dL (8.7-10.3); Carbon Dioxide 22.9 mmol/L (21.6-31.8); Chloride 104 mmol/L (96-109); Chol/HDL Ratio 2.66 Ratio; Globulin 2.6 d/dL (1.6-3.3); Glucose 78 mg/dL (70-110); Iron 45 UG/DL (50-170); LDL Cholesterol,Calculated 81.9 mg/dL (0.0-131.0); Magnesium 2.1 mg/dL (1.5-2.4); Phosphorus 4.6 mg/dL (2.4-5.1); Potassium 4.5 mmol/L (3.5-5.5); Sodium 141 mmol/L (135-145); Total Bilirubin 0.2 mg/dL (0.3-1.2); Total Iron Binding Capacity 424 UG/DL (228-460); Total Protein 6.7 d/dL (6.2-8.2); VLDL Calculation 16.64 mg/dL (5.00-40.00)
[2023-01-12 13:04] LABS: Zinc, Serum 51 ug/dL (60-130)
== END | disposition home or self-care (01) ==
LOC: LABWHC1 11:05
PROVIDERS: ATTEND Surgery Plastic and Reconstructive Surgery
DX: E66.01 Morbid (severe) obesity due to excess calories (principal); D50.8 Other iron deficiency anemias; K91.2 Postsurgical malabsorption, not elsewhere classified; E44.0 Moderate protein-calorie malnutrition; E44.1 Mild protein-calorie malnutrition; E45 Retarded development following protein-calorie malnutrition; E55.9 Vitamin D deficiency, unspecified; K74.1 Hepatic sclerosis; N19 Unspecified kidney failure; T56.894A Toxic effect of other metals, undetermined, initial encounter; K50.90 Crohn's disease, unspecified, without complications
CPT/HCPCS: 36415; 80053; 80061; 82306; 82525; 82607; 82728; 82746; 83036; 83540; 83550; 83735; 83970; 84100; 84134; 84255; 84425; 84443; 84590; 84630; 85027; 85610; 85730

== ENCOUNTER → 2023-03-25 | Outpatient (CLI) | payer OTHER ==
--- NOTE | 2023-03-25 16:12 | P.BASOAP ---
Subjective Progress Note Date: 03/25/23 DATE: 03/25/2023 CHIEF COMPLAINT: Status post gastric bypass HISTORY OF PRESENT ILLNESS: Tia Reynolds is a 42-year-old female who is status post sleeve gastrectomy 02/23/2019. Due to, patient sleeve gastrectomy, patient was converted to gastric bypass 12/01/2022. She is 4 months postop. She repor ts symptoms of dysphagia with high risks of stricture as expected. She denies moderate abdominal pain. She reports occasional reflux disease. She is currently on liquid diet. She reports shortness of breath. At height of 5 feet 6.5 inches, her ideal body weight is 154 pounds. Her highest weight is 296 pounds, BMI 47.2. She comes in 140 pounds from 136 pounds 1 year ago. She has gained 5 pounds in 1 year. Her body mass index is 22.3. Lifetime weight loss is 156 pounds. Lifetime percent excess weight loss is 110 %. PAST MEDICAL HISTORY: 1. Morbid obesity due to excess calories 2. Body mass index of 47.2, initial 3. Fibromyalgia 4. Gastroesophageal reflux disease 5. Celiac disease 6. Rheumatoid arthritis 7. Generalized anxiety disorder 8. Depressive disorder 9. Motion sickness 10. Tobacco abuse disorder PAST SURGICAL HISTORY: 1. Cholecystectomy 2. Hiatal hernia repair 3 3. Yesenia fundoplasty 4. Multiple upper endoscopies 5. Status post sleeve gastrectomy 6. Carpal tunnel release 7. Left thumb tendon repair 8. Right hand surgery 9. Left foot surgery 10. section HOME MEDICATIONS: Previous Rx's Medication Instructions Recorded Omeprazole [PriLOSEC] 40 mg PO DAILY #90 cap 03/30/23 Omeprazole [PriLOSEC] 40 mg PO DAILY #90 cap 04/29/23 ALLERGIES: Allergies Allergy/AdvReac Type Severity Reaction Status Date / Time gluten Allergy Abdominal Verified 03/30/23 07:12 Pain latex Allergy Itching, Verified 03/30/23 07:12 red skin naproxen Allergy Itching Verified 03/30/23 07:12 feels like bugs are crawling on her Penicillins Allergy Anaphylaxis Verified 03/30/23 07:12 metronidazole [From Flagyl] AdvReac Nausea & Verified 03/30/23 07:12 Vomiting prednisone AdvReac Unknown Verified 03/30/23 07:12 SOCIAL HISTORY: Resolved tobacco use. FAMILY HISTORY: No family history of ulcerative colitis disease or Crohn's disease. Family history of morbid obesity. No lupus in the family. No reports of stomach or esophageal cancer. REVIEW OF ORGAN SYSTEMS: CONSTITUTIONAL: At height of 5 feet 6.5 inches, her ideal body weight is 154 pounds. Her highest weight is 296 pounds, BMI 47.2. HEENT: Denies any active troubles with vision or hearing. Has occasional dysphagia. ENDOCRINE: No diabetes. No hypothyroidism. CARDIOVASCULAR: No past reports of palpitations or heart attacks or chest pain. RESPIRATORY: No daytime somnolence. Has shortness of breath. GASTROINTESTINAL: Denies any bright red blood per rectum. Has gastroesophageal reflux disease. Has celiac disease. MUSCULOSKELETAL: Has lower back pain and joint pain. Has osteoarthritis of the knees. Has rheumatoid arthritis. NEURO: No headaches. No seizure disorders. Has fibromyalgia PSYCH: Has depression. No suicidal ideation. Has generalized anxiety disorder. RHEUMATOLOGIC: No lupus. No rheumatoid arthritis. HEMATOLOGIC: Denies any abnormal bleeding or bruising. No personal history of DVTs. SKIN: Has rash. No skin cancer. PHYSICAL EXAM: VITAL SIGNS: Height 5 foot 6.5 inches, weight 140 pounds. BMI 22.3 Vital Signs Temp 98.3 F 03/25/23 15:57 Pulse 76 03/25/23 15:57 Resp 13 03/25/23 15:57 BP 123/78 03/25/23 15:57 Pulse Ox FiO2 GENERAL: Well-developed in no acute distress. HEENT: No scleral icterus. Extraocular movements grossly intact. Hears conversational speech. No nasal drainage. NECK: Supple without lymphadenopathy. CHEST: Nonlabored respirations with equal bilateral excursions. CARDIOVASCULAR: Regular rate and regular rhythm. Distal 2+ pulses. ABDOMEN: Nontender. MUSCULOSKELETAL: No clubbing, cyanosis. NEURO: No focal or lateralizing signs. Cranial nerves 2 through 12 grossly within normal limits. PSYCH: Appropriate affect. Alert and oriented to person, place and time. SKIN: Good skin turgor. Well perfused. ASSESSMENT: 1. Morbid obesity due to excess calories 2. Body mass index of 47.2, initial to 22.3 3. Fibromyalgia 4. Gastroesophageal reflux disease 5. Celiac disease 6. Rheumatoid arthritis 7. Generalized anxiety disorder 8. Depressive disorder 9. Motion sickness 10. Tobacco abuse disorder 11. Complications of sleeve gastrectotmy 12. Dysphagia 13. Iron deficiency anemia 14. Vitamin A deficiency 15. Inadequate protein intake. 16. Leukopenia 17. Status post conversion sleeve to gastric bypass 18. Dysphagia 19. Dyspnea PLAN: 1. She had stricture as expected. Will need EGD with dilation. 2. She has shortness of breath and recommended chest xray for shortness of breath. 3. Recommend upper endoscopy for dysphagia. 4. Recommend vibrating massage balls for intermittent left upper quadrant incision pain 5. Continued tobacco cessation counseled. 6. She is elevated risk for complications such as perforation Objective - Vital Signs Vital signs: Vital Signs Temp 98.3 F 03/25/23 15:57 Pulse 76 03/25/23 15:57 Resp 13 03/25/23 15:57 BP 123/78 03/25/23 15:57 Pulse Ox FiO2 Intake & Output 03/24/23 03/25/23 03/25/23 18:59 06:59 18:59 Weight 63.639 kg Assessment/Plan Plan: Date: 03/25/23 Initial Weight: 127.459 kg Initial BMI: 44.6 Current Weight: 63.639 kg Current BMI: 22.3 Type of Surgery: Total Volume in Band: Previous Volume: Volume Removed: Volume Added: Band Size:
[2023-03-25 16:19] VITALS: BP 123/78; PULSE 76; RESP 13; TEMP 98.3; BMI 22.3
== END ==
LOC: BARWHC3 15:55
PROVIDERS: ATTEND Surgery Plastic and Reconstructive Surgery
DX: E66.01 Morbid (severe) obesity due to excess calories (principal); M79.7 Fibromyalgia; K21.9 Gastro-esophageal reflux disease without esophagitis; M06.9 Rheumatoid arthritis, unspecified; R13.10 Dysphagia, unspecified; F41.1 Generalized anxiety disorder; F32.A Depression, unspecified; D72.819 Decreased white blood cell count, unspecified; R06.00 Dyspnea, unspecified; E50.9 Vitamin A deficiency, unspecified; D50.9 Iron deficiency anemia, unspecified; F17.200 Nicotine dependence, unspecified, uncomplicated; T75.3XXA Motion sickness, initial encounter; K90.0 Celiac disease; Z98.84 Bariatric surgery status; Z68.22 Body mass index [BMI] 22.0-22.9, adult; Z91.040 Latex allergy status; Z88.0 Allergy status to penicillin; Z88.8 Allergy status to other drugs, medicaments and biological substances; Z88.1 Allergy status to other antibiotic agents
CPT/HCPCS: 99211

== ENCOUNTER → 2023-03-27 | Outpatient (CLI) | payer OTHER ==
[2023-03-27 15:17] LABS: Partial Thromboplastin Time 25.2 sec (22.0-30.0)
[2023-03-27 16:03] LABS: Prothrombin Time 10.8 sec (10.0-12.5)
[2023-03-27 16:53] LABS: % Iron Saturation 11.94 (12.00-45.00); ALT 21 U/L (8-44); AST 20 U/L (13-35); Albumin 4.1 d/dL (3.8-4.9); Albumin/Globulin Ratio 1.46 Ratio (1.60-3.17); Alkaline Phosphatase 69 U/L (41-126); BUN/Creat Ratio 31.43 Ratio (12.00-20.00); Calcium 9.2 mg/dL (8.7-10.3); Carbon Dioxide 26.7 mmol/L (21.6-31.8); Chloride 105 mmol/L (96-109); Chol/HDL Ratio 2.43 Ratio; Ferritin 17.3 ng/mL (10.0-291.0); Globulin 2.8 d/dL (1.6-3.3); Glucose 75 mg/dL (70-110); Iron 48 UG/DL (50-170); Phosphorus 4.2 mg/dL (2.4-5.1); Potassium 4.3 mmol/L (3.5-5.5); Sodium 141 mmol/L (135-145); Total Bilirubin 0.3 mg/dL (0.3-1.2); Total Iron Binding Capacity 402 UG/DL (228-460); Total Protein 6.9 d/dL (6.2-8.2); VLDL Calculation 11.38 mg/dL (5.00-40.00)
[2023-03-27 17:45] LABS: Prealbumin 16.6 mg/dL (18.0-42.0)
[2023-03-27 19:31] LABS: HCT 44.3 % (37.2-46.3); HGB 13.9 d/dL (12.0-15.0); MCH 29.4 pg (27.0-32.0); MCHC 31.4 d/dL (32.0-37.0); MCV 93.7 FL (80.0-97.0); Mean Platelet Volume 9.9 FL (9.5-12.2); NRBC Per 100 WBC 0 X 10*3/uL (0.00-0.01); Platelet Count 205 X 10*3/uL (140-440); RBC 4.73 X 10*6/uL (4.10-5.20); WBC 5.41 X 10*3/uL (4.50-10.00)
== END | disposition home or self-care (01) ==
LOC: LABWHC1 10:50
PROVIDERS: ATTEND Surgery Plastic and Reconstructive Surgery
DX: E66.01 Morbid (severe) obesity due to excess calories (principal); D50.8 Other iron deficiency anemias; K91.2 Postsurgical malabsorption, not elsewhere classified; E44.0 Moderate protein-calorie malnutrition; E44.1 Mild protein-calorie malnutrition; E45 Retarded development following protein-calorie malnutrition; E59 Dietary selenium deficiency; K74.1 Hepatic sclerosis; N19 Unspecified kidney failure; T56.894A Toxic effect of other metals, undetermined, initial encounter; K50.90 Crohn's disease, unspecified, without complications
CPT/HCPCS: 36415; 80053; 80061; 82306; 82525; 82607; 82728; 82746; 83036; 83540; 83550; 83735; 83970; 84100; 84134; 84255; 84425; 84443; 84590; 84630; 85027; 85610; 85730

== ENCOUNTER → 2024-08-24 | Outpatient (CLI) | payer OTHER ==
[2024-08-24 16:43] VITALS: BP 114/78; PULSE 74; RESP 16; TEMP 98.4; BMI 25.2
--- NOTE | 2024-08-24 17:09 | P.HPBAR ---
Bariatric H&P - History & Physicial H&P Date: 08/24/24 History & Physicial: Visit/CC: f/u Patient initial contact: Initial weight: 127.459 kg Initial weight in pounds: 281.00 Height: 5 ft 6.5 in Initial BMI: 44.6 Last weight: Current weight: 72.121 kg Current weight in pounds: 159.00 Current BMI: 25.2 Gans body weight (based on NIH guidelines): 60.22 kg Excess body weight loss: 82.2% The patient is a 43 year-old F who presents for Bariatric Assessment. She has dysphagia to liquids. She had revision sleeve to bypass. Needs dilation. She is eating pudding vanilla and dark chocalate. She gained 15 pounds. She was 129 pounds. Needs suprep Past Medical History Past Medical History: Fibromyalgia, GERD/Reflux, Rheumatoid Arthritis (RA) Additional Past Medical History / Comment(s): past hx. hiatal hernia-had surg., celiac disease,RAYNAUDS DISEASE History of Any Multi-Drug Resistant Organisms: None Reported Past Surgical History: Bariatric Surgery, Section, Cholecystectomy, Orthopedic Surgery Additional Past Surgical History / Comment(s): left thumb, rt hand and left foot surgery, carpal tunnel, jeanette fundoplasty Feb. 2014, SLEEVE GASTRECTOMY 02-23-19, Ralph En Y with Dr. Villalta 12/01/22, lysis of adhesions, abscess drainage 12/10/22 Past Anesthesia/Blood Transfusion Reactions: No Reported Reaction, Motion Sickness Additional Past Anesthesia/Blood Transfusion Reaction / Comm: mother- PONV Past Psychological History: No Psychological Hx Reported Additional Psychological History / Comment(s): Pt takes Cymbalta 60mg daily Smoking Status: Former smoker Past Alcohol Use History: None Reported Additional Past Alcohol Use History / Comment(s): Quit smoking 2021 Past Drug Use History: None Reported - Past Family History Mother Family Medical History: No Reported History Surgical - Exam Vital Signs Temp Pulse Resp BP 98.4 F 74 16 114/78 08/24/24 16:31 08/24/24 16:31 08/24/24 16:31 08/24/24 16:31 Bariatric Checklist Checklist: Plan: Checklist: EGD: 1. Hiatal hernia: 2. H. Pylori: HgbA1c: Vitamin D: Smoking: Current every day smoker Primary care physician referral: martine Psychiatry clearance: Cardiology clearance: Sleep study: Diet journal: VTE risk score: VTE risk level: Rehab needs at discharge:
== END ==
LOC: BARWHC3 15:52
PROVIDERS: ATTEND Surgery Plastic and Reconstructive Surgery
DX: E66.01 Morbid (severe) obesity due to excess calories (principal); Z68.25 Body mass index [BMI] 25.0-25.9, adult; F17.210 Nicotine dependence, cigarettes, uncomplicated; Z88.0 Allergy status to penicillin; Z91.040 Latex allergy status; Z91.018 Allergy to other foods; Z88.6 Allergy status to analgesic agent; Z88.1 Allergy status to other antibiotic agents; Z88.8 Allergy status to other drugs, medicaments and biological substances
CPT/HCPCS: 99211

== ENCOUNTER → 2024-09-02 | Outpatient (CLI) | payer OTHER ==
[2024-09-02 11:05] LABS: INR 0.9 (<1.2); Prothrombin Time 10.3 sec (10.0-12.5)
[2024-09-02 11:13] LABS: Partial Thromboplastin Time 21.9 sec (22.0-30.0)
[2024-09-02 15:04] LABS: HCT 36.9 % (37.2-46.3); HGB 10.5 g/dL (12.0-15.0); MCH 20.6 pg (27.0-32.0); MCHC 28.5 g/dL (32.0-37.0); MCV 72.4 FL (80.0-97.0); Mean Platelet Volume 10.2 FL (9.5-12.2); NRBC Per 100 WBC 0 X 10*3/uL (0.00-0.01); Platelet Count 319 X 10*3/uL (140-440); RDW 17.8 % (11.5-14.5); WBC 5.77 X 10*3/uL (4.50-10.00)
[2024-09-02 15:11] LABS: Prealbumin 16.3 mg/dL (18.0-42.0)
[2024-09-02 15:36] LABS: % Iron Saturation 3.81 (12.00-45.00); ALT 26 U/L (8-44); AST 30 U/L (13-35); Albumin/Globulin Ratio 1.38 Ratio (1.60-3.17); Alkaline Phosphatase 70 U/L (41-126); BUN/Creat Ratio 18.43 Ratio (12.00-20.00); Blood Urea Nitrogen 12.9 mg/dL (9.0-27.0); Calcium 9.2 mg/dL (8.7-10.3); Carbon Dioxide 27.2 mmol/L (21.6-31.8); Chloride 103 mmol/L (96-109); Chol/HDL Ratio 2.16 Ratio; Ferritin 3.9 ng/mL (10.0-291.0); Globulin 2.9 g/dL (1.6-3.3); Glucose 78 mg/dL (70-110); Iron 18 UG/DL (50-170); LDL Cholesterol,Calculated 80.7 mg/dL (0.0-131.0); Magnesium 1.9 mg/dL (1.5-2.4); Phosphorus 3.9 mg/dL (2.4-5.1); Potassium 4.4 mmol/L (3.5-5.5); Sodium 139 mmol/L (135-145); Total Bilirubin 0.3 mg/dL (0.3-1.2); Total Iron Binding Capacity 472 UG/DL (228-460); Total Protein 6.9 g/dL (6.2-8.2)
[2024-09-05 13:59] LABS: Zinc, Serum 52 ug/dL (60-130)
[2024-09-06 10:17] LABS: Vit B1(Thiamine) 65 ug/L (38-122)
[2024-09-06 11:45] LABS: Vitamin A 52 ug/dL (38-106)
== END | disposition home or self-care (01) ==
LOC: LABWHC1 09:55
PROVIDERS: ATTEND Surgery Plastic and Reconstructive Surgery
DX: E66.01 Morbid (severe) obesity due to excess calories (principal); K50.90 Crohn's disease, unspecified, without complications; E89.1 Postprocedural hypoinsulinemia; D50.8 Other iron deficiency anemias; N19 Unspecified kidney failure; K91.2 Postsurgical malabsorption, not elsewhere classified; E44.0 Moderate protein-calorie malnutrition; E45 Retarded development following protein-calorie malnutrition; E59 Dietary selenium deficiency; K74.1 Hepatic sclerosis; T56.894A Toxic effect of other metals, undetermined, initial encounter
CPT/HCPCS: 36415; 80053; 80061; 82306; 82525; 82607; 82728; 82746; 83540; 83550; 83735; 83970; 84100; 84134; 84255; 84425; 84443; 84590; 84630; 85027; 85610; 85730

== ENCOUNTER 2024-09-12 07:54 | Day surgery (SDC) | payer OTHER ==
--- NOTE | 2024-09-12 07:52 | P.GSHP ---
History of Present Illness H&P Date: 09/12/24 CHIEF COMPLAINT: GERD and colon screen HISTORY OF PRESENT ILLNESS: The patient is a 43-year-old female who presents with gastroesophageal reflux disease and need for colon screen. Upper and lower endoscopy were offered for further evaluation and management. PAST MEDICAL HISTORY: Please see list. PAST SURGICAL HISTORY: Please see list. MEDICATIONS: Please see list. ALLERGIES: Please see list. SOCIAL HISTORY: No illicit drug use FAMILY HISTORY: No reports of Crohn disease or ulcerative colitis. REVIEW OF ORGAN SYSTEMS: CONSTITUTIONAL: No reports of fevers or chills. GI: Denies any blood in stools or constipation. PHYSICAL EXAM: VITAL SIGNS: Stable GENERAL: Well-developed pleasant in no acute distress. HEENT: No scleral icterus. Extraocular movements grossly intact. Moist buccal mucosa. NECK: Supple without lymphadenopathy. CHEST: Unlabored respirations. Equal bilateral excursions. CARDIOVASCULAR: Regular rate and rhythm. Distal 2+ pulses. ABDOMEN: Soft, nondistended. MUSCULOSKELETAL: No clubbing, cyanosis, or edema. ASSESSMENT: 1. Gastroesophageal reflux disease 2. Colon screen. PLAN: 1. Recommend proceeding with an upper and lower endoscopy Past Medical History Past Medical History: Fibromyalgia, GERD/Reflux, Rheumatoid Arthritis (RA), Skin Disorder Additional Past Medical History / Comment(s): celiac disease,RAYNAUDS DISEASE, eczema History of Any Multi-Drug Resistant Organisms: None Reported Past Surgical History: Bariatric Surgery, Section, Cholecystectomy, Hernia Repair, Orthopedic Surgery Additional Past Surgical History / Comment(s): left thumb, rt hand and left foot surgery, ildefonso carpal tunnel, jeanette fundoplasty 2014, SLEEVE GASTRECTOMY 02-23-19, Ralph En Y with Dr. Villalta 12/01/22, lysis of adhesions, abscess drainage 12/10/22 Past Anesthesia/Blood Transfusion Reactions: No Reported Reaction, Motion Sickness Additional Past Anesthesia/Blood Transfusion Reaction / Comment(s): mother- PONV Smoking Status: Former smoker - Past Family History Mother Family Medical History: No Reported History Additional Family Medical History / Comment(s): PM. Grandmother DVT Medications and Allergies Home Medications Medication Instructions Recorded Confirmed Type Omeprazole [PriLOSEC] 40 mg PO DAILY #90 cap 04/29/23 09/09/24 Rx Otc Multi Vitamin Gummie 1 tab PO DAILY 09/09/24 09/09/24 History Symponi 1 bag IV Q60D 09/09/24 09/09/24 History Allergies Allergy/AdvReac Type Severity Reaction Status Date / Time gluten Allergy Abdominal Verified 09/09/24 10:58 Pain latex Allergy Itching, Verified 09/09/24 10:58 red skin naproxen Allergy Itching Verified 09/09/24 10:58 feels like bugs are crawling on her Penicillins Allergy Anaphylaxis Verified 09/09/24 10:58 metronidazole [From Flagyl] AdvReac Nausea & Verified 09/09/24 10:58 Vomiting prednisone AdvReac Unknown Verified 09/09/24 10:58
[~2024-09-12 07:54] MED LIST changes: -CHLORHEXIDINE GLUCONATE 15 ML CUP MUCOUS MEM PRN; -CLINDAMYCIN 900 MG in DEXTROSE 5% IN WATER 50 ML IVPB PRN; -HEPARIN SODIUM,PORCINE/PF 5,000 UNIT/0.5 ML SYRINGE SQ PRN; -HYDROmorphone 0.5 MG/0.5 ML SYRINGE IVP PRN; +LACTATED RINGERS 1,000 ML IV SCH; -LIDOCAINE 1% (10MG/ML) FOR IV START INTRADERMA PRN; -ONDANSETRON 4 MG/2 ML VIAL IVP ONE; -PANTOPRAZOLE 40 MG/10 ML VIAL IVP PRN; -SCOPOLAMINE 1 MG/72 HR PATCH TRANSDERM STA; -droPERidol 5 MG/2 ML VIAL IVP ONE
[2024-09-12] MEDS: LACTATED RINGERS 1,000 ML IV ONE (08:03)
[2024-09-12 08:12] VITALS: TEMP 97
[2024-09-12] MEDS ORDERED: PROPOFOL 10 MG/ML 20 ML VIAL IV ONE (08:16)
--- NOTE | 2024-09-12 08:54 | P.PCN ---
Date of Procedure: 09/12/24 Description of Procedure: PREOPERATIVE DIAGNOSIS: Dysphagia. Gastroesophageal reflux disease POSTOPERATIVE DIAGNOSIS: Gastric stenosis OPERATION: Esophagojejunoscopy with balloon dilation 18 to 20 mm, for gastric stenosis Esophagojejunoscopy with cold forcep biopsies esophagus, gastric pouch, jejunum SURGEON: Shirin Greco MD ANESTHESIA: MAC. INDICATIONS: The patient is a 43-year-old female who presents with a history of dysphagia. Benefits and risks of the procedure were described. Informed consent was obtained. DESCRIPTION: The patient was brought into the endoscopy suite and laid in the left lateral decubitus position. After a timeout was confirmed, the procedure was initiated. An Olympus gastroscope was passed to the posterior oropharynx where the upper esophageal sphincter was stenotic. Additionally, blood along the posterior oropharynx was found consistent with nasopharyngeal source. An 10 mm diameter upper scope was gently passed to the distal esophagus and onto her esophagojejunostomy including gastric pouch. The scope was advanced to 70 cm from the incisors. Moderate secretions identified of the upper esophagus and distal esophagus. [employer] 20 mm balloon was used to dilate the gastric pouch and anastomosis 20 cm. Cold forcep biopsies were obtained along the jejunum, gastric pouch and esophagus. Please see below for additional findings. No full-thickness injury was encountered. The GI tract was desufflated. The patient tolerated the procedure well. FINDINGS: Gastrojejunal anastomosis without ulceration Gastrojejunal anastomosis dilated 18 to 20 mm balloon Cold forcep biopsies obtained of esophagus, gastric pouch and jejunum RECOMMENDATIONS: Zyrtec 10 mg daily Upper endoscopy as needed
--- NOTE | 2024-09-12 09:22 | P.PCN ---
Date of Procedure: 09/12/24 Description of Procedure: PREOPERATIVE DIAGNOSIS: Colonoscopy screening. POSTOPERATIVE DIAGNOSIS: Colonoscopy screening. Diverticulosis, scattered. OPERATION: Colonoscopy to the cecum, ileocecal valve and appendiceal orifice. SURGEON: Shirin Greco MD. ANESTHESIA: MAC. INDICATIONS: The patient is a 43-year-old female who presents for colonoscopy screening. Benefits and risks were described and informed consent was obtained. DESCRIPTION OF PROCEDURE: The patient had undergone Suprep. The patient had been brought into the operating room and laid in the left lateral decubitus position. After adequate intravenous sedation, the rectum was examined with 2% lidocaine jelly. No external hemorrhoids were encountered. The rectal tone was within normal limits. No lesions were palpated in the rectal vault. An Olympus colonoscope was advanced until the cecum, ileocecal valve and appendiceal orifice were clearly viewed. The prep was fair. Scattered diverticulosis was encountered. No colonic polyps were found. No evidence of focal colitis was found. Retroflexion of the scope demonstrated grade 1 internal hemorrhoids without active bleeding or inflammation. The colon was desufflated. The patient had tolerated the procedure well. Withdrawal time was over 6 minutes. FINDINGS: Aronchick preparation quality scale 3(1-5) Internal hemorrhoids, grade 1 No external prolapsed hemorrhoids. Highly redundant sigmoid colon quad abdominal wall pressure Rare scattered diverticulosis, ascending colon No arteriovenous malformations. No adenomatous polyps. No focal colitis. RECOMMENDATIONS: Lower endoscopy 2034 Plan - Discharge Summary Discharge Rx Participant: No New Discharge Prescriptions: Continue Symponi 1 bag IV Q60D Omeprazole [PriLOSEC] 40 mg PO DAILY #90 cap Otc Multi Vitamin Gummie 1 tab PO DAILY Discharge Medication List Omeprazole [PriLOSEC] 40 mg PO DAILY #90 cap 04/29/23 [Rx] Otc Multi Vitamin Gummie 1 tab PO DAILY 09/09/24 [History] Symponi 1 bag IV Q60D 09/09/24 [History] Follow up Appointment(s[facility] [place] [facility] [place] 09/28/24 3:00 pm Patient Instructions/Handouts: Diverticulosis Diet (GEN), Esophageal Dilation (DC) Activity/Diet/Wound Care/Special Instructions: Repeat colonoscopy years2034 Discharge Disposition: HOME SELF-CARE
[2024-09-12 09:23] VITALS: BP 99/67; PULSE 55; RESP 16
== END 2024-09-12 09:42 | disposition home or self-care (01) ==
LOC: ORWHC2ENDO 07:54
PROVIDERS: ATTEND Surgery Plastic and Reconstructive Surgery
DX: Z12.11 Encounter for screening for malignant neoplasm of colon (principal); K57.30 Diverticulosis of large intestine without perforation or abscess without bleeding; K64.0 First degree hemorrhoids; K22.2 Esophageal obstruction; K21.9 Gastro-esophageal reflux disease without esophagitis; M79.7 Fibromyalgia; M06.9 Rheumatoid arthritis, unspecified; I73.00 Raynaud's syndrome without gangrene; K90.0 Celiac disease; Z79.620 Long term (current) use of immunosuppressive biologic; Z79.899 Other long term (current) drug therapy; Z87.891 Personal history of nicotine dependence; Z98.84 Bariatric surgery status; Z91.040 Latex allergy status; Z88.6 Allergy status to analgesic agent; Z88.8 Allergy status to other drugs, medicaments and biological substances; Z88.0 Allergy status to penicillin
CPT/HCPCS: 43249; 43239; 45378; 81025; J2704; C1726

== ENCOUNTER 2024-10-26 09:33 | Day surgery (SDC) | payer OTHER ==
[2024-10-24 16:00] VITALS: BMI 25.8
--- NOTE | 2024-10-26 07:42 | P.GSHP ---
History of Present Illness H&P Date: 10/26/24 CHIEF COMPLAINT: Esophageal stricture HISTORY OF PRESENT ILLNESS: The patient is a 44-year-old female who presents reports dysphagia. Upper endoscopy was offered for further evaluation and management. PAST MEDICAL HISTORY: Please see list. PAST SURGICAL HISTORY: Please see list. MEDICATIONS: Please see list. ALLERGIES: Please see list. SOCIAL HISTORY: No illicit drug use FAMILY HISTORY: No reports of Crohn disease or ulcerative colitis. REVIEW OF ORGAN SYSTEMS: CONSTITUTIONAL: No reports of fevers or chills. GI: Denies any blood in stools or constipation. PHYSICAL EXAM: VITAL SIGNS: Stable GENERAL: Well-developed and pleasant in no acute distress. HEENT: No scleral icterus. Extraocular movements grossly intact. Moist buccal mucosa. NECK: Supple without lymphadenopathy. CHEST: Unlabored respirations. Equal bilateral excursions. CARDIOVASCULAR: Regular rate and rhythm. Distal 2+ pulses. ABDOMEN: Soft, nondistended. MUSCULOSKELETAL: No clubbing, cyanosis, or edema. ASSESSMENT: 1. Esophageal stricture PLAN: 1. Recommend proceeding with an upper endoscopy with rigid dilators. Past Medical History Past Medical History: Fibromyalgia, GERD/Reflux, Rheumatoid Arthritis (RA), Skin Disorder Additional Past Medical History / Comment(s): "The food isn't going down.""Dr. Deleon's going to stretch my esophagus." past hx. hiatal hernia-had surg., celiac disease,RAYNAUDS DISEASE.excema. History of Any Multi-Drug Resistant Organisms: None Reported Past Surgical History: Bariatric Surgery, Section, Cholecystectomy, Orthopedic Surgery Additional Past Surgical History / Comment(s): left thumb, rt hand and left foot surgery, carpal tunnel bi lat, jeanette fundoplasty 2014, SLEEVE GASTRECTOMY 02-23-19, Ralph En Y with Dr. Villalta 12/01/22, lysis of adhesions, abscess drainage 12/10/22, EGD, Colonoscopy. Past Anesthesia/Blood Transfusion Reactions: No Reported Reaction, Motion Sickness, Postoperative Nausea & Vomiting (PONV) Additional Past Anesthesia/Blood Transfusion Reaction / Comment(s): mother- PONV Smoking Status: Former smoker - Past Family History Mother Family Medical History: No Reported History Additional Family Medical History / Comment(s): PM. Grandmother DVT Medications and Allergies Home Medications Medication Instructions Recorded Confirmed Type Otc Multi Vitamin Gummie 1 tab PO HS 09/09/24 10/24/24 History Symponi 1 bag IV Q60D 09/09/24 10/24/24 History Cetirizine HCl [Zyrtec] 10 mg PO HS 10/05/24 10/24/24 History Omeprazole [PriLOSEC] 40 mg PO QAM 10/24/24 10/24/24 History Allergies Allergy/AdvReac Type Severity Reaction Status Date / Time gluten Allergy Abdominal Verified 10/24/24 15:55 Pain latex Allergy Itching, Verified 10/24/24 15:55 red skin naproxen Allergy Itching Verified 10/24/24 15:55 feels like bugs are crawling on her Penicillins Allergy Anaphylaxis Verified 10/24/24 15:55 metronidazole [From Flagyl] AdvReac Nausea & Verified 10/24/24 15:55 Vomiting prednisone AdvReac Unknown Verified 10/24/24 15:55
[2024-10-26] MEDS: IV FLUID CONTINUATION 1,000 ML IV ONE (10:07)
[2024-10-26 10:09] VITALS: RESP 16; TEMP 97.6
[2024-10-26] MEDS ORDERED: PROPOFOL 10 MG/ML 20 ML VIAL IV ONE (11:13)
--- NOTE | 2024-10-26 11:37 | P.PCN ---
Date of Procedure: 10/26/24 Description of Procedure: PREOPERATIVE DIAGNOSIS: Dysphagia. Nausea with vomiting. POSTOPERATIVE DIAGNOSIS: Upper esophageal stenosis Presbyesophagus Gastrojejunal stricture without chronic ulcer without perforation OPERATION: Esophagogastrojejunoscopy with balloon dilatation from 15 to 20 mm for gastric stricture Esophagogastrojejunoscopy with rigid dilator, 54-[place] to address upper esophageal stenosis SURGEON: Shirin Greco MD ANESTHESIA: MAC. INDICATIONS: The patient is a 44-year-old female who presents with a history of dysphagia, including nausea and vomiting. Benefits and risks of the procedure were described. Informed consent was obtained. DESCRIPTION: The patient was brought into the endoscopy suite and laid in the left lateral decubitus position. After a timeout was confirmed, the procedure was initiated. An Olympus gastroscope was passed along the posterior oropharynx down to the distal esophagus where the squamocolumnar junction was unremarkable. The gastric pouch was entered. A gastrojejunal stricture of 15 mm was found as the adult gastroscope was 9.5 mm in size. Attention was brought to the upper esophageal stenosis. The bite block was removed and mouth was opened with fingers. A rigid dilator, [address] [place] was placed over a guidewire to 45 cm from the incisors and left for 2 minutes after exchanging the scope. A [employer]ura balloon dilator was placed through the scope. The scope was reentered for balloon dilation of the gastrojejunal anastomosis. Final insufflation from 15 to 20 mm was performed with a total of 2 minutes. The scope was advanced up to 60 cm from the incisors into the Ralph limb. The mucosa of the gastrojejunal anastomosis was intact. No chronic gastrojejunal marginal ulcer was encountered. No full-thickness injury was encountered. The GI tract was desufflated. The patient tolerated the procedure well. FINDINGS: Squamocolumnar junction unremarkable at 37 cm. Stricture of approximately 15 mm encountered. Rigid dilation of upper esophageal sphincter, 54-[place] No chronic gastrojejunal ulceration encountered. Successful balloon dilatation to 20 mm. RECOMMENDATIONS: Upper endoscopy as needed. Plan - Discharge Summary Discharge Rx Participant: No New Discharge Prescriptions: Continue Symponi 1 bag IV Q60D Cetirizine HCl [Zyrtec] 10 mg PO HS Otc Multi Vitamin Gummie 1 tab PO HS Omeprazole [PriLOSEC] 40 mg PO QAM Discharge Medication List Otc Multi Vitamin Gummie 1 tab PO HS 09/09/24 [History] Symponi 1 bag IV Q60D 09/09/24 [History] Cetirizine HCl [Zyrtec] 10 mg PO HS 10/05/24 [History] Omeprazole [PriLOSEC] 40 mg PO QAM 10/24/24 [History] Follow up Appointment(s)/Ref[place](s[place] [facility] [place] [facility] - 11/09/24 3:00 pm Patient Instructions/Handouts: Esophageal Dilation (DC) Discharge Disposition: HOME SELF-CARE
[2024-10-26 12:28] VITALS: BP 102/71; PULSE 63
== END 2024-10-26 12:28 | disposition home or self-care (01) ==
LOC: ORWHC2ENDO 09:33
PROVIDERS: ATTEND Surgery Plastic and Reconstructive Surgery
DX: K22.2 Esophageal obstruction (principal); K21.9 Gastro-esophageal reflux disease without esophagitis; K90.0 Celiac disease; M79.7 Fibromyalgia; M06.9 Rheumatoid arthritis, unspecified; I73.00 Raynaud's syndrome without gangrene; Z87.891 Personal history of nicotine dependence; Z90.49 Acquired absence of other specified parts of digestive tract; Z88.8 Allergy status to other drugs, medicaments and biological substances; Z91.040 Latex allergy status; Z88.1 Allergy status to other antibiotic agents; Z88.0 Allergy status to penicillin; Z88.6 Allergy status to analgesic agent; Z79.899 Other long term (current) drug therapy
CPT/HCPCS: 81025; 43249; J2704; C1726

== ENCOUNTER 2024-11-14 07:19 | Day surgery (SDC) | payer OTHER ==
[~2024-11-14 07:19] MED LIST changes: -LACTATED RINGERS 1,000 ML IV SCH; +Pre Op ABX Message 1 EACH MISC MISCELLANE ONE
[2024-11-14] MEDS: IV FLUID CONTINUATION 1,000 ML IV ONE ×2 (07:48→16:23)
--- NOTE | 2024-11-14 08:08 | P.GSHP ---
History of Present Illness H&P Date: 11/14/24 CHIEF COMPLAINT: History of intra-abdominal adhesions HISTORY OF PRESENT ILLNESS: The patient is a 44-year-old female who presents with history of intra-abdominal adhesions from multiple prior surgeries including increasing abdominal pain. She now presents for diagnostic laparoscopy including lysis of adhesions. PAST MEDICAL HISTORY: Please see list. PAST SURGICAL HISTORY: Please see list. MEDICATIONS: Please see list. ALLERGIES: Please see list. SOCIAL HISTORY: No illicit drug use FAMILY HISTORY: No reports of Crohn disease or ulcerative colitis. REVIEW OF ORGAN SYSTEMS: CONSTITUTIONAL: Denies any fever or chills. Denies recent weight loss or weight gain. HEENT: Denies any trouble with vision, hearing or nosebleeds. No difficulty swallowing. LYMPHATIC: The patient denies any lumps and bumps around the neck. ENDOCRINE: Denies any thyroid disorders. Denies any blood sugar glucose intolerance. RESPIRATORY: Denies pneumonia. Denies any troubles with breathing or dyspnea on exertion. CARDIOVASCULAR: Denies any chest pain, palpitations, or recent heart attacks. GASTROINTESTINAL: Denies heart burn, constipation or bright red blood per rectum. GENITOURINARY: Denies any blood in urine or increased urinary frequency. MUSCULOSKELETAL: Denies any back pain, stiffness, joint arthritis. NEUROLOGIC: Denies any numbness or tingling along the distal extremities. No seizure disorders or headaches. PSYCHIATRIC: Denies depression or suidical ideation. HEMATOLOGIC: Denies any abnormal bleeding or bruising. BREASTS: Denies any breast lumps, pain or nipple discharge. PHYSICAL EXAM: GENERAL: Well-developed pleasant male in no acute distress. HEENT: No scleral icterus. Extraocular movements grossly intact. Moist buccal mucosa. NECK: Supple without lymphadenopathy. CHEST: Unlabored respirations. Equal bilateral excursions. CARDIOVASCULAR: Regular rate and rhythm. Distal 2+ pulses. ABDOMEN: Soft, nondistended. Tender generalized abdominal pain. MUSCULOSKELETAL: No clubbing, cyanosis, or edema. SKIN: Well perfused. PSYCH: Alert and oriented to self, place and time ASSESSMENT: 1. Diffuse abdominal pain. 2. History of multiple abdominal surgeries. 3. Intra-abdominal adhesions. PLAN: 1. Robotic lysis of adhesions were described in detail including risk of injury to the intestine, need for further surgery, and open technique. 2. DVT prophylaxis. 3. Antibiotic prophylaxis. Past Medical History Past Medical History: Fibromyalgia, GERD/Reflux, Rheumatoid Arthritis (RA) Additional Past Medical History / Comment(s): past hx. hiatal hernia-had surg., celiac disease, RAYNAUDS DISEASE History of Any Multi-Drug Resistant Organisms: None Reported Past Surgical History: Bariatric Surgery, Section, Cholecystectomy, Orthopedic Surgery Additional Past Surgical History / Comment(s): left thumb, rt hand and left foot surgery, carpal tunnel, jeanette fundoplasty Sept. 2014, SLEEVE GASTRECTOMY 02-23-19, Ralph En Y with Dr. Villalta 12/01/22, lysis of adhesions, abscess drainage 12/10/22 Past Anesthesia/Blood Transfusion Reactions: Motion Sickness, Postoperative Nausea & Vomiting (PONV) Additional Past Anesthesia/Blood Transfusion Reaction / Comment(s): PONV x 1. mother- PONV Smoking Status: Former smoker - Past Family History Mother Family Medical History: No Reported History Additional Family Medical History / Comment(s): Maternal grandmother DVT Medications and Allergies Home Medications Medication Instructions Recorded Confirmed Type Otc Multi Vitamin Gummie 1 tab PO HS 09/09/24 11/14/24 History Symponi 1 bag IV Q60D 09/09/24 11/14/24 History Cetirizine HCl [Zyrtec] 10 mg PO HS 10/05/24 11/14/24 History Omeprazole [PriLOSEC] 40 mg PO QAM 10/24/24 11/14/24 History Allergies Allergy/AdvReac Type Severity Reaction Status Date / Time gluten Allergy Abdominal Verified 11/14/24 07:45 Pain latex Allergy Itching, Verified 11/14/24 07:45 red skin naproxen Allergy Itching Verified 11/14/24 07:45 feels like bugs are crawling on her Penicillins Allergy Anaphylaxis Verified 11/14/24 07:45 metronidazole [From Flagyl] AdvReac Nausea & Verified 11/14/24 07:45 Vomiting prednisone AdvReac Unknown Verified 11/14/24 07:45 Surgical - Exam Vital Signs Temp Pulse Resp BP Pulse Ox 97.8 F 64 14 121/71 97 11/14/24 07:45 11/14/24 07:45 11/14/24 07:45 11/14/24 07:45 11/14/24 07:45
[2024-11-14 08:27] LABS: Basophils # (A) 0.05 10*3/uL (0.00-0.10); Eosinophils # (A) 0.21 10*3/uL (0.04-0.35); Eosinophils % (A) 4.2 %; HCT 36.9 % (37.2-46.3); HGB 11.1 g/dL (12.0-15.0); Lymphocytes # (A) 1.99 10*3/uL (0.90-5.00); Lymphocytes % (A) 39.6 %; MCH 21.9 pg (27.0-32.0); MCHC 30.1 g/dL (32.0-37.0); MCV 72.6 fL (80.0-97.0); Mean Platelet Volume 10.1 fL (9.5-12.2); Monocytes # (A) 0.47 10*3/uL (0.20-1.00); Monocytes % (A) 9.4 %; Neutrophils # (A) 2.29 10*3/uL (1.80-7.70); Neutrophils % (A) 45.6 %; Platelet Count 289 10*3/uL (140-440); RBC 5.08 10*6/uL (4.10-5.20); WBC 5.02 10*3/uL (4.50-10.00)
[2024-11-14] MEDS: ONDANSETRON 4 MG/2 ML VIAL IVP ONE (08:27)
[2024-11-14] MEDS: LACTATED RINGERS 1,000 ML IV SCH (08:27)
[2024-11-14] MEDS: DEXAMETHASONE SOD PHOSPHATE 4 MG/ML 1 ML VIAL IV ONE (08:27)
[2024-11-14] MEDS ORDERED: ceFAZolin 2 GM in DEXTROSE 5% IN WATER 50 ML IVPB STA (08:30)
[2024-11-14 08:35] LABS: ALT 19 U/L (4-34); AST 23 U/L (14-36); African American GFR (CKD) >90 (>60 ml/min/1.73 sqM); Albumin 4.1 g/dL (3.5-5.0); Alkaline Phosphatase 73 U/L (38-126); Anion Gap 5 mmol/L; Blood Urea Nitrogen 15 mg/dL (7-17); Calcium 9.3 mg/dL (8.4-10.2); Carbon Dioxide 27 mmol/L (22-30); Chloride 106 mmol/L (98-107); Glucose 85 mg/dL (74-99); Non-African American GFR(CKD) >90 (>60 ml/min/1.73 sqM); Potassium 4.1 mmol/L (3.5-5.1); Sodium 138 mmol/L (137-145); Total Bilirubin 0.3 mg/dL (0.2-1.3); Total Protein 7.2 g/dL (6.3-8.2)
[2024-11-14] MEDS: MIDAZOLAM 2 MG/2 ML VIAL IV ONE (08:36)
[2024-11-14] MEDS: HEPARIN SODIUM,PORCINE 5,000 UNIT/ML 1 ML VIAL SQ STA (08:58)
[2024-11-14] MEDS: SCOPOLAMINE 1 MG/72 HR PATCH TRANSDERM STA (08:58)
[2024-11-14] MEDS ORDERED: LIDOCAINE 1% INJ 10MG/ML (20 ML MDV) ONE (09:19)
[2024-11-14] MEDS ORDERED: HYDROmorphone (PF) 1 MG/ML ONE (09:19)
[2024-11-14] MEDS ORDERED: GLYCOPYRROLATE 0.2 MG/ML 2 ML VIAL ONE (09:19)
[2024-11-14] MEDS ORDERED: SUCCINYLCHOLINE CHLORIDE 200 MG/10 ML VIAL IV ONE (09:19)
[2024-11-14] MEDS ORDERED: ROPIVACAINE 5 MG/ML 30 ML VIAL ONE (09:19)
[2024-11-14] MEDS ORDERED: fentaNYL (PF) 50 MCG/ML 2 ML AMP ONE (09:19)
[2024-11-14] MEDS ORDERED: DEXAMETHASONE SOD PHOSPHATE 10 MG/ML 1 ML VIAL ONE (09:19)
[2024-11-14] MEDS ORDERED: ROCURONIUM 10 MG/ML (5 ML VIAL) IV ONE (09:19)
[2024-11-14] MEDS ORDERED: SODIUM CHLORIDE 0.9% (PF) 10 ML VIAL ONE (09:19)
[2024-11-14] MEDS ORDERED: PROPOFOL 10 MG/ML 20 ML VIAL IV ONE (09:19)
[2024-11-14] MEDS ORDERED: NEOSTIGMINE 1 MG/ML 10 ML VIAL ONE (09:19)
[2024-11-14] MEDS ORDERED: diphenhydrAMINE 50 MG/ML 1 ML VIAL ONE (09:19)
[2024-11-14] MEDS ORDERED: DEXAMETHASONE SOD PHOSPHATE 4 MG/ML 1 ML VIAL ONE (09:19)
[2024-11-14] MEDS: WATER IV ONE (09:23)
[2024-11-14] MEDS: CEFAZOLIN IV ONE (09:23)
[2024-11-14] MEDS: DEXTROSE 5% IV ONE (09:23)
[2024-11-14 09:25] LABS: Anisocytosis (M) Present
[2024-11-14] MEDS: LIDOCAINE 1%-EPI 1:100,000 20 ML VIAL SQ ONE (10:02)
[2024-11-14] MEDS: LACTATED RINGERS 1,000 ML IV ONE (11:19)
[2024-11-14 12:50] VITALS: TEMP 97.6
[2024-11-14] MEDS: HYDROmorphone 0.5 MG/0.5 ML SYRINGE IVP PRN (13:36)
[2024-11-14 14:07] VITALS: RESP 16
[2024-11-14 16:33] VITALS: BP 100/60; PULSE 75
[2024-11-14] MEDS: TAMSULOSIN 0.4 MG CAP.ER.24H PO STA (17:16)
--- NOTE | 2024-11-15 11:20 | P.ANPRN ---
Procedure Note - Anesthesia - Nerve Block Performed Bilateral Erector Spinae Single Time Out Performed: Yes Date of Procedure: 11/14/24 Procedure Start Time: 08:36 Procedure Stop Time: 08:43 Location of Patient: PreOp Indication: Acute Post-Operative Pain, Requested by Surgeon Sedation Type: Sedate with meaningful contact maintained Preparation: Sterile Prep Position: Prone Needle Types: Pajunk Needle Gauge: 21 Ultrasound used to visualize needle placement: Yes Ultrasound used to observe medication spread: Yes Blood Aspirated: No Pain Paresthesia on Injection Noted: No Resistance on Injection: Normal Image Stored and Saved: Yes Events: Uneventful and Well Tolerated (Ropivacaine 0.5% 15 cc plus dexamethasone 4 mg plus normal saline 10 cc given bilaterally at L1)
--- NOTE | 2024-11-18 20:45 | P.OP ---
Date of Procedure: 11/14/24 Description of Procedure: SURGEON: BETTY HICKMAN MD PREOPERATIVE DIAGNOSES: 1. Right lower quadrant abdominal pain due to adhesions 2. Epigastric abdominal pain due to adhesions 3. 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 Fibromyalgia 5. Rheumatoid arthritis 6. Gastroesophageal reflux disease 7. Postoperative nausea vomiting 8. Motion sickness POSTOPERATIVE DIAGNOSES: 1. Right lower quadrant abdominal pain due to small bowel volvulus 2. Epigastric abdominal pain due to adhesions 3. 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 Fibromyalgia 5. Rheumatoid arthritis 6. Gastroesophageal reflux disease 7. Postoperative nausea vomiting 8. Motion sickness 9. Small bowel volvulus 10. Sigmoid volvulus 11. Internal hernia 12. Chronic appendicitis OPERATION: 1. Robotic-assisted da Lena Xi laparoscopic with extensive lysis of adhesions over 1.5 hrs 2. Robotic-assisted da Lena Xi laparoscopic reduction of small bowel volvulus 3. Robotic-assisted da Lena Xi laparoscopic reduction of sigmoid volvulus 4. Robotic-assisted da Lena Xi laparoscopic reduction and repair of internal hernia, Petersons defect 5. Robotic-assisted da Lena Xi laparoscopic appendectomy ESTIMATED BLOOD LOSS: 5 mL. SPECIMENS REMOVED: None. COMPLICATIONS: None. OPERATIVE FINDINGS: 1. 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 No internal hernia at the jejunojejunostomy 3. Appendix as a lead point of intestinal volvulus including internal hernia 4. Highly redundant sigmoid colon with active sigmoid volvulus reduced, colon viable 5. Highly redundant cecum, ascending colon with risk of cecal bascule INDICATIONS: The patient is a 44-year-old female who presents with epigastric abdominal pain including right lower quadrant abdominal pain. Surgical intervention with diagnostic laparoscopy, lysis of adhesions including possible appendectomy were described. Informed consent was obtained. Robotic assisted laparoscopic approach was described. Benefits and risks of the procedure including but not limited to bleeding, infection, injury to the small bowel was described. Informed consent was obtained. DESCRIPTION OF PROCEDURE: Patient was brought to the operating room, placed in supine position. After general induction, the abdomen had been prepped and draped in standard sterile fashion. The robotic da Lena XI system was primed. After a timeout protocol was performed, the patient had been prepped and draped in standard sterile fashion. The robot was docked along the right lateral abdomen. The patient was repositioned in with right side up. Please note prior to docking of the robot; however, a 5 mm 0 degrees laparoscopic trocar entry was performed along the left upper quadrant. The abdomen was insufflated to 15 mmHg pressure which she tolerated well. Diagnostic laparoscopy was performed. Next, three 8 mm robotic ports were placed along the left lateral abdominal wall. The camera 8-mm port was maintained along mid-lateral abdomen. Ports were placed at least 10 to 15 cm away from the target anatomy. An additional 12-mm robotic trocar was placed along the left upper abdomen. Instruments including graspers and vessel sealer were interchanged by the assistant account manager. I had sat at the console. Initial attention was brought to the ascending colon where the cecum was found along the left upper abdomen for risk of cecal bascule versus cecal volvulus. The cecum and small bowel were intertwined at the epigastrium including the left upper abdomen incorporating to her common channel of her gastric bypass. Presence of small bowel volvulus found along internal hernia of the epigastrium consistent with Petersons defect. The jejunojejunostomy was found along with the right lower quadrant. Features were consistent with a combination of wildlife biology internship al hernia, small bowel volvulus. The appendix was long and also intertwined within the small bowel volvulus. Attention was brought to the Ralph limb which was inspected distally however the Ralph limb was also intertwined within the internal hernia with at least 270 degree clockwise rotation of the mesenteric root. A long mesenteric root was also confirmed. Next, to carefully reduce the internal hernia, the ascending colon was tagged and elevated to allow reduction of the cecum under the bridge of the small bowel volvulus. Using a 4 x 4 sponge, the base of the cecum was carefully reduced using a push technique under the small bowel volvulus whereby releasing the tension along the mesenteric root which contributed to intermittent small bowel obstruction. Once the cecum was reduced and placed along its original anatomical location of the right lower quadrant, the appendix was adherent to the jejunojejunostomy with abnormal adhesions creating a lead point for an internal hernia. Extensive lysis of adhesions using vessel sealer and blunt dissection over 1.5 hrs was performed to dissect abnormal adhesions involving the mesenteric root near the ligament of Treitz and adhesions of the Petersons defect. A prior closure of the Gary defect was confirmed due to scarring which degraded and reopened. Next, the small bowel was ran retrograde from the terminal ileum proximally to the jejunojejunostomy. The common channel was oriented to the jejunojejunostomy. The Ralph limb was also investigated proximally to the gastric pouch. Similarly, the biliopancreatic limb was investigated to its usual anatomical landmark to the ligament of Treitz. After reduction of small bowel volvulus, a large Gayr defect was confirmed. The Petersons defect was closed using mesenteric bites medial to the ligament of Treitz along the right side of the abdomen. 2-0 V-Loc was used to close the defect completely. Abnormal adhesions involving the appendix was still found whereby resection of the appendix was necessary to decrease risk of recurrence for an internal hernia. The mesoappendix was mobilized using vessel sealer. The base of the appendix was resected using 45 mm robotic white staple load. Hemostasis was excellent. The sigmoid colon was distended. Inspection also confirmed a separate volvulus of the sigmoid colon which was reduced and viable. Moderate redundancy of the ascending colon, cecum, sigmoid colon was also confirmed. All small bowel including large bowel was viable at the end of the case. The robot was undocked. All pneumoperitoneum instruments were evacuated from the abdominal cavity. The incisions were reapproximated using 4-0 Monocryl in an interrupted subcuticular fashion. Please note along the trocar sites, local anesthetic was placed as a field block prior to insertion of all instruments. Dermabond was applied to the skin. At the end of the procedure needle, sponge, and instrument count had been verified correct by the surgical asst. The patient was transferred to postanesthesia care unit in stable condition. Plan - Discharge Summary Discharge Rx Participant: Yes New Discharge Prescriptions: New Simethicone [Gas-X] 125 mg PO AC-TID PRN #20 capsule PRN Reason: Pain Acetaminophen Tab [Tylenol Tab] 1,000 mg PO Q6HR PRN #30 tablet PRN Reason: Pain Cyclobenzaprine [Flexeril] 10 mg PO TID #30 tab Continue Symponi 1 bag IV Q60D Cetirizine HCl [Zyrtec] 10 mg PO HS Otc Multi Vitamin Gummie 1 tab PO HS Omeprazole [PriLOSEC] 40 mg PO QAM Discharge Medication List Otc Multi Vitamin Gummie 1 tab PO HS 09/09/24 [History] Symponi 1 bag IV Q60D 09/09/24 [History] Cetirizine HCl [Zyrtec] 10 mg PO HS 10/05/24 [History] Omeprazole [PriLOSEC] 40 mg PO QAM 10/24/24 [History] Acetaminophen Tab [Tylenol Tab] 1,000 mg PO Q6HR PRN #30 tablet 11/14/24 [Rx] Cyclobenzaprine [Flexeril] 10 mg PO TID #30 tab 11/14/24 [Rx] Simethicone [Gas-X] 125 mg PO AC-TID PRN #20 capsule 11/14/24 [Rx] [place] [facility]Ref[place]/23/24 3:00 pm Patient Instructions/Handouts: *Surgery [facility] - (Anesthesia) Discharge Instructions Outpatient Surgery, *Surgery [facility] - Scopalamine Patch Instructions, Lysis of Abdominal Adhesions (DC) Activity/Diet/Wound Care/Special Instructions: NO LONG DRIVES OR AIRPLANE RIDES OVER 2 hrs FOR THE NEXT 2 WEEKS, 11/28/24 DUE TO HIGH RISK OF PULMONARY EMBOLISM/DVTs May drive in 24 to 48 hours after recovery from anesthesia No lifting over 10 pounds in 2 weeks until 11/28/24 May shower. No bath tub soaks for two weeks until 11/28/24 Diet as tolerated. Use your current pain medications, Flexeril, simethicone scheduled for the next 24-48 hours for best pain relief. Use ice along incisions for today to prevent swelling. Discharge Disposition: HOME SELF-CARE
--- NOTE | 2024-11-19 13:27 | P.PN ---
Progress Note - Text Progress Note Date: 11/19/24 1326 - 1327 : Patient reports that she is doing very well since surgery. No further abdominal pain. Outpatient follow-up with the bariatric center described in 4 days.
== END 2024-11-14 17:29 | disposition home or self-care (01) ==
LOC: OR 07:19
PROVIDERS: ATTEND Surgery Plastic and Reconstructive Surgery
DX: K66.0 Peritoneal adhesions (postprocedural) (postinfection) (principal); K56.2 Volvulus; Z98.84 Bariatric surgery status; G89.18 Other acute postprocedural pain; M79.7 Fibromyalgia; M06.9 Rheumatoid arthritis, unspecified; K21.9 Gastro-esophageal reflux disease without esophagitis; K36 Other appendicitis; I73.00 Raynaud's syndrome without gangrene; K90.0 Celiac disease; Z87.891 Personal history of nicotine dependence; Z88.0 Allergy status to penicillin; Z88.1 Allergy status to other antibiotic agents; Z88.8 Allergy status to other drugs, medicaments and biological substances
CPT/HCPCS: 44238; S2900; 64468; 80053; 81025; 85025; 88304

== ENCOUNTER → 2024-11-23 | Outpatient (CLI) | payer OTHER ==
[2024-11-23 14:07] VITALS: BP 99/67; PULSE 64; RESP 16; TEMP 98.1; BMI 25.6
--- NOTE | 2024-11-23 14:38 | P.BASOAP ---
Subjective Progress Note Date: 11/23/24 She was twisted bowel in pain. She feels great. But sitting and standing. Lifting up to 45 pounds. 4 weeks. December 12 return to work. She comes in with chronic constipation. Bowel resection prior to skin removal. Objective - Vital Signs Vital signs: Vital Signs Temp 98.1 F 11/23/24 13:59 Pulse 64 11/23/24 13:59 Resp 16 11/23/24 13:59 BP 99/67 11/23/24 13:59 Pulse Ox FiO2 Intake & Output 11/22/24 11/23/24 11/23/24 18:59 06:59 18:59 Weight 73.028 kg Assessment/Plan Plan: Date: 11/23/24 Initial Weight: 127.459 kg Initial BMI: 44.6 Current Weight: 73.028 kg Current BMI: 25.6 Type of Surgery: Total Volume in Band: Previous Volume: Volume Removed: Volume Added: Band Size:
== END ==
LOC: BARWHC3 13:44
PROVIDERS: ATTEND Surgery Plastic and Reconstructive Surgery
DX: E66.01 Morbid (severe) obesity due to excess calories (principal); F17.200 Nicotine dependence, unspecified, uncomplicated; Z88.0 Allergy status to penicillin; Z91.018 Allergy to other foods; Z91.040 Latex allergy status; Z88.5 Allergy status to narcotic agent; Z88.1 Allergy status to other antibiotic agents; Z88.8 Allergy status to other drugs, medicaments and biological substances; Z68.25 Body mass index [BMI] 25.0-25.9, adult
CPT/HCPCS: 99211